=== PATIENT | female | born 1945 | race Caucasian/White ===

== ENCOUNTER 2019-05-22 12:55 | Inpatient (IN) | payer MEDICARE, MEDICAID, SELFPAY ==
[2019-05-22] VITALS (9 sets, daily range): BP systolic 125–156; BP diastolic 50–66; PULSE 96–111; RESP 18–24; TEMP 36.9–37.3; O2SAT 93–96; BMI 28.0
--- NOTE | ~2019-05-22 | XR_ITS ---
EXAMINATION: XR chest 2V DATE: 05/24/2019 09:00 INDICATION: Cough. TECHNIQUE: Frontal and lateral views of the chest were obtained. COMPARISON: Chest 2 views 05/22/2019, chest CT 09/20/2015 FINDINGS: There is mild scarring at the lung apices. The lungs are hyperexpanded with chronic interst itial opacities, consistent with emphysema. Again seen is mild atelectasis in right upper lobe. No pl eural effusion or pneumothorax. The heart size is normal. IMPRESSION: 1. Emphysema. Reviewed, dictated and finalized at location A. YTICAL STRATEGIST IMPRESSION: 1. Emphysema.
--- NOTE | ~2019-05-22 | XR_ITS ---
EXAMINATION: XR chest 2V EXAM DATE: 05/22/2019 13:27 INDICATION: Cough, wheezing, shortness of breath. TECHNIQUE: Frontal and lateral projections of the chest obtained and reviewed. Comparison is made to prior examination from 02/01/2019. FINDINGS: Moderate hyperinflation. There is aortic arterial sclerosis. No confluent consolidation, p neumothorax or pleural effusion suspected. Cardiomediastinal silhouette is normal. There are mild bon y degenerative changes. IMPRESSION: 1. Hyperinflation. Reviewed, dictated and finalized at location A. ERNMAKER HAND IMPRESSION: 1. Hyperinflation.
[2019-05-22 13:27] LABS: Basophils Percent Auto 0.3 % (0.2-1.2); Eosinophils Absolute Auto 0.1 K/mm3 (0-0.3); Eosinophils Percent Auto 0.9 % (0-4.4); Hematocrit 41.8 % (37.0-47.0); Hemoglobin 13.2 g/dL (12.0-15.0); Immature Granulocyte Absolute 0.03 K/mm3 (0.00-0.031); Immature Granulocyte Percent A 0.3 % (0-0.5); Lymphocytes Absolute Auto 3.09 K/mm3 (0.9-3.2); Mean Corpuscular HGB Conc 31.6 g/dl (32-36); Mean Corpuscular Hemoglobin 30.2 pg (26-34); Mean Corpuscular Volume 95.7 fl (80-100); Mean Platelet Volume 9.8 fl (7.4-10.4); Monocytes Absolute Auto 0.9 K/mm3 (0.1-0.6); Monocytes Percent Auto 9.7 % (2.6-8.5); Neutrophils Absolute Auto 4.8 K/mm3 (1.3-6.7); Neutrophils Percent Auto 53.8 % (45.5-73.1); Platelet Count Result 260 k/mm3 (150-375); Red Blood Count 4.37 M/mm3 (4.2-5.4); Red Cell Distribution Width 13.7 % (11.5-14.5); White Blood Count 8.8 K/mm3 (4.5-10.0)
[2019-05-22 13:38] LABS: Blood Urea Nitrogen 21 mg/dL (7-17); Calcium 9.2 mg/dL (8.4-10.2); Carbon Dioxide 27 mmol/L (22-30); Chloride 96 mmol/L (98-107); Estimated CRCL calculation 33 ml/min; Estimated Glomerular Filt Rate 40; Glucose 96 mg/dL (65-105); Potassium 4.1 mmol/L (3.4-5.0); Sodium 133 mmol/L (137-145)
--- NOTE | 2019-05-22 15:02 | ED.SOB ---
HPI - SOB/Dyspnea General Chief Complaint: Shortness of Breath/Dyspnea Stated Complaint: productive cough, possible pneumonia Time Seen by Provider: 05/22/19 14:56 Source: patient Mode of arrival: ambulatory Limitations: no limitations History of Present Illness HPI Narrative: Pt is a 73 y/o female, with a H/o COPD, who presents to the ED with c/o worsening SOB with exertion that started Wednesday (3 days ago). Pt reports associated productive cough with yellow phlegm, nausea, and a fever of 100F. She is normally on 2L home O2. Pt states that she quit smoking 20 years ago. She denies vomiting. MD elicited complaint: shortness of breath Pertinent past history: COPD Onset (ago): day(s) (3) Timing: progressively worsening Known history of: COPD Associated symptoms: fever, cough and other (nausea) Related Data Home oxygen amount: 2 liters Home Medications Medication Instructions Recorded Confirmed aspirin 81 mg tablet,delayed 81 mg PO DAILY 02/10/19 release cholecalciferol (vitamin D3) 10 400 unit PO DAILY 02/10/19 mcg (400 unit) capsule fluticasone propionate 50 2 spray NASAL DAILY 02/10/19 mcg/actuation nasal spray,suspension omega 1-dlx-wif-fish oil 1,000 mg 1 cap PO DAILY 02/10/19 (120 mg-180 mg) capsule tiotropium bromide 18 mcg capsule 1 cap INHALATION DAILY 02/10/19 with inhalation device albuterol sulfate 90 mcg/actuation 1 puff INHALATION Q4H PRN 05/04/19 aerosol inhaler Allergies Allergy/AdvReac Type Severity Reaction Status Date / Time TULIO Inhibitors Allergy Unknown Rash Verified 05/04/19 10:18 azithromycin Allergy Unknown Rash Verified 05/04/19 10:18 budesonide Allergy Unknown Rash Verified 05/04/19 10:18 ceftriaxone Allergy Unknown Rash Verified 05/04/19 10:18 codeine Allergy Unknown Rash Verified 05/04/19 10:18 formoterol Allergy Unknown Rash Verified 05/04/19 10:18 levofloxacin Allergy Unknown Rash Verified 05/04/19 10:18 lisinopril Allergy Unknown Rash Verified 05/04/19 10:18 Review of Systems Review of Systems: All systems reviewed & are unremarkable except as noted in HPI and below Constitutional: Constitutional: Reports fever(s) (100F) Respiratory: Respiratory: Reports cough and Reports dyspnea Gastrointestinal: Gastrointestinal: Reports nausea and Denies vomiting [facility] Past Medical History Medical History (Updated 05/22/19 @ 16:00 by Pablo Webster DO) ARF (acute renal failure) Emphysema of lung HTN (hypertension) Myocardial infarction Pneumonia Seasonal allergies Surgical History Surgical History (Updated 05/22/19 @ 15:24 by Sandhya Moeller) H/O heart artery stent H/O: hysterectomy Hx of appendectomy Family History Family History (Updated 09/29/17 @ 09:34 by DOCTOR UNKNOWN) Grandparent Family history of tuberculosis Mother Cerebrovascular accident, Onset Age: 73 Father Family history of chronic obstructive pulmonary disease Family history of heart disease in male family member before age 55 Acute myocardial infarction Sibling Family history of chronic obstructive pulmonary disease Family history of lung cancer Family history of malignant neoplasm Family history of lung disease Social History Social History Smoking status: Former smoker Second hand tobacco smoke exposure: No Smoking end date: 04/19/97 Alcohol intake: never Gender identity (if verbalized by the patient): Female Exam Narrative: Exam Narrative: APPEARANCE: No acute distress, nontoxic, resting in bed EYES: EOMI HEENT: Normocephalic, atraumatic, OMM RESPIRATORY: Mild respiratory distress, wheezing throughout the bilateral lung [place]una with decreased breath sounds in the bases, no rhonchi ABDOMINAL: Soft, nontender, nondistended, no rebound or guarding MUSCULOSKELETAl: Moves all extremities. No clubbing, cyanosis or edema. NEURO: Awake and alert. Following commands, speech normal, no focal deficits
[2019-05-22] MEDS: ALBUTEROL SULFATE NEB 2.5 MG/0.5 ML INH 5 MG INHALATION ×3 (15:24→21:48)
[2019-05-22] MEDS: IPRATROPIUM BR 0.02% INH SOLN 0.5 MG/2.5 ML VIAL INHALATION ×3 (15:24→21:48)
[2019-05-22] MEDS: methylPREDNISolone SOD SUCC 125 MG VIAL IV PUSH (16:13)
--- NOTE | 2019-05-22 17:40 | ADMGEN ---
This patient, Irma Rocha, was admitted to [facility] Surg Room 326-01. Patient/family oriented to hospital policies and general routines including ID bracelet, bed and alarms, visiting hours, pain management, procedures, bathroom and other care routines, personal items, smoking policy, room service/diet, and visiting hours. Valuables list has been completed. Information on how to activate the Rapid Response Team has been discussed. Patient/Family are encouraged to report perceived risks to care and to ask questions if they do not understand what they are told or what they should do.
[2019-05-22 18:56] LABS: Glucose Point of Care 165 (65-105)
[2019-05-22] MEDS: ACETAMINOPHEN 325 MG TABLET 650 MG PO (23:51)
[2019-05-22] MEDS: methylPREDNISolone SOD SUCC 125 MG VIAL 60 MG IV PUSH (23:52)
[2019-05-23] VITALS (11 sets, daily range): BP systolic 121–132; BP diastolic 50–62; PULSE 92–113; RESP 18–20; TEMP 36.4–37.1; O2SAT 94–97
[2019-05-23] MEDS: IPRATROPIUM BR 0.02% INH SOLN 0.5 MG/2.5 ML VIAL INHALATION ×4 (02:55→21:06)
[2019-05-23] MEDS: ALBUTEROL SULFATE NEB 2.5 MG/0.5 ML INH 5 MG INHALATION ×2 (02:55→09:04)
[2019-05-23] MEDS: methylPREDNISolone SOD SUCC 125 MG VIAL 60 MG IV PUSH ×2 (05:21→20:13)
[2019-05-23 06:22] LABS: Basophils Percent Auto 0.1 % (0.2-1.2); Hematocrit 39.8 % (37.0-47.0); Hemoglobin 12.4 g/dL (12.0-15.0); Immature Granulocyte Absolute 0.04 K/mm3 (0.00-0.031); Immature Granulocyte Percent A 0.5 % (0-0.5); Lymphocytes Absolute Auto 0.97 K/mm3 (0.9-3.2); Lymphocytes Percent Auto 13.3 % (18.3-44.2); Mean Corpuscular HGB Conc 31.2 g/dl (32-36); Mean Corpuscular Hemoglobin 30.3 pg (26-34); Mean Corpuscular Volume 97.3 fl (80-100); Mean Platelet Volume 10.3 fl (7.4-10.4); Monocytes Absolute Auto 0.1 K/mm3 (0.1-0.6); Neutrophils Absolute Auto 6.2 K/mm3 (1.3-6.7); Neutrophils Percent Auto 85.1 % (45.5-73.1); Platelet Count Result 208 k/mm3 (150-375); Red Blood Count 4.09 M/mm3 (4.2-5.4); Red Cell Distribution Width 13.5 % (11.5-14.5); White Blood Count 7.3 K/mm3 (4.5-10.0)
[2019-05-23 06:40] LABS: Blood Urea Nitrogen 27 mg/dL (7-17); Calcium 8.8 mg/dL (8.4-10.2); Carbon Dioxide 18 mmol/L (22-30); Chloride 98 mmol/L (98-107); Estimated CRCL calculation 39 ml/min; Estimated Glomerular Filt Rate 48; Glucose 192 mg/dL (65-105); Potassium 3.6 mmol/L (3.4-5.0); Sodium 132 mmol/L (137-145)
[2019-05-23 07:38] LABS: Glucose Point of Care 184 (65-105)
[2019-05-23] MEDS: ACETAMINOPHEN 325 MG TABLET 650 MG PO (10:09)
[2019-05-23] MEDS: ASPIRIN 81 MG ENTERIC TABLET PO (11:26)
[2019-05-23] MEDS: OLMESARTAN MEDOXOMIL 20 MG TABLET 40 MG PO (11:26)
[2019-05-23] MEDS: hydroCHLOROthiazide 12.5 MG CAPSULE PO (11:26)
[2019-05-23] MEDS: AMLODIPINE BESYLATE 5 MG TABLET PO (11:27)
[2019-05-23] MEDS: ATORVASTATIN 40 MG TABLET PO (11:27)
--- NOTE | 2019-05-23 11:43 | PM.IMHP ---
H&P: HPI History of Present Illness Chief complaint: Influenza B/AE COPD Narrative: Irma Rocha is a 73 year old female who presented emergency room due to shortness of breath, cough, and generalized malaise. Patient stated that this all started Wednesday afternoon. She said she started feeling chills, achy all over, and coughing more than normal. She started coughing up yellow phlegm and felt short of breath. She usually has dyspnea on exertion that is typical for her and she takes 2 L of oxygen at home for but she said it was much worse. Usually she does not require oxygen when she is just sitting there. She said she started having fevers over 100? F and just felt off so she came into the emergency room. She feels like she has dry mucous membranes and she currently has a headache. 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 She has known COPD. She says the breathing treatments have been helping here at the hospital and she feels a little better. She denies diarrhea, constipation, chest pain, dizziness, lightheadedness, nausea, vomiting, leg swelling, or any rashes. She states that she has been told she is prediabetic but does not check her blood glucose and does not know her A1c. She says she has had a low appetite lately but is starting to get it back. She got the flu shot this year and does not go out very much to avoid sickness. Review of Systems Review of Systems: All systems reviewed & are unremarkable except as noted in HPI and below PMFSH Past Medical History Medical History (Updated 05/23/19 @ 11:54 by Chelsey Kendall PA-C) ARF (acute renal failure) Carotid occlusion, bilateral She sees her vascular surgeon every 6 months for this COPD with acute exacerbation Emphysema of lung HTN (hypertension) Myocardial infarction Pneumonia Seasonal allergies Surgical History Surgical History H/O heart artery stent H/O: hysterectomy Hx of appendectomy Family History Family History Grandparent Family history of tuberculosis Mother Cerebrovascular accident, Onset Age: 73 Father Family history of chronic obstructive pulmonary disease Family history of heart disease in male family member before age 55 Acute myocardial infarction Sibling Family history of chronic obstructive pulmonary disease Family history of lung cancer Family history of malignant neoplasm Family history of lung disease Social History Social History (Updated 05/23/19 @ 11:52 by Chelsey Kendall PA-C) Social History: Lives with her daughter. Would like to be full code Smoking packs per day: 1.5 Smoking cigarettes per day: 30.0 Years smoked: 20 Smoking pack-years: 30.00 Smoking status: Former smoker Second hand tobacco smoke exposure: No Smoking end date: 04/19/97 Alcohol intake: former Drinks per week: 1 Substance use: never Substance use type: does not use Gender identity (if verbalized by the patient): Female Spiritual care concerns: No Agree to blood products: Yes Meds Home Medications and Allergies Home Medications Medication Instructions Recorded Confirmed Type aspirin 81 mg tablet,delayed 81 mg PO DAILY 02/10/19 05/22/19 History release cholecalciferol (vitamin D3) 10 400 unit PO DAILY 02/10/19 05/22/19 History mcg (400 unit) capsule fluticasone propionate 50 2 spray NASAL DAILY PRN 02/10/19 05/22/19 History mcg/actuation nasal spray,suspension omega 9-hbh-bms-fish oil 1,000 mg 1 cap PO DAILY 02/10/19 05/22/19 History (120 mg-180 mg) capsule tiotropium bromide 18 mcg capsule 1 cap INHALATION DAILY 02/10/19 05/22/19 History with inhalation device albuterol sulfate 2.5 mg INHALATION Q6H #180 ml 02/27/19 05/22/19 Rx atorvastatin 40 mg tablet 40 mg PO DAILY #90 tablet 02/27/19 05/22/19 Rx fluticasone 500
[2019-05-23] MEDS: INSULIN ASPART (*BKC) 100 UNITS/ML SUB-Q (12:00)
[2019-05-23 12:05] LABS: Glucose Point of Care 207 (65-105)
[2019-05-23] MEDS: LEVALBUTEROL NEB 1.25 MG/3 ML 0.63 MG INHALATION ×2 (14:54→21:06)
[2019-05-23 17:23] LABS: Glucose Point of Care 165 (65-105)
[2019-05-23 23:09] LABS: Glucose Point of Care 181 (65-105)
[2019-05-24] VITALS (11 sets, daily range): BP systolic 121–142; BP diastolic 57–69; PULSE 85–108; RESP 16–20; TEMP 36.2–37.1; O2SAT 89–98
[2019-05-24] MEDS: LEVALBUTEROL NEB 1.25 MG/3 ML 0.63 MG INHALATION ×4 (01:27→20:06)
[2019-05-24] MEDS: IPRATROPIUM BR 0.02% INH SOLN 0.5 MG/2.5 ML VIAL INHALATION ×4 (01:27→20:06)
[2019-05-24 06:13] LABS: Hematocrit 40.9 % (37.0-47.0); Hemoglobin 13.3 g/dL (12.0-15.0); Mean Corpuscular HGB Conc 32.5 g/dl (32-36); Mean Corpuscular Hemoglobin 30.3 pg (26-34); Mean Corpuscular Volume 93.2 fl (80-100); Platelet Count Result 263 k/mm3 (150-375); Red Blood Count 4.39 M/mm3 (4.2-5.4); Red Cell Distribution Width 13.7 % (11.5-14.5); White Blood Count 32.4 K/mm3 (4.5-10.0)
[2019-05-24 06:41] LABS: Blood Urea Nitrogen 33 mg/dL (7-17); Calcium 9.2 mg/dL (8.4-10.2); Carbon Dioxide 25 mmol/L (22-30); Chloride 97 mmol/L (98-107); Estimated CRCL calculation 39 ml/min; Estimated Glomerular Filt Rate 48; Glucose 165 mg/dL (65-105); Potassium 3.7 mmol/L (3.4-5.0); Sodium 134 mmol/L (137-145)
[2019-05-24 06:59] LABS: Glucose Point of Care 156 (65-105)
[2019-05-24 07:21] LABS: Thyroid Stimulating Hormone Reflex 0.202 uIU/mL (0.465-4.68)
[2019-05-24] MEDS: predniSONE 20 MG TABLET 40 MG PO (09:40)
[2019-05-24] MEDS: AMLODIPINE BESYLATE 5 MG TABLET PO (10:10)
[2019-05-24] MEDS: ATORVASTATIN 40 MG TABLET PO (10:11)
[2019-05-24] MEDS: ASPIRIN 81 MG ENTERIC TABLET PO (10:11)
[2019-05-24] MEDS: OLMESARTAN MEDOXOMIL 20 MG TABLET 40 MG PO (10:12)
[2019-05-24] MEDS: hydroCHLOROthiazide 12.5 MG CAPSULE PO (10:12)
--- NOTE | 2019-05-24 10:41 | PM.IMPN ---
Progress Note: A&P Assessment and Plan (1) Influenza B: Code(s): J10.1 - Influenza due to other identified influenza virus with other respiratory manifestations Status: Acute Assessment and Plan: -----patient stated that the symptoms started on Wednesday and she is outside the window for Tamiflu. Will continue with supportive treatment as well as isolation. (2) COPD with acute exacerbation: Code(s): J44.1 - Chronic obstructive pulmonary disease with (acute) exacerbation Status: Acute Assessment and Plan: -----the patient was given high-dose IV steroids which were tapered yesterday and the patient seems to have worsened overnight. At this time I will restart IV steroids 60 mg Q 12. Repeat chest x-ray does not show any pneumonia despite worsening lung sounds. Will keep her hospitalized another night to monitor her symptoms. (3) Essential (primary) hypertension: Code(s): I10 - Essential (primary) hypertension Status: Acute Assessment and Plan: -----last blood pressure 142/69. Continue home medications (4) Sinus tachycardia: Code(s): R00.0 - Tachycardia, unspecified Status: Acute Assessment and Plan: -----likely due to the flu. Patient has no feelings of chest pain or heart palpitations. It appears regular on exam. She does have a past history of tachycardia as well. Continue to monitor (5) Leukocytosis: Code(s): D72.829 - Elevated white blood cell count, unspecified Status: Acute Assessment and Plan: -----likely due to steroids since the patient was within normal limits yesterday. Repeat chest x-ray does not show any developing pneumonia. Will redraw tomorrow and likely redraw again outpatient after she is finished with the steroids. Time Spent With Patient Time with patient: 25 - 35 minutes Subjective Date/time seen: 05/24/19 10:41 Interval history: Pt is a 73-year-old here for influenza and COPD exacerbation. Patient states that she felt better yesterday and feels worse today. She says she is having worsening dyspnea on exertion and cough. She still has aches and pains. Pt denies nausea, vomiting, constipation, diarrhea, chest pain,or abdominal pain. Review of Systems Review of Systems: All systems reviewed & are unremarkable except as noted in HPI and below Exam Narrative: Exam Narrative: General:Well developed well nourished patient resting comfortably in bed in no acute distress with O2 applied HEENT: Normocephalic, atraumatic, PERRL, Sclerae anicteric, oral mucosa moist. Neck: Supple Resp: Significant cough and rhonchi bilaterally Heart: Sinus tachycardia Abd: Soft, nontender. No pain to palpation. Positive bowel sounds Skin: Warm and dry Extremities: No swelling, erythema or pain to palpation Neuro: Alert and Oriented x4 . CN 2-12 intact. No focal neurological deficits. Objective Data Vital Signs Vital Signs: Vital Signs - 24 hr 05/23/19 14:00 05/23/19 14:54 05/23/19 15:06 Temperature 97.5 F L Pulse Rate 105 H 105 H 112 H Respiratory Rate 18 20 20 Blood Pressure 123/50 L Pulse Oximetry 95 05/23/19 21:06 05/23/19 21:13 05/23/19 22:00 Temperature 98.2 F Pulse Rate 102 H 107 H 102 H Respiratory Rate 20 20 20 Blood Pressure 121/52 L Pulse Oximetry 94 94 05/24/19 01:27 05/24/19 01:36 05/24/19 06:00 Temperature 97.8 F Pulse Rate 101 H 104 H 105 H Respiratory Rate 18 18 20 Blood Pressure 142/69 H Pulse Oximetry 93 89 L Intake/Output Intake/Output: Intake & Output 05/21/19 05/22/19 05/23/19 05/24/19 23:59 23:59 23:59 23:59 Intake Total 2020 670 Output Total 1825 2200 Balance 195 -1530 Meds/Results Medications: Active Medications Generic Name Dose Route Start Last Admin Trade Name Freq PRN Reason Stop Dose Admin Acetaminophen 650 mg 05/22/19 23:04 05/23/19 10:09 Tylenol Tablet PO 650 mg Q4H PRN Administration
[2019-05-24 12:06] LABS: Glucose Point of Care 108 (65-105)
[2019-05-24] MEDS: methylPREDNISolone SOD SUCC 125 MG VIAL 60 MG IV PUSH ×2 (12:18→20:25)
[2019-05-24 16:58] LABS: Glucose Point of Care 157 (65-105)
[2019-05-24 21:33] LABS: Glucose Point of Care 224 (65-105)
[2019-05-25] VITALS (10 sets, daily range): BP systolic 132–145; BP diastolic 64–79; PULSE 65–97; RESP 16–20; TEMP 36.7–36.9; O2SAT 95–97
[2019-05-25] MEDS: LEVALBUTEROL NEB 1.25 MG/3 ML 0.63 MG INHALATION ×3 (01:57→14:04)
[2019-05-25] MEDS: IPRATROPIUM BR 0.02% INH SOLN 0.5 MG/2.5 ML VIAL INHALATION ×3 (01:57→14:04)
[2019-05-25 06:48] LABS: Basophils Percent Auto 0.1 % (0.2-1.2); Hematocrit 38.8 % (37.0-47.0); Hemoglobin 12.6 g/dL (12.0-15.0); Immature Granulocyte Absolute 0.18 K/mm3 (0.00-0.031); Immature Granulocyte Percent A 0.8 % (0-0.5); Lymphocytes Absolute Auto 1.51 K/mm3 (0.9-3.2); Lymphocytes Percent Auto 6.6 % (18.3-44.2); Mean Corpuscular HGB Conc 32.5 g/dl (32-36); Mean Corpuscular Hemoglobin 30.2 pg (26-34); Mean Platelet Volume 9.8 fl (7.4-10.4); Monocytes Absolute Auto 0.5 K/mm3 (0.1-0.6); Monocytes Percent Auto 2.2 % (2.6-8.5); Neutrophils Absolute Auto 20.6 K/mm3 (1.3-6.7); Neutrophils Percent Auto 90.3 % (45.5-73.1); Platelet Count Result 245 k/mm3 (150-375); Red Blood Count 4.17 M/mm3 (4.2-5.4); Red Cell Distribution Width 13.6 % (11.5-14.5); White Blood Count 22.8 K/mm3 (4.5-10.0)
[2019-05-25 06:58] LABS: Blood Urea Nitrogen 32 mg/dL (7-17); Carbon Dioxide 26 mmol/L (22-30); Chloride 96 mmol/L (98-107); Estimated CRCL calculation 47 ml/min; Estimated Glomerular Filt Rate > 60; Glucose 199 mg/dL (65-105); Potassium 3.5 mmol/L (3.4-5.0); Sodium 134 mmol/L (137-145)
[2019-05-25 07:01] LABS: Hemoglobin A1C 6.3 % (<5.7)
[2019-05-25 07:42] LABS: Glucose Point of Care 131 (65-105)
[2019-05-25] MEDS: AMLODIPINE BESYLATE 5 MG TABLET PO (08:38)
[2019-05-25] MEDS: ASPIRIN 81 MG ENTERIC TABLET PO (08:38)
[2019-05-25] MEDS: OLMESARTAN MEDOXOMIL 20 MG TABLET 40 MG PO (08:39)
[2019-05-25] MEDS: methylPREDNISolone SOD SUCC 125 MG VIAL 60 MG IV PUSH ×3 (08:39→21:23)
[2019-05-25] MEDS: hydroCHLOROthiazide 12.5 MG CAPSULE PO (08:39)
[2019-05-25] MEDS: ATORVASTATIN 40 MG TABLET PO (08:39)
[2019-05-25 12:56] LABS: Glucose Point of Care 132 (65-105)
--- NOTE | 2019-05-25 13:55 | PM.IMPN ---
Progress Note: A&P Assessment and Plan (1) Influenza B: Code(s): J10.1 - Influenza due to other identified influenza virus with other respiratory manifestations Status: Acute Assessment and Plan: -----patient stated that the symptoms started on Wednesday and she is outside the window for Tamiflu. Will continue with supportive treatment as well as isolation. (2) COPD with acute exacerbation: Code(s): J44.1 - Chronic obstructive pulmonary disease with (acute) exacerbation Status: Acute Assessment and Plan: -----the patient continues to have significant wheezing and rhonchi with normal chest x-ray. COPD exacerbation secondary to pneumonia. Will increase her IV steroids today since she seems to be having significant bronchospasms. She is on her home setting of oxygen at this time. Chest x-ray x2 negative for pneumonia but will monitor for changes. I spoke to her about COPD and the length of exacerbation as she seems a little discouraged by how long it is taking her to heal. (3) Essential (primary) hypertension: Code(s): I10 - Essential (primary) hypertension Status: Acute Assessment and Plan: -----last blood pressure 134/78. Continue home medications (4) Sinus tachycardia: Code(s): R00.0 - Tachycardia, unspecified Status: Acute Assessment and Plan: -----resolved. Likely due to the flu. Patient has no feelings of chest pain or heart palpitations. It appears regular on exam. She does have a past history of tachycardia as well. Continue to monitor (5) Leukocytosis: Code(s): D72.829 - Elevated white blood cell count, unspecified Status: Acute Assessment and Plan: -----likely due to steroids since the patient was within normal limits yesterday. Repeat chest x-ray does not show any developing pneumonia. Will redraw again outpatient after she is finished with the steroids. Additional Plan . Subjective Date/time seen: 05/25/19 13:55 Interval history: Pt is a 73-year-old here for influenza and COPD exacerbation. Patient was seen today and states she is still coughing and feeling slightly short of breath. She has not been active and does not know if she has significant shortness of breath on exertion. She plans to get a baths and change her clothes later today so she will evaluate then. She is very concerned about her lung status and was told in the past that every time she gets sick her lungs will get a little worse. She is very upset that she caught the flu. Pt denies nausea, vomiting, diarrhea, chest pain,or abdominal pain. She has not had a bowel movement since being here. Exam Narrative: Exam Narrative: General:Well developed well nourished patient resting comfortably in bed in no acute distress with O2 applied HEENT: Normocephalic, atraumatic, PERRL, Sclerae anicteric, oral mucosa moist. Neck: Supple Resp: Significant cough and rhonchi bilaterally Heart: Regular rate and rhythm Abd: Soft, nontender. No pain to palpation. Positive bowel sounds Skin: Warm and dry Extremities: No swelling, erythema or pain to palpation Neuro: Alert and Oriented x4 . CN 2-12 intact. No focal neurological deficits. Objective Data Vital Signs Vital Signs: Vital Signs - 24 hr 05/24/19 14:00 05/24/19 20:07 05/24/19 20:18 Temperature 97.1 F L Pulse Rate 107 H 85 89 Respiratory Rate 16 20 20 Blood Pressure 121/57 L Pulse Oximetry 98 05/24/19 21:49 05/25/19 01:58 05/25/19 02:07 Temperature 98.7 F Pulse Rate 108 H 78 76 Respiratory Rate 20 20 Blood Pressure 135/66 Pulse Oximetry 95 05/25/19 06:00 05/25/19 08:38 Temperature 98.5 F Pulse Rate 97 71 Respiratory Rate 18 18 Blood Pressure 134/78 Pulse Oximetry 95 97 Intake/Output Intake/Output: Intake & Output 05/22/19 05/23/19 05/24/19 05/25/19 23:59 23:59 23:59 23:59 Intake Total 20190 1440 Output Total 1824 4600 2400 [place]
[2019-05-25] MEDS: INSULIN ASPART (*BKC) 100 UNITS/ML SUB-Q (17:43)
[2019-05-25 18:07] LABS: Glucose Point of Care 229 (65-105)
[2019-05-25 21:36] LABS: Glucose Point of Care 146 (65-105)
--- NOTE | 2019-05-26 02:14 | PCRCNOTE ---
Window of time for administration has passed. See next scheduled administration.
[2019-05-26 02:50] VITALS: PULSE 75; RESP 20
[2019-05-26] MEDS: IPRATROPIUM BR 0.02% INH SOLN 0.5 MG/2.5 ML VIAL INHALATION ×2 (02:50→09:34)
[2019-05-26] MEDS: LEVALBUTEROL NEB 1.25 MG/3 ML 0.63 MG INHALATION ×2 (02:50→09:35)
[2019-05-26 03:00] VITALS: PULSE 75; RESP 20
[2019-05-26] MEDS: methylPREDNISolone SOD SUCC 125 MG VIAL 60 MG IV PUSH (05:24)
[2019-05-26 05:55] VITALS: BP 140/63; PULSE 99; RESP 20; TEMP 36.3; O2SAT 94
[2019-05-26 06:30] LABS: Basophils Percent Auto 0.1 % (0.2-1.2); Eosinophils Percent Auto 0.1 % (0-4.4); Hematocrit 39.1 % (37.0-47.0); Hemoglobin 12.7 g/dL (12.0-15.0); Immature Granulocyte Absolute 0.17 K/mm3 (0.00-0.031); Immature Granulocyte Percent A 0.9 % (0-0.5); Lymphocytes Absolute Auto 1.23 K/mm3 (0.9-3.2); Lymphocytes Percent Auto 6.4 % (18.3-44.2); Mean Corpuscular HGB Conc 32.5 g/dl (32-36); Mean Corpuscular Volume 92.4 fl (80-100); Mean Platelet Volume 10.2 fl (7.4-10.4); Monocytes Absolute Auto 0.5 K/mm3 (0.1-0.6); Monocytes Percent Auto 2.5 % (2.6-8.5); Neutrophils Absolute Auto 17.4 K/mm3 (1.3-6.7); Platelet Count Result 224 k/mm3 (150-375); Red Blood Count 4.23 M/mm3 (4.2-5.4); Red Cell Distribution Width 13.6 % (11.5-14.5); White Blood Count 19.3 K/mm3 (4.5-10.0)
[2019-05-26 06:44] LABS: Blood Urea Nitrogen 32 mg/dL (7-17); Calcium 9.1 mg/dL (8.4-10.2); Carbon Dioxide 29 mmol/L (22-30); Chloride 98 mmol/L (98-107); Estimated CRCL calculation 42 ml/min; Estimated Glomerular Filt Rate 54; Glucose 193 mg/dL (65-105); Potassium 3.4 mmol/L (3.4-5.0); Sodium 136 mmol/L (137-145)
[2019-05-26 07:25] LABS: Glucose Point of Care 184 (65-105)
[2019-05-26] MEDS: ATORVASTATIN 40 MG TABLET PO (08:43)
[2019-05-26] MEDS: hydroCHLOROthiazide 12.5 MG CAPSULE PO (08:43)
[2019-05-26] MEDS: AMLODIPINE BESYLATE 5 MG TABLET PO (08:43)
[2019-05-26] MEDS: OLMESARTAN MEDOXOMIL 20 MG TABLET 40 MG PO (08:44)
[2019-05-26] MEDS: ASPIRIN 81 MG ENTERIC TABLET PO (08:44)
[2019-05-26 09:35] VITALS: PULSE 103; RESP 20
[2019-05-26 09:46] VITALS: PULSE 99; RESP 20
--- NOTE | 2019-05-26 10:22 | PM.DS ---
DS: Diagnosis Admitting Diagnosis Admitting Diagnosis: Chronic obstructive pulmonary disease with (acute) exacerbation Discharge Diagnosis (1) Influenza B: Code(s): J10.1 - Influenza due to other identified influenza virus with other respiratory manifestations Status: Acute Assessment and Plan: -----patient stated that the symptoms started on Wednesday and she is outside the window for Tamiflu. Supportive tx (2) COPD with acute exacerbation: Code(s): J44.1 - Chronic obstructive pulmonary disease with (acute) exacerbation Status: Acute Assessment and Plan: -----improved with steroids. Discharged on steroid taper (3) Essential (primary) hypertension: Code(s): I10 - Essential (primary) hypertension Status: Acute Assessment and Plan: -----last blood pressure 140/63. Continue home medications (4) Sinus tachycardia: Code(s): R00.0 - Tachycardia, unspecified Status: Acute Assessment and Plan: -----resolved. Likely due to the flu. Patient had no feelings of chest pain or heart palpitations. It appeared regular on exam. (5) Leukocytosis: Code(s): D72.829 - Elevated white blood cell count, unspecified Status: Acute Assessment and Plan: -----likely due to steroids since the patient was within normal limits yesterday. Repeat chest x-ray does not show any developing pneumonia. Will redraw again outpatient after she is finished with the steroids. DS: Summary Hospital Course Reason for hospitalization: Influenza positive COPD exacerbation Hospital Course: Patient is a 73-year-old female who presented emergency room for worsening shortness of breath and fevers found to be positive for influenza B. White blood cell count 8.8, hemoglobin 13.2, hematocrit 41.8, platelets 260. Original sodium 133, potassium 4.1, chloride 96, carbon dioxide 27, BUN 21, creatinine 1.3, glucose 96. Chest x-ray showed hyperinflation. Patient was given IV steroids and admitted to the hospitalist service. The patient took a few days to improve with IV steroids as she has significant COPD and is on oxygen at home. Her influenza was treated symptomatically since she was outside the window for Tamiflu. Her white blood cell count shot up to a max of 32.4 which seemed a little higher than expected for steroids so another chest x-ray was done and did not show any pneumonia. Her white blood cell count trended down with the tapering of the steroids. Overall, the patient felt better at the day of discharge. She was educated about the worrisome signs and symptoms come back to emergency room for was discharged stable condition. Patient is to have a repeat CBC outpatient and follow-up with her primary care in 1-2 weeks. Status at Discharge Functional status at discharge: independent ambulation Overall status at discharge: patient is progressing back to baseline Time Spent with Patient Time attestation: Total time spent providing and/or coordinating discharge services:34 min Time spent: Greater than 30 minutes Exam Narrative: Exam Narrative: General:Well developed well nourished patient resting comfortably in bed in no acute distress with O2 applied HEENT: Normocephalic, atraumatic, PERRL, Sclerae anicteric, oral mucosa moist. Neck: Supple Resp: ough and rhonchi bilaterally---improved. Heart: Regular rate and rhythm Abd: Soft, nontender. No pain to palpation. Positive bowel sounds Skin: Warm and dry Extremities: No swelling, erythema or pain to palpation Neuro: Alert and Oriented x4 . CN 2-12 intact. No focal neurological deficits. DS: Data Data Completed and Pending Labs on day of discharge: Labs from last 24 hours 05/26/19 05/26/19 05/26/19 07:21 06:15 06:15 WBC 19.3 H RBC 4.23 Hgb 12.7 Hct 39.1 MCV 92.4 MCH 30.0 MCHC 32.5 RDW 13.6 Plt Count 224 MPV 10.2 Immature Gran % (Auto) 0.9 H Neut % (Auto) 9
--- NOTE | 2019-05-29 11:41 | PCRCNOTE ---
COPD Post Discharge Phone Call Questions: Week 1 1. How are you feeling today? Kind of rough in the morning. 2. Have you had any follow-up appointments since your discharge? No a. Were you able to attend all appointments? Yes/No b. Do you have any upcoming appointments? Yes - Wednesday c. If referred to pulmonary rehab, is it going well? Yes/No 3. Have you had success with smoking cessation? Yes/No a. If you signed a smoking cessation contract, have you been contacted by anyone to assist you? Yes/No 4. Did you go home with any new respiratory medications? No a. What medications were they? b. Were the possible side effects explained? Yes/No 5. Did you go home with new respiratory equipment (oxygen, CPAP, NIV, Bipap, vent, nebs? No a. Were you shown how to use them? Yes/No b. Are you comfortable using them? Yes/No c. If not, what issues are you having with the equipment? 6. Have you experienced an increase in any of the following since your discharge... a. Cough? No b. Mucus Production? Yes c. Shortness of Breath? same d. Tiredness and/or Lethargy? No 7. Have you had to go to an Urgent Care Center/Emergency Room since discharge? No 8. Did you discuss with patient how to handle medical emergencies? Yes Additional Comments:
--- NOTE | 2019-06-13 12:38 | PCRCNOTE ---
COPD Post Discharge Phone Call Questions: Week 2 1. How are you feeling today? About the same, but better 2. Have you had any follow-up appointments since your discharge? Yes a. Were you able to attend all appointments? Yes b. Do you have any upcoming appointments? No c. If referred to pulmonary rehab, is it going well? Yes/No 3. Have you had success with smoking cessation? Yes/No a. If you signed a smoking cessation contract, have you been contacted by anyone to assist you? Yes/No 4. Did you go home with any new respiratory medications? No a. What medications were they? b. Were the possible side effects explained? Yes/No 5. Did you go home with new respiratory equipment (oxygen, CPAP, NIV, Bipap, vent, nebs? No a. Were you shown how to use them? Yes/No b. Are you comfortable using them? Yes/No c. If not, what issues are you having with the equipment? 6. Have you experienced an increase in any of the following since your discharge... a. Cough? No b. Mucus Production? No c. Shortness of Breath? No d. Tiredness and/or Lethargy? No 7. Have you had to go to an Urgent Care Center/Emergency Room since discharge? No 8. Did you discuss with patient how to handle medical emergencies? Yes Additional Comments:
--- NOTE | 2019-06-23 11:32 | PCRCNOTE ---
COPD Post Discharge Phone Call Questions: Week 3 Left Message 1. How are you feeling today? 2. Have you had any follow-up appointments since your discharge? Yes/No a. Were you able to attend all appointments? Yes/No b. Do you have any upcoming appointments? Yes/No c. If referred to pulmonary rehab, is it going well? Yes/No 3. Have you had success with smoking cessation? Yes/No a. If you signed a smoking cessation contract, have you been contacted by anyone to assist you? Yes/No 4. Did you go home with any new respiratory medications? Yes/No a. What medications were they? b. Were the possible side effects explained? Yes/No 5. Did you go home with new respiratory equipment (oxygen, CPAP, NIV, Bipap, vent, nebs? Yes/No a. Were you shown how to use them? Yes/No b. Are you comfortable using them? Yes/No c. If not, what issues are you having with the equipment? 6. Have you experienced an increase in any of the following since your discharge... a. Cough? Yes/No b. Mucus Production? Yes/No c. Shortness of Breath? Yes/No d. Tiredness and/or Lethargy? Yes/No 7. Have you had to go to an Urgent Care Center/Emergency Room since discharge? Yes/No 8. Did you discuss with patient how to handle medical emergencies? Yes/No Additional Comments:
== END 2019-05-26 11:10 | disposition home or self-care (01) | DRG 192 ==
LOC: ANHED 17:21 → ANH3MEDSUR 17:27
PROVIDERS: Physician Assistant; Admitting Provider Internal Medicine; Emergency Provider Emergency Medicine; PCP Internal Medicine; Visit Provider Family Medicine
DX: J43.9 Emphysema, unspecified (principal); J10.1 Influenza due to other identified influenza virus with other respiratory manifestations; R09.02 Hypoxemia; I10 Essential (primary) hypertension; R00.0 Tachycardia, unspecified; D72.829 Elevated white blood cell count, unspecified; T38.0X5A Adverse effect of glucocorticoids and synthetic analogues, initial encounter; J30.1 Allergic rhinitis due to pollen; I25.2 Old myocardial infarction; Z95.5 Presence of coronary angioplasty implant and graft; Z90.710 Acquired absence of both cervix and uterus; Z87.891 Personal history of nicotine dependence; Z79.82 Long term (current) use of aspirin; Z99.81 Dependence on supplemental oxygen
CPT/HCPCS: 36415; 71046; 80048; 83036; 84439; 84443; 84480; 85025; 85027; 87804; 94640; 96374; 96376; 99285; A9270; G0378; J1815; J2930; J7512

== ENCOUNTER 2019-06-09 08:52 | Outpatient (CLI) | payer MEDICARE, MEDICAID, SELFPAY ==
[2019-06-09 13:08] LABS: Basophils Percent Auto 0.3 % (0.2-1.2); Eosinophils Absolute Auto 0.3 K/mm3 (0-0.3); Hematocrit 43.9 % (37.0-47.0); Immature Granulocyte Absolute 0.06 K/mm3 (0.00-0.031); Immature Granulocyte Percent A 0.5 % (0-0.5); Lymphocytes Absolute Auto 3.01 K/mm3 (0.9-3.2); Lymphocytes Percent Auto 22.9 % (18.3-44.2); Mean Corpuscular HGB Conc 31.9 g/dl (32-36); Mean Corpuscular Hemoglobin 30.4 pg (26-34); Mean Corpuscular Volume 95.4 fl (80-100); Mean Platelet Volume 9.9 fl (7.4-10.4); Monocytes Absolute Auto 0.8 K/mm3 (0.1-0.6); Monocytes Percent Auto 6.2 % (2.6-8.5); Neutrophils Percent Auto 68.1 % (45.5-73.1); Platelet Count Result 276 k/mm3 (150-375); White Blood Count 13.2 K/mm3 (4.5-10.0)
== END 2019-06-09 08:53 | disposition home or self-care (01) ==
PROVIDERS: PCP Internal Medicine; Visit Provider Physician Assistant
DX: D72.829 Elevated white blood cell count, unspecified (principal)
CPT/HCPCS: 36415; 85025

== ENCOUNTER 2019-09-06 09:33 | Outpatient (CLI) | payer MEDICARE, MEDICAID, SELFPAY ==
[2019-09-06 10:00] LABS: Basophils Absolute Auto 0.1 K/mm3 (0.0-0.1); Basophils Percent Auto 0.5 % (0.2-1.2); Eosinophils Absolute Auto 0.4 K/mm3 (0-0.3); Eosinophils Percent Auto 3.4 % (0-4.4); Hematocrit 40.1 % (37.0-47.0); Hemoglobin 13.1 g/dL (12.0-15.0); Immature Granulocyte Absolute 0.03 K/mm3 (0.00-0.031); Immature Granulocyte Percent A 0.2 % (0-0.5); Lymphocytes Absolute Auto 4.32 K/mm3 (0.9-3.2); Lymphocytes Percent Auto 35.9 % (18.3-44.2); Mean Corpuscular HGB Conc 32.7 g/dl (32-36); Mean Corpuscular Hemoglobin 30.9 pg (26-34); Mean Corpuscular Volume 94.6 fl (80-100); Mean Platelet Volume 9.4 fl (7.4-10.4); Monocytes Absolute Auto 0.8 K/mm3 (0.1-0.6); Monocytes Percent Auto 6.4 % (2.6-8.5); Neutrophils Absolute Auto 6.5 K/mm3 (1.3-6.7); Neutrophils Percent Auto 53.6 % (45.5-73.1); Platelet Count Result 347 k/mm3 (150-375); Red Blood Count 4.24 M/mm3 (4.2-5.4)
[2019-09-06 10:08] LABS: Alanine Aminotransferase 22 U/L (4-35); Albumin Level 4.5 g/dL (3.5-5.1); Alkaline Phosphatase 77 U/L (38-126); Aspartate Amino Transferase 27 U/L (14-36); Bilirubin,Total 0.7 mg/dL (0.2-1.3); Blood Urea Nitrogen 29 mg/dL (7-17); Calcium 10.2 mg/dL (8.4-10.2); Carbon Dioxide 25 mmol/L (22-30); Chloride 102 mmol/L (98-107); Estimated Glomerular Filt Rate 24; Glucose 112 mg/dL (65-105); Potassium 4.8 mmol/L (3.4-5.0); Sodium 134 mmol/L (137-145)
[2019-09-06 10:17] LABS: Add Urine Microscopic? YES; Appearance Urine Clear (Clear); Bacteria Urine Trace /hpf; Bilirubin Urine Negative (Negative); Blood Urine Negative (Negative); Color Urine Straw (Yellow); Glucose Urine UA Negative (Negative); Ketones Urine Negative (Negative); Leukocyte Esterase Ur Trace LEU/UL (Negative); Mucus Urine Rare /lpf; Nitrate Urine Negative (Negative); Protein Urine Negative (Negative); RBC Urine 0-2 /hpf (0-2); Squamous Epithelial Cell Urine Many /hpf (Few); Urobilinogen Urine Negative mg/dL (<2.0); WBC Urine 0-3 /hpf
[2019-09-06 10:45] LABS: Creatinine Urine 52.7 mg/dL
[2019-09-06 10:50] LABS: MALB Creatinine Ratio < 11.4 mg/g (0-30); Microalbumin Urine Random < 6.0 mg/L (0-16.7)
== END 2019-09-06 09:34 | disposition home or self-care (01) ==
PROVIDERS: PCP Internal Medicine; Visit Provider Internal Medicine
DX: R73.01 Impaired fasting glucose (principal); N39.0 Urinary tract infection, site not specified
CPT/HCPCS: 36415; 80053; 81001; 82043; 83036; 85025

== ENCOUNTER 2019-09-08 09:06 | Outpatient (CLI) | payer MEDICARE, MEDICAID, SELFPAY ==
[2019-09-08 09:47] LABS: Blood Urea Nitrogen 25 mg/dL (7-17); Carbon Dioxide 24 mmol/L (22-30); Chloride 103 mmol/L (98-107); Estimated Glomerular Filt Rate 37; Glucose 108 mg/dL (65-105); Potassium 4.6 mmol/L (3.4-5.0); Sodium 134 mmol/L (137-145)
== END 2019-09-08 09:07 | disposition home or self-care (01) ==
LOC: ANHLAB 09:09
PROVIDERS: PCP Internal Medicine; Visit Provider Internal Medicine
DX: N17.9 Acute kidney failure, unspecified (principal)
CPT/HCPCS: 36415; 80048

== ENCOUNTER 2020-02-23 08:38 | Outpatient (CLI) | payer MEDICARE, MEDICAID, SELFPAY ==
[2020-02-23 09:32] LABS: Basophils Absolute Auto 0.1 K/mm3 (0.0-0.1); Basophils Percent Auto 0.6 % (0.2-1.2); Eosinophils Absolute Auto 0.4 K/mm3 (0-0.3); Eosinophils Percent Auto 4.1 % (0-4.4); Hematocrit 39.6 % (37.0-47.0); Immature Granulocyte Absolute 0.03 K/mm3 (0.00-0.031); Immature Granulocyte Percent A 0.3 % (0-0.5); Lymphocytes Absolute Auto 2.96 K/mm3 (0.9-3.2); Lymphocytes Percent Auto 29.7 % (18.3-44.2); Mean Corpuscular HGB Conc 32.8 g/dl (32-36); Mean Corpuscular Hemoglobin 31.5 pg (26-34); Mean Corpuscular Volume 95.9 fl (80-100); Mean Platelet Volume 9.8 fl (7.4-10.4); Monocytes Absolute Auto 0.6 K/mm3 (0.1-0.6); Monocytes Percent Auto 5.6 % (2.6-8.5); Neutrophils Absolute Auto 5.9 K/mm3 (1.3-6.7); Neutrophils Percent Auto 59.7 % (45.5-73.1); Platelet Count Result 286 k/mm3 (150-375); Red Blood Count 4.13 M/mm3 (4.2-5.4); Red Cell Distribution Width 13.4 % (11.5-14.5)
[2020-02-23 09:45] LABS: Alanine Aminotransferase 18 U/L (4-35); Albumin Level 4.2 g/dL (3.5-5.1); Alkaline Phosphatase 79 U/L (38-126); Anion Gap 9 mmol/L (8-16); Aspartate Amino Transferase 25 U/L (14-36); Bilirubin,Total 0.7 mg/dL (0.2-1.3); Blood Urea Nitrogen 26 mg/dL (7-17); Calcium 10.3 mg/dL (8.4-10.2); Carbon Dioxide 28 mmol/L (22-30); Chloride 105 mmol/L (98-107); Cholesterol 177 mg/dL (0-200); Estimated Glomerular Filt Rate 44; Glucose 94 mg/dL (65-105); HDL Direct 46 mg/dL; Sodium 142 mmol/L (137-145); Triglycerides 74 mg/dL (<150)
[2020-02-23 09:48] LABS: Hemoglobin A1C 5.8 % (<5.7)
[2020-02-23 09:56] LABS: LDL Cholesterol Direct 90 mg/dL
[2020-02-23 09:57] LABS: Creatinine Urine 83.7 mg/dL
[2020-02-23 10:01] LABS: MALB Creatinine Ratio 8.6 mg/g (0-30); Microalbumin Urine Random 7.2 mg/L (0-16.7)
== END 2020-02-23 08:39 | disposition home or self-care (01) ==
LOC: ANHLAB 08:42
PROVIDERS: PCP Internal Medicine; Visit Provider Internal Medicine
DX: E78.2 Mixed hyperlipidemia (principal); R73.01 Impaired fasting glucose; I10 Essential (primary) hypertension; J44.9 Chronic obstructive pulmonary disease, unspecified
CPT/HCPCS: 36415; 80053; 80061; 82043; 83036; 84443; 85025

== ENCOUNTER 2020-03-06 12:43 | Outpatient (CLI) | payer MEDICARE, MEDICAID, SELFPAY ==
--- NOTE | ~2020-03-06 | XR_ITS ---
EXAMINATION: HAND-MARIANO ARTHRITIS 3+VIEWS DATE: 03/06/2020 13:00 INDICATION: Osteoarthritis TECHNIQUE: Posteroanterior, lateral, and oblique views of the left and of the right hands as well as a ballcatchers view of both hands were obtained. COMPARISON: None. FINDINGS: Old healed fracture deformity of the distal right radius. There appears to be mild ulnar positive thuan iance which may be secondary to the radial fracture. Cystic change at the ulnar side proximal articul ar surface of the right lunate consistent with ulnocarpal impaction syndrome. Alignment is otherwise normal. No acute fractures. Polyarticular osteoarthritis, severe at the left first carpometacarpal yvrose int, moderate severity at the right third distal interphalangeal joint and mild at the right wrist, b ilateral triscaphe and multiple metacarpophalangeal and interphalangeal joints. IMPRESSION: 1. Cystic change at the right lunate likely related to ulnocarpal impaction syndrome with mild ulnar positive variance which appears to result from a chronic fracture deformity of the distal right radiu s. 2. Polyarticular osteoarthritis, generally mild at both hands the exception of severe osteoarthritis at the left first carpal metacarpal joint and moderate osteoarthritis at the right third distal inter phalangeal joint. Reviewed, dictated and finalized at location H. ITY HEAD IMPRESSION: 1. Cystic change at the right lunate likely related to ulnocarpal impaction syn drome with mild ulnar positive variance which appears to result from a chronic fracture deformity of the distal right radius. 2. Polyarticular osteoarthritis, generally mild at both hands the exception of severe osteoarthritis at the left first carpal metacarpal joint and moderate os teoarthritis at the right third distal interphalangeal joint.
== END 2020-03-06 12:44 | disposition home or self-care (01) ==
PROVIDERS: PCP Internal Medicine; Visit Provider Internal Medicine
DX: M89.9 Disorder of bone, unspecified (principal); M19.042 Primary osteoarthritis, left hand; M19.041 Primary osteoarthritis, right hand
CPT/HCPCS: 73130

== ENCOUNTER 2020-08-27 08:51 | Outpatient (CLI) | payer MEDICARE, MEDICAID, SELFPAY ==
[2020-08-27 09:40] LABS: Potassium 4.1 mmol/L (3.4-5.0)
[2020-08-27 09:45] LABS: Alanine Aminotransferase 19 U/L (4-35); Albumin Level 4.4 g/dL (3.5-5.1); Alkaline Phosphatase 81 U/L (38-126); Anion Gap 6 mmol/L (8-16); Aspartate Amino Transferase 29 U/L (14-36); Bilirubin,Total 0.7 mg/dL (0.2-1.3); Blood Urea Nitrogen 25 mg/dL (7-17); Calcium 10.1 mg/dL (8.4-10.2); Carbon Dioxide 29 mmol/L (22-30); Chloride 106 mmol/L (98-107); Estimated Glomerular Filt Rate 40; Glucose 100 mg/dL (65-105); Sodium 141 mmol/L (137-145)
[2020-08-27 10:04] LABS: Creatinine Urine 55.4 mg/dL
[2020-08-27 10:09] LABS: MALB Creatinine Ratio 13.2 mg/g (0-30); Microalbumin Urine Random 7.3 mg/L (0-16.7)
[2020-08-27 10:20] LABS: Vitamin D 25 Hydroxy 62.3 ng/mL
== END 2020-08-27 08:52 | disposition home or self-care (01) ==
PROVIDERS: PCP Internal Medicine; Visit Provider Internal Medicine
DX: N18.32 Chronic kidney disease, stage 3b (principal); R73.01 Impaired fasting glucose; E55.9 Vitamin D deficiency, unspecified
CPT/HCPCS: 36415; 80053; 82043; 82306; 83036

== ENCOUNTER 2020-09-18 08:46 | Outpatient (CLI) | payer MEDICARE, MEDICAID, SELFPAY ==
--- NOTE | ~2020-09-18 | XR_ITS ---
EXAMINATION: XR chest 2V DATE: 09/18/2020 09:05 INDICATION: Shortness of breath. Chest pain. TECHNIQUE: Frontal and lateral views of the chest were obtained. COMPARISON: Chest 2 views 05/24/2019, chest CT 09/20/2015 FINDINGS: The lungs are hyperexpanded with lucencies and chronic linear opacities, consistent with em physema. There is mild atelectasis and right upper lobe and right middle lobe. No pleural effusion or pneumothorax. The heart size is normal. IMPRESSION: 1. Emphysema and mild atelectasis. Reviewed, dictated and finalized at location A.
== END 2020-09-18 08:47 | disposition home or self-care (01) ==
PROVIDERS: PCP Internal Medicine; Visit Provider Nurse Practitioner Family
DX: R06.02 Shortness of breath (principal); R05 Cough; J43.9 Emphysema, unspecified; J98.11 Atelectasis
CPT/HCPCS: 71046

== ENCOUNTER 2020-11-01 12:18 | Outpatient (CLI) | payer MEDICARE, MEDICAID, SELFPAY ==
[2020-11-01 12:41] LABS: Basophils Absolute Auto 0.1 K/mm3 (0.0-0.1); Basophils Percent Auto 0.5 % (0.2-1.2); Eosinophils Absolute Auto 0.4 K/mm3 (0-0.3); Hematocrit 40.2 % (37.0-47.0); Hemoglobin 12.5 g/dL (12.0-15.0); Immature Granulocyte Absolute 0.05 K/mm3 (0.00-0.031); Immature Granulocyte Percent A 0.4 % (0-0.5); Lymphocytes Absolute Auto 3.08 K/mm3 (0.9-3.2); Lymphocytes Percent Auto 24.4 % (18.3-44.2); Mean Corpuscular HGB Conc 31.1 g/dl (32-36); Mean Corpuscular Hemoglobin 30.3 pg (26-34); Mean Corpuscular Volume 97.3 fl (80-100); Mean Platelet Volume 9.6 fl (7.4-10.4); Monocytes Percent Auto 7.8 % (2.6-8.5); Neutrophils Absolute Auto 8.1 K/mm3 (1.3-6.7); Neutrophils Percent Auto 63.9 % (45.5-73.1); Platelet Count Result 309 k/mm3 (150-375); Red Blood Count 4.13 M/mm3 (4.2-5.4); Red Cell Distribution Width 13.7 % (11.5-14.5); White Blood Count 12.6 K/mm3 (4.5-10.0)
--- NOTE | 2020-11-01 12:49 | ECG_ITS ---
Measurements Intervals [place] Rate: 96 P: 78 [place]: 166 QRS: 61 QRSD: 81 T: 61 QT: 302 QTc: 383 Interpretive Statements SINUS RHYTHM FREQUENT ATRIAL PREMATURE COMPLEXES POSSIBLE LEFT ATRIAL ENLARGEMENT MINIMAL Q WAVES- ANTEROLAT/INF LEADS NONSPECIFIC T-WAVE ABNORMALITY- INFERIOR LEADS BASELINE ARTIFACT- I, II, III ABNORMAL ECG Electronically Signed On 11-01-2020 13:01:31 CDT by Joon Boyce D.O.
[2020-11-01 12:56] LABS: Alanine Aminotransferase 13 U/L (4-35); Albumin Level 4.3 g/dL (3.5-5.1); Alkaline Phosphatase 81 U/L (38-126); Anion Gap 10 mmol/L (8-16); Aspartate Amino Transferase 22 U/L (14-36); Bilirubin,Total 0.7 mg/dL (0.2-1.3); Blood Urea Nitrogen 26 mg/dL (7-17); Calcium 10.5 mg/dL (8.4-10.2); Carbon Dioxide 23 mmol/L (22-30); Chloride 101 mmol/L (98-107); Estimated Glomerular Filt Rate 44; Glucose 121 mg/dL (65-105); Potassium 4.4 mmol/L (3.4-5.0); Sodium 134 mmol/L (137-145)
== END 2020-11-01 12:19 | disposition home or self-care (01) ==
LOC: ANHLAB 12:23
PROVIDERS: PCP Internal Medicine; Visit Provider Internal Medicine
DX: R00.0 Tachycardia, unspecified (principal); I10 Essential (primary) hypertension; R94.31 Abnormal electrocardiogram [ECG] [EKG]
CPT/HCPCS: 36415; 80053; 85025; 93005

== ENCOUNTER 2020-11-14 07:23 | Outpatient (CLI) | payer MEDICARE, MEDICAID, SELFPAY ==
--- NOTE | 2020-11-14 07:43 | ECHO_ITS ---
Patient Info Name: Irma Rocha Age: 74 years : 1945 Gender: Female Ht: 63 in Wt: 160 lbs BSA: 1.82 m2 HR: 69 bpm Heart Rhythm: Sinus Rhythm Exam Date: 11/14/2020 8:03 AM Exam Location: [facility] Patient Status: Outpatient Admit Date: 11/14/2020 Staff Ordering Physician: Homar Soriano MD Auto Dismantler: [email or web address] Attending Provider: Homar Soriano MD Exam Type: CA echo doppler color flow Study Info Indications R00.0 - Tachycardia, unspecified Complete two-dimensional, color flow and Doppler transthoracic echocardiogram is performed. Summary 1. Complete two-dimensional, color flow and Doppler transthoracic echocardiogram is performed. 2. Left ventricular chamber dimension is normal. 3. Left ventricular systolic function is normal, estimated at 55-60%. 4. The left ventricular diastolic function is grade I diastolic dysfunction. 5. E/e' 9 is minimally elevated. 6. Left atrial chamber dimension is mildly enlarged. 7. There is mild aortic valve sclerosis. 8. There is mild to moderate mitral valve regurgitation. 9. There is trace tricuspid valve regurgitation. 10. Mild pulmonary hypertension, estimated pulmonary arterial systolic pressure is 40 mmHg. Left Ventricle E/e' 9 is minimally elevated. Left ventricular chamber dimension is normal. Left ventricular systolic function is normal, estimated at 55-60%. The left ventricular diastolic function is grade I diastolic dysfunction. Right Ventricle Right ventricular chamber dimension is normal. Right ventricular systolic function is normal. Left Atria Left atrial chamber dimension is mildly enlarged. Right Atria Right atrial chamber dimension is normal. Aortic Valve The aortic valve is not well visualized. Cannot determine number of aortic valve leaflets. There is mild aortic valve sclerosis. There is no aortic valve stenosis. There is no aortic valve regurgitation. Pulmonic Valve There is no pulmonic regurgitation. Mitral Valve There is no mitral valve stenosis. There is mild to moderate mitral valve regurgitation. Tricuspid Valve There is trace tricuspid valve regurgitation. Mild pulmonary hypertension, estimated pulmonary arterial systolic pressure is 40 mmHg. Pericardium/Pleural There is no pericardial effusion. Inferior Vena Cava Normal inferior vena cava with >50% collapse upon inspiration consistent with normal right atrial pressure, 5 mmHg. Aorta The aortic root size at the sinus of Valsalva is normal. Left Ventricular Outflow Tract Name Value Normal LVOT 2D LVOT Diameter 2.0 cm LVOT Doppler LVOT Peak Gradient 3 mmHg LVOT Mean Gradient 2 mmHg LVOT VTI 27 cm LVOT VTI/AV VTI Ratio 0.6 LVOT Stroke Volume 82 ml LVOT CO 11.2 l/min LVOT CI 6.1 l/min/m2 Pulmonic Valve Name Value Normal
[2020-11-14 08:00] VITALS: PULSE 74; O2SAT 92
[2020-11-14 08:05] VITALS: PULSE 80; O2SAT 85
[2020-11-14 08:10] VITALS: PULSE 82; O2SAT 86
[2020-11-14 08:15] VITALS: PULSE 85; O2SAT 88
[2020-11-14 08:20] VITALS: PULSE 91; O2SAT 90
[2020-11-14 08:36] VITALS: PULSE 76; O2SAT 91
--- NOTE | 2020-11-14 08:38 | HOMEO2EVAL ---
Evaluation was performed at [facility] Home Oxygen Evaluation RC: Home Oxygen (O2) Evaluation Start: 11/14/20 08:33 Freq: Status: Active Protocol: RPE Activity Type Activity Date Activity User E-Sign Co-Sign Detail Recorded Client Recorded Date Recorded By Document 11/14/20 08:00 [email or web address] [email or web address] 11/14/20 08:38 DJO Document 11/14/20 08:05 [email or web address] [email or web address] 11/14/20 08:38 DJO Document 11/14/20 08:10 [email or web address] [email or web address] 11/14/20 08:38 DJO Document 11/14/20 08:15 [email or web address] [email or web address] 11/14/20 08:38 DJO Document 11/14/20 08:20 [email or web address] [email or web address] 11/14/20 08:38 DJO Document 11/14/20 08:36 [email or web address] [email or web address] 11/14/20 08:38 DJO 11/14/20 11/14/20 11/14/20 08:00 08:05 08:10 Home O2 Evaluation Test Phase Resting Exercise Exercise Oxygen Delivery Room Air Room Air Nasal Cannula Oxygen Flow Rate (L/min) 1 Pulse Oximetry (90-100 %) 92 85 L 86 L Pulse Rate (60-100 beats/min) 74 80 82 Activity Tolerance Ambulation Distance (feet) Treatment Charges O2 Evaluation - Outpatient 11/14/20 11/14/20 11/14/20 08:15 08:20 08:36 Home O2 Evaluation Test Phase Exercise Exercise Resting Oxygen Delivery Nasal Cannula Nasal Cannula Room Air Oxygen Flow Rate (L/min) 2 3 Pulse Oximetry (90-100 %) 88 L 90 91 Pulse Rate (60-100 beats/min) 85 91 76 Activity Tolerance Good Ambulation Distance (feet) 500 Treatment Charges
== END 2020-11-14 07:24 | disposition home or self-care (01) ==
PROVIDERS: PCP Internal Medicine; Visit Provider Internal Medicine
DX: R00.0 Tachycardia, unspecified (principal); R06.02 Shortness of breath; I25.10 Atherosclerotic heart disease of native coronary artery without angina pectoris; R09.02 Hypoxemia; I08.1 Rheumatic disorders of both mitral and tricuspid valves; I27.20 Pulmonary hypertension, unspecified
CPT/HCPCS: 93306; 94618

== ENCOUNTER 2020-12-28 10:53 | Outpatient (CLI) | payer MEDICARE, MEDICAID, SELFPAY ==
[2020-12-28 11:47] LABS: Alanine Aminotransferase 21 U/L (4-35); Albumin Level 4.3 g/dL (3.5-5.1); Alkaline Phosphatase 71 U/L (38-126); Anion Gap 8 mmol/L (8-16); Aspartate Amino Transferase 27 U/L (14-36); Blood Urea Nitrogen 23 mg/dL (7-17); Calcium 10.1 mg/dL (8.4-10.2); Carbon Dioxide 30 mmol/L (22-30); Chloride 103 mmol/L (98-107); Estimated Glomerular Filt Rate 44; Glucose 89 mg/dL (65-110); Sodium 141 mmol/L (137-145)
[2020-12-28 11:50] LABS: Hemoglobin A1C 5.7 % (<5.7)
[2020-12-28 12:51] LABS: MALB Creatinine Ratio 14.9 mg/g (0-30); Microalbumin Urine Random 21.6 mg/L (0-16.7)
== END 2020-12-28 10:54 | disposition home or self-care (01) ==
PROVIDERS: PCP Internal Medicine; Visit Provider Internal Medicine
DX: R73.01 Impaired fasting glucose (principal); I10 Essential (primary) hypertension; N18.32 Chronic kidney disease, stage 3b
CPT/HCPCS: 36415; 80053; 82043; 83036

== ENCOUNTER 2021-03-17 12:31 | Inpatient (IN) | payer MEDICARE, MEDICAID, SELFPAY ==
[2021-03-17] VITALS (9 sets, daily range): BP systolic 161–183; BP diastolic 65–87; PULSE 74–109; RESP 12–18; TEMP 36.1–36.4; O2SAT 95–100; BMI 28.3
--- NOTE | ~2021-03-17 | XR_ITS ---
EXAMINATION: XR chest 2V EXAM DATE: 03/17/2021 13:17 INDICATION: Shortness of breath, cough. TECHNIQUE: Frontal and lateral projections of the chest obtained and reviewed. Comparison is made to prior examination from 09/18/2020. FINDINGS: The lungs are hyperinflated which can be seen with chronic obstructive pulmonary disease (a clinical diagnosis of functional impairment), but is not diagnostic of it. No confluent consolidatio n, pneumothorax or pleural effusion suspected. There is aortic arteriosclerosis. There are mild bony degenerative changes. IMPRESSION: Hyperinflation. Reviewed, dictated and finalized at location A. HATCHERY MANAGER IMPRESSION: Hyperinflation.
--- NOTE | ~2021-03-17 | CT_ITS ---
EXAMINATION: CTA chest PE protocol DATE: 03/17/2021 18:08 INDICATION: Dyspnea. TECHNIQUE: Computed tomography angiography (CTA) of the chest was performed with 100 mL Omnipaque-350 intravenous contrast timed to evaluate the pulmonary arteries. Coronal maximum intensity projection 3D-reconstructions were created by the technologist. Automated exposure control and iterative reconst ruction technique were employed. The dose-length product was 359.08 mGy-cm. COMPARISON: Chest CT 09/20/2015 FINDINGS: There is mild scarring at the lung apices. There is severe emphysema. There are scattered n odules and tree-in-bud opacities in all lobes. There is mild atelectasis in the lungs bilaterally. No pleural effusion. The heart size is normal. There are coronary artery calcifications. No pericardial effusion. There is no pulmonary embolus. There is kyphosis and severe spondylosis of thoracic spine. IMPRESSION: 1. No pulmonary embolus. 2. Severe emphysema. 3. Diffuse lung disease, consistent with pneumonia. Reviewed, dictated and finalized at location A. CTOR OF ACADEMIC SUPPORT
--- NOTE | 2021-03-17 12:38 | ECG_ITS ---
Measurements Intervals [place] Rate: 84 P: 74 HI: 177 QRS: 66 QRSD: 85 T: 76 QT: 342 QTc: 406 Interpretive Statements SINUS RHYTHM MINIMAL Q WAVES- ANTEROLAT/INF LEADS NONSPECIFIC ST & T-WAVE ABNORMALITY- DIFFUSE LEADS BASELINE ARTIFACT- I, II, AVR, AVL, AVF, V3 BORDERLINE ECG Electronically Signed On 03-17-2021 13:28:29 ICE HANDLER by Joon Boyce D.O.
[2021-03-17 13:22] LABS: Basophils Absolute Auto 0.1 K/mm3 (0.0-0.1); Basophils Percent Auto 0.4 % (0.2-1.2); Eosinophils Absolute Auto 0.4 K/mm3 (0-0.3); Eosinophils Percent Auto 3.1 % (0-4.4); Hematocrit 41.8 % (37.0-47.0); Hemoglobin 13.9 g/dL (12.0-15.0); Immature Granulocyte Absolute 0.04 K/mm3 (0.00-0.031); Immature Granulocyte Percent A 0.3 % (0-0.5); Lymphocytes Absolute Auto 2.37 K/mm3 (0.9-3.2); Lymphocytes Percent Auto 18.9 % (18.3-44.2); Mean Corpuscular HGB Conc 33.3 g/dl (32-36); Mean Corpuscular Hemoglobin 31.2 pg (26-34); Mean Corpuscular Volume 93.7 fl (80-100); Mean Platelet Volume 9.6 fl (7.4-10.4); Monocytes Absolute Auto 0.7 K/mm3 (0.1-0.6); Monocytes Percent Auto 5.8 % (2.6-8.5); Neutrophils Percent Auto 71.5 % (45.5-73.1); Platelet Count Result 275 k/mm3 (150-375); Red Blood Count 4.46 M/mm3 (4.2-5.4); Red Cell Distribution Width 13.8 % (11.5-14.5); White Blood Count 12.6 K/mm3 (4.5-10.0)
[2021-03-17 13:35] LABS: Alanine Aminotransferase 17 U/L (4-35); Albumin Level 4.4 g/dL (3.5-5.1); Alkaline Phosphatase 85 U/L (38-126); Anion Gap 8 mmol/L (8-16); Aspartate Amino Transferase 23 U/L (14-36); Bilirubin,Total 0.7 mg/dL (0.2-1.3); Blood Urea Nitrogen 20 mg/dL (7-17); Calcium 10.1 mg/dL (8.4-10.2); Carbon Dioxide 29 mmol/L (22-30); Chloride 98 mmol/L (98-107); Estimated CRCL calculation 36 ml/min; Estimated Glomerular Filt Rate 48; Glucose 156 mg/dL (65-110); Potassium 3.5 mmol/L (3.4-5.0); Sodium 135 mmol/L (137-145)
--- NOTE | 2021-03-17 16:37 | ED.GENADULT ---
HPI - General Adult General Chief complaint: Shortness of Breath/Dyspnea Stated complaint: Shortness of breath. Time Seen by Provider: 03/17/21 16:06 Source: patient Mode of arrival: ambulatory Limitations: no limitations History of Present Illness HPI narrative: Patient presents for evaluation of difficulty breathing . She states symptoms been present for one week. She has chronic shortness of breath but states that there was something different about her breathing pattern since the time of symptom onset. She states two days ago she developed a productive cough of yellow sputum. She denies any significant wheezing but states that she can hear (her)self breathing . She denies any fever or chills. She has experienced pleuritic chest pain but denies chest pain otherwise. She has some chronic swelling in her bilateral feet and ankles. No recent sick contacts to her knowledge. She lives with her daughter who has not been ill as of late. No personal hx of COVID. States she has received both doses of her Pfizer COVID vaccine, as well as her booster. She has underlying COPD and wears 3 L of oxygen per nasal cannula at home. She recently attempted to wean to 2 L unsuccessfully. She has been doing neb treatments twice daily and has been using her inhalers as directed. She is a former smoker, quitting in 1998. She also has had a AR in the past and has two stents. She states she was evaluated by cardiology in the past for suspected atrial fibrillation but was told that she does not have that. Related Data Home Medications Medication Instructions Recorded Confirmed aspirin 81 mg tablet,delayed 81 mg PO DAILY 02/10/19 02/07/21 release cholecalciferol (vitamin D3) 10 400 unit PO DAILY 02/10/19 02/07/21 mcg (400 unit) capsule omega 5-moo-ydd-fish oil 1,000 mg 1 cap PO DAILY 02/10/19 02/07/21 (120 mg-180 mg) capsule Allergies Allergy/AdvReac Type Severity Reaction Status Date / Time TULIO Inhibitors Allergy Unknown Rash Verified 01/06/21 08:27 azithromycin Allergy Unknown Rash Verified 01/06/21 08:27 budesonide Allergy Unknown Rash Verified 01/06/21 08:27 ceftriaxone Allergy Unknown Rash Verified 01/06/21 08:27 codeine Allergy Unknown Rash Verified 01/06/21 08:27 formoterol Allergy Unknown Rash Verified 01/06/21 08:27 levofloxacin Allergy Unknown Rash Verified 01/06/21 08:27 lisinopril Allergy Unknown Rash Verified 01/06/21 08:27 Review of Systems Review of Systems: CONSTITUTIONAL: Denies fever, chills, or sweats. EYES: Denies visual changes, redness, or discharge. ENT: Denies rhinorrhea, congestion, sore throat, or otalgia. CARDIOVASCULAR: Reports pleuritic chest pain. Denies chest pain otherwise. Reports bilateral lower extremity swelling. Denies palpitations. RESPIRATORY: Reports shortness of breath and productive cough of yellow sputum. GASTROINTESTINAL: Reports nausea without vomiting. Denies abdominal pain or diarrhea. GENITOURINARY: Denies dysuria or hematuria. SKIN: Denies rash or itching. MUSCULOSKELETAL: Denies back pain, joint pain, or myalgia. NEUROLOGIC: Denies headache, numbness, dizziness, or weakness. PSYCHIATRIC: Denies anxiety or depression. [facility] Past Medical History Medical History ARF (acute renal failure) Carotid occlusion, bilateral She sees her vascular surgeon every 6 months for this COPD with acute exacerbation Emphysema of lung History of tobacco abuse HTN (hypertension) Hyperlipidemia Myocardial infarction Pneumonia Seasonal allergies Surgical History Surgical History H/O heart artery stent H/O: hysterectomy Hx of appendectomy Family History Family History Grandparent Family history of tuberculosis Mother Cerebrovascular accident, Onset Age: 73 Father Family history of chronic obstructive pulmonary d
[2021-03-17] MEDS: methylPREDNISolone SOD SUCC 125 MG VIAL IV PUSH (16:42)
[2021-03-17] MEDS: IPRATROPIUM BR 0.02% INH SOLN 0.5 MG/2.5 ML VIAL INHALATION ×2 (16:43→19:33)
[2021-03-17] MEDS: ALBUTEROL SULFATE NEB 2.5 MG/3 ML INH INHALATION ×2 (16:43→19:33)
[2021-03-17 17:11] LABS: Lactic Acid Reflex 1.1 mmol/L (0.7-2.1)
[2021-03-17 17:13] LABS: NT Pro B Type Natriuretic Pept 693 pg/mL (5-100); Troponin I < 0.012 ng/mL (0.000-0.034)
[2021-03-17 17:14] LABS: Prothrombin Time 13.4 Seconds (11.1-14.7)
[2021-03-17 17:15] LABS: Partial Thromboplastin Time 26.6 SECONDS (22.3-36.8)
[2021-03-17 17:18] LABS: D Dimer 0.84 ug/mL (<0.48)
[2021-03-17 19:33] LABS: Add Urine Microscopic? YES; Appearance Urine Clear (Clear); Bilirubin Urine Negative (Negative); Blood Urine Negative (Negative); Color Urine Straw (Yellow); Glucose Urine UA Negative (Negative); Ketones Urine Negative (Negative); Leukocyte Esterase Ur Trace LEU/UL (Negative); Nitrate Urine Negative (Negative); Protein Urine Negative (Negative); RBC Urine 0-2 /hpf (0-2); Squamous Epithelial Cell Urine Rare /hpf (Few); Urobilinogen Urine Negative mg/dL (<2.0); WBC Urine 0-3 /hpf
--- NOTE | 2021-03-17 19:36 | PM.IMHP ---
H&P: HPI History of Present Illness Date/Time: 03/17/21 19:36 Chief Complaint: Shortness of breath. Narrative: This is a 75-year-old female with past medical history significant for COPD/emphysema she is on 3 L by nasal cannula supplemental oxygen at home, dyslipidemia, hypertension, former tobacco user, peripheral vascular disease, myocardial infarction. Patient presented to the emergency room after she began having worsening shortness of breath with cough productive of scanty sputum that is yellowish to greenish having body aches and pains feeling lousy , poor appetite, patient try to get a hold of her transaction manager but was not successful and decided to come to the emergency room. Patient denies any nausea, vomiting, abdominal pain, diarrhea, she has some leg swelling but states that is not new, no rigors, no chills, no fever. In emergency room patient initial workup was significant for CT of the chest PE protocol for no pulmonary embolus,severe emphysema,diffuse lung disease, consistent with pneumonia. WBC was 12,000 BNP was in the 693. Decision has been made to admit the patient for further management evaluation and treatment. Review of Systems Review of Systems: Worsening shortness of breath for 1 week duration ,cough productive of greenish to yellow sputum scanty amount, body aches and pains, poor appetite. Constitutional: Constitutional: Denies chills, Reports fatigue, Denies fever(s), Reports malaise and Reports poor appetite Eyes: Eyes: Denies change in vision ENT: Denies dysphagia, Denies nasal congestion, Denies nasal discharge, Denies nasal obstruction and Denies odynophagia Cardiovascular: Cardiovascular: Denies chest pain, Reports pedal edema, Denies irregular heart rhythm, Denies lightheadedness, Denies radiating jaw, neck or arm pain and Denies palpitations Respiratory: Respiratory: Reports change in phlegm color, Reports cough, Reports excessive phlegm production, Reports dyspnea and Reports wheezing Gastrointestinal: Gastrointestinal: Denies abdominal pain, Denies dyspepsia, Denies heartburn, Denies nausea and Denies vomiting Genitourinary: Genitourinary: Denies dysuria Comments: Uterine prolapse, nocturia. Musculoskeletal: Musculoskeletal: Denies back pain, Reports myalgias, Denies arthralgias and Denies joint swelling Integumentary/Breasts: Skin/Breast: Denies rash Neurologic: Denies focal weakness and Denies Sensory deficit (Neuro) Psychiatric: Psychiatric: Reports no additional psychiatric complaints and Reports as per HPI Endocrine: Endocrine: Reports no additional endocrine complaints and Reports as per HPI Hematologic/Lymphatic: Hematologic/Lymphatic: Reports no additional hematologic/lymphatic complaints and Reports as per HPI [facility] Past Medical History Medical History (Updated 03/17/21 @ 23:44 by Cornelia Cordova MD) ARF (acute renal failure) Carotid occlusion, bilateral She sees her vascular surgeon every 6 months for this COPD with acute exacerbation Emphysema of lung History of tobacco abuse HTN (hypertension) Hyperlipidemia Myocardial infarction Pneumonia Seasonal allergies Surgical History Surgical History H/O heart artery stent H/O: hysterectomy Hx of appendectomy Family History Family History Grandparent Family history of tuberculosis Mother Cerebrovascular accident, Onset Age: 73 Father Family history of chronic obstructive pulmonary disease Family history of heart disease in male family member before age 55 Acute myocardial infarction Sibling Family history of chronic obstructive pulmonary disease Family history of lung cancer Family history of malignant neoplasm Family history of lung disease Social History Social History Social History: Lives with her daughter. Would lik
[2021-03-17 19:41] LABS: Specific Grav Ur 1.036 (1.001-1.035)
[2021-03-17 20:17] LABS: Troponin I < 0.012 ng/mL (0.000-0.034)
--- NOTE | 2021-03-17 23:31 | ADMGEN ---
This patient, Irma Rocha, was admitted to [facility] Surg Room 319-01. Patient/family oriented to hospital policies and general routines including ID bracelet, bed and alarms, visiting hours, pain management, procedures, bathroom and other care routines, personal items, smoking policy, room service/diet, and visiting hours. Information on how to activate the Rapid Response Team has been discussed. Patient/Family are encouraged to report perceived risks to care and to ask questions if they do not understand what they are told or what they should do.
[2021-03-18] VITALS (15 sets, daily range): BP systolic 119–151; BP diastolic 49–87; PULSE 89–114; RESP 18–20; TEMP 35.9–36.8; O2SAT 95–100
[2021-03-18] MEDS: SODIUM CHLORIDE 0.9% IV 1,000 ML 75 ML IV CONT ×2 (00:24→13:45)
[2021-03-18] MEDS: ACETAMINOPHEN 325 MG TABLET 650 MG PO (00:24)
[2021-03-18] MEDS: AZTREONAM 2 GM in DEXTROSE 5% 100 ML IVPB ×4 (00:24→22:43)
[2021-03-18] MEDS: methylPREDNISolone SOD SUCC 125 MG VIAL 60 MG IV PUSH ×5 (00:25→22:45)
[2021-03-18] MEDS: ALBUTEROL SULFATE NEB 2.5 MG/0.5 ML INH 5 MG INHALATION ×3 (02:07→20:13)
[2021-03-18] MEDS: IPRATROPIUM BR 0.02% INH SOLN 0.5 MG/2.5 ML VIAL INHALATION ×3 (02:07→20:13)
[2021-03-18 06:46] LABS: Basophils Percent Auto 0.1 % (0.2-1.2); Hematocrit 36.6 % (37.0-47.0); Immature Granulocyte Absolute 0.06 K/mm3 (0.00-0.031); Immature Granulocyte Percent A 0.6 % (0-0.5); Lymphocytes Absolute Auto 1.24 K/mm3 (0.9-3.2); Lymphocytes Percent Auto 13.4 % (18.3-44.2); Mean Corpuscular HGB Conc 32.8 g/dl (32-36); Mean Corpuscular Hemoglobin 30.5 pg (26-34); Mean Corpuscular Volume 93.1 fl (80-100); Mean Platelet Volume 9.9 fl (7.4-10.4); Monocytes Percent Auto 0.2 % (2.6-8.5); Neutrophils Absolute Auto 7.9 K/mm3 (1.3-6.7); Neutrophils Percent Auto 85.7 % (45.5-73.1); Platelet Count Result 247 k/mm3 (150-375); Red Blood Count 3.93 M/mm3 (4.2-5.4); Red Cell Distribution Width 13.5 % (11.5-14.5); White Blood Count 9.3 K/mm3 (4.5-10.0)
[2021-03-18 07:07] LABS: Anion Gap 10 mmol/L (8-16); Blood Urea Nitrogen 21 mg/dL (7-17); Calcium 9.4 mg/dL (8.4-10.2); Carbon Dioxide 25 mmol/L (22-30); Chloride 98 mmol/L (98-107); Estimated CRCL calculation 49 ml/min; Estimated Glomerular Filt Rate > 60; Glucose 216 mg/dL (65-110); Potassium 3.9 mmol/L (3.4-5.0); Sodium 133 mmol/L (137-145)
[2021-03-18] MEDS: ENOXAPARIN 40 MG/0.4 ML SYRINGE SUB-Q (08:22)
[2021-03-18] MEDS: ASPIRIN 81 MG ENTERIC TABLET PO (08:22)
[2021-03-18] MEDS: OLMESARTAN MEDOXOMIL 20 MG TABLET 40 MG PO (08:22)
[2021-03-18] MEDS: hydroCHLOROthiazide 12.5 MG CAPSULE PO (08:23)
[2021-03-18] MEDS: ATORVASTATIN 40 MG TABLET PO (08:23)
[2021-03-18] MEDS: METOPROLOL TARTRATE 25 MG TABLET PO ×2 (08:23→22:45)
[2021-03-18] MEDS: CHOLECALCIFEROL 400 UNITS TABLET (VIT D) PO (08:23)
[2021-03-18] MEDS: amLODIPine BESYLATE 5 MG TABLET BY MOUTH (08:23)
--- NOTE | 2021-03-18 10:39 | PCRCNOTE ---
Window of time for administration has passed. See next scheduled administration.
--- NOTE | 2021-03-18 14:50 | PM.IMPN ---
Progress Note: A&P Assessment and Plan (1) Community acquired pneumonia: Qualifiers: Laterality: unspecified laterality Qualified Code(s): J18.9 - Pneumonia, unspecified organism Code(s): J18.9 - Pneumonia, unspecified organism Status: Acute Assessment and Plan: Patient was found to have infiltrate on CT of the chest Patient has been started on aztreonam as she has history of multiple antibiotic allergy Await cultures CTA with no acute PE (2) Chronic respiratory failure with hypoxia: Code(s): J96.11 - Chronic respiratory failure with hypoxia Status: Acute Assessment and Plan: Patient is on 3 L of supplemental oxygen (3) COPD with acute exacerbation: Code(s): J44.1 - Chronic obstructive pulmonary disease with (acute) exacerbation Status: Acute Assessment and Plan: Breathing treatment IV steroids (4) CKD (chronic kidney disease) stage 3, GFR 30-59 ml/min: Qualifiers: Chronic kidney disease stage 3 subtype: stage 3b (GFR 30-44) Qualified Code(s): N18.32 - Chronic kidney disease, stage 3b Code(s): N18.3 - Chronic kidney disease, stage 3 (moderate) Status: Acute Assessment and Plan: BUN and creatinine at patient's baseline Continue to monitor (5) Essential (primary) hypertension: Code(s): I10 - Essential (primary) hypertension Status: Acute Assessment and Plan: Resume home meds Continue to monitor (6) Carotid occlusion, bilateral: Code(s): I65.23 - Occlusion and stenosis of bilateral carotid arteries Status: Acute Assessment and Plan: Stable (7) History of tobacco abuse: Code(s): Z87.891 - Personal history of nicotine dependence Status: Acute Assessment and Plan: Unchanged (8) Myocardial infarction: Code(s): I21.9 - Acute myocardial infarction, unspecified Status: Acute Assessment and Plan: Unchanged Follows up in outpatient setting (9) Person under investigation for COVID-19: Code(s): Z20.822 - Contact with and (suspected) exposure to COVID-19 Status: Acute Assessment and Plan: Awaiting covid result Subjective Date/time seen: 03/18/21 14:50 Interval history: 75-year-old female with past medical history significant for COPD/emphysema she is on 3 L by nasal cannula supplemental oxygen at home, dyslipidemia, hypertension, former tobacco user, peripheral vascular disease, myocardial infarction. Patient presented to the emergency room after she began having worsening shortness of breath with cough productive of scanty sputum that is yellowish to greenish having body aches and pains feeling lousy , poor appetite, patient try to get a hold of her regulatory intern but was not successful and decided to come to the emergency room. CXR shows pneumonia, pt having a bad cough in the room, awaiting covid result. Review of Systems Review of Systems: All systems reviewed & are unremarkable except as noted in HPI and below Exam Const: General: other (friendly lady coughing mildly sob in room ) Orientation/consciousness: oriented to person HENMT: Head: normal to inspection Resp: Effort & Inspection: no respiratory distress Auscultation: wheezes Cardio: Rate: regular rate Rhythm: regular rhythm GI: Inspection: normal to inspection GI Palp: No abdominal tenderness, No Guarding due to palpation present (GI) and No Hepatomegaly present Auscultation: normal bowel sounds Neuro: General: oriented to person Objective Data Vital Signs Vital Signs: Vital Signs - 24 hr 03/17/21 16:12 03/17/21 16:15 03/17/21 16:43 Temperature Pulse Rate 104 H 74 Respiratory Rate 12 18 Blood Pressure 169/72 H Pulse Oximetry 99 100 03/17/21 16:52 03/17/21 19:34 03/17/21 19:37 Temperature Pulse Rate 77 109 H Respiratory Rate 18 18 Blood Pressure Pulse Oximetry 98 03/17/21 19:47 03/17/21 20:00 03/18/21 00:
[2021-03-19] VITALS (16 sets, daily range): BP systolic 120–159; BP diastolic 57–80; PULSE 90–112; RESP 16–18; TEMP 36.2–37.1; O2SAT 94–100
[2021-03-19] MEDS: IPRATROPIUM BR 0.02% INH SOLN 0.5 MG/2.5 ML VIAL INHALATION ×3 (02:12→22:37)
[2021-03-19] MEDS: ALBUTEROL SULFATE NEB 2.5 MG/0.5 ML INH 5 MG INHALATION ×3 (02:12→22:37)
[2021-03-19 02:32] LABS: SARS-CoV-2 RNA PCR Negative
[2021-03-19] MEDS: AZTREONAM 2 GM in DEXTROSE 5% 100 ML IVPB (05:57)
[2021-03-19] MEDS: methylPREDNISolone SOD SUCC 125 MG VIAL 60 MG IV PUSH ×2 (05:58→12:28)
[2021-03-19] MEDS: amLODIPine BESYLATE 5 MG TABLET BY MOUTH (09:03)
[2021-03-19] MEDS: ATORVASTATIN 40 MG TABLET PO (09:04)
[2021-03-19] MEDS: ASPIRIN 81 MG ENTERIC TABLET PO (09:04)
[2021-03-19] MEDS: ENOXAPARIN 40 MG/0.4 ML SYRINGE SUB-Q (09:05)
[2021-03-19] MEDS: CHOLECALCIFEROL 400 UNITS TABLET (VIT D) PO (09:05)
[2021-03-19] MEDS: hydroCHLOROthiazide 12.5 MG CAPSULE PO (09:05)
[2021-03-19] MEDS: OLMESARTAN MEDOXOMIL 20 MG TABLET 40 MG PO (09:06)
[2021-03-19] MEDS: METOPROLOL TARTRATE 25 MG TABLET PO ×2 (10:26→23:04)
--- NOTE | 2021-03-19 11:21 | PC.NURSE ---
On 03/19/21, the student, Codi Davis, provided care and [facility] on [facility] patient. I have reviewed the student's documentation and agree with the findings.
--- NOTE | 2021-03-19 12:36 | PM.IMPN ---
Progress Note: A&P Assessment and Plan (1) Community acquired pneumonia: Qualifiers: Laterality: unspecified laterality Qualified Code(s): J18.9 - Pneumonia, unspecified organism Code(s): J18.9 - Pneumonia, unspecified organism Status: Acute Assessment and Plan: Patient was found to have infiltrate on CT of the chest Patient has been started on aztreonam as she has history of multiple antibiotic allergy. Blood culture pulmonary preliminary results are negative. CTA with no acute PE (2) Chronic respiratory failure with hypoxia: Code(s): J96.11 - Chronic respiratory failure with hypoxia Status: Acute Assessment and Plan: Patient is on 3 L of supplemental oxygen (3) COPD with acute exacerbation: Code(s): J44.1 - Chronic obstructive pulmonary disease with (acute) exacerbation Status: Acute Assessment and Plan: Breathing treatment Patient was appropriately started on IV steroids. Will taper to prednisone 40 mg p.o. daily. (4) CKD (chronic kidney disease) stage 3, GFR 30-59 ml/min: Qualifiers: Chronic kidney disease stage 3 subtype: stage 3b (GFR 30-44) Qualified Code(s): N18.32 - Chronic kidney disease, stage 3b Code(s): N18.3 - Chronic kidney disease, stage 3 (moderate) Status: Acute Assessment and Plan: Unknown baseline kidney function. Creatinine 0.8 on admission. Monitor daily creatinine, intake output. Avoid nephrotoxic medications. (5) Essential (primary) hypertension: Code(s): I10 - Essential (primary) hypertension Status: Acute Assessment and Plan: Blood pressure is well controlled in the 120/57-142/62 range. Continue home meds Continue to monitor (6) Carotid occlusion, bilateral: Code(s): I65.23 - Occlusion and stenosis of bilateral carotid arteries Status: Acute Assessment and Plan: Stable and asymptomatic. Continue anti-platelet (7) History of tobacco abuse: Code(s): Z87.891 - Personal history of nicotine dependence Status: Acute Assessment and Plan: Counseled. (8) Myocardial infarction: Code(s): I21.9 - Acute myocardial infarction, unspecified Status: Acute Assessment and Plan: Currently asymptomatic. Continue cardioprotective medications (9) Person under investigation for COVID-19: Code(s): Z20.822 - Contact with and (suspected) exposure to COVID-19 Status: Acute Assessment and Plan: Awaiting covid result (10) Insomnia: Code(s): G47.00 - Insomnia, unspecified Status: Acute Assessment and Plan: Give made laterally in PI and at nighttime. Subjective Date/time seen: 03/19/21 12:36 75-year-old female with past medical history significant for COPD/emphysema she is on 3 L by nasal cannula supplemental oxygen at home, dyslipidemia, hypertension, former tobacco user, peripheral vascular disease, myocardial infarction. 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 CXR shows pneumonia, pt having a bad cough in the room, awaiting covid result. S: Patient is examined at the bedside. She is feeling lousy today. She did not sleep last night. Interval history: 75-year-old female with past medical history significant for COPD/emphysema she is on 3 L by nasal cannula supplemental oxygen at home, dyslipidemia, hypertension, former tobacco user, peripheral vascular disease, myocardial infarction. Patient presented to the emergency room after she began having worsening shortness of breath with cough productive of scanty sputum that is yellowish to greenish having body aches and pains feeling lousy , poor appetite, patient tr
[2021-03-19] MEDS: AZTREONAM 2 GM in SODIUM CHLORIDE 0.9% IV 100 ML IVPB ×2 (14:19→23:00)
--- NOTE | 2021-03-19 15:02 | PCRCNOTE ---
Window of time for administration has passed. See next scheduled administration.
[2021-03-19] MEDS: MELATONIN 3 MG TABLET PO (23:01)
[2021-03-20 03:56] VITALS: BP 134/63; PULSE 91; RESP 18; TEMP 36.9; O2SAT 99
--- NOTE | 2021-03-20 04:45 | PCRCNOTE ---
Window of time for administration has passed. See next scheduled administration.
[2021-03-20] MEDS: AZTREONAM 2 GM in SODIUM CHLORIDE 0.9% IV 100 ML IVPB (05:02)
[2021-03-20 07:47] LABS: Hematocrit 37.6 % (37.0-47.0); Hemoglobin 12.1 g/dL (12.0-15.0); Mean Corpuscular HGB Conc 32.2 g/dl (32-36); Mean Corpuscular Hemoglobin 30.8 pg (26-34); Mean Corpuscular Volume 95.7 fl (80-100); Mean Platelet Volume 10.2 fl (7.4-10.4); Platelet Count Result 260 k/mm3 (150-375); Red Blood Count 3.93 M/mm3 (4.2-5.4); Red Cell Distribution Width 13.9 % (11.5-14.5); White Blood Count 21.1 K/mm3 (4.5-10.0)
[2021-03-20 08:21] LABS: Anion Gap 6 mmol/L (8-16); Blood Urea Nitrogen 32 mg/dL (7-17); Calcium 9.5 mg/dL (8.4-10.2); Carbon Dioxide 29 mmol/L (22-30); Chloride 100 mmol/L (98-107); Estimated CRCL calculation 40 ml/min; Estimated Glomerular Filt Rate 54; Glucose 130 mg/dL (65-110); Potassium 3.7 mmol/L (3.4-5.0); Sodium 135 mmol/L (137-145)
[2021-03-20 09:15] VITALS: BP 150/69; PULSE 94; RESP 18; TEMP 36.7; O2SAT 96
[2021-03-20] MEDS: predniSONE 20 MG TABLET 40 MG PO (09:23)
[2021-03-20] MEDS: OLMESARTAN MEDOXOMIL 20 MG TABLET 40 MG PO (09:23)
[2021-03-20] MEDS: amLODIPine BESYLATE 5 MG TABLET BY MOUTH (09:23)
[2021-03-20] MEDS: hydroCHLOROthiazide 12.5 MG CAPSULE PO (09:23)
[2021-03-20 09:24] VITALS: PULSE 94
[2021-03-20] MEDS: ENOXAPARIN 40 MG/0.4 ML SYRINGE SUB-Q (09:24)
[2021-03-20] MEDS: METOPROLOL TARTRATE 25 MG TABLET PO (09:24)
[2021-03-20] MEDS: ATORVASTATIN 40 MG TABLET PO (09:24)
[2021-03-20] MEDS: ASPIRIN 81 MG ENTERIC TABLET PO (09:24)
[2021-03-20] MEDS: CHOLECALCIFEROL 400 UNITS TABLET (VIT D) PO (09:24)
--- NOTE | 2021-03-20 09:30 | PM.IMPN ---
Progress Note: A&P Assessment and Plan (1) Community acquired pneumonia: Qualifiers: Laterality: unspecified laterality Qualified Code(s): J18.9 - Pneumonia, unspecified organism Code(s): J18.9 - Pneumonia, unspecified organism Status: Acute Assessment and Plan: Patient was found to have infiltrate on CT of the chest Patient has been started on aztreonam as she has history of multiple antibiotic allergy. Blood culture pulmonary preliminary results are negative. CTA with no acute PE (2) Chronic respiratory failure with hypoxia: Code(s): J96.11 - Chronic respiratory failure with hypoxia Status: Acute Assessment and Plan: Patient is on 3 L of supplemental oxygen (3) COPD with acute exacerbation: Code(s): J44.1 - Chronic obstructive pulmonary disease with (acute) exacerbation Status: Acute Assessment and Plan: Breathing treatment Patient was appropriately started on IV steroids. Will taper to prednisone 40 mg p.o. daily. (4) CKD (chronic kidney disease) stage 3, GFR 30-59 ml/min: Qualifiers: Chronic kidney disease stage 3 subtype: stage 3b (GFR 30-44) Qualified Code(s): N18.32 - Chronic kidney disease, stage 3b Code(s): N18.3 - Chronic kidney disease, stage 3 (moderate) Status: Acute Assessment and Plan: Unknown baseline kidney function. Creatinine 0.8 on admission. Monitor daily creatinine, intake output. Avoid nephrotoxic medications. (5) Essential (primary) hypertension: Code(s): I10 - Essential (primary) hypertension Status: Acute Assessment and Plan: Blood pressure is well controlled in the 120/57-142/62 range. Continue home meds Continue to monitor (6) Carotid occlusion, bilateral: Code(s): I65.23 - Occlusion and stenosis of bilateral carotid arteries Status: Acute Assessment and Plan: Stable and asymptomatic. Continue anti-platelet (7) History of tobacco abuse: Code(s): Z87.891 - Personal history of nicotine dependence Status: Acute Assessment and Plan: Counseled. (8) Myocardial infarction: Code(s): I21.9 - Acute myocardial infarction, unspecified Status: Acute Assessment and Plan: Currently asymptomatic. Continue cardioprotective medications (9) Person under investigation for COVID-19: Code(s): Z20.822 - Contact with and (suspected) exposure to COVID-19 Status: Acute Assessment and Plan: Awaiting covid result (10) Insomnia: Code(s): G47.00 - Insomnia, unspecified Status: Acute Assessment and Plan: Give made laterally in PI and at nighttime. Subjective Date/time seen: 03/20/21 09:30 s: Patient was examined at the bedside. Her sleep was adequate last night. At the time of examination she has a mild nonproductive cough cough which is improved from before. Appetite has improved. She is feeling a lot better. Energy levels adequate. Patient has been ambulating in the room without any issues. Interval history: 75-year-old female with past medical history significant for COPD/emphysema she is on 3 L by nasal cannula supplemental oxygen at home, dyslipidemia, hypertension, former tobacco user, peripheral vascular disease, myocardial infarction. Patient presented to the emergency room after she began having worsening shortness of breath with cough productive of scanty sputum that is yellowish to greenish having body aches and pains feeling lousy , poor appetite, patient try to get a hold of her director cardiac but was not successful and decided to come to the emergency room. CXR shows hyper inflation. COVID test was negative. CT arm grew g of the chest reveals pulmonary emphysema and diffuse pneumonia. She was treated with IV aztreonam with improvement of her symptoms. Review of Systems Review of Systems: All systems reviewed & are unremarkable except as noted in HPI and below [place]
[2021-03-20 09:32] VITALS: O2SAT 97
--- NOTE | 2021-03-20 09:35 | PM.DS ---
DS: Admitting Diagnosis Discharge Date 03/20/2021 Admitting Diagnosis (1) Community acquired pneumonia: (2) Chronic respiratory failure with hypoxia: (3) COPD with acute exacerbation: (4) CKD (chronic kidney disease) stage 3, GFR 30-59 ml/min: (5) Essential (primary) hypertension: (6) Carotid occlusion, bilateral: (7) History of tobacco abuse: (8) Myocardial infarction: DS: Discharge Diagnosis Discharge Diagnosis (1) Community acquired pneumonia: Qualifiers: Laterality: unspecified laterality Qualified Code(s): J18.9 - Pneumonia, unspecified organism Code(s): J18.9 - Pneumonia, unspecified organism Status: Acute Assessment and Plan: Patient was found to have infiltrate on CT of the chest Patient has been started on aztreonam as she has history of multiple antibiotic allergy. Blood culture pulmonary preliminary results are negative. CTA with no acute PE (2) Chronic respiratory failure with hypoxia: Code(s): J96.11 - Chronic respiratory failure with hypoxia Status: Acute Assessment and Plan: Patient is on 3 L of supplemental oxygen (3) COPD with acute exacerbation: Code(s): J44.1 - Chronic obstructive pulmonary disease with (acute) exacerbation Status: Acute Assessment and Plan: Breathing treatment Patient was appropriately started on IV steroids. Will taper to prednisone 40 mg p.o. daily. (4) CKD (chronic kidney disease) stage 3, GFR 30-59 ml/min: Qualifiers: Chronic kidney disease stage 3 subtype: stage 3b (GFR 30-44) Qualified Code(s): N18.32 - Chronic kidney disease, stage 3b Code(s): N18.3 - Chronic kidney disease, stage 3 (moderate) Status: Acute Assessment and Plan: Unknown baseline kidney function. Creatinine 0.8 on admission. Monitor daily creatinine, intake output. Avoid nephrotoxic medications. (5) Essential (primary) hypertension: Code(s): I10 - Essential (primary) hypertension Status: Acute Assessment and Plan: Blood pressure is well controlled in the 120/57-142/62 range. Continue home meds Continue to monitor (6) Carotid occlusion, bilateral: Code(s): I65.23 - Occlusion and stenosis of bilateral carotid arteries Status: Acute Assessment and Plan: Stable and asymptomatic. Continue anti-platelet (7) History of tobacco abuse: Code(s): Z87.891 - Personal history of nicotine dependence Status: Acute Assessment and Plan: Counseled. (8) Myocardial infarction: Code(s): I21.9 - Acute myocardial infarction, unspecified Status: Acute Assessment and Plan: Currently asymptomatic. Continue cardioprotective medications (9) Person under investigation for COVID-19: Code(s): Z20.822 - Contact with and (suspected) exposure to COVID-19 Status: Acute Assessment and Plan: Awaiting covid result (10) Insomnia: Code(s): G47.00 - Insomnia, unspecified Status: Acute Assessment and Plan: Give made laterally in PI and at nighttime. DS: Summary Hospital Course Reason for hospitalization: Shortness of breaths. Hospital Course: Please refer to admission H& P. Briefly, this is a 75-year-old female with past medical history significant for COPD/emphysema she is on 3 L by nasal cannula supplemental oxygen at baseline at home, dyslipidemia, hypertension, former tobacco user, peripheral vascular disease, myocardial infarction. Patient presented to the emergency room after she began having worsening shortness of breath with cough productive of scanty sputum that is yellowish to greenish having body aches and pains feeling lousy , poor appetite, patient try to get a hold of her clinical aide but was not successful and decided to come to the emergency room. Most recently, she was evaluated by her pulmonary MARÍA Addison Haas. At the time she was stable with improvement of cough, sputum. On a rest home O2 evaluatio
== END 2021-03-20 10:56 | disposition home or self-care (01) | DRG 195 ==
LOC: ANHED 19:28 → ANH3MEDSUR 19:50
PROVIDERS: Emergency Medicine; Admitting Provider Internal Medicine; Emergency Provider Nurse Practitioner; PCP Internal Medicine; Visit Provider Internal Medicine
DX: J18.9 Pneumonia, unspecified organism (principal); Z20.822 Contact with and (suspected) exposure to COVID-19; I12.9 Hypertensive chronic kidney disease with stage 1 through stage 4 chronic kidney disease, or unspecified chronic kidney disease; N18.32 Chronic kidney disease, stage 3b; I65.23 Occlusion and stenosis of bilateral carotid arteries; J43.9 Emphysema, unspecified; E78.5 Hyperlipidemia, unspecified; Z87.891 Personal history of nicotine dependence; I25.2 Old myocardial infarction; Z99.81 Dependence on supplemental oxygen; Z79.82 Long term (current) use of aspirin; Z95.5 Presence of coronary angioplasty implant and graft; Z90.710 Acquired absence of both cervix and uterus; Z90.49 Acquired absence of other specified parts of digestive tract; G47.00 Insomnia, unspecified; T38.0X5A Adverse effect of glucocorticoids and synthetic analogues, initial encounter
CPT/HCPCS: 36415; 71046; 71275; 80048; 80053; 81001; 83605; 83880; 84484; 85025; 85027; 85380; 85610; 85730; 87040; 87804; 93005; 94640; 96361; 96365; 96366; 96372; 96374; 96376; 99285; A9270; C9803; G0378; J1650; J2930; J7030; J7512; Q9967; U0003; U0005

== ENCOUNTER 2021-05-12 08:12 | Outpatient (CLI) | payer MEDICARE, MEDICAID, SELFPAY ==
--- NOTE | 2021-05-15 22:38 | WPDHOMESLEEP ---
Sleep Study - Home Unattended Date of Study: 05/12/21 <Angi Dwyer DO - Last Filed: 05/16/21 11:32> Ordering Provider: Addison Haas APRN <Angi Dwyer DO - Last Filed: 05/16/21 11:32> Interpreting Provider: Angi Dwyer DO <Angi Dwyer DO - Last Filed: 05/16/21 11:32> Home Sleep Study Type: Apnea Link Air <Angi Dwyer DO - Last Filed: 05/16/21 11:32> Height: 1.6 m <Angi Dwyer DO - Last Filed: 05/16/21 11:32> Weight: 74.843 kg <Angi Dwyer DO - Last Filed: 05/16/21 11:32> Body Mass Index: 29.2 <Angi Dwyer DO - Last Filed: 05/16/21 11:32> Neck Circumference (inches): 15.5 <Angi Dwyer DO - Last Filed: 05/16/21 11:32> [place]: 11 <Angi Dwyer DO - Last Filed: 05/16/21 11:32> Reason for Sleep Study Nocturnal oximetry showed 480 minutes with an oxygen saturation below 88%. She had an ENMA of 31/hr. <Angi Dwyer DO - Last Filed: 05/16/21 11:32> Sleep History The patient is a 75-year-old female with COPD, hypertension, hyperlipidemia, carotid occlusion, sleep mild pulmonary hypertension and history of myocardial infarction that had a home sleep test ordered by her railroad brakeman for evaluation of JAMAL. the patient denies awakening from sleep short of breath. She denies awakening at night with heartburn, belching or cough. She rarely snores but it is occasionally loud enough that others complain. She frequently has trouble sleeping when she has a cold. She denies waking up gasping for air throughout the night. She frequently has breathing problems at night observed by others. She occasionally sweats excessively at night. She rarely notices heart palpitations or irregular heartbeat during the night. She frequently falls asleep during the day but never while driving. She denies sleep paralysis, cataplexy and hypnagogic / hypnopompic hallucinations. She denies having nightmares. She rarely has thoughts racing through her mind. She occasionally feels sad, depressed and anxious. She occasionally notices parts of her body jerks. She occasionally kicks during the night. She occasionally has crawling aching feelings in her legs as well as leg pain during the night. She denies grinding her teeth during sleep and awakening with morning doffing. She is occasionally bothered by pain during the day and occasionally awakened by pain during the night. She usually wakes up feeling stiff in the morning with sore or achy muscles. She denies waking up with pain in the neck, spine or other joints. She goes to bed at 10:00 p.m. on both weekdays and weekends. It takes her 30 minutes to fall asleep. She wakes up twice throughout the night to use the restroom. She can fall back asleep within 5 minutes. She wakes up at 7:30 a.m. on the weekdays and 8:00 a.m. on the weekends. She typically gets 5 hours of sleep per night. She does not spend any time in bed after waking up in the morning. She currently lives with her daughter. She denies consuming any caffeinated beverages within 2 hours of bedtime. She does not engage in physical exercise before bedtime. She will read and watch television before falling asleep. She will take naps in the afternoon or the evening and they are refreshing. She drinks 1 cup of caffeinated beverage per day. She quit smoking cigarettes 24 years ago. She denies alcohol and recreational drug use. <Angi Dwyer DO - Last Filed: 05/16/21 11:32> [facility] Past Medical History Medical History: Medical History ARF (acute renal failure) Carotid occlusion, bilateral She sees her vascular surgeon every 6 months for this COPD with acute exacerbation Emphysema of lung History of tobacco abuse HTN (hypertension) Hyperlipidemia Myocardial infarction Pneumonia Seasonal allergies <Angi Dwyer DO
[2021-05-16 11:32] VITALS: BMI 29.2
== END 2021-05-13 10:53 | disposition home or self-care (01) ==
LOC: ANHCSM 08:13
PROVIDERS: PCP Internal Medicine; Visit Provider Nurse Practitioner Family
DX: R09.02 Hypoxemia (principal); G47.10 Hypersomnia, unspecified; G47.33 Obstructive sleep apnea (adult) (pediatric); G47.34 Idiopathic sleep related nonobstructive alveolar hypoventilation
CPT/HCPCS: 95806

== ENCOUNTER 2021-07-14 10:07 | Outpatient (CLI) | payer MEDICARE, MEDICAID, SELFPAY ==
[2021-07-14 10:33] LABS: Basophils Absolute Auto 0.1 K/mm3 (0.0-0.1); Basophils Percent Auto 0.7 % (0.2-1.2); Eosinophils Absolute Auto 0.5 K/mm3 (0-0.3); Eosinophils Percent Auto 5.1 % (0-4.4); Hematocrit 38.8 % (37.0-47.0); Hemoglobin 12.2 g/dL (12.0-15.0); Immature Granulocyte Absolute 0.04 K/mm3 (0.00-0.031); Immature Granulocyte Percent A 0.4 % (0-0.5); Lymphocytes Absolute Auto 3.13 K/mm3 (0.9-3.2); Lymphocytes Percent Auto 29.8 % (18.3-44.2); Mean Corpuscular HGB Conc 31.4 g/dl (32-36); Mean Corpuscular Hemoglobin 32.2 pg (26-34); Mean Corpuscular Volume 102.4 fl (80-100); Mean Platelet Volume 10.2 fl (7.4-10.4); Monocytes Absolute Auto 0.6 K/mm3 (0.1-0.6); Monocytes Percent Auto 5.7 % (2.6-8.5); Neutrophils Absolute Auto 6.1 K/mm3 (1.3-6.7); Neutrophils Percent Auto 58.3 % (45.5-73.1); Platelet Count Result 211 k/mm3 (150-375); Red Blood Count 3.79 M/mm3 (4.2-5.4); Red Cell Distribution Width 12.3 % (11.5-14.5); White Blood Count 10.5 K/mm3 (4.5-10.0)
[2021-07-14 10:44] LABS: Alanine Aminotransferase 19 U/L (4-35); Albumin Level 4.3 g/dL (3.5-5.1); Alkaline Phosphatase 62 U/L (38-126); Anion Gap 5 mmol/L (8-16); Aspartate Amino Transferase 26 U/L (14-36); Blood Urea Nitrogen 20 mg/dL (7-17); Calcium 9.5 mg/dL (8.4-10.2); Carbon Dioxide 33 mmol/L (22-30); Chloride 99 mmol/L (98-107); Cholesterol 189 mg/dL (0-200); Estimated Glomerular Filt Rate 48; Glucose 133 mg/dL (65-110); HDL Direct 56 mg/dL; Potassium 4.3 mmol/L (3.4-5.0); Sodium 137 mmol/L (137-145); Triglycerides 82 mg/dL (<150)
[2021-07-14 10:55] LABS: LDL Cholesterol Direct 80 mg/dL
[2021-07-14 10:56] LABS: Microalbumin Urine Random 16.9 mg/L (0-16.7)
[2021-07-14 11:00] LABS: Creatinine Urine 75.7 mg/dL; MALB Creatinine Ratio 22.3 mg/g (0-30)
[2021-07-14 11:01] LABS: Vitamin D 25 Hydroxy 63.4 ng/mL
[2021-07-14 11:47] LABS: Hemoglobin A1C 5.4 % (<5.7)
== END 2021-07-14 10:08 | disposition home or self-care (01) ==
LOC: ANHLAB 10:12
PROVIDERS: PCP Internal Medicine; Visit Provider Internal Medicine
DX: F32.1 Major depressive disorder, single episode, moderate (principal); I12.9 Hypertensive chronic kidney disease with stage 1 through stage 4 chronic kidney disease, or unspecified chronic kidney disease; E78.5 Hyperlipidemia, unspecified; E55.9 Vitamin D deficiency, unspecified; D72.829 Elevated white blood cell count, unspecified; I25.10 Atherosclerotic heart disease of native coronary artery without angina pectoris; N18.32 Chronic kidney disease, stage 3b; R73.01 Impaired fasting glucose
CPT/HCPCS: 36415; 80053; 80061; 82043; 82306; 83036; 84443; 85025

== ENCOUNTER 2021-09-10 08:49 | Outpatient (CLI) | payer MEDICARE, MEDICAID, SELFPAY ==
--- NOTE | ~2021-09-10 | MM_ITS ---
EXAMINATION: MM screening vinh BI w brittany HISTORY: Screening mammogram TECHNIQUE: Craniocaudal and mediolateral oblique 3-D tomosynthesis images were obtained and synthetic 2-D images were generated. CAD analysis was submitted and interpreted. COMPARISON: 09/2017, 09/05/2016, 12/22/2012 bilateral screening mammogram examinations BREAST PARENCHYMAL COMPOSITION: There are scattered areas of fibroglandular density. FINDINGS: Stable or smaller approximately 2 mm circumscribed opacity is again noted in the lower inne r left breast. There is no evidence of suspicious mass, calcification, or architectural distortion to suggest malignancy in either breast. There has been no suspicious interval change. IMPRESSION: 1. No mammographic evidence of malignancy. 2. Recommend routine screening mammography in one year. BI-RADS Category 2: Benign finding(s). Reviewed, dictated and finalized at location A.
== END 2021-09-10 08:50 | disposition home or self-care (01) ==
LOC: ANHIMG 08:51
PROVIDERS: PCP Internal Medicine; Visit Provider Internal Medicine
DX: Z12.31 Encounter for screening mammogram for malignant neoplasm of breast (principal)
CPT/HCPCS: 77063; 77067

== ENCOUNTER 2022-02-06 10:06 | Outpatient (CLI) | payer MEDICARE, MEDICAID, SELFPAY ==
[2022-02-06 10:46] LABS: Alanine Aminotransferase 24 U/L (6-35); Albumin Level 4.3 g/dL (3.5-5.1); Alkaline Phosphatase 58 U/L (38-126); Anion Gap 7 mmol/L (8-16); Aspartate Amino Transferase 28 U/L (14-36); Blood Urea Nitrogen 23 mg/dL (7-17); Calcium 10.3 mg/dL (8.4-10.2); Carbon Dioxide 33 mmol/L (22-30); Chloride 99 mmol/L (98-107); Cholesterol 175 mg/dL (0-200); Estimated Glomerular Filt Rate 40; Glucose 105 mg/dL (65-110); HDL Direct 66 mg/dL; Potassium 4.1 mmol/L (3.4-5.0); Sodium 139 mmol/L (137-145); Triglycerides 77 mg/dL (<150)
[2022-02-06 10:51] LABS: Hemoglobin A1C 5.8 % (<5.7)
[2022-02-06 10:57] LABS: LDL Cholesterol Direct 72 mg/dL
[2022-02-06 11:27] LABS: Vitamin D 25 Hydroxy 52.1 ng/mL
== END 2022-02-06 10:07 | disposition home or self-care (01) ==
PROVIDERS: PCP Internal Medicine; Visit Provider Internal Medicine
DX: R73.01 Impaired fasting glucose (principal); I12.9 Hypertensive chronic kidney disease with stage 1 through stage 4 chronic kidney disease, or unspecified chronic kidney disease; N18.32 Chronic kidney disease, stage 3b; E78.5 Hyperlipidemia, unspecified; E55.9 Vitamin D deficiency, unspecified
CPT/HCPCS: 36415; 80053; 80061; 82306; 83036

== ENCOUNTER 2022-04-02 10:47 | Emergency (ER) | payer MEDICARE, MEDICAID, SELFPAY ==
[2022-04-02] VITALS (16 sets, daily range): BP systolic 150–168; BP diastolic 55–67; PULSE 76–100; RESP 14–22; TEMP 36.2; O2SAT 97–100
--- NOTE | ~2022-04-02 | XR_ITS ---
Portable chest x-ray Comparison: 03/17/2021 Clinical History: Shortness of breath Findings: Mild diffuse interstitial prominence noted. No consolidation, pleural effusion, or pneumot horax. Cardiomediastinal silhouette is stable. Bones and soft tissues are unremarkable. Impression: Mild diffuse interstitial prominence. Correlate for underlying chronic interstitial disease. Reviewed, dictated and finalized at location [] MBLER PING PONG TABLE Impression: Mild diffuse interstitial prominence. Correlate for underlying chronic intersti tial disease.
--- NOTE | 2022-04-02 10:54 | ECG_ITS ---
Measurements Intervals [place] Rate: 80 P: 79 MS: 178 QRS: 52 QRSD: 91 T: 31 QT: 367 QTc: 425 Interpretive Statements SINUS RHYTHM BASELINE ARTIFACT PRESENT NONSPECIFIC ST AND T WAVE ABNORMALITY COMPARED TO ECG 03/17/2021 13:00:31 NO SIGNIFICANT CHANGES Electronically Signed On 04-02-2022 16:05:55 [employer] AGENT by Theresa Hopkins M.D.
--- NOTE | 2022-04-02 11:09 | PC.NURSE ---
Visitor stated Pt. is covid positive. Visitor refusing to leave patient after being explained hospital policy. Security notified. Visitor escorted out by security.
[2022-04-02 11:27] LABS: Basophils Percent Auto 0.2 % (0.2-1.2); Eosinophils Percent Auto 0.3 % (0-4.4); Hematocrit 36.4 % (37.0-47.0); Hemoglobin 12.1 g/dL (12.0-15.0); Immature Granulocyte Absolute 0.04 K/mm3 (0.00-0.031); Immature Granulocyte Percent A 0.3 % (0-0.5); Lymphocytes Absolute Auto 1.46 K/mm3 (0.9-3.2); Lymphocytes Percent Auto 12.7 % (18.3-44.2); Mean Corpuscular HGB Conc 33.2 g/dl (32-36); Mean Corpuscular Hemoglobin 30.9 pg (26-34); Mean Corpuscular Volume 93.1 fl (80-100); Mean Platelet Volume 9.6 fl (7.4-10.4); Monocytes Absolute Auto 0.7 K/mm3 (0.1-0.6); Monocytes Percent Auto 5.7 % (2.6-8.5); Neutrophils Absolute Auto 9.3 K/mm3 (1.3-6.7); Neutrophils Percent Auto 80.8 % (45.5-73.1); Platelet Count Result 239 k/mm3 (150-375); Red Blood Count 3.91 M/mm3 (4.2-5.4); Red Cell Distribution Width 12.1 % (11.5-14.5); White Blood Count 11.5 K/mm3 (4.5-10.0)
[2022-04-02] MEDS: SODIUM CHLORIDE 0.9% IV 1,000 ML 999 ML IV CONT (11:37)
[2022-04-02] MEDS: methylPREDNISolone SOD SUCC 125 MG VIAL IV PUSH (11:38)
[2022-04-02] MEDS: ONDANSETRON INJ 4 MG/2 ML VIAL IV PUSH (11:38)
[2022-04-02 11:55] LABS: Lactic Acid Reflex 1.1 mmol/L (0.7-2.0)
[2022-04-02 12:02] LABS: Influenza A QL RT-PCR Negative (Negative); Influenza B QL RT-PCR Negative (Negative); SARS-CoV-2 RNA PCR Positive
[2022-04-02 12:37] LABS: Alanine Aminotransferase 23 U/L (6-35); Albumin Level 4.2 g/dL (3.5-5.1); Alkaline Phosphatase 64 U/L (38-126); Anion Gap 7 mmol/L (8-16); Aspartate Amino Transferase 39 U/L (14-36); Bilirubin,Total 0.6 mg/dL (0.2-1.3); Blood Urea Nitrogen 22 mg/dL (7-17); Calcium 8.7 mg/dL (8.4-10.2); Carbon Dioxide 31 mmol/L (22-30); Chloride 88 mmol/L (98-107); Estimated CRCL calculation 39 ml/min; Estimated Glomerular Filt Rate 54; Glucose 132 mg/dL (65-110); Potassium 4.6 mmol/L (3.4-5.0); Sodium 126 mmol/L (137-145)
--- NOTE | 2022-04-02 12:45 | ED.SOB ---
HPI - SOB/Dyspnea General Chief Complaint: Shortness of Breath/Dyspnea Stated Complaint: sent by doctor for low O2 sat-covid+ on Wednesday Time Seen by Provider: 04/02/22 11:18 History of Present Illness HPI Narrative: 76-year-old female history of COPD with oxygen dependency, hyperlipidemia, chronic kidney disease, hypertension presents to the emergency room for evaluation of increased shortness of breath and nausea. Patient states that she was diagnosed with COVID 3 days ago and has since been experiencing lower O2 sats. Has increased her oxygen requirements from 3 L nasal cannula to 4 L. Patient is also complaining of sinus congestion and postnasal drip, admitting to swallowing her mucus. Related Data Home Medications Medication Instructions Recorded Confirmed aspirin 81 mg tablet,delayed 81 mg PO DAILY 02/10/19 02/13/22 release (Adult Low Dose Aspirin) cholecalciferol (vitamin D3) 10 400 unit PO DAILY 02/10/19 02/13/22 mcg (400 unit) capsule omega 8-bcy-squ-fish oil 1,000 mg 1 cap PO DAILY 02/10/19 02/13/22 (120 mg-180 mg) capsule (Fish Oil) Saccharomyces boulardii 50 mg mg PO BID 03/28/21 02/13/22 capsule Allergies Allergy/AdvReac Type Severity Reaction Status Date / Time TULIO Inhibitors Allergy Unknown Rash Verified 04/02/22 10:49 budesonide Allergy Unknown Rash Verified 04/02/22 10:49 ceftriaxone Allergy Unknown Rash Verified 04/02/22 10:49 codeine Allergy Unknown Rash Verified 04/02/22 10:49 formoterol Allergy Unknown Rash Verified 04/02/22 10:49 levofloxacin Allergy Unknown Rash Verified 04/02/22 10:49 lisinopril Allergy Unknown Rash Verified 04/02/22 10:49 Review of Systems Review of Systems: CONSTITUTIONAL: Denies fever, chills, or sweats. EYES: Denies visual changes, redness, or discharge. ENT: Denies rhinorrhea, congestion, sore throat, or otalgia. CARDIOVASCULAR: Denies chest pain, palpitations, or edema. RESPIRATORY: Reports dyspnea. GASTROINTESTINAL: Denies abdominal pain, nausea, vomiting, or diarrhea. GENITOURINARY: Denies dysuria or hematuria. SKIN: Denies rash or itching. MUSCULOSKELETAL: Denies back pain, joint pain, or myalgia. NEUROLOGIC: Denies headache, numbness, dizziness, or weakness. PSYCHIATRIC: Denies anxiety or depression. [facility] Past Medical History Medical History ARF (acute renal failure) Carotid occlusion, bilateral She sees her vascular surgeon every 6 months for this COPD with acute exacerbation Emphysema of lung History of tobacco abuse HTN (hypertension) Hyperlipidemia Myocardial infarction Pneumonia Seasonal allergies Surgical History Surgical History H/O heart artery stent H/O: hysterectomy Hx of appendectomy Family History Family History Grandparent Family history of tuberculosis Mother Cerebrovascular accident, Onset Age: 73 Father Family history of chronic obstructive pulmonary disease Family history of heart disease in male family member before age 55 Acute myocardial infarction Sibling Family history of chronic obstructive pulmonary disease Family history of lung cancer Family history of malignant neoplasm Family history of lung disease Social History Social History Social History: Lives with her daughter. Would like to be full code Smoking packs per day: 1.5 Smoking cigarettes per day: 30.0 Years smoked: 35 Smoking pack-years: 52.50 Smoking status: Former smoker Second hand tobacco smoke exposure: No Smoking end date: 09/17/98 Alcohol intake: never Substance use: never Substance use type: does not use Lack of Transportation: No Lack of Food: Never True Current Housing: I Have Housing Concerned About Future Housing: No Difficulty Paying Gas/Electric Bills: No Difficulty Paying f
[2022-04-02] MEDS: IPRATROPIUM BR 0.02% INH SOLN 0.5 MG/2.5 ML VIAL INHALATION (14:05)
[2022-04-02] MEDS: ALBUTEROL SULFATE NEB 2.5 MG/3 ML INH INHALATION (14:06)
== END 2022-04-02 15:01 | disposition home or self-care (01) ==
PROVIDERS: Emergency Medicine; Emergency Provider Nurse Practitioner Family; PCP Internal Medicine
DX: U07.1 COVID-19 (principal); J96.11 Chronic respiratory failure with hypoxia; J43.9 Emphysema, unspecified; I12.9 Hypertensive chronic kidney disease with stage 1 through stage 4 chronic kidney disease, or unspecified chronic kidney disease; N18.9 Chronic kidney disease, unspecified; I25.2 Old myocardial infarction; E78.5 Hyperlipidemia, unspecified; Z95.5 Presence of coronary angioplasty implant and graft; Z99.81 Dependence on supplemental oxygen; Z90.710 Acquired absence of both cervix and uterus; Z87.01 Personal history of pneumonia (recurrent); Z87.891 Personal history of nicotine dependence; R94.31 Abnormal electrocardiogram [ECG] [EKG]
CPT/HCPCS: 36415; 71045; 80053; 83605; 85025; 87636; 93005; 94640; 96361; 96374; 96375; 99284; J2405; J2930; J7030

== ENCOUNTER 2022-08-07 10:22 | Outpatient (CLI) | payer MEDICARE, MEDICAID, SELFPAY ==
[2022-08-07 11:28] LABS: Alanine Aminotransferase 17 U/L (6-35); Albumin Level 4.3 g/dL (3.5-5.1); Alkaline Phosphatase 55 U/L (38-126); Anion Gap 4 mmol/L (8-16); Aspartate Amino Transferase 24 U/L (14-36); Bilirubin,Total 0.7 mg/dL (0.2-1.3); Blood Urea Nitrogen 28 mg/dL (7-17); Calcium 9.8 mg/dL (8.4-10.2); Carbon Dioxide 38 mmol/L (22-30); Chloride 98 mmol/L (98-107); Cholesterol 149 mg/dL (0-200); Estimated Glomerular Filt Rate 48; Glucose 98 mg/dL (65-110); HDL Direct 50 mg/dL; Potassium 4.2 mmol/L (3.4-5.0); Sodium 140 mmol/L (137-145); Triglycerides 84 mg/dL (<150)
[2022-08-07 11:33] LABS: Hemoglobin A1C 5.4 % (<5.7)
[2022-08-07 11:38] LABS: LDL Cholesterol Direct 63 mg/dL
== END 2022-08-07 10:23 | disposition home or self-care (01) ==
LOC: ANHLAB 10:24
PROVIDERS: PCP Internal Medicine; Visit Provider Internal Medicine
DX: I25.10 Atherosclerotic heart disease of native coronary artery without angina pectoris (principal); I12.9 Hypertensive chronic kidney disease with stage 1 through stage 4 chronic kidney disease, or unspecified chronic kidney disease; N18.30 Chronic kidney disease, stage 3 unspecified; E78.5 Hyperlipidemia, unspecified; R73.01 Impaired fasting glucose
CPT/HCPCS: 36415; 80053; 80061; 83036

== ENCOUNTER 2022-12-31 12:21 | Outpatient (CLI) | payer MEDICARE, MEDICAID, SELFPAY ==
[2022-12-31 13:25] VITALS: PULSE 75; O2SAT 85
[2022-12-31 13:30] VITALS: PULSE 74; O2SAT 94
[2022-12-31 13:33] VITALS: PULSE 94; O2SAT 89
[2022-12-31 13:45] VITALS: PULSE 79; O2SAT 95
--- NOTE | 2022-12-31 14:04 | PCRCNOTE ---
POST SPIROMETRY NOT DONE TO PT BEING TOO SHORT OF BREATH
--- NOTE | 2022-12-31 14:17 | HOMEO2EVAL ---
Evaluation was performed at [facility] Home Oxygen Evaluation RC: Home Oxygen (O2) Evaluation Start: 12/31/22 14:14 Freq: Status: Active Protocol: RPE Activity Type Activity Date Activity User E-sign Co-sign Detail Recorded Client Recorded Date Recorded By Document 12/31/22 13:25 [facility] [id number] 12/31/22 14:17 [facility] Document 12/31/22 13:30 [facility] [email or web address] 12/31/22 14:17 [facility] Document 12/31/22 13:33 [facility] [email or web address] 12/31/22 14:17 [facility] Document 12/31/22 13:45 [facility] [id number] 12/31/22 14:17 [facility] 12/31/22 12/31/22 12/31/22 13:25 13:30 13:33 Home O2 Evaluation [Oxygen] -Test Phase Resting Resting Exercise -Oxygen Delivery Room Air Nasal Cannula Nasal Cannula -Oxygen Flow Rate (L/min) 3 3 [Pulse Oximetry] -Pulse Oximetry (90-100 %) 85 L 94 89 L [Pulse Rate] -Pulse Rate (60-100 beats/min) 75 74 94 [Comments] -Home Oxygen Evaluation Comments PT REQUIRES 3 L REST AND ACTIVITY [Charges] -Treatment Charges O2 Evaluation - Outpatient 12/31/22 13:45 Home O2 Evaluation [Oxygen] -Test Phase Resting -Oxygen Delivery Nasal Cannula -Oxygen Flow Rate (L/min) 3 [Pulse Oximetry] -Pulse Oximetry (90-100 %) 95 [Pulse Rate] -Pulse Rate (60-100 beats/min) 79 [Comments] -Home Oxygen Evaluation Comments [Charges] -Treatment Charges
--- NOTE | 2023-01-01 10:03 | WPDPFTINT ---
PFT Procedure Performed PFT Procedure Performed Plethysmography (Lung Vol) Diffusing Cap (DLCO) Flow Vol Loop Spirometry w/o Bronchodil PFT Interpretation Lung volumes were measured with the body plethysmography method. The elevated RV could be due to air trapping and the elevated total lung capacity to lung hyperinflation. Spirometry showed diminished expiratory flow rates and a diminished FEV1 to FVC ratio of 37% consistent with obstructive airway disease. No post bronchodilator study carried out. Lung diffusion capacity is severely reduced at 26% predicted. The flow-volume loop is consistent with severe emphysema. In comparison to previous study in 2019, the FEV1 is now lower by approximately 0.2 L as is the FVC by approximately 0.4 L. Impression: Severe obstructive airway disease with evidence of lung hyperinflation and air trapping. Severely reduced lung diffusion capacity.
== END 2022-12-31 12:22 | disposition home or self-care (01) ==
LOC: ANHPFT 12:24
PROVIDERS: PCP Family Medicine; Visit Provider Physician Assistant
DX: J44.9 Chronic obstructive pulmonary disease, unspecified (principal); R94.2 Abnormal results of pulmonary function studies
CPT/HCPCS: 94375; 94618; 94726; 94729

== ENCOUNTER 2023-01-26 09:24 | Outpatient (CLI) | payer MEDICARE, MEDICAID, SELFPAY ==
[2023-01-26 09:51] LABS: Basophils Absolute Auto 0.1 K/mm3 (0.0-0.1); Basophils Percent Auto 0.6 % (0.2-1.2); Eosinophils Absolute Auto 0.4 K/mm3 (0-0.3); Eosinophils Percent Auto 3.9 % (0-4.4); Hematocrit 36.2 % (37.0-47.0); Hemoglobin 11.1 g/dL (12.0-15.0); Immature Granulocyte Absolute 0.04 K/mm3 (0.00-0.031); Immature Granulocyte Percent A 0.4 % (0-0.5); Lymphocytes Absolute Auto 3.17 K/mm3 (0.9-3.2); Lymphocytes Percent Auto 29.8 % (18.3-44.2); Mean Corpuscular HGB Conc 30.7 g/dl (32-36); Mean Corpuscular Hemoglobin 31.4 pg (26-34); Mean Corpuscular Volume 102.3 fl (80-100); Mean Platelet Volume 10.4 fl (7.4-10.4); Monocytes Absolute Auto 0.6 K/mm3 (0.1-0.6); Monocytes Percent Auto 5.6 % (2.6-8.5); Neutrophils Absolute Auto 6.4 K/mm3 (1.3-6.7); Neutrophils Percent Auto 59.7 % (45.5-73.1); Platelet Count Result 261 k/mm3 (150-375); Red Blood Count 3.54 M/mm3 (4.2-5.4); Red Cell Distribution Width 12.3 % (11.5-14.5); White Blood Count 10.6 K/mm3 (4.5-10.0)
[2023-01-26 10:02] LABS: Alanine Aminotransferase 17 U/L (6-35); Albumin Level 4.1 g/dL (3.5-5.1); Alkaline Phosphatase 59 U/L (38-126); Anion Gap 4 mmol/L (8-16); Aspartate Amino Transferase 27 U/L (14-36); Blood Urea Nitrogen 23 mg/dL (7-17); Calcium 9.9 mg/dL (8.4-10.2); Carbon Dioxide 35 mmol/L (22-30); Chloride 100 mmol/L (98-107); Cholesterol 159 mg/dL (0-200); Estimated Glomerular Filt Rate 48; Glucose 100 mg/dL (65-110); HDL Direct 57 mg/dL; Magnesium 1.7 mg/dL (1.6-2.3); Sodium 139 mmol/L (137-145); Triglycerides 81 mg/dL (<150)
[2023-01-26 10:14] LABS: LDL Cholesterol Direct 69 mg/dL
[2023-01-26 10:19] LABS: Creatinine Urine 119.4 mg/dL
[2023-01-26 10:24] LABS: MALB Creatinine Ratio 20.5 mg/g (0-30); Microalbumin Urine Random 24.5 mg/L (0-16.7)
== END 2023-01-26 09:25 | disposition home or self-care (01) ==
LOC: ANHLAB 09:26
PROVIDERS: PCP Family Medicine; Visit Provider Nurse Practitioner Family
DX: E78.5 Hyperlipidemia, unspecified (principal); I12.9 Hypertensive chronic kidney disease with stage 1 through stage 4 chronic kidney disease, or unspecified chronic kidney disease; N18.30 Chronic kidney disease, stage 3 unspecified; D72.829 Elevated white blood cell count, unspecified; J44.9 Chronic obstructive pulmonary disease, unspecified
CPT/HCPCS: 36415; 80053; 80061; 82043; 83735; 85025; 85055

== ENCOUNTER 2023-05-16 09:32 | Inpatient (IN) | payer MEDICARE, MEDICAID, SELFPAY ==
[2023-05-16] VITALS (46 sets, daily range): BP systolic 98–166; BP diastolic 33–79; PULSE 87–152; RESP 12–25; TEMP 36.6; O2SAT 92–100; BMI 28.8
--- NOTE | ~2023-05-16 | CT_ITS ---
EXAMINATION: CTA chest PE abdomen pel DATE: 05/16/2023 13:17 MOBILE APPLICATION ARCHITECT INDICATION: Dyspnea. Abdomen pain. TECHNIQUE: Computed tomographic angiography (CTA) of the chest, abdomen, and pelvis was performed wit hout and with 100 mL Omnipaque-350 intravenous contrast. The dose-length product was 969.95 mGy-cm. M aximum intensity projection 3D-reconstructions of the aorta and other arteries were constructed by chuy woodruff technologist on a separate workstation. COMPARISON: CT dated 03/17/2021. FINDINGS: CHEST CTA: Bilateral hilar lymphadenopathy. Study is technically adequate without evidence for pulmonary embolis m. No significant pleural or pericardial effusion. Emphysema. There are bilateral reticulonodular den sities in both lungs with upper lobe predominance, suspicious for pneumonia. No endobronchial lesions . No pneumothorax. Accentuated thoracic kyphosis with moderate thoracic spondylosis. Port ABDOMEN AND PELVIS CTA: Heart size normal. No significant pleural or pericardial effusion. Fatty infiltration of the liver. G allbladder is present. The spleen, pancreas, adrenal glands and left kidney are unremarkable. There a re small subcentimeter hypodensities of the right kidney, too small to characterize, although statist ically likely benign. Bowel pattern is nonobstructive. Colonic diverticulosis without evidence for di verticulitis. There is atherosclerosis of the aorta without aneurysm. No lymphadenopathy. There is st enosis at the origin of the celiac axis, SMA and right renal artery. The MALVIN is not well visualized. Colonic diverticulosis without evidence for diverticulitis. Mild lumbar spondylosis. IMPRESSION: 1. Extensive reticulonodular densities of both lungs, compatible with pneumonia. 2: Emphysema. 3: Atherosclerosis with stenosis at the origin of the celiac axis, SMA and right renal artery. Reviewed, dictated and finalized at location A. LE APPLICATION ARCHITECT IMPRESSION: 1. Extensive reticulonodular densities of both lungs, compatible with pneumonia . 2: Emphysema. 3: Atherosclerosis with stenosis at the origin of the celiac axis, SMA and righ t renal artery.
--- NOTE | ~2023-05-16 | US_ITS ---
EXAMINATION: US right upper quadrant DATE: 05/17/2023 15:51 INDICATION: Abdominal pain. TECHNIQUE: Multiple grayscale and Doppler ultrasound images of the abdomen were obtained. COMPARISON: Head CT 05/16/2023 FINDINGS: The visualized portions of the head and body of the pancreas are normal. The liver is chase l without focal lesion. No liver surface nodularity. There is antegrade flow in main portal vein. The gallbladder is normal in size. No gallstones or gallbladder wall thickening. There is a positive son ographic Ramos sign. The common duct is normal and measures 4 mm. IMPRESSION: 1. Normal abdomen. No etiology for the positive sonographic Ramos sign. Reviewed, dictated and finalized at location A. DRY TECHNICIAN
--- NOTE | 2023-05-16 09:38 | ECG_ITS ---
Measurements Intervals [place] Rate: 117 P: 81 [place]: 166 QRS: 58 QRSD: 86 T: 67 QT: 295 QTc: 413 Interpretive Statements SINUS TACHYCARDIA MINIMAL Q WAVES- ANTEROLAT/INF LEADS NONSPECIFIC ST & T-WAVE ABNORMALITY- ANTEROLAT/INF LEADS BASELINE ARTIFACT- I, III, AVR, AVL, AVF, V4 ABNORMAL ECG COMPARED TO ECG 04/02/2022 11:21:07 SINUS TACHYCARDIA NOW PRESENT Electronically Signed On 05-16-2023 11:31:12 SURGICAL GARMENT ASSEMBLY SUPERVISOR by Joon Boyce D.O.
--- NOTE | 2023-05-16 10:30 | ED.ABDPAIN ---
HPI - Abdominal Pain General Chief Complaint: Abdominal Pain <Haleigh Calderon PA-C - Last Filed: 05/16/23 14:45> Stated Complaint: nausea, abd pain <Haleigh Calderon PA-C - Last Filed: 05/16/23 14:45> Time Seen by Provider: 05/16/23 09:43 <Haleigh Calderon PA-C - Last Filed: 05/16/23 14:45> History of Present Illness HPI narrative: 77-year-old female with a history of CAD, s/p stent placement, hyperlipidemia, COPD on 3 L nasal cannula baseline, hypertension, CKD stage 3 reports for evaluation for abdominal pain, nausea, shortness of breath , urinary frequency and increased oxygen demand x1 day. Patient states in the past 24 hours she has developed right upper and lower quadrant abdominal pain with associated nausea. She reports shortness of breath and states this morning while she was walking around her house on her baseline 3 L nasal cannula, her oxygen dropped to the low 80s and 70s. She increased her oxygen to 4 L prior to arrival and came to the ER. She is reporting mild cough. Denies chest pain, fever, vomiting, dysuria, hematuria, BLE. She also reports a history of prior hemorrhagic ulcers that required ICU admission, However she denies melena or hematochezia at this time. She is not on a PPI. prior abdominal surgeries include appendectomy and hysterectomy. Patient does report that she is taking erythromycin 3 times daily prescribed by her social service director for recurrent lung infections. <Haleigh Calderon PA-C - Last Filed: 05/16/23 14:45> Related Data Home Medications: Home Medications Medication Instructions Recorded Confirmed aspirin 81 mg tablet,delayed 81 mg PO DAILY 02/10/19 05/16/23 release (Adult Low Dose Aspirin) cholecalciferol (vitamin D3) 10 400 unit PO DAILY 02/10/19 05/16/23 mcg (400 unit) capsule omega 0-ubq-rty-fish oil 1,000 mg 1 cap PO DAILY 02/10/19 05/16/23 (120 mg-180 mg) capsule (Fish Oil) amlodipine 5 mg tablet 5 mg PO DAILY 05/16/23 05/16/23 budesonide 160 mcg-glycopyr 9 2 inh inhalation Q12H 05/16/23 05/16/23 mcg-formot 4.8 mcg/actuation HFA inhaler (Breztri Aerosphere) fluticasone propionate 50 1 spray intranasal BID 05/16/23 05/16/23 mcg/actuation nasal spray,suspension olmesartan 40 1 tablet PO DAILY 05/16/23 05/16/23 mg-hydrochlorothiazide 12.5 mg tablet <ISAMAR Rios Last Filed: 05/16/23 14:45> Allergies/Adverse Reactions: Allergies Allergy/AdvReac Type Severity Reaction Status Date / Time TULIO Inhibitors Allergy Unknown Rash Verified 05/16/23 09:58 budesonide Allergy Unknown Rash Verified 05/16/23 09:58 ceftriaxone Allergy Unknown Rash Verified 05/19/23 08:53 codeine Allergy Unknown Rash Verified 05/16/23 09:58 formoterol Allergy Unknown Rash Verified 05/16/23 09:58 levofloxacin Allergy Unknown Rash Verified 05/16/23 09:58 lisinopril Allergy Unknown Rash Verified 05/16/23 09:58 <Haleigh Calderon PA-C - Last Filed: 05/16/23 14:45> Review of Systems Review of Systems: CONSTITUTIONAL: Denies fever, chills, or sweats. EYES: Denies visual changes, redness, or discharge. ENT: Denies rhinorrhea, congestion, sore throat, or otalgia. CARDIOVASCULAR: See HPI RESPIRATORY: see HPI GASTROINTESTINAL: see HPI GENITOURINARY: see HPI SKIN: Denies rash or itching. MUSCULOSKELETAL: Denies back pain, joint pain, or myalgia. NEUROLOGIC: Denies headache, numbness, or weakness. PSYCHIATRIC: Denies anxiety or depression. <Haleigh Calderon PA-C - Last Filed: 05/16/23 14:45> [facility] Past Medical History Medical History: Medical History ARF (acute renal failure) Carotid occlusion, bilateral She sees her vascular surgeon every 6 months for this COPD with acute exacerbation Emphysema of lung History of tobacco abuse HTN (hypertension) Hyperlipidemia Myocardial infarction Pneumonia Seasonal allergies <ISAMAR Rios Last Filed:
[2023-05-16 10:45] LABS: Basophils Absolute Auto 0.1 K/mm3 (0.0-0.1); Basophils Percent Auto 0.6 % (0.2-1.2); Eosinophils Absolute Auto 0.5 K/mm3 (0-0.3); Eosinophils Percent Auto 5.1 % (0-4.4); Hemoglobin 12.3 g/dL (12.0-15.0); Immature Granulocyte Absolute 0.03 K/mm3 (0.00-0.031); Immature Granulocyte Percent A 0.3 % (0-0.5); Lymphocytes Absolute Auto 1.63 K/mm3 (0.9-3.2); Lymphocytes Percent Auto 16.2 % (18.3-44.2); Mean Corpuscular HGB Conc 30.8 g/dl (32-36); Mean Corpuscular Hemoglobin 30.9 pg (26-34); Mean Corpuscular Volume 100.5 fl (80-100); Mean Platelet Volume 10.5 fl (7.4-10.4); Monocytes Absolute Auto 0.7 K/mm3 (0.1-0.6); Monocytes Percent Auto 6.6 % (2.6-8.5); Neutrophils Absolute Auto 7.2 K/mm3 (1.3-6.7); Neutrophils Percent Auto 71.2 % (45.5-73.1); Platelet Count Result 269 k/mm3 (150-375); Red Blood Count 3.98 M/mm3 (4.2-5.4); Red Cell Distribution Width 12.9 % (11.5-14.5)
[2023-05-16] MEDS: ONDANSETRON INJ 4 MG/2 ML VIAL IV PUSH ×2 (10:54→23:28)
[2023-05-16] MEDS: SODIUM CHLORIDE 0.9% IV 1,000 ML 999 ML IV CONT ×2 (10:54→14:14)
[2023-05-16] MEDS: PANTOPRAZOLE SODIUM IV 40 MG VIAL IV PUSH ×2 (10:54→23:28)
[2023-05-16] MEDS: IPRATROPIUM 0.5 MG/ALBUTEROL SULFATE 2.5 MG AMPUL.NEB 3 ML INHALATION ×3 (10:56)
[2023-05-16 11:17] LABS: Appearance Urine Clear (Clear); Bacteria Urine None Seen /hpf; Bilirubin Urine Negative (Negative); Blood Urine Negative (Negative); Color Urine Yellow (Yellow); Glucose Urine UA Negative (Negative); Ketones Urine Negative (Negative); Leukocyte Esterase Ur 2+ LEU/UL (Negative); Need Manual Microscopic Reviewed; Nitrate Urine Negative (Negative); Non Pathogenic Casts 0-2; Protein Urine 1+ mg/dL (Negative); RBC Urine 0-2 /hpf (0-2); Specific Grav Ur 1.012 (1.001-1.035); Squamous Epithelial Cell Urine Few /hpf (Few); Urobilinogen Urine 0.2 mg/dL (<2.0); WBC Urine 0-5 /hpf; pH Urine 6.5 (5.0-9.0)
[2023-05-16 11:18] LABS: Add Urine Microscopic? YES
[2023-05-16 11:37] LABS: NT Pro B Type Natriuretic Pept 1230 pg/mL (19.9-100); Troponin I 0.015 ng/mL (0.000-0.034)
[2023-05-16 12:02] LABS: Alanine Aminotransferase 19 U/L (6-35); Albumin Level 4.7 g/dL (3.5-5.1); Alkaline Phosphatase 72 U/L (38-126); Anion Gap 6 mmol/L (8-16); Aspartate Amino Transferase 31 U/L (14-36); Blood Urea Nitrogen 23 mg/dL (7-17); Calcium 10.6 mg/dL (8.4-10.2); Carbon Dioxide 35 mmol/L (22-30); Chloride 99 mmol/L (98-107); Estimated CRCL calculation 42 ml/min; Estimated Glomerular Filt Rate 60; Glucose 117 mg/dL (65-110); Lipase 79 U/L (23-300); Potassium 4.8 mmol/L (3.4-5.0); Sodium 140 mmol/L (137-145)
[2023-05-16 13:51] LABS: Alveolar/Arterial O2 Gradient 109.7 mmHg; Base Excess ABG 2.5 mEq/l (+/-2.0); Fractional Inspired Oxygen 32 %; HCO3 ABG 28.7 mEq/l (22.0-26.0); Oxygen Content ABG 14.6 %vol (16.0-22.0); Oxygen Saturation ABG 89.2 % (95.0-100.0); Oxyhemoglobin 89.7 % THb (90.0-100.0); PCO2 ABG 51.2 mmHg (35.0-45.0); PO2 ABG 58.6 mmHg (80.0-100.0); PO2 FiO2 Ratio Arterial Blood 1.83 %; Total Hemoglobin 11.6 g/dL (12.0-18.0); pH ABG 7.366 (7.350-7.450)
[2023-05-16 13:52] LABS: Device NASAL CANNULA; Modified Allen's Test Pass; Site Drawn RIGHT RADIAL
[2023-05-16] MEDS: ACETAMINOPHEN 325 MG TABLET 650 MG PO (14:13)
[2023-05-16] MEDS: PIPERACILLN/TAZ 3.375GM/NS50ML 3.375 GM/50 ML BAG IVPB ×2 (14:15→23:28)
--- NOTE | 2023-05-16 14:18 | PM.IMHP ---
H&P: HPI History of Present Illness Date/Time: 05/16/23 14:18 Chief Complaint: RUQ abdominal pain, dyspnea Narrative: This is a 77-year-old female patient presented to the emergency department with complaints of abdominal pain nausea dyspnea and increased oxygen demand. She reports that she had to turn up her oxygen from 3 L to 4 L today because she would be saturating in the low 80s and got as low as 76% with ambulation today. She was complaining of dyspnea consistent with her COPD. She also has a history of CAD status post stent placement, hypertension stage III CKD hyperlipidemia. Patient denies chest pain vomiting constipation or diarrhea. She reports that her right upper quadrant abdomen and epigastrium have been hurting her for a couple of months or at least have been uncomfortable for a couple of months in started having pain over the last 1 week. She has a history of bleeding ulcers but not currently taking a PPI. She is on a set through my sent 3 times a week. This has been prescribed by her public relations studies director for recurrent lung infections. Her laboratory assessment is relatively unremarkable. Her chest CTA shows extensive reticular nodular densities of both lungs compatible with pneumonia as well as emphysema. Incidentally CTA also shows atherosclerosis sclerosis with stenosis at the origin of the celiac axis SMA and right renal artery. The emergency department started her on Zosyn for her pneumonia. She has multiple allergies. We will consult pulmonology to see her tomorrow. Review of Systems Review of Systems: All systems reviewed & are unremarkable except as noted in HPI and below PMFSH Past Medical History Medical History ARF (acute renal failure) Carotid occlusion, bilateral She sees her vascular surgeon every 6 months for this COPD with acute exacerbation Emphysema of lung History of tobacco abuse HTN (hypertension) Hyperlipidemia Myocardial infarction Pneumonia Seasonal allergies Surgical History Surgical History H/O heart artery stent H/O: hysterectomy Hx of appendectomy Family History Family History Grandparent Family history of tuberculosis Mother Cerebrovascular accident, Onset Age: 73 Father Family history of chronic obstructive pulmonary disease Family history of heart disease in male family member before age 55 Acute myocardial infarction Sibling Family history of chronic obstructive pulmonary disease Family history of lung cancer Family history of malignant neoplasm Family history of lung disease Social History Social History Social History: Lives with her daughter. Would like to be full code Smoking packs per day: 2 Smoking cigarettes per day: 40.0 Years smoked: 40 Smoking pack-years: 80.00 Smoking status: Former smoker Second hand tobacco smoke exposure: No Smoking end date: 09/17/98 Alcohol intake: never Substance use: never Substance use type: does not use Do You Feel Safe in your Home?: Yes Lack of Transportation: No Lack of Food: Never True Current Housing: I Have Housing Concerned About Future Housing: No Difficulty Paying Gas/Electric Bills: No Difficulty Paying for Meds: No Currently Unemployed: No Education: Bachelor's Degree Difficulty w/ Childcare or Family Care: No Gender identity (if verbalized by the patient): Female Spiritual care concerns: No Agree to blood products: Yes Meds Home Medications and Allergies Home Medications Medication Instructions Recorded Confirmed Type aspirin 81 mg tablet,delayed 81 mg PO DAILY 02/10/19 05/16/23 History release (Adult Low Dose Aspirin) cholecalciferol (vitamin D3) 10 400 unit PO DAILY 02/10/19 05/16/23 History mcg (400 unit)
[2023-05-16 14:42] LABS: Influenza A QL RT-PCR Negative (Negative); Influenza B QL RT-PCR Negative (Negative); RSV RNA, RT-PCR Negative (Negative); SARS-CoV-2 RNA PCR Negative (Negative)
[2023-05-16] MEDS: methylPREDNISolone SOD SUCC 125 MG VIAL IV PUSH (15:07)
[2023-05-16] MEDS: VANCOMYCIN 1,750 MG/NS 500 ML 1,750 MG/500 ML BAG 250 MG IVPB (15:07)
[2023-05-16 15:15] LABS: Lactic Acid Reflex 2.2 mmol/L (0.7-2.0)
[2023-05-16 15:32] LABS: Procalcitonin 0.1 ng/mL
[2023-05-16 15:35] LABS: MRSA (PCR) NOT DETECTED (NOT DETECTE)
[2023-05-16] MEDS: SODIUM CHLORIDE 0.9% IV 1,000 ML 75 ML IV CONT (17:21)
[2023-05-16 17:58] LABS: Reflex Lactic Acid Yes or No Add Lactic
--- NOTE | 2023-05-16 19:25 | ADMGEN ---
This patient, Irma Rocha, was admitted to IMU Room 212-01. Patient/family oriented to hospital policies and general routines including ID bracelet, bed and alarms, visiting hours, pain management, procedures, bathroom and other care routines, personal items, smoking policy, room service/diet, and visiting hours. Information on how to activate the Rapid Response Team has been discussed. Patient/Family are encouraged to report perceived risks to care and to ask questions if they do not understand what they are told or what they should do.
[2023-05-16 20:15] LABS: Lactic Acid 2.1 mmol/L (0.7-2.0)
[2023-05-16 21:32] LABS: Lipase 44 U/L (23-300)
[2023-05-16] MEDS: METOPROLOL TARTRATE 25 MG TABLET PO (23:27)
[2023-05-17] VITALS (25 sets, daily range): BP systolic 127–142; BP diastolic 43–59; PULSE 64–103; RESP 18–22; TEMP 36.2–36.8; O2SAT 93–100
[2023-05-17] MEDS: IPRATROPIUM 0.5 MG/ALBUTEROL SULFATE 2.5 MG AMPUL.NEB 3 ML INHALATION ×4 (02:34→21:54)
[2023-05-17 05:15] LABS: Hematocrit 30.9 % (37.0-47.0); Hemoglobin 9.6 g/dL (12.0-15.0); Immature Granulocyte Absolute 0.04 K/mm3 (0.00-0.031); Immature Granulocyte Percent A 0.6 % (0-0.5); Lymphocytes Absolute Auto 0.93 K/mm3 (0.9-3.2); Mean Corpuscular HGB Conc 31.1 g/dl (32-36); Mean Corpuscular Hemoglobin 30.9 pg (26-34); Mean Corpuscular Volume 99.4 fl (80-100); Mean Platelet Volume 9.9 fl (7.4-10.4); Monocytes Absolute Auto 0.1 K/mm3 (0.1-0.6); Monocytes Percent Auto 1.5 % (2.6-8.5); Neutrophils Absolute Auto 5.1 K/mm3 (1.3-6.7); Neutrophils Percent Auto 82.9 % (45.5-73.1); Platelet Count Result 203 k/mm3 (150-375); Red Blood Count 3.11 M/mm3 (4.2-5.4); Red Cell Distribution Width 13.1 % (11.5-14.5); White Blood Count 6.2 K/mm3 (4.5-10.0)
[2023-05-17 05:21] LABS: Alanine Aminotransferase 14 U/L (6-35); Albumin Level 3.2 g/dL (3.5-5.1); Alkaline Phosphatase 53 U/L (38-126); Anion Gap 5 mmol/L (8-16); Aspartate Amino Transferase 25 U/L (14-36); Bilirubin,Total 0.5 mg/dL (0.2-1.3); Blood Urea Nitrogen 17 mg/dL (7-17); Calcium 9.1 mg/dL (8.4-10.2); Carbon Dioxide 31 mmol/L (22-30); Chloride 104 mmol/L (98-107); Estimated CRCL calculation 37 ml/min; Estimated Glomerular Filt Rate 53; Glucose 133 mg/dL (65-110); Lipase 29 U/L (23-300); Magnesium 1.6 mg/dL (1.6-2.3); Potassium 4.3 mmol/L (3.4-5.0); Sodium 140 mmol/L (137-145)
[2023-05-17] MEDS: PIPERACILLN/TAZ 3.375GM/NS50ML 3.375 GM/50 ML BAG IVPB ×4 (06:25→23:51)
[2023-05-17] MEDS: ASPIRIN 81 MG ENTERIC TABLET PO (09:10)
[2023-05-17] MEDS: amLODIPine BESYLATE 5 MG TABLET PO (09:10)
[2023-05-17] MEDS: PANTOPRAZOLE SODIUM IV 40 MG VIAL IV PUSH ×2 (09:10→20:21)
[2023-05-17] MEDS: FLUTICASONE PROPIONATE 0.05% NA SPR 16 GM BTL (*BKC) 1 SPRAY NASAL ×2 (09:10→18:35)
[2023-05-17] MEDS: ATORVASTATIN 40 MG TABLET PO (09:10)
[2023-05-17] MEDS: METOPROLOL TARTRATE 25 MG TABLET PO ×2 (09:10→20:21)
[2023-05-17] MEDS: OLMESARTAN MEDOXOMIL 20 MG TABLET 40 MG PO (09:11)
[2023-05-17] MEDS: OMEGA 3 POLYUNSAT FATTY ACIDS 1 GM CAP PO (09:11)
[2023-05-17] MEDS: hydroCHLOROthiazide 12.5 MG CAPSULE PO (09:11)
[2023-05-17] MEDS: predniSONE 20 MG TABLET 40 MG PO (09:11)
[2023-05-17] MEDS: SODIUM CHLORIDE 0.9% IV 1,000 ML 75 ML IV CONT (09:16)
[2023-05-17] MEDS: CHOLECALCIFEROL 400 UNITS TABLET (VIT D) PO (09:22)
--- NOTE | 2023-05-17 18:21 | PM.IMPN ---
Progress Note: A&P Assessment and Plan (1) Mixed hyperlipidemia: Code(s): E78.2 - Mixed hyperlipidemia Status: Acute (2) Essential (primary) hypertension: Code(s): I10 - Essential (primary) hypertension Status: Acute (3) Chronic obstructive pulmonary disease: Qualifiers: COPD type: unspecified COPD Qualified Code(s): J44.9 - Chronic obstructive pulmonary disease, unspecified Code(s): J44.9 - Chronic obstructive pulmonary disease, unspecified Status: Acute (4) ASHD (arteriosclerotic heart disease): Code(s): I25.10 - Atherosclerotic heart disease of [place] coronary artery without angina pectoris Status: Acute (5) Overweight (BMI 25.0-29.9): Code(s): E66.3 - Overweight Status: Acute (6) Arthritis: Code(s): M19.90 - Unspecified osteoarthritis, unspecified site Status: Acute (7) Neuropathy: Code(s): G62.9 - Polyneuropathy, unspecified Status: Acute (8) Hyperlipidemia: Code(s): E78.5 - Hyperlipidemia, unspecified Status: Acute (9) Community acquired pneumonia: Qualifiers: Laterality: unspecified laterality Qualified Code(s): J18.9 - Pneumonia, unspecified organism Code(s): J18.9 - Pneumonia, unspecified organism Status: Acute (10) JAMAL (obstructive sleep apnea): Code(s): G47.33 - Obstructive sleep apnea (adult) (pediatric) Status: Acute Plan Admit patient to a medical unit under full inpatient status Oxygen via nasal cannula ordered to keep O2 sats more than 92% Patient is now back to her baseline oxygen requirement of 3 L oxygen via nasal cannula Continue with oral prednisone started in the ER Patient started on IV azithromycin and Zosyn which will continue on the floor Follow-up on blood and sputum cultures DuoNeb breathing treatments ordered as needed Ambulate on the floor with assistance Spoke with Pulmonary in detail Right upper quadrant sonogram ordered for abdominal pain which ruled out cholelithiasis and cholecystitis DC planning likely in am once patient is medically stable and breathing is back to baseline ? Patient seen and examined at bedside during my morning rounds ? Collaborated with patient's nurse at the bedside in detail and addressed all concerns ? Labs, electrolytes, radiology, investigations and test results reviewed ? Consult/Nursing/Ancilliary notes on the chart reviewed and appreciated ? Spoke with patient/family at the bedside and answered all the questions that they had Repeat labs in a.m. Electrolyte replacement as per protocol. Patient will be monitored very closely on the floor. Further recommendations as per the hospital course. Time Spent With Patient Time with patient: 25 - 35 minutes Subjective Date/time seen: 05/17/23 18:21 Interval history: Patient seen bedside. Shortness of breath slowly abdominal pain is improving as well. She is down to her baseline of 3 L oxygen per via nasal cannula. Spoke with Pulmonary about her as well. Review of Systems Review of Systems: 14 systems were reviewed with pertinent positives and negatives per HPI. Except as documented in the HPI/progress notes, all other systems were reviewed and are negative. All systems reviewed & are unremarkable except as noted in HPI and below Exam Narrative: PHYSICAL EXAMINATION: Vital signs: Please see the chart General physical exam: Head/eyes: Atraumatic, EOMI, PERRLA ENT: Moist mucous membranes, nasal passages clear Neck: Supple, full range of motion, trachea midline CVS: S1 + S2, regular rate and rhythm, no murmurs Respiratory: Bilaterally decreased air entry in both lung del[place], mild B/L crackles, symmetric chest expansion, mild to moderate scattered bilateral rhonchi Abdomen: Soft, non-tender, bowel sounds +ve, no organomegaly Extremities: No clubbing, no cyanosis, no edema, no calf tenderness Musculoskeletal: Moves all, adequate range of motion, no musc
[2023-05-17] MEDS: AZITHROMYCIN 250 MG TABLET PO (20:21)
--- NOTE | 2023-05-17 21:19 | PC.NURSE ---
Patient received from [facility] into [facility].
[2023-05-18] VITALS (15 sets, daily range): BP systolic 147–159; BP diastolic 50–76; PULSE 86–120; RESP 20; TEMP 36.3–36.6; O2SAT 92–98
[2023-05-18] MEDS: IPRATROPIUM 0.5 MG/ALBUTEROL SULFATE 2.5 MG AMPUL.NEB 3 ML INHALATION ×4 (02:15→21:38)
[2023-05-18] MEDS: PIPERACILLN/TAZ 3.375GM/NS50ML 3.375 GM/50 ML BAG IVPB ×3 (05:59→17:03)
[2023-05-18 06:43] LABS: Basophils Percent Auto 0.1 % (0.2-1.2); Hemoglobin 10.2 g/dL (12.0-15.0); Immature Granulocyte Absolute 0.08 K/mm3 (0.00-0.031); Immature Granulocyte Percent A 0.5 % (0-0.5); Lymphocytes Absolute Auto 2.07 K/mm3 (0.9-3.2); Lymphocytes Percent Auto 13.2 % (18.3-44.2); Mean Corpuscular Hemoglobin 30.8 pg (26-34); Mean Corpuscular Volume 102.7 fl (80-100); Mean Platelet Volume 10.2 fl (7.4-10.4); Monocytes Absolute Auto 0.9 K/mm3 (0.1-0.6); Monocytes Percent Auto 5.9 % (2.6-8.5); Neutrophils Absolute Auto 12.6 K/mm3 (1.3-6.7); Neutrophils Percent Auto 80.3 % (45.5-73.1); Platelet Count Result 201 k/mm3 (150-375); Red Blood Count 3.31 M/mm3 (4.2-5.4); Red Cell Distribution Width 13.3 % (11.5-14.5); White Blood Count 15.7 K/mm3 (4.5-10.0)
[2023-05-18 06:54] LABS: Alanine Aminotransferase 21 U/L (6-35); Albumin Level 3.7 g/dL (3.5-5.1); Alkaline Phosphatase 54 U/L (38-126); Anion Gap 5 mmol/L (8-16); Aspartate Amino Transferase 37 U/L (14-36); Bilirubin,Total 0.5 mg/dL (0.2-1.3); Blood Urea Nitrogen 20 mg/dL (7-17); Calcium 9.7 mg/dL (8.4-10.2); Carbon Dioxide 30 mmol/L (22-30); Chloride 102 mmol/L (98-107); Estimated CRCL calculation 31 ml/min; Estimated Glomerular Filt Rate 43; Glucose 98 mg/dL (65-110); Lipase 41 U/L (23-300); Magnesium 1.8 mg/dL (1.6-2.3); Phosphorus 3.2 mg/dL (2.5-4.5); Potassium 3.6 mmol/L (3.4-5.0); Sodium 137 mmol/L (137-145)
[2023-05-18] MEDS: amLODIPine BESYLATE 5 MG TABLET PO (09:14)
[2023-05-18] MEDS: predniSONE 20 MG TABLET 40 MG PO (09:14)
[2023-05-18] MEDS: CHOLECALCIFEROL 400 UNITS TABLET (VIT D) PO (09:14)
[2023-05-18] MEDS: METOPROLOL TARTRATE 25 MG TABLET PO ×2 (09:15→22:01)
[2023-05-18] MEDS: OMEGA 3 POLYUNSAT FATTY ACIDS 1 GM CAP PO (09:15)
[2023-05-18] MEDS: ATORVASTATIN 40 MG TABLET PO (09:15)
[2023-05-18] MEDS: hydroCHLOROthiazide 12.5 MG CAPSULE PO (09:15)
[2023-05-18] MEDS: OLMESARTAN MEDOXOMIL 20 MG TABLET 40 MG PO (09:16)
[2023-05-18] MEDS: ASPIRIN 81 MG ENTERIC TABLET PO (09:17)
[2023-05-18] MEDS: PANTOPRAZOLE SODIUM IV 40 MG VIAL IV PUSH ×2 (09:22→22:01)
[2023-05-18] MEDS: ACETAMINOPHEN 325 MG TABLET 650 MG PO (12:36)
--- NOTE | 2023-05-18 18:09 | PM.IMPN ---
Progress Note: A&P Assessment and Plan (1) Mixed hyperlipidemia: Code(s): E78.2 - Mixed hyperlipidemia Status: Acute (2) Essential (primary) hypertension: Code(s): I10 - Essential (primary) hypertension Status: Acute (3) Chronic obstructive pulmonary disease: Qualifiers: COPD type: unspecified COPD Qualified Code(s): J44.9 - Chronic obstructive pulmonary disease, unspecified Code(s): J44.9 - Chronic obstructive pulmonary disease, unspecified Status: Acute (4) ASHD (arteriosclerotic heart disease): Code(s): I25.10 - Atherosclerotic heart disease of [place] coronary artery without angina pectoris Status: Acute (5) Overweight (BMI 25.0-29.9): Code(s): E66.3 - Overweight Status: Acute (6) Arthritis: Code(s): M19.90 - Unspecified osteoarthritis, unspecified site Status: Acute (7) Neuropathy: Code(s): G62.9 - Polyneuropathy, unspecified Status: Acute (8) Hyperlipidemia: Code(s): E78.5 - Hyperlipidemia, unspecified Status: Acute (9) Community acquired pneumonia: Qualifiers: Laterality: unspecified laterality Qualified Code(s): J18.9 - Pneumonia, unspecified organism Code(s): J18.9 - Pneumonia, unspecified organism Status: Acute (10) JAMAL (obstructive sleep apnea): Code(s): G47.33 - Obstructive sleep apnea (adult) (pediatric) Status: Acute Plan Admit patient to a medical unit under full inpatient status Oxygen via nasal cannula ordered to keep O2 sats more than 92% Patient is now back to her baseline oxygen requirement of 3 L oxygen via nasal cannula Continue with oral prednisone started in the ER Her leukocytosis jumped to 15.7 today which could be due to prednisone versus worsening pneumonia Patient started on IV azithromycin and Zosyn which will continue on the floor ... She will need at least 1 more days of IV antibiotics Follow-up on blood and sputum cultures Continue with duoNeb breathing treatments Ambulate on the floor with assistance Right upper quadrant sonogram ordered for abdominal pain which ruled out cholelithiasis and cholecystitis Would considered PT/OT evaluation in a.m. if she has difficulty ambulating DC planning likely in am once patient is medically stable and breathing is back to baseline ? Patient seen and examined at bedside during my morning rounds ? Collaborated with patient's nurse at the bedside in detail and addressed all concerns ? Labs, electrolytes, radiology, investigations and test results reviewed ? Consult/Nursing/Ancilliary notes on the chart reviewed and appreciated ? Spoke with patient/family at the bedside and answered all the questions that they had Repeat labs in a.m. Electrolyte replacement as per protocol. Patient will be monitored very closely on the floor. Further recommendations as per the hospital course. Time Spent With Patient Time with patient: 15 - 25 minutes Subjective Date/time seen: 05/18/23 18:09 Interval history: Patient lying in bed during my morning rounds. Complains of some wheezing and chest congestion. She is still her baseline of 3 L oxygen per via nasal cannula. Review of Systems Review of Systems: 14 systems were reviewed with pertinent positives and negatives per HPI. Except as documented in the HPI/progress notes, all other systems were reviewed and are negative. All systems reviewed & are unremarkable except as noted in HPI and below Exam Narrative: PHYSICAL EXAMINATION: Vital signs: Please see the chart General physical exam: Head/eyes: Atraumatic, EOMI, PERRLA ENT: Moist mucous membranes, nasal passages clear Neck: Supple, full range of motion, trachea midline CVS: S1 + S2, regular rate and rhythm, no murmurs Respiratory: Bilaterally decreased air entry in both lung deluna, mild B/L crackles, symmetric chest expansion, mild to moderate scattered bilateral rhonchi Abdomen: Soft, non-tender
[2023-05-19] VITALS (11 sets, daily range): BP systolic 148–153; BP diastolic 67–71; PULSE 80–98; RESP 18–20; TEMP 36.6–36.8; O2SAT 92–99
[2023-05-19] MEDS: PIPERACILLN/TAZ 3.375GM/NS50ML 3.375 GM/50 ML BAG IVPB ×3 (00:36→12:39)
[2023-05-19] MEDS: IPRATROPIUM 0.5 MG/ALBUTEROL SULFATE 2.5 MG AMPUL.NEB 3 ML INHALATION ×3 (03:12→13:58)
[2023-05-19 07:16] LABS: Basophils Percent Auto 0.2 % (0.2-1.2); Hematocrit 34.1 % (37.0-47.0); Immature Granulocyte Absolute 0.04 K/mm3 (0.00-0.031); Immature Granulocyte Percent A 0.4 % (0-0.5); Lymphocytes Absolute Auto 2.52 K/mm3 (0.9-3.2); Lymphocytes Percent Auto 24.5 % (18.3-44.2); Mean Corpuscular HGB Conc 29.3 g/dl (32-36); Mean Corpuscular Hemoglobin 30.7 pg (26-34); Mean Corpuscular Volume 104.6 fl (80-100); Mean Platelet Volume 10.4 fl (7.4-10.4); Monocytes Absolute Auto 0.8 K/mm3 (0.1-0.6); Monocytes Percent Auto 8.2 % (2.6-8.5); Neutrophils Absolute Auto 6.9 K/mm3 (1.3-6.7); Neutrophils Percent Auto 66.7 % (45.5-73.1); Platelet Count Result 193 k/mm3 (150-375); Red Blood Count 3.26 M/mm3 (4.2-5.4); Red Cell Distribution Width 13.2 % (11.5-14.5); White Blood Count 10.3 K/mm3 (4.5-10.0)
[2023-05-19 07:27] LABS: Alanine Aminotransferase 22 U/L (6-35); Albumin Level 3.5 g/dL (3.5-5.1); Alkaline Phosphatase 51 U/L (38-126); Anion Gap 7 mmol/L (8-16); Aspartate Amino Transferase 35 U/L (14-36); Bilirubin,Total 0.6 mg/dL (0.2-1.3); Blood Urea Nitrogen 19 mg/dL (7-17); Calcium 9.8 mg/dL (8.4-10.2); Carbon Dioxide 33 mmol/L (22-30); Chloride 99 mmol/L (98-107); Estimated CRCL calculation 31 ml/min; Estimated Glomerular Filt Rate 43; Glucose 93 mg/dL (65-110); Lipase 43 U/L (23-300); Magnesium 1.9 mg/dL (1.6-2.3); Potassium 3.4 mmol/L (3.4-5.0); Sodium 139 mmol/L (137-145)
[2023-05-19] MEDS: OMEGA 3 POLYUNSAT FATTY ACIDS 1 GM CAP PO (09:10)
[2023-05-19] MEDS: ASPIRIN 81 MG ENTERIC TABLET PO (09:10)
[2023-05-19] MEDS: predniSONE 20 MG TABLET 40 MG PO (09:10)
[2023-05-19] MEDS: OLMESARTAN MEDOXOMIL 20 MG TABLET 40 MG PO (09:11)
[2023-05-19] MEDS: METOPROLOL TARTRATE 25 MG TABLET PO (09:11)
[2023-05-19] MEDS: hydroCHLOROthiazide 12.5 MG CAPSULE PO (09:11)
[2023-05-19] MEDS: amLODIPine BESYLATE 5 MG TABLET PO (09:11)
[2023-05-19] MEDS: CHOLECALCIFEROL 400 UNITS TABLET (VIT D) PO (09:11)
[2023-05-19] MEDS: ATORVASTATIN 40 MG TABLET PO (09:11)
[2023-05-19] MEDS: PANTOPRAZOLE SODIUM IV 40 MG VIAL IV PUSH (09:15)
[2023-05-19 09:21] LABS: Hypochromasia 1+ (NORMAL); Platelet Estimate Adequate (Adequate); Schistocytes None Seen (NORMAL)
[2023-05-19] MEDS: DIPHENOXYLATE/ATROPINE (*CRX) 2.5 MG TABLET 2 TABLET PO (15:48)
--- NOTE | 2023-05-19 17:18 | PM.DS ---
DS: Admitting Diagnosis Discharge Date 05/19/2023: Admitting Diagnosis Community-acquired pneumonia Acute exacerbation of chronic COPD DS: Discharge Diagnosis Discharge Diagnosis (1) On half-way drug therapy: Code(s): Z79.899 - Other half-way (current) drug therapy Status: Acute (2) Mixed hyperlipidemia: Code(s): E78.2 - Mixed hyperlipidemia Status: Acute (3) Essential (primary) hypertension: Code(s): I10 - Essential (primary) hypertension Status: Acute (4) Chronic obstructive pulmonary disease: Qualifiers: COPD type: unspecified COPD Qualified Code(s): J44.9 - Chronic obstructive pulmonary disease, unspecified Code(s): J44.9 - Chronic obstructive pulmonary disease, unspecified Status: Acute (5) CKD (chronic kidney disease) stage 3, GFR 30-59 ml/min: Qualifiers: Chronic kidney disease stage 3 subtype: stage 3b (GFR 30-44) Qualified Code(s): N18.32 - Chronic kidney disease, stage 3b Code(s): N18.3 - Chronic kidney disease, stage 3 (moderate) Status: Acute (6) ASHD (arteriosclerotic heart disease): Code(s): I25.10 - Atherosclerotic heart disease of [place] coronary artery without angina pectoris Status: Acute (7) Hypoxia: Code(s): R09.02 - Hypoxemia Status: Acute (8) COPD with acute exacerbation: Code(s): J44.1 - Chronic obstructive pulmonary disease with (acute) exacerbation Status: Acute (9) Arthritis: Code(s): M19.90 - Unspecified osteoarthritis, unspecified site Status: Acute (10) Hypersomnia: Code(s): G47.10 - Hypersomnia, unspecified Status: Acute (11) Hypovitaminosis D: Code(s): E55.9 - Vitamin D deficiency, unspecified Status: Acute (12) Neuropathy: Code(s): G62.9 - Polyneuropathy, unspecified Status: Acute (13) Hyperlipidemia: Code(s): E78.5 - Hyperlipidemia, unspecified Status: Acute (14) Community acquired pneumonia: Qualifiers: Laterality: unspecified laterality Qualified Code(s): J18.9 - Pneumonia, unspecified organism Code(s): J18.9 - Pneumonia, unspecified organism Status: Acute (15) Chronic respiratory failure with hypoxia: Code(s): J96.11 - Chronic respiratory failure with hypoxia Status: Acute (16) Depression: Qualifiers: Depression Type: major depressive disorder Major depression recurrence: unspecified whether recurrent Active/Remission status: currently active Major depression episode severity: moderate Qualified Code(s): F32.1 - Major depressive disorder, single episode, moderate Code(s): F32.A - Depression, unspecified Status: Acute (17) Nocturnal hypoxemia: Code(s): G47.34 - Idiopathic sleep related nonobstructive alveolar hypoventilation Status: Acute DS: Summary Hospital Course Reason for hospitalization: Patient admitted with right upper quadrant abdominal pain and worsening shortness of breath Hospital Course: H&P: HPI History of Present Illness Date/Time: 05/16/23? 14:18 Chief Complaint: RUQ abdominal pain, dyspnea Narrative: This is a 77-year-old female patient presented to the emergency department with complaints of abdominal pain nausea dyspnea and increased oxygen demand.? She reports that she had to turn up her oxygen from 3 L to 4 L today because she would be saturating in the low 80s and got as low as 76% with ambulation today.? She was complaining of dyspnea consistent with her COPD.? She also has a history of CAD status post stent placement, hypertension stage III CKD hyperlipidemia.? Patient denies chest pain vomiting constipation or diarrhea.? She reports that her right upper quadrant abdomen and epigastrium have been hurting her for a couple of months or at least have been uncomfortable for a couple of months in started having pain over the last 1 week.? She has a history of bleeding ulcers but n
== END 2023-05-19 18:10 | disposition home or self-care (01) | DRG 194 ==
LOC: ANHED 14:21 → ANHIMU 15:19 → ANH3MEDSUR 05-17 21:18
PROVIDERS: Nurse Practitioner; Admitting Provider General Practice; Emergency Provider Physician Assistant; PCP Family Medicine; Visit Provider Family Medicine
DX: J18.9 Pneumonia, unspecified organism (principal); J44.0 Chronic obstructive pulmonary disease with (acute) lower respiratory infection; J44.1 Chronic obstructive pulmonary disease with (acute) exacerbation; J96.11 Chronic respiratory failure with hypoxia; E78.2 Mixed hyperlipidemia; I12.9 Hypertensive chronic kidney disease with stage 1 through stage 4 chronic kidney disease, or unspecified chronic kidney disease; N18.32 Chronic kidney disease, stage 3b; J44.9 Chronic obstructive pulmonary disease, unspecified; I25.10 Atherosclerotic heart disease of native coronary artery without angina pectoris; G47.33 Obstructive sleep apnea (adult) (pediatric); M19.90 Unspecified osteoarthritis, unspecified site; G47.10 Hypersomnia, unspecified; R00.0 Tachycardia, unspecified; E55.9 Vitamin D deficiency, unspecified; G62.9 Polyneuropathy, unspecified; I65.23 Occlusion and stenosis of bilateral carotid arteries; E78.5 Hyperlipidemia, unspecified; R10.11 Right upper quadrant pain; F32.A Depression, unspecified; Z20.822 Contact with and (suspected) exposure to COVID-19; Z95.5 Presence of coronary angioplasty implant and graft; Z79.82 Long term (current) use of aspirin; I25.2 Old myocardial infarction; Z90.49 Acquired absence of other specified parts of digestive tract; Z90.710 Acquired absence of both cervix and uterus; Z87.891 Personal history of nicotine dependence
CPT/HCPCS: 36415; 36600; 71275; 74177; 76705; 80053; 81001; 82805; 83605; 83690; 83735; 83880; 84100; 84145; 84484; 85025; 87040; 87637; 87641; 93005; 94640; 96361; 96365; 96366; 96367; 96375; 96376; 99285; A9270; C9113; G0378; J2405; J2543; J2930; J3370; J7030; J7512; Q9967

== ENCOUNTER 2023-06-04 12:26 | Outpatient (CLI) | payer MEDICARE, MEDICAID, SELFPAY ==
[2023-06-04 14:56] LABS: Appearance Urine Clear (Clear); Bacteria Urine None Seen /hpf; Bilirubin Urine Negative (Negative); Blood Urine Negative (Negative); Color Urine Yellow (Yellow); Glucose Urine UA Negative (Negative); Ketones Urine Negative (Negative); Leukocyte Esterase Ur 1+ LEU/UL (NEGATIVE); Need Manual Microscopic Reviewed; Nitrate Urine Negative (Negative); Non Pathogenic Casts 0-2; Protein Urine Negative (Negative); RBC Urine 0-2 /hpf (0-2); Specific Grav Ur 1.009 (1.001-1.035); Squamous Epithelial Cell Urine Few /hpf (Few); Urobilinogen Urine 0.2 mg/dL (<2.0); WBC Urine 0-5 /hpf (0-3); pH Urine 6.5 (5.0-9.0)
[2023-06-04 14:59] LABS: Add Urine Microscopic? YES
== END 2023-06-04 12:27 | disposition home or self-care (01) ==
LOC: ANHLAB 12:29
PROVIDERS: PCP Family Medicine; Visit Provider Nurse Practitioner Family
DX: R39.9 Unspecified symptoms and signs involving the genitourinary system (principal)
CPT/HCPCS: 81001; 87086

== ENCOUNTER 2023-06-11 09:31 | Outpatient (CLI) | payer MEDICARE, MEDICAID, SELFPAY ==
--- NOTE | ~2023-06-11 | XR_ITS ---
Clinical Indication: Pneumonia PA and lateral views of the chest: Comparison: 04/02/2022 Findings: The lungs are clear, without evidence of focal consolidation or pleural effusion. Probable COPD. Cardiomediastinal silhouette is within normal limits. Bones and soft tissues are unremarkable. Impression: COPD. No acute pulmonary abnormality evident. Reviewed, dictated and finalized at location . ACCOUNTANT Impression: COPD. No acute pulmonary abnormality evident.
== END 2023-06-11 09:32 | disposition home or self-care (01) ==
PROVIDERS: PCP Family Medicine; Visit Provider Nurse Practitioner Family
DX: J44.9 Chronic obstructive pulmonary disease, unspecified (principal); J18.9 Pneumonia, unspecified organism
CPT/HCPCS: 71046

== ENCOUNTER 2023-10-24 21:25 | Inpatient (IN) | payer MEDICARE, MEDICAID, SELFPAY ==
--- NOTE | ~2023-10-24 | XR_ITS ---
Clinical Indication: Shortness of breath PA and lateral views of the chest: Comparison: 06/11/2023 Findings: Probable advanced COPD pattern, unchanged. No acute pulmonary pathology clearly identified. Cardiomediastinal silhouette is within normal limits. Bones and soft tissues are unremarkable. Impression: No definite acute abnormality. Advanced COPD. Reviewed, dictated and finalized at location . Impression: No definite acute abnormality. Advanced COPD.
--- NOTE | ~2023-10-24 | XR_ITS ---
EXAMINATION: XR thoracolumbar DATE: 10/29/2023 16:42 INDICATION: Back pain TECHNIQUE: AP and lateral views of the thoracolumbar spine were obtained. COMPARISON: CT dated 05/16/2023 and chest radiograph dated 10/24/2023. FINDINGS: 2 mm anterolisthesis L4 on L5. Alignment of the more cephalad lumbar and visualized lower thoracic sp ine is normal. Vertebral body heights are normal. Mild disc height loss at L3-L4 and mild to moderate disc height loss at L4-L5. Moderate disc height loss at L5-S1 but appreciated on the prior CT. The m ore cephalad visualized disc heights are normal. There appears be focal airspace opacity at the poste rior lung base on the lateral projection, unclear whether left or right-sided is without correlate on the recent chest radiographs which suggests atelectasis or pneumonia. Additional unchanged linear di scoid atelectasis/scarring at the left lower lung zone. Heart size is normal. Atherosclerotic aorta. IMPRESSION: 1. Mild to moderate lower lumbar predominant spondylosis. 2. New consolidation at the posterior lung are indeterminate side which could represent atelectasis o r pneumonia. Reviewed, dictated and finalized at location A. IMPRESSION: 1. Mild to moderate lower lumbar predominant spondylosis. 2. New consolidation at the posterior lung are indeterminate side which could r epresent atelectasis or pneumonia.
[2023-10-24 21:30] VITALS: BP 158/69; PULSE 113; RESP 22; TEMP 36.6; O2SAT 90
--- NOTE | 2023-10-24 21:41 | ECG_ITS ---
Test Date: 2023-10-24 21:46:33 Measurements Intervals [place] Rate: 109 P: 79 DE: 165 QRS: 59 QRSD: 84 T: 72 QT: 297 QTc: 401 Interpretive Statements SINUS TACHYCARDIA MINIMAL Q WAVES- ANTEROLAT/INF LEADS NONSPECIFIC ST & T-WAVE ABNORMALITY- HIGH LATERAL LEADS BASELINE ARTIFACT- I, II, III, AVR, AVL, AVF, V1-V2 ABNORMAL ECG No previous ECG available for comparison Electronically Signed On 10-25-2023 06:10:00 CDT by Joon Boyce D.O.
--- NOTE | 2023-10-24 21:46 | ED.SOB ---
HPI - SOB/Dyspnea General Chief Complaint: Shortness of Breath/Dyspnea Stated Complaint: low o2 sats on exertion, nausea, chills, sob Time Seen by Provider: 10/24/23 21:43 History of Present Illness HPI Narrative: Patient is a 77 year old female with history of CAD s/p 2 vessel PCI in the , COPD on 3-4L NC at baseline here with shortness of breath and flu like symptoms. Patient notes her symptoms began a Couple of days ago including diarrhea, nausea, increased cough and nasal congestion. She states that over the last 2 days her symptoms seem to be progressively worsening. She has significant shortness of breath with exertion. She notes that she checked her oxygen saturations at home in the decreased into the 70s on ambulation and improved while she was at rest. She does note she has had multiple kids staying around her over the last 2 weeks, does not believe any of them have been sick however her daughter was sick recently with the asthma exacerbation and sinus infection. She denies any fever but has had some subjective chills and rigors at home. She has been using her inhalers at home without improvement of her shortness of breath. Throughout the day today she began having worsening diffuse chest pain which is nonexertional and not worsening with coughing. She describes it as a tightness and soreness. She follows with Dr. Lee from Cardiology. She denies leg swelling, no known history of CHF, only diuretic she is on is in her blood pressure medications. Related Data Home Medications Medication Instructions Recorded Confirmed aspirin 81 mg tablet,delayed 81 mg PO DAILY 02/10/19 10/25/23 release (Adult Low Dose Aspirin) cholecalciferol (vitamin D3) 10 400 unit PO DAILY 02/10/19 10/25/23 mcg (400 unit) capsule omega 2-obd-kqf-fish oil 1,000 mg 1 cap PO DAILY 02/10/19 10/25/23 (120 mg-180 mg) capsule (Fish Oil) amlodipine 5 mg tablet 5 mg PO DAILY 10/25/23 10/25/23 budesonide 160 mcg-glycopyr 9 2 inh inhalation BID 10/25/23 10/25/23 mcg-formot 4.8 mcg/actuation HFA inhaler ([facility]) fluticasone propionate 50 1 spray intranasal BID 10/25/23 10/25/23 mcg/actuation nasal spray,suspension olmesartan 40 1 tablet PO DAILY 10/25/23 10/25/23 mg-hydrochlorothiazide 12.5 mg tablet Allergies Allergy/AdvReac Type Severity Reaction Status Date / Time TULIO Inhibitors Allergy Unknown Rash Verified 08/13/23 09:58 budesonide Allergy Unknown Rash Verified 08/13/23 09:58 ceftriaxone Allergy Unknown Rash Verified 08/13/23 09:58 codeine Allergy Unknown Rash Verified 08/13/23 09:58 formoterol Allergy Unknown Rash Verified 08/13/23 09:58 levofloxacin Allergy Unknown Rash Verified 08/13/23 09:58 lisinopril Allergy Unknown Rash Verified 08/13/23 09:58 Review of Systems Review of Systems: All systems reviewed & are unremarkable except as noted in HPI and below PMFSH Past Medical History Medical History ARF (acute renal failure) Carotid occlusion, bilateral She sees her vascular surgeon every 6 months for this COPD with acute exacerbation Emphysema of lung History of tobacco abuse HTN (hypertension) Hyperlipidemia Myocardial infarction Pneumonia Seasonal allergies Surgical History Surgical History H/O heart artery stent H/O: hysterectomy Hx of appendectomy Family History Family History Grandparent Family history of tuberculosis Mother Cerebrovascular accident, Onset Age: 73 Father Family history of chronic obstructive pulmonary disease Family history of heart disease in male family member before age 55 Acute myocardial infarction Sibling Family history of chronic obstructive pulmonary disease Family history of lung cancer Family history of malignant neoplasm Family history of lung disease Social History Social History Social History: Lives with her daughter. Would like to be full code Smoking packs per day: 2 Smoking cigarettes per day: 40.0 Years smoked: 40 Smoking pack-years: 80.00 Smoking status: Former smoker Second hand tobacco smoke exposure: No Alcohol intake: never Substance use: never Substance use type: does not use Do You Feel Safe in your Home?: Yes Lack of Transportation: No Lack of Food: Never True Current Housing: I Have Housing Concerned About Future Housing: No Difficulty Paying Gas/Electric Bills: No Difficulty Paying for Meds: No Currently Unemployed: No Education: High School Diploma/GED Difficulty w/ Childcare or Family Care: No Gender identity (if verbalized by the patient): Female Spiritual care concerns: No Agree to blood products: Yes Exam Narrative: GENERAL: Well-appearing, well-nourished, and in no acute distress. HEAD: Normocephalic, atraumatic. EYES: PERRLA and EOMI. ENT: Nares clear. Mucous membranes moist. NECK: Supple. CHEST: Bilateral wheeze present. No respiratory distress. HEART: Regular rate and rhythm. Normal peripheral pulses. ABDOMEN: Soft, nontender, nondistended. EXTREMITIES: Normal range of motion. No edema. No calf tenderness SKIN: Warm, dry, no rash. NEURO: No focal deficits. Alert and oriented x3. PSYCH: Normal mood and affect. Course Course Emergency Course: Chart review performed. Patient here with shortness of breath. She reportedly usually wears 3-4 L NC due to COPD, oxygen saturations were 60s at home. Was placed on her home O2 here up to 90%. Triage vitals show tachycardia. Patient seen evaluated, nontoxic appearing, she does have some bilateral wheeze, suspect she has a COPD exacerbation, this could be due to an infectious process. Chest x-ray and COVID swabs pending. Cardiac workup initiated as well given age and risk factors. Will do continuous nebulizer and steroids. Anticipate patient will require hospitalization. Patient agreeable to initial workup and plan. Lab work and imaging reviewed, CBC shows a white blood cell count of 13.3, electrolytes grossly normal, she has a SHAD on CKD. Troponin negative x2. Lactic acid normal. She does have a mild elevation in her BNP. COVID, influenza, RSV negative. Chest x-ray reviewed by myself, no obvious infiltrate appreciated. Patient did ambulate with a pulse ox after 1 hour breathing treatment and desaturated briefly to 88%. Will start patient on doxycycline for bacterial COPD exacerbation, she has multiple antibiotic allergies including to the Levaquin and Rocephin which limits our antibiotic coverage. Spoke with hospitalist, Will, accepts patient for admission. Vital Signs Vital signs: Vital Signs Temperature 97.8 F 10/24/23 21:30 Pulse Rate 113 H 10/24/23 21:30 Respiratory Rate 22 H 10/24/23 21:30 Blood Pressure 158/69 H 10/24/23 21:30 Pulse Oximetry 90 10/24/23 21:30 Oxygen Delivery Nasal Cannula 10/24/23 21:30 Oxygen Flow Rate 3 10/24/23 21:30 Temperature 97.6 F 10/25/23 05:15 Pulse Rate 94 10/25/23 07:35 Respiratory Rate 20 10/25/23 07:35 Blood Pressure 122/62 10/25/23 05:15 Pulse Oximetry 94 10/25/23 07:27 Oxygen Delivery Nasal Cannula 10/25/23 07:27 Oxygen Flow Rate 4 10/25/23 07:27 MDM - SOB/Dyspnea Lab Data 10/24/23 22:07 10/24/23 22:06 Labs: Lab Results 10/24/23 10/24/23 10/25/23 Range/Units 22:06 22:07 00:27 WBC 13.3 H (4.5-10.0) K/mm3 RBC 3.66 L (4.2-5.4) M/mm3 Hgb 11.3 L (12.0-15.0) g/dL Hct 35.5 L (37.0-47.0) % MCV 97.0 (80-100) fl MCH 30.9 (26-34) pg MCHC 31.8 L (32-36) g/dl RDW 13.1 (11.5-14.5) % Plt Count 238 (150-375) k/mm3 MPV 10.1 (7.4-10.4) fl Immature Gran % (Auto) 0.5 (0-0.5) % Neut % (Auto) 71.6 (45.5-73.1) % Lymph % (Auto) 17.5 L (18.3-44.2) % [place] % (Auto) 7.8 (2.6-8.5) % Eos % (Auto) 2.2 (0-4.4) % Baso % (Auto) 0.4 (0.2-1.2) % Lymph # (Auto) 2.33 (0.9-3.2) K/mm3 [place] # (Auto) 1.0 H (0.1-0.6) K/mm3 Eos # (Auto) 0.3 (0-0.3) K/mm3 Baso # (Auto) 0.1 (0.0-0.1) K/mm3 Abs Immat Gran (auto) 0.06 H (0.00-0.031) K/mm3 Absolute Neuts (auto) 9.5 H (1.3-6.7) K/mm3 Absolute Nucleated RBC 0.000 (0.0-0.012) K/mm3 Nucleated RBC % 0.0 (0.0-0.2) % Sodium 136 L (137-145) mmol/L Potassium 4.2 (3.4-5.0) mmol/L Chloride 97 L (98-107) mmol/L Carbon Dioxide 31 H (22-30) mmol/L Anion Gap 8 (4-12) mmol/L BUN 29 H D (7-17) mg/dL Creatinine 1.40 H (0.7-1.0) mg/dL Estim Creat Clear Calc 24 ml/min Estimated GFR 36 L (59 - ) Glucose 105 (65-110) mg/dL Lactic Acid 0.9 (0.7-2.0) mmol/L Calcium 9.9 (8.4-10.2) mg/dL Total Bilirubin 0.5 (0.2-1.3) mg/dL AST 30 (14-36) U/L ALT 21 (6-35) U/L Alkaline Phosphatase 86 (38-126) U/L Troponin I < 0.012 0.017 D (0.000-0.034) ng/mL NT-Pro-B Natriuret Pep 1140 H (19.9-100) pg/mL Total Protein 7.0 (6.3-8.2) g/dL Albumin 4.3 (3.5-5.1) g/dL Influenza A (RT-PCR) Negative (Negative) Influenza B (RT-PCR) Negative (Negative) RSV (RT-PCR) Negative (Negative) SARS-CoV-2 RNA (RT-PCR) Negative (Negative) ECG Data EKG #1: Attestation: I personally reviewed and interpreted this ECG as follows: ECG completion date: 10/25/23 ECG completion time: 21:46 Interpretation: Rate is 109 Rhythm is sinus tachycardia QRS is 84 QTc is 401 Final Interpretation: sinus tachycardia with no ST elevations or depressions suggestive of acute ischemia. Discharge Plan Discharge Clinical Impression: Acute exacerbation of chronic obstructive pulmonary disease Patient Disposition: Still a Patient Condition: Stable
[2023-10-24 21:53] VITALS: BP 167/54; PULSE 110; RESP 21; TEMP 37.3; O2SAT 98
[2023-10-24 22:18] LABS: Basophils Absolute Auto 0.1 K/mm3 (0.0-0.1); Basophils Percent Auto 0.4 % (0.2-1.2); Eosinophils Absolute Auto 0.3 K/mm3 (0-0.3); Eosinophils Percent Auto 2.2 % (0-4.4); Hematocrit 35.5 % (37.0-47.0); Hemoglobin 11.3 g/dL (12.0-15.0); Immature Granulocyte Absolute 0.06 K/mm3 (0.00-0.031); Immature Granulocyte Percent A 0.5 % (0-0.5); Lymphocytes Absolute Auto 2.33 K/mm3 (0.9-3.2); Lymphocytes Percent Auto 17.5 % (18.3-44.2); Mean Corpuscular HGB Conc 31.8 g/dl (32-36); Mean Corpuscular Hemoglobin 30.9 pg (26-34); Mean Platelet Volume 10.1 fl (7.4-10.4); Monocytes Percent Auto 7.8 % (2.6-8.5); Neutrophils Absolute Auto 9.5 K/mm3 (1.3-6.7); Neutrophils Percent Auto 71.6 % (45.5-73.1); Platelet Count Result 238 k/mm3 (150-375); Red Blood Count 3.66 M/mm3 (4.2-5.4); Red Cell Distribution Width 13.1 % (11.5-14.5); White Blood Count 13.3 K/mm3 (4.5-10.0)
[2023-10-24 22:21] VITALS: O2SAT 98
[2023-10-24 22:23] LABS: Lactic Acid Reflex 0.9 mmol/L (0.7-2.0)
[2023-10-24 22:35] LABS: NT Pro B Type Natriuretic Pept 1140 pg/mL (19.9-100); Troponin I < 0.012 ng/mL (0.000-0.034)
[2023-10-24 22:45] LABS: Alanine Aminotransferase 21 U/L (6-35); Albumin Level 4.3 g/dL (3.5-5.1); Alkaline Phosphatase 86 U/L (38-126); Anion Gap 8 mmol/L (4-12); Aspartate Amino Transferase 30 U/L (14-36); Bilirubin,Total 0.5 mg/dL (0.2-1.3); Blood Urea Nitrogen 29 mg/dL (7-17); Calcium 9.9 mg/dL (8.4-10.2); Carbon Dioxide 31 mmol/L (22-30); Chloride 97 mmol/L (98-107); Estimated CRCL calculation 24 ml/min; Estimated Glomerular Filt Rate 36; Glucose 105 mg/dL (65-110); Potassium 4.2 mmol/L (3.4-5.0); Sodium 136 mmol/L (137-145)
[2023-10-24] MEDS: methylPREDNISolone SOD SUCC 125 MG VIAL IV PUSH (22:48)
[2023-10-24 22:50] LABS: Influenza A QL RT-PCR Negative (Negative); Influenza B QL RT-PCR Negative (Negative); RSV RNA, RT-PCR Negative (Negative); SARS-CoV-2 RNA PCR Negative (Negative)
[2023-10-24] MEDS: LEVALBUTEROL NEB 1.25 MG/3 ML 2.5 MG INHALATION (23:00)
[2023-10-24] MEDS: IPRATROPIUM BR 0.02% INH SOLN 0.5 MG/2.5 ML VIAL 1.5 MG INHALATION (23:00)
[2023-10-25] VITALS (21 sets, daily range): BP systolic 118–130; BP diastolic 45–75; PULSE 80–125; RESP 14–20; TEMP 36.4–37.5; O2SAT 94–96; BMI 24.1
--- NOTE | 2023-10-25 00:37 | ECG_ITS ---
Test Date: 2023-10-25 00:37:27 Measurements Intervals [place] Rate: 128 P: 79 MI: 159 QRS: 47 QRSD: 84 T: 77 QT: 303 QTc: 442 Interpretive Statements SINUS TACHYCARDIA WITH FREQUENT SUPRAVENTRICULAR PREMATURE COMPLEXES MINIMAL Q WAVES- ANTEROLATERAL LEADS INFERIOR INFARCT, AGE INDETERMINATE NONSPECIFIC ST & T-WAVE ABNORMALITY- ANTEROLATERAL LEADS ABNORMAL ECG Compared to ECG 10/24/2023 21:46:33 T-wave abnormality now present Electronically Signed On 10-25-2023 15:10:02 CDT by Joon Boyce D.O.
[2023-10-25 00:56] LABS: Troponin I 0.017 ng/mL (0.000-0.034)
[2023-10-25] MEDS: DOXYCYCLINE 100 MG/NS 100 ML 100 MG/100 ML BAG IVPB (02:00)
--- NOTE | 2023-10-25 03:14 | ADMGEN ---
This patient, Irma Rocha, was admitted to Medical Room 261-01. Patient/family oriented to hospital policies and general routines including ID bracelet, bed and alarms, visiting hours, pain management, procedures, bathroom and other care routines, personal items, smoking policy, room service/diet, and visiting hours. Information on how to activate the Rapid Response Team has been discussed. Patient/Family are encouraged to report perceived risks to care and to ask questions if they do not understand what they are told or what they should do.
[2023-10-25] MEDS: IPRATROPIUM 0.5 MG/ALBUTEROL SULFATE 2.5 MG AMPUL.NEB 3 ML INHALATION (07:27)
--- NOTE | 2023-10-25 11:37 | PM.IMHP ---
H&P: HPI History of Present Illness Date/Time: 10/25/23 11:37 Chief Complaint: Shortness of breath Narrative: 77yo female with COPD, chronic respiratory failure (3L at rest and 4L with activity), CAD and HTN here for shortness of breath. Symptoms began about 2 days prior to admission that progressively worsened. She was having rhinorrhea, shortness of breath and dyspnea on exertion exertion. She was have wheezing. She developed chills but no fevers. He has been having a dry cough for the past 3-4 days. She has developed nausea but no vomiting. She had loose stools 2 days before admission but stopped after 1 dose of Imodium. She has been having chest and upper back discomfort over the past week that has been intermittent and seems to worsen with exertion. No radiation of the pain, nausea, diaphoresis or worsening shortness of breath. Seems to be better when she sits and when she use a heating pad. This pain was not like the chest pain she had when she had her myocardial infarction. She follows with Dr. Lee. Her last chemical stress test was about 4-5 years ago. She normally uses albuterol nebulizer treatments twice a day and albuterol MDI rescue inhaler as needed. She has not increased her use of albuterol over the past few days despite the wheezing. She has also noted weight loss. She has poor appetite. She was hypoxic with a SpO2 in the 70s with exertion. Because of worsening shortness of breath, she present to the emergency room for evaluation. In the ED, patient was tachycardic with HR 113, RR 22. She was 90% on 3L. EKG showing sinue tachycardia, minimal Q waves in anteriolateral leads, nonspecific ST-T wave changes in the high lateral leads. CXR showing advanced COPD but no definite acute process. WBC 13K, Hgb 11, Sodium 136, bicarb 31, BUN 29 and CR 1.4. BNP 1140. Troponin negative x2. Influenza, COVID and RSV PCR negative. She was treated with bronchodilators, Solu-Medrol and Doxycycline. She was admitted for further care. Review of Systems Review of Systems: All systems reviewed & are unremarkable except as noted in HPI and below [facility] Past Medical History Medical History (Updated 10/25/23 @ 13:29 by Hawk Mcconnell MD) ARF (acute renal failure) Carotid occlusion, bilateral She sees her vascular surgeon every 6 months for this Chronic respiratory failure COPD with acute exacerbation Emphysema of lung History of tobacco abuse HTN (hypertension) Hyperlipidemia Myocardial infarction PAD (peripheral artery disease) Pneumonia Seasonal allergies Surgical History Surgical History H/O heart artery stent H/O: hysterectomy Hx of appendectomy Family History Family History Grandparent Family history of tuberculosis Mother Cerebrovascular accident, Onset Age: 73 Father Family history of chronic obstructive pulmonary disease Family history of heart disease in male family member before age 55 Acute myocardial infarction Sibling Family history of chronic obstructive pulmonary disease Family history of lung cancer Family history of malignant neoplasm Family history of lung disease Social History Social History (Updated 10/25/23 @ 13:25 by Hawk Mcconnell MD) Social History: Lives with her daughter. Code status - DNR She nominates her daughter to be the individual would make medical decisions for her if she is unable. Smoking packs per day: 2 Smoking cigarettes per day: 40.0 Years smoked: 40 Smoking pack-years: 80.00 Smoking status: Former smoker Second hand tobacco smoke exposure: No Alcohol intake: never Substance use: never Substance use type: does not use Do You Feel Safe in your Home?: Yes Lack of Transportation: No Lack of Food: Never True Current Housing: I Have Housing Concerned About Future Housing: No Difficulty Paying Gas/Electric Bills: No Difficulty Paying for Meds: No Currently Unemployed: No Education: High School Diploma/GED Difficulty w/ Childcare or Family Care: No Gender identity (if verbalized by the patient): Female Spiritual care concerns: No Agree to blood products: Yes Meds Home Medications and Allergies Home Medications Medication Instructions Recorded Confirmed Type aspirin 81 mg tablet,delayed 81 mg PO DAILY 02/10/19 10/25/23 History release (Adult Low Dose Aspirin) cholecalciferol (vitamin D3) 10 400 unit PO DAILY 02/10/19 10/25/23 History mcg (400 unit) capsule omega 4-hru-hnt-fish oil 1,000 mg 1 cap PO DAILY 02/10/19 10/25/23 History (120 mg-180 mg) capsule (Fish Oil) inhalational spacing device #1 ea 12/02/21 10/25/23 Rx albuterol sulfate 90 mcg/actuation 1 - 2 puff inhalation Q4-6H PRN 06/02/22 10/25/23 Rx aerosol inhaler (ProAir HFA) shortness of breath or wheezing #25.5 grams azithromycin 250 mg tablet 250 mg PO QMWF 30 days #13 tabs 05/26/23 10/25/23 Rx metoprolol tartrate 25 mg tablet 25 mg PO BID 90 days #180 tabs 08/10/23 10/25/23 Rx atorvastatin 40 mg tablet 40 mg PO DAILY #90 tabs 08/11/23 10/25/23 Rx albuterol sulfate 2.5 mg/3 mL See Rx Instructions .Route 09/10/23 10/25/23 Rx (0.083 %) solution for nebulization .COMPLEX #300 mL amlodipine 5 mg tablet 5 mg PO DAILY 10/25/23 10/25/23 History budesonide 160 mcg-glycopyr 9 2 inh inhalation BID 10/25/23 10/25/23 History mcg-formot 4.8 mcg/actuation HFA inhaler ([employer]) fluticasone propionate 50 1 spray intranasal BID 10/25/23 10/25/23 History mcg/actuation nasal spray,suspension olmesartan 40 1 tablet PO DAILY 10/25/23 10/25/23 History mg-hydrochlorothiazide 12.5 mg tablet Allergies Allergy/AdvReac Type Severity Reaction Status Date / Time TULIO Inhibitors Allergy Unknown Rash Verified 08/13/23 09:58 budesonide Allergy Unknown Rash Verified 08/13/23 09:58 ceftriaxone Allergy Unknown Rash Verified 08/13/23 09:58 codeine Allergy Unknown Rash Verified 08/13/23 09:58 formoterol Allergy Unknown Rash Verified 08/13/23 09:58 levofloxacin Allergy Unknown Rash Verified 08/13/23 09:58 lisinopril Allergy Unknown Rash Verified 08/13/23 09:58 Vital Signs Vital Signs - 24 hr 10/24/23 21:30 10/24/23 21:53 10/24/23 22:21 Temperature 97.8 F 99.2 F Pulse Rate 113 H 110 H Respiratory Rate 22 H 21 H Blood Pressure 158/69 H 167/54 H Pulse Oximetry 90 98 98 Oxygen Delivery Nasal Cannula Nasal Cannula Oxygen Flow Rate 3 4 10/25/23 00:58 10/25/23 02:04 10/25/23 03:33 Temperature 99.5 F 97.5 F L Pulse Rate 125 H 112 H 115 H Respiratory Rate 14 14 18 Blood Pressure 125/60 118/75 130/65 Pulse Oximetry 95 95 95 Oxygen Delivery Oxygen Flow Rate 10/25/23 03:42 10/25/23 04:00 10/25/23 05:15 Temperature 97.6 F Pulse Rate 107 H 92 Respiratory Rate 18 Blood Pressure 122/62 Pulse Oximetry 95 96 Oxygen Delivery Nasal Cannula Oxygen Flow Rate 4 10/25/23 07:27 10/25/23 07:27 10/25/23 07:35 Temperature Pulse Rate 96 94 Respiratory Rate 20 20 Blood Pressure Pulse Oximetry 94 Oxygen Delivery Nasal Cannula Oxygen Flow Rate 4 10/25/23 08:00 Temperature Pulse Rate 102 H Respiratory Rate Blood Pressure Pulse Oximetry Oxygen Delivery Oxygen Flow Rate Exam Narrative: AF 97.6 122/62 102 20 94% 4L Gen - well appearing female in no acute respiratory distress who is nontoxic-appearing lying semi recumbent in bed HEENT - normocephalic. Atraumatic. Pupils equal round and reactive. Extraocular motions intact. Sclera clear and anicteric. Nares patent. Oropharynx was clear. No oral lesions. Moist mucous membranes. Tongue was midline. Palate alfred symmetrically. No facial asymmetry. Neck - neck was supple. No dominant adenopathy, thyromegaly or masses. 2+ right/1+ left carotid upstrokes with faint bruits. Chest - mildly coarse breath sounds with expiratory rhonchi and end-expiratory wheezes. nml RR. Breast exam was deferred. CV - heart was regular rate and rhythm. S1-S2. No murmurs gallops or rubs. Tele showing occasional sinus tach Abd - abdomen was soft. Nontender. Nondistended. Positive bowel sounds. No organomegaly or masses. Ext - no clubbing, cyanosis or edema. 2+ DP pulses bilaterally. Neuro - patient is alert and oriented x4. Strength is 5/5 in both upper and lower extremities. Cranial nerves 2-12 are intact. Speech is clear. Psych - normal mood and affect. Patient is pleasant and cooperative. Skin - warm and dry. No rashes noted. H&P: Results Labs Labs: Short CBC 10/24/23 Range/Units 22:07 WBC 13.3 H (4.5-10.0) K/mm3 Hgb 11.3 L (12.0-15.0) g/dL Hct 35.5 L (37.0-47.0) % Plt Count 238 (150-375) k/mm3 BMP 10/24/23 22:06 Sodium 136 L Potassium 4.2 Chloride 97 L Carbon Dioxide 31 H BUN 29 H D Creatinine 1.40 H Glucose 105 Calcium 9.9 Cardiac Enzymes 10/24/23 10/25/23 Range/Units 22:07 00:27 Troponin I < 0.012 0.017 D (0.000-0.034) ng/mL Liver Function 10/24/23 Range/Units 22:06 Total Bilirubin 0.5 (0.2-1.3) mg/dL AST 30 (14-36) U/L ALT 21 (6-35) U/L Alkaline Phosphatase 86 (38-126) U/L Albumin 4.3 (3.5-5.1) g/dL Assessment and Plan Assessment and plan (1) COPD with acute exacerbation: Code(s): J44.1 - Chronic obstructive pulmonary disease with (acute) exacerbation Status: Acute (2) Chest pain: Code(s): R07.9 - Chest pain, unspecified Status: Acute (3) Chronic respiratory failure with hypoxia: Code(s): J96.11 - Chronic respiratory failure with hypoxia Status: Acute (4) CKD (chronic kidney disease) stage 3, GFR 30-59 ml/min: Qualifiers: Chronic kidney disease stage 3 subtype: stage 3b (GFR 30-44) Qualified Code(s): N18.32 - Chronic kidney disease, stage 3b Code(s): N18.3 - Chronic kidney disease, stage 3 (moderate) Status: Acute (5) ASHD (arteriosclerotic heart disease): Code(s): I25.10 - Atherosclerotic heart disease of circle coronary artery without angina pectoris Status: Acute (6) Essential (primary) hypertension: Code(s): I10 - Essential (primary) hypertension Status: Acute (7) PAD (peripheral artery disease): Code(s): I73.9 - Peripheral vascular disease, unspecified Status: Acute Plan Patient with chronic respiratory failure on home oxygen. She presents with wheezing, increasing shortness of breath and hypoxia with exertion. Most likely this is a COPD exacerbation. Triggers unclear but she has been exposed to her daughter who has been sick recently. WBC elevated but Chest x-ray does not reveal pneumonia and she is not having a productive cough making acute bronchitis less likely. Will resume her home azithromycin prophylaxis but not continue scheduled antibiotics. Will continue the Solu-Medrol. Will repeat WBC but suspect it will be higher due to steroids. Continue bronchodilators. She is having new onset chest pain for the past few weeks. Troponin negative x 2. Will repeat. EKG showing no significant changes from the reading in April (no image available). Will repeat Troponin. Check Echo. Consider stress test before discharge but more likely will have her followup with cardiology for outpatient stress test. Continue ASA, Lipitor, Metoprolol. She is having weight loss due to poor appetite. 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 MALVIN was not well visualized. Add supplements. Add lovenox for DVT prophylaxis. Code status DNR. Hospital[place] [facility] [place] Plan I have confirmed that the patient's Advanced Care Plan is present, code status is documented, or surrogate decision maker is listed in patient medical record.: Yes Medication Reconciliation I have utilized all available resources to obtain, update and review the patients current medications (includes all prescriptions, OTC, herbals, cannabis, and nutritional supplements).: Yes
[2023-10-25] MEDS: ASPIRIN 81 MG ENTERIC TABLET PO (12:25)
[2023-10-25] MEDS: methylPREDNISolone SOD SUCC 125 MG VIAL 60 MG IV PUSH ×2 (12:25→21:08)
[2023-10-25] MEDS: AZITHROMYCIN 250 MG TABLET PO (12:25)
[2023-10-25] MEDS: ATORVASTATIN 40 MG TABLET PO (12:25)
[2023-10-25] MEDS: METOPROLOL TARTRATE 25 MG TABLET PO ×2 (12:25→17:30)
[2023-10-25] MEDS: IPRATROPIUM 0.5 MG/ALBUTEROL SULFATE 2.5 MG AMPUL.NEB 3 ML NEBULIZE ×2 (13:41→21:02)
[2023-10-25] MEDS: FLUTICASONE/UMECLIDIN/VILANTER 100-62.5-25 MCG ELLIPTA 1 PUFF INHALATION (13:45)
[2023-10-25 15:22] LABS: Troponin I 0.031 ng/mL (0.000-0.034)
[2023-10-25] MEDS: ENOXAPARIN 40 MG/0.4 ML SYRINGE SUB-Q (15:47)
[2023-10-25] MEDS: FLUTICASONE PROPIONATE 0.05% NA SPR 16 GM BTL (*BKC) 1 SPRAY NASAL (17:30)
[2023-10-26] VITALS (21 sets, daily range): BP systolic 126–134; BP diastolic 42–59; PULSE 78–114; RESP 16–20; TEMP 36.4–37.1; O2SAT 92–98
--- NOTE | 2023-10-26 | ECHO_ITS ---
Patient Info Name: Irma Rocha Age: 77 years : 1945 Gender: Female Ht: 63 in Wt: 134 lbs BSA: 1.65 m2 HR: 101 bpm BP: 131 / 59 mmHg Heart Rhythm: Sinus Rhythm Technical Quality: Fair Exam Date: 10/26/2023 8:00 AM Exam Location: Echo Lab Patient Status: Inpatient Admit Date: 10/25/2023 Staff Ordering Physician: Hawk Mcconnell MD Manager Lpn: Augusta Seay RDCS Attending Provider: Hawk Mcconnell MD Exam Type: CA echo doppler color flow Study Info Indications R07.9 - Chest pain, unspecified Complete two-dimensional, color flow and Doppler transthoracic echocardiogram is performed. Summary 1. Complete two-dimensional, color flow and Doppler transthoracic echocardiogram is performed. 2. Left ventricular chamber dimension is normal. 3. Left ventricular systolic function is normal, estimated at 60-65%. 4. The left ventricular diastolic function is grade I diastolic dysfunction. 5. E/e' 13 is mildly elevated. 6. There is mild aortic valve sclerosis. 7. There is trace aortic valve regurgitation. 8. The mitral valve has mildly calcified annulus. 9. There is trace mitral valve regurgitation. 10. No pulmonary hypertension, estimated pulmonary arterial systolic pressure is 39 mmHg. Left Ventricle E/e' 13 is mildly elevated. Left ventricular chamber dimension is normal. Left ventricular systolic function is normal, estimated at 60-65%. The left ventricular diastolic function is grade I diastolic dysfunction. Right Ventricle Right ventricular systolic function is normal and with normal TAPSE 2.0 cm. Right ventricular chamber dimension is normal. Left Atria Left atrial chamber dimension is normal. Right Atria Right atrial chamber dimension is normal. Aortic Valve The aortic valve is trileaflet. There is mild aortic valve sclerosis. There is no aortic valve stenosis. There is trace aortic valve regurgitation. Pulmonic Valve There is no pulmonic regurgitation. Mitral Valve The mitral valve has mildly calcified annulus. There is no mitral valve stenosis. There is trace mitral valve regurgitation. Tricuspid Valve There is no tricuspid valve regurgitation. No pulmonary hypertension, estimated pulmonary arterial systolic pressure is 39 mmHg. Pericardium/Pleural There is no pericardial effusion. Inferior Vena Cava Normal inferior vena cava with >50% collapse upon inspiration consistent with normal right atrial pressure, 5 mmHg. Aorta The aortic root size at the sinus of Valsalva is normal. Left Ventricular Outflow Tract Name Value Normal LVOT 2D LVOT Diameter 1.9 cm LVOT Doppler LVOT Peak Gradient 4 mmHg LVOT Mean Gradient 2 mmHg LVOT VTI 19 cm LVOT VTI/AV VTI Ratio 0.6 LVOT Stroke Volume 54 ml LVOT CO 5.3 l/min LVOT CI 3.2 l/min/m2 Pulmonic Valve Name Value Normal RVOT Doppler RVOT Peak Gradient 5 mmHg PV Doppler PV Peak Gradient 7 mmHg Mitral Valve Name Value Normal MV Doppler MV Decel [place] 513 cm/s2 MV PHT 43 ms MV Area (PHT) 5.1 cm2 4.0-5.0 MV Diastolic Function MV E Peak Velocity 77 cm/s MV A Peak Velocity 123 cm/s MV E/A 0.6 MV Decel Time 150 ms MV Annular TDI MV E/e' (Septal) 18.9 <=8.0 MV E/e' (Lateral) 10.3 <=8.0 MV E/e' (Average) 14.6 Tricuspid Valve Name Value Normal TV Regurgitation Doppler TR Peak Velocity 291 cm/s TR Peak Gradient 34 mmHg Estimated PAP/RSVP RA Pressure 5 mmHg <=5 PA Systolic Pressure 39 mmHg <36 RV Systolic Pressure 39 mmHg <36 Aorta Name Value Normal Ascending Aorta Ao Root Diameter (MM) 3.2 cm Ao Root Diam Index (MM) 1.9 cm/m2 Aortic Valve Name Value Normal AV Doppler AV Peak Velocity 176 cm/s AV Peak Gradient 12 mmHg AV Mean Gradient 6 mmHg AV VTI 32 cm AV Area (Cont Eq VTI) 1.7 cm2 >=3.0 AV Area (Cont Eq [place]) 1.6 cm2 AV Regurgitation 2D LVOT Area 2.8 cm2 Ventricles Name Value Normal LV Dimensions 2D/MM IVS Diastolic Thickness (2D) 0.7 cm 0.6-1.0 LVID Diastole (2D) 4.3 cm 3.8-5.2 LVIW Diastolic Thickness (2D) 0.7 cm 0.6-0.9 LVID Systole (2D) 2.7 cm 2.2-3.5 LVOT Diameter 1.9 cm LV Mass (2D Cubed) 91.27 g 67.00-162.00 LV Mass Index (2D Cubed) 55 g/m2 43-95 Relative Wall Thickness (2D) 0.33 LV Fractional Shortening/Ejection Fraction 2D/MM LV Fractional Shortening (2D) 36 % 27-45 LV EF (2D Teicholz) 65 % 54-74 LV Diastolic Volume (4C MOD) 39 ml LV EF (4C MOD) 64 % LV Diastolic Volume (2C MOD) 66 ml LV EF (2C MOD) 68 % LV Diastolic Volume (BP MOD) 54 ml 46-106 LV Diastolic Volume Index (BP MOD) 33 ml/m2 29-61 LV Systolic Volume (BP MOD) 17 ml 14-42 LV Systolic Volume Index (BP MOD) 11 ml/m2 8-24 LV EF (BP MOD) 68 % 54-74 LV Diastolic Length (4C) 7.2 cm LV Systolic Length (4C) 5.6 cm LV Stroke Volume (4C MOD) 25 ml Atria Name Value Normal LA Dimensions LA Dimension (MM) 4.4 cm 2.7-3.8 LA Volume (4C A-L) 33 ml LA Volume (BP A-L) 38 ml RA Dimensions RA Area (4C) 14.0 cm2 <=18.0 Report Signatures
[2023-10-26] MEDS: IPRATROPIUM 0.5 MG/ALBUTEROL SULFATE 2.5 MG AMPUL.NEB 3 ML NEBULIZE ×4 (01:29→21:00)
[2023-10-26 04:46] LABS: Basophils Percent Auto 0.2 % (0.2-1.2); Hematocrit 31.1 % (37.0-47.0); Hemoglobin 9.9 g/dL (12.0-15.0); Immature Granulocyte Absolute 0.06 K/mm3 (0.00-0.031); Immature Granulocyte Percent A 0.5 % (0-0.5); Lymphocytes Absolute Auto 1.08 K/mm3 (0.9-3.2); Lymphocytes Percent Auto 8.2 % (18.3-44.2); Mean Corpuscular HGB Conc 31.8 g/dl (32-36); Mean Corpuscular Hemoglobin 30.5 pg (26-34); Mean Corpuscular Volume 95.7 fl (80-100); Mean Platelet Volume 10.3 fl (7.4-10.4); Monocytes Absolute Auto 0.3 K/mm3 (0.1-0.6); Monocytes Percent Auto 2.5 % (2.6-8.5); Neutrophils Absolute Auto 11.7 K/mm3 (1.3-6.7); Neutrophils Percent Auto 88.6 % (45.5-73.1); Platelet Count Result 219 k/mm3 (150-375); Red Blood Count 3.25 M/mm3 (4.2-5.4); Red Cell Distribution Width 12.9 % (11.5-14.5); White Blood Count 13.2 K/mm3 (4.5-10.0)
[2023-10-26 05:06] LABS: Anion Gap 8 mmol/L (4-12); Blood Urea Nitrogen 41 mg/dL (7-17); Calcium 9.5 mg/dL (8.4-10.2); Carbon Dioxide 30 mmol/L (22-30); Chloride 95 mmol/L (98-107); Estimated CRCL calculation 28 ml/min; Estimated Glomerular Filt Rate 43; Glucose 154 mg/dL (65-110); Magnesium 1.7 mg/dL (1.6-2.3); Potassium 4.5 mmol/L (3.4-5.0); Sodium 133 mmol/L (137-145)
[2023-10-26] MEDS: methylPREDNISolone SOD SUCC 125 MG VIAL 60 MG IV PUSH ×3 (05:35→21:01)
--- NOTE | 2023-10-26 08:00 | ECG_ITS ---
Test Date: 2023-10-26 11:00:05 Measurements Intervals [place] Rate: 90 P: 79 [place]: 164 QRS: 56 QRSD: 90 T: 52 QT: 311 QTc: 381 Interpretive Statements SINUS RHYTHM MINIMAL Q WAVES- ANTEROLAT/INF LEADS NONSPECIFIC T-WAVE ABNORMALITY- INFERIOR LEADS BASELINE ARTIFACT- I, II, III, AVR, AVL, AVF BORDERLINE ECG Compared to ECG 10/25/2023 00:37:27 HEART RATE HAS DECREASED Electronically Signed On 10-26-2023 11:03:00 CDT by Joon Boyce D.O.
[2023-10-26] MEDS: FLUTICASONE/UMECLIDIN/VILANTER 100-62.5-25 MCG ELLIPTA 1 PUFF INHALATION (08:24)
[2023-10-26] MEDS: ASPIRIN 81 MG ENTERIC TABLET PO (08:43)
[2023-10-26] MEDS: CHOLECALCIFEROL 400 UNITS TABLET (VIT D) PO (08:43)
[2023-10-26] MEDS: ATORVASTATIN 40 MG TABLET PO (08:43)
[2023-10-26] MEDS: ENOXAPARIN 40 MG/0.4 ML SYRINGE SUB-Q (08:43)
[2023-10-26] MEDS: amLODIPine BESYLATE 5 MG TABLET PO (08:43)
[2023-10-26] MEDS: METOPROLOL TARTRATE 25 MG TABLET PO ×2 (08:44→17:25)
[2023-10-26] MEDS: OMEGA 3 POLYUNSAT FATTY ACIDS 1 GM CAP PO (08:44)
--- NOTE | 2023-10-26 12:52 | PM.IMPN ---
Progress Note: A&P Assessment and Plan (1) COPD with acute exacerbation: Code(s): J44.1 - Chronic obstructive pulmonary disease with (acute) exacerbation Status: Acute (2) Chest pain: Code(s): R07.9 - Chest pain, unspecified Status: Acute (3) Chronic respiratory failure with hypoxia: Code(s): J96.11 - Chronic respiratory failure with hypoxia Status: Acute (4) CKD (chronic kidney disease) stage 3, GFR 30-59 ml/min: Qualifiers: Chronic kidney disease stage 3 subtype: stage 3b (GFR 30-44) Qualified Code(s): N18.32 - Chronic kidney disease, stage 3b Code(s): N18.3 - Chronic kidney disease, stage 3 (moderate) Status: Acute (5) ASHD (arteriosclerotic heart disease): Code(s): I25.10 - Atherosclerotic heart disease of [place] coronary artery without angina pectoris Status: Acute (6) Essential (primary) hypertension: Code(s): I10 - Essential (primary) hypertension Status: Acute (7) PAD (peripheral artery disease): Code(s): I73.9 - Peripheral vascular disease, unspecified Status: Acute (8) Anemia: Code(s): D64.9 - Anemia, unspecified Status: Acute Plan Patient with chronic respiratory failure on home oxygen. She presents with wheezing, increasing shortness of breath and hypoxia with exertion. Most likely this is a COPD exacerbation. Triggers unclear but she has been exposed to her daughter who has been sick recently. WBC elevated but Chest x-ray does not reveal pneumonia and she is not having a productive cough making acute bronchitis less likely. Will resume her home azithromycin prophylaxis but not continue scheduled antibiotics. Will continue the Solu-Medrol. Will repeat WBC but suspect it will be higher due to steroids. Continue bronchodilators. She is having new onset chest pain for the past few weeks. Troponin negative x 2. Will repeat. EKG showing no significant changes from the reading in April (no image available). Will repeat Troponin. Check Echo. Consider stress test before discharge but more likely will have her followup with cardiology for outpatient stress test. Continue ASA, Lipitor, Metoprolol. She is having weight loss due to poor appetite. 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 MALVIN was not well visualized. Add supplements. 10/26/23: Some improvement today. Echo showing normal EF with Grade I diastolic dysfunction. Lung exam probably atelectasis. Creatinine better. WBC mildly elevated but stable. Add IS and PT/OT to have her out of bed. Heating pad for back pain. Continue Solu-Medrol today but changed to Prednisone tomorrow. Hgb noted. Proceed with anemia workup. Add PPI DVT prophylaxis - lovenox Code status DNR. Subjective Date/time seen: 10/26/23 12:52 Interval history: 77yo female with COPD, chronic respiratory failure (3L at rest and 4L with activity), CAD and HTN here for shortness of breath. Symptoms began about 2 days prior to admission that progressively worsened. Feeling better. No SOB or CP but with TAVERAS when walking to the BR. No cough. She is having palpable and positional mid-back pain. Exam Narrative: AF 98.0 131/59 99 20 92% 3L Gen - NARD sitting up in bed Chest - bibasilar inspiratory crackles o/w distant. no wheezing CV - RRR S1/S2. Tele showing occasional sinus tach Abd - Soft. Nontender. Nondistended. Positive bowel sounds. Ext - no pedal edema Psych - normal mood and affect Skin - warm and dry. Objective Data Vital Signs Vital Signs: Vital Signs - 24 hr 10/25/23 13:41 10/25/23 13:48 10/25/23 15:29 Temperature 97.8 F Pulse Rate 80 82 86 Respiratory Rate 20 20 16 Blood Pressure 120/49 L Pulse Oximetry 96 Oxygen Delivery Oxygen Flow Rate 10/25/23 17:30 10/25/23 16:00 10/25/23 19:57 Temperature Pulse Rate 100 90 100 Respiratory Rate 16 Blood Pressure Pulse Oximetry 96 Oxygen Delivery Nasal Cannula Oxygen Flow Rate 4 10/25/23 20:12 10/25/23 21:03 10/25/23 21:03 Temperature 97.8 F Pulse Rate 89 92 Respiratory Rate 18 18 Blood Pressure 124/45 L Pulse Oximetry 95 95 Oxygen Delivery Nasal Cannula Oxygen Flow Rate 3 10/25/23 21:11 10/25/23 20:00 10/26/23 01:29 Temperature Pulse Rate 93 98 92 Respiratory Rate 18 18 Blood Pressure Pulse Oximetry Oxygen Delivery Oxygen Flow Rate 10/26/23 01:37 10/26/23 00:00 10/26/23 04:00 Temperature Pulse Rate 103 H 90 94 Respiratory Rate 18 Blood Pressure Pulse Oximetry Oxygen Delivery Oxygen Flow Rate 10/26/23 05:30 10/26/23 08:24 10/26/23 08:24 Temperature 98.0 F Pulse Rate 101 H 104 H Respiratory Rate 17 20 Blood Pressure 131/59 L Pulse Oximetry 93 92 Oxygen Delivery Nasal Cannula Oxygen Flow Rate 3 10/26/23 08:35 10/26/23 08:44 Temperature Pulse Rate 106 H 99 Respiratory Rate 20 Blood Pressure Pulse Oximetry Oxygen Delivery Oxygen Flow Rate Intake/Output Intake/Output: Intake & Output 10/23/23 10/24/23 10/25/23 10/26/23 23:59 23:59 23:59 23:59 Intake Total 1840 670 Balance 1840 670 Meds/Results Medications: Active Medications Generic Name Dose Route Start Last Admin Trade Name Freq PRN Reason Stop Dose Admin Albuterol 2.5 mg 10/25/23 11:35 Albuterol Sulfate Neb 2.5 Mg/3 Ml Inh NEBULIZE Q6H PRN SOB OR WHEEZING Albuterol/Ipratropium 3 ml 10/25/23 14:00 10/26/23 08:24 Ipratropium 0.5 Mg/Albuterol Sulfate 2.5 Mg Ampul.Neb 3 Ml NEBULIZE 3 ml Q6HRT SHERRY Administration Amlodipine Besylate 5 mg 10/26/23 09:00 10/26/23 08:43 Amlodipine Besylate 5 Mg Tablet PO 5 mg DAILY SHERRY Administration Aspirin 81 mg 10/25/23 11:35 10/26/23 08:43 Aspirin 81 Mg Enteric Tablet PO 81 mg DAILY SHERRY Administration Atorvastatin Calcium 40 mg 10/25/23 11:35 10/26/23 08:43 Atorvastatin 40 Mg Tablet PO 40 mg DAILY SHERRY Administration Azithromycin 250 mg 10/25/23 11:35 10/25/23 12:25 Azithromycin 250 Mg Tablet PO 250 mg [id number] SHERRY Administration Enoxaparin Sodium 40 mg 10/26/23 09:00 10/26/23 08:43 Enoxaparin 40 Mg/0.4 Ml Syringe SUB-Q 40 mg DAILY SHERRY Administration Fish Oil 1 gm 10/26/23 09:00 10/26/23 08:44 [place] 3 Polyunsat Fatty Acids 1 Gm Cap PO 1 gm DAILY SHERRY Administration Fluticasone Propionate 1 spray 10/25/23 17:00 10/26/23 08:44 Fluticasone Propionate 0.05% Na Spr 16 Gm Btl (*Bkc) NASAL Not Given BID SHERRY Fluticasone/Umeclidinium/Vilanterol 1 puff 10/25/23 09:00 10/26/23 08:24 Fluticasone/Umeclidin/Vilanter 100-62.5-25 Mcg Ellipta INHALATION 1 puff DAILY SHERRY Administration Methylprednisolone Sodium Succinate 60 mg 10/25/23 12:15 10/26/23 05:35 Methylprednisolone Sod Succ 125 Mg Vial IV PUSH 60 mg Q8HR SHERRY Administration Metoprolol Tartrate 25 mg 10/25/23 11:35 10/26/23 08:44 Metoprolol Tartrate 25 Mg Tablet PO 25 mg BID SHERRY Administration Ondansetron HCl 4 mg 10/25/23 02:09 Ondansetron Inj 4 Mg/2 Ml Vial IV PUSH Q4H PRN Nausea Perflutren Lipid Microsphere 0 ml 10/25/23 14:32 Perflutren Lipid Microspheres 1.5 Ml Vial Diluted To 10 Ml Total Volume IV PUSH 10/28/23 14:33 ONCE PRN adequate visualization Protocol Vitamin D 400 units 10/26/23 09:00 10/26/23 08:43 Cholecalciferol 400 Units Tablet (Vit D) PO 400 units DAILY SHERRY Administration Radiology Results: ITS Impressions Chest X-Ray 10/25/23 05:41 Impression: No definite acute abnormality. Advanced COPD. Labs Labs: Laboratory Results - last 24 hr 10/25/23 10/26/23 14:49 04:24 WBC 13.2 H RBC 3.25 L Hgb 9.9 L Hct 31.1 L MCV 95.7 MCH 30.5 MCHC 31.8 L RDW 12.9 Plt Count 219 MPV 10.3 Immature Gran % (Auto) 0.5 Neut % (Auto) 88.6 H Lymph % (Auto) 8.2 L [place] % (Auto) 2.5 L Eos % (Auto) 0.0 Baso % (Auto) 0.2 Lymph # (Auto) 1.08 [place] # (Auto) 0.3 Eos # (Auto) 0.0 Baso # (Auto) 0.0 Abs Immat Gran (auto) 0.06 H Absolute Neuts (auto) 11.7 H Absolute Nucleated RBC 0.000 Nucleated RBC % 0.0 Sodium 133 L Potassium 4.5 Chloride 95 L Carbon Dioxide 30 Anion Gap 8 BUN 41 H D Creatinine 1.20 H Estim Creat Clear Calc 28 Estimated GFR 43 L Glucose 154 H Calcium 9.5 Magnesium 1.7 Troponin I 0.031
[2023-10-26] MEDS: ACETAMINOPHEN 325 MG TABLET 650 MG PO (13:22)
[2023-10-26] MEDS: PANTOPRAZOLE 40 MG TABLET PO (13:22)
[2023-10-27] VITALS (20 sets, daily range): BP systolic 134–141; BP diastolic 50–53; PULSE 86–115; RESP 16–20; TEMP 36.2–36.7; O2SAT 94–97
[2023-10-27] MEDS: IPRATROPIUM 0.5 MG/ALBUTEROL SULFATE 2.5 MG AMPUL.NEB 3 ML NEBULIZE ×4 (02:16→20:35)
[2023-10-27 05:58] LABS: Hematocrit 34.7 % (37.0-47.0); Hemoglobin 10.9 g/dL (12.0-15.0); Mean Corpuscular HGB Conc 31.4 g/dl (32-36); Mean Corpuscular Hemoglobin 30.4 pg (26-34); Mean Corpuscular Volume 96.7 fl (80-100); Mean Platelet Volume 10.4 fl (7.4-10.4); Platelet Count Result 255 k/mm3 (150-375); Red Blood Count 3.59 M/mm3 (4.2-5.4); Red Cell Distribution Width 13.1 % (11.5-14.5); White Blood Count 19.3 K/mm3 (4.5-10.0)
[2023-10-27 06:11] LABS: Anion Gap 9 mmol/L (4-12); Blood Urea Nitrogen 50 mg/dL (7-17); Carbon Dioxide 32 mmol/L (22-30); Chloride 96 mmol/L (98-107); Estimated CRCL calculation 26 ml/min; Estimated Glomerular Filt Rate 40; Glucose 151 mg/dL (65-110); Potassium 4.5 mmol/L (3.4-5.0); Sodium 137 mmol/L (137-145)
[2023-10-27 06:28] LABS: Iron 51 ug/dL (37-170)
[2023-10-27 06:38] LABS: Percent Iron Saturation 16 % (20-50); TOTAL IRON BINDING CAPACITY 312 ug/dL (261-462)
[2023-10-27 07:00] LABS: Thyroid Stimulating Hormone Reflex 0.171 uIU/mL (0.465-4.68)
[2023-10-27 07:15] LABS: Folic Acid 9.1 ng/mL (2.76->20)
[2023-10-27 07:37] LABS: Free T4 Free Thyroxine Reflex 1.02 ng/dL (0.78-2.19)
[2023-10-27] MEDS: predniSONE 20 MG TABLET 40 MG PO (08:12)
[2023-10-27] MEDS: PANTOPRAZOLE 40 MG TABLET PO (08:13)
[2023-10-27] MEDS: OMEGA 3 POLYUNSAT FATTY ACIDS 1 GM CAP PO (08:13)
[2023-10-27] MEDS: ATORVASTATIN 40 MG TABLET PO (08:13)
[2023-10-27] MEDS: amLODIPine BESYLATE 5 MG TABLET PO (08:13)
[2023-10-27] MEDS: ASPIRIN 81 MG ENTERIC TABLET PO (08:13)
[2023-10-27] MEDS: CHOLECALCIFEROL 400 UNITS TABLET (VIT D) PO (08:13)
[2023-10-27] MEDS: METOPROLOL TARTRATE 25 MG TABLET PO ×2 (08:13→16:46)
[2023-10-27] MEDS: ENOXAPARIN 40 MG/0.4 ML SYRINGE SUB-Q (08:14)
[2023-10-27] MEDS: AZITHROMYCIN 250 MG TABLET PO (08:16)
--- NOTE | 2023-10-27 09:04 | P.PNIM_ITS ---
Progress Note: A&P Assessment and Plan (1) COPD with acute exacerbation: Code(s): J44.1 - Chronic obstructive pulmonary disease with (acute) exacerbation Status: Acute (2) Chest pain: Code(s): R07.9 - Chest pain, unspecified Status: Acute (3) Chronic respiratory failure with hypoxia: Code(s): J96.11 - Chronic respiratory failure with hypoxia Status: Acute (4) CKD (chronic kidney disease) stage 3, GFR 30-59 ml/min: Qualifiers: Chronic kidney disease stage 3 subtype: stage 3b (GFR 30-44) Qualified Code(s): N18.32 - Chronic kidney disease, stage 3b Code(s): N18.3 - Chronic kidney disease, stage 3 (moderate) Status: Acute (5) ASHD (arteriosclerotic heart disease): Code(s): I25.10 - Atherosclerotic heart disease of [place] coronary artery without angina pectoris Status: Acute (6) Essential (primary) hypertension: Code(s): I10 - Essential (primary) hypertension Status: Acute (7) PAD (peripheral artery disease): Code(s): I73.9 - Peripheral vascular disease, unspecified Status: Acute (8) Anemia: Code(s): D64.9 - Anemia, unspecified Status: Acute Plan Patient with chronic respiratory failure on home oxygen. She presents with wheezing, increasing shortness of breath and hypoxia with exertion. Most likely this is a COPD exacerbation. Triggers unclear but she has been exposed to her daughter who has been sick recently. WBC elevated but Chest x-ray does not reveal pneumonia and she is not having a productive cough making acute bronchitis less likely. Will resume her home azithromycin prophylaxis but not continue scheduled antibiotics. Will continue the Solu-Medrol. Will repeat WBC but suspect it will be higher due to steroids. Continue bronchodilators. She is having new onset chest pain for the past few weeks. Troponin negative x 2. Will repeat. EKG showing no significant changes from the reading in April (no image available). Will repeat Troponin. Check Echo. Consider stress test before dis charge but more likely will have her followup with cardiology for outpatient stress test. Continue ASA, Lipitor, Metoprolol. She is having weight loss due to poor appetite. 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 MALVIN was not well visualized. Add supplements. 10/26/23: Some improvement today. Echo showing normal EF with Grade I diastolic dysfunction. Lung exam probably atelectasis. Creatinine better. WBC mildly elevated but stable. Add IS and PT/OT to have her out of bed. Heating pad for back pain. Continue Solu-Medrol today but changed to Prednisone tomorrow. Hgb noted. Proceed with anemia workup. Add PPI 10/26 patient is on 3 L oxygen via nasal cannula, pulse ox 94, elevated white blood cell, due to steroid, hemoglobin stable, 10.9, no significant iron deficiency. Patient still has shortness breath, cough with yellow coloration sputum, patient feels better. 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 Subjective Date/time seen: 10/27/23 09:04 Interval history: I saw examined patient today, patient feels better, but still has cough and shortness breath with mild exertion. Patient has yellow sputum. Exam Narrative: GENERAL: Pleasant, in no acute distress. Well-nourished. - EYES: EOMI. Anicteric. - HENT: Moist mucous membranes. - LUNGS: Decreased air entry bilateral, coarse breath sound bilaterally, crackles bilateral base - CARDIOVASCULAR: Regular rate and rhyth m. No murmur. No JVD. - ABDOMEN: Soft, non-tender and non-dist ended. No palpable masses. - EXTREMITIES: No edema. Peripheral puls es 2+. Non-tender. - NEUROLOGIC: No focal neurological defi cits. CN II-XII grossly intact. - PSYCHIATRIC: Awake, Alert and oriented x 3. Appropriate mood and affect. - SKIN: No rashes or lesions. Warm. - LYMPH: No cervical lymphadenopathy. Objective Data Vital Signs Vital Signs: Vital Signs - 24 hr 10/26/23 14:14 10/26/23 15:02 10/26/23 15:16 Temperature Pulse Rate 92 114 H Respiratory Rate 20 20 Blood Pressure Pulse Oximetry Oxygen Delivery Nasal Cannula Oxygen Flow Rate 3 10/26/23 15:58 10/26/23 12:00 10/26/23 16:00 Temperature 98.8 F Pulse Rate 92 102 H 96 Respiratory Rate 16 Blood Pressure 134/42 L Pulse Oximetry 98 Oxygen Delivery Oxygen Flow Rate 10/26/23 17:25 10/26/23 20:18 10/26/23 21:00 Temperature 97.6 F Pulse Rate 96 78 79 Respiratory Rate 17 20 Blood Pressure 126/44 L Pulse Oximetry 95 Oxygen Delivery Oxygen Flow Rate 10/26/23 21:11 10/26/23 21:14 10/26/23 20:00 Temperature Pulse Rate 98 89 Respiratory Rate 20 Blood Pressure Pulse Oximetry 94 Oxygen Delivery Nasal Cannula Oxygen Flow Rate 3 10/26/23 20:54 10/27/23 02:18 10/27/23 02:26 Temperature Pulse Rate 104 H 115 H Respiratory Rate 20 20 Blood Pressure Pulse Oximetry 95 Oxygen Delivery Nasal Cannula Oxygen Flow Rate 3 10/27/23 00:00 10/27/23 04:00 10/27/23 05:26 Temperature 97.6 F Pulse Rate 91 113 H 110 H Respiratory Rate 17 Blood Pressure 141/52 H Pulse Oximetry 94 Oxygen Delivery Oxygen Flow Rate 10/27/23 08:13 Temperature Pulse Rate 99 Respiratory Rate Blood Pressure Pulse Oximetry Oxygen Delivery Oxygen Flow Rate Intake/Output Intake/Output: Intake & Output 10/24/23 10/25/23 10/26/23 10/27/23 23:59 23:59 23:59 23:59 Intake Total 1840 1460 200 Balance 1840 1460 200 Meds/Results Medications: Active Medications Generic Name Dose Route Start Last Admin Trade Name Freq PRN Reason Stop Dose Admin Acetaminophen 650 mg 10/26/23 13:06 10/26/23 13:22 Acetaminophen 325 Mg Tablet PO 650 mg Q6H PRN Administration Mild Pain (1-3) or Fever Albuterol 2.5 mg 10/25/23 11:35 Albuterol Sulfate Neb 2.5 Mg/3 Ml Inh NEBULIZE Q6H PRN SOB OR WHEEZING Albuterol/Ipratropium 3 ml 10/25/23 14:00 10/27/23 02:16 Ipratropium 0.5 Mg/Albuterol Sulfate 2.5 Mg Ampul.Neb 3 Ml NEBULIZE 3 ml Q6HRT SHERRY Administration Amlodipine Besylate 5 mg 10/26/23 09:00 10/27/23 08:13 Amlodipine Besylate 5 Mg Tablet PO 5 mg DAILY SHERRY Administration Aspirin 81 mg 10/25/23 11:35 10/27/23 08:13 Aspirin 81 Mg Enteric Tablet PO 81 mg DAILY SHERRY Administration Atorvastatin Calcium 40 mg 10/25/23 11:35 10/27/23 08:13 Atorvastatin 40 Mg Tablet PO 40 mg DAILY SHERRY Administration Azithromycin 250 mg 10/25/23 11:35 10/27/23 08:16 Azithromycin 250 Mg Tablet PO 250 mg [email or web address] SHERRY Administration Enoxaparin Sodium 40 mg 10/26/23 09:00 10/27/23 08:14 Enoxaparin 40 Mg/0.4 Ml Syringe SUB-Q 40 mg DAILY SHERRY Administration Fish Oil 1 gm 10/26/23 09:00 10/27/23 08:13 [place] 3 Polyunsat Fatty Acids 1 Gm Cap PO 1 gm DAILY SHERRY Administration Fluticasone Propionate 1 spray 10/25/23 17:00 10/27/23 08:14 Fluticasone Propionate 0.05% Na Spr 16 Gm Btl (*Bkc) NASAL Not Given BID [facility] Fluticasone/Umeclidinium/Vilanterol 1 puff 10/25/23 09:00 10/26/23 08:24 Fluticasone/Umeclidin/Vilanter 100-62.5-25 Mcg Ellipta INHALATION 1 puff DAILY [facility] Administration Metoprolol Tartrate 25 mg 10/25/23 11:35 10/27/23 08:13 Metoprolol Tartrate 25 Mg Tablet PO 25 mg BID SHERRY Administration Ondansetron HCl 4 mg 10/25/23 02:09 Ondansetron Inj 4 Mg/2 Ml Vial IV PUSH Q4H PRN Nausea Pantoprazole Sodium 40 mg 10/27/23 09:00 10/27/23 08:13 Pantoprazole 40 Mg Tablet PO 40 mg QAM SHERRY Administration Perflutren Lipid Microsphere 0 ml 10/25/23 14:32 Perflutren Lipid Microspheres 1.5 Ml Vial Diluted To 10 Ml Total Volume IV PUSH 10/28/23 14:33 ONCE PRN adequate visualization Protocol Prednisone 40 mg 10/27/23 08:00 10/27/23 08:12 Prednisone 20 Mg Tablet PO 40 mg DAILY@0800 [facility] Administration Vitamin D 400 units 10/26/23 09:00 10/27/23 08:13 Cholecalciferol 400 Units Tablet (Vit D) PO 400 units DAILY SHERRY Administration Radiology Results: ITS Impressions Chest X-Ray 10/25/23 05:41 Impression: No definite acute abnormality. Advanced COPD. Labs Labs: Laboratory Results - last 24 hr 10/27/23 05:51 WBC 19.3 H RBC 3.59 L Hgb 10.9 L Hct 34.7 L MCV 96.7 MCH 30.4 MCHC 31.4 L RDW 13.1 Plt Count 255 MPV 10.4 Sodium 137 Potassium 4.5 Chloride 96 L Carbon Dioxide 32 H Anion Gap 9 BUN 50 H Creatinine 1.30 H Estim Creat Clear Calc 26 Estimated GFR 40 L Glucose 151 H Calcium 10.0 Iron 51 TIBC 312 % Saturation 16 L Ferritin 28.10 Vitamin B12 364.0 Folate 9.1 TSH (Reflex) 0.171 L Free T4 1.02
[2023-10-27] MEDS: FLUTICASONE/UMECLIDIN/VILANTER 100-62.5-25 MCG ELLIPTA 1 PUFF INHALATION (09:09)
[2023-10-27 09:21] LABS: Total Triiodothyronine (T3) 0.87 NG/ML (0.97-1.69)
--- NOTE | 2023-10-27 17:11 | PM.CNPUL ---
Assessment and Plan Assessment and plan (1) Acute exacerbation of chronic obstructive pulmonary disease: Code(s): J44.1 - Chronic obstructive pulmonary disease with (acute) exacerbation Status: Acute Assessment and Plan: Developed symptoms about October 21 after family celebration October 20, October 23 chills, increased shortness of breath and drop in saturation high 70s low 80% range while on her usual O2. Today October 26 started having increased ability to expectorate yellow sputum which is making her feel better. She uses azithromycin MWF at home, Breztri which she doubts if giving her any benefit, and nebulized albuterol bid. Trialed roflumilast for 8 days in the past, had loose stools, quit taking. She has extremely low FEV1, too low to have inspiratory capacity to benefit from using an inhaler. Probably cannot inhale effectively to distribute medication. I planned to change her to nebulized budesonide, arformoterol, however budesonide is on her allergy list. (2) History of tobacco abuse: Code(s): Z87.891 - Personal history of nicotine dependence Status: Acute Assessment and Plan: Plan plan: 1. Cornet valve; loosen and expectorate sputum; can take this home, use for pulmonary hygiene. Has IS at bedside. 2. Start Daliresp 250 mcg po and plan to go home on this. If she gets loose stools, decreased to 250 mcg every other day. Goal is 28 days of 250 mcg, then increase to 500 mcg a day. She is a good candidate as she has been in the hospital in Apr 2023, Mar 2023, and now October 2023. Daliresp can decreased hospital re-admissions. 3. She is now on oral prednisone, off solumedrol. 4. Breztri may not be helping her. She says that she is not sure that it helps. IT is expensive. Switching to all nebulized meds is not an easy swap as she is allergic to budesonide, causes a rash. Will see if there is any alternative for inhaled steroid. 5. Bowels: last BM was on admission, had 3 stools that day. She often has 3 days without movng bowels. Will add Miralax to use p.r.n. as she uses this at home on occasion. 6. Urine antigens for Legionella and Strep pneumoniae. 7. Sputum Gram stain C&S; although she has been on antibiotics, she may grow an unexpected pathogen. Will request mycobacterial and fungal specimens, as well. Colonization with fungal, mycobacterial or Gram negative such as Pseudomonas may explain exacerbations. History of Present Illness History of Present Illness Consult date: 10/27/23 Requesting physician: Stephen Galarza MD Chief complaint: COPD exacerbation, Acute on chronic hypoxia Narrative: Anne was seen October 26 at 11 am, and later 20:00 in more detail. NEW: Irma Rocha is a 77 yo female seen in our clinic; severe COPD, on O2 3.5 L at rest and sleep, 4 L with exertion, She was admitted 3 days ago October 23 with increased shortness of breath, coughing, without sputum, rhinorrhea, wheezing, and one episode of chill;s; saturation dropped while using her usual 3 L/min, normally > 90%, dropped to low 80s and high 70s with exertion. She came to ER, CXR had no infiltrate, WBC 13 K, elevated, mild elevation BUN and creatinine. Serology for COVID, influenza A&B, RSV all negative. She had no sputum to test initially. Was started on empiric therapy for COPD exacerbation. October 26 today developed thick yellow sputum which is difficult to expectorate. WBC is higher 19 k. No fever. CXR October 22 showed increased pulmonary vascular redistribution, no infiltrate. She is not feeling better, does not feel ready to go home. Dr Galarza requested pulmonary consultation for more evaluation. She was last seen in the office 08/13/2023, takes azithromycin MWF at baseline. She uses Breztri, however she is not sure that it helps. She uses nebulized albuterol twice a day. She has O2 at home Lives at home with her daughter. 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 HISTORY = = = = = = = = = = = 08/13/2023; ov COPD; PMH Dr. Lee, stress testing negative. Sees a vascular surgeon regarding carotid stenosis, 70% blocked bilaterally. Gets carotid US [id number]. Hx of stent placement x2. She had ER visit 04/02/22 COVID + with lower O2 saturations - patient was walked and dropped to 84% on 4L/min. Note states she was offered hospital admission but she opted to d/c home with oral steroids. States she was given Paxlovid by PCP which gave her nausea and vomiting. Hospitalized with COPD exacerbation and pneumonia Mar 2021 and again May 16 through 2023 for abdominal pain and SOB and found to have pneumonia and also treated for COPD exacerbation. Breathing feels stable since discharge. Hit or miss - some days are better than others depending on the weather/humidity and her activity for the day. [place] and they're also doing some construction down the street, lots of dust. Denies coughing. Occasional wheezing with some exertion. Today she tells me she has had increased sinus congestion with facial pain, R ear fullness and pain x 3 weeks. She is compliant using Breztri 2 puffs BID. She is using her nebulizer twice daily, and rescue albuterol occasionally before walking her dog. Uses Flonase as needed for sinus congestion, once or twice daily. We did a trial of Daliresp since her last visit, given her pattern of exacerbations, and she tried for 8 days and had to discontinue due to GI side effects/diarrhea. Since last visit she has been on azithromycin 250mg q MWF. O2: She uses 3L/min O2 at all times - rest/ambulation/sleep aside from using 4L/min when walking the dog. She has a pulse oximeter to monitor her oxygen saturations which usually run in the 90s%. She states occasionally sees saturations in the 80s wearing 3L with ambulation, stops to take breaks and catch her breath and recovers to above 90% quickly DATA * 12/31/22 - PFT - Severe obstructive airway disease with? evidence of lung hyperinflation and air trapping.? Severely reduced lung diffusion capacity. 12/31/22 FVC 1.75L, 71% FEV1 0.64L, 34% FEV1/FVC 37% SIM93-66% TLC 6.06 L, 124% RV 3.17 L, 137% ERV RV/TLC DLCO 4.9, 27% DLCO/VA 1.91, 46% * 01/01/23 - Home O2 evaluation - She required 3L/min O2 at rest and with ambulation. * 04/02/22 - CXR - mild diffuse interstitial prominence. No consolidation, pleural effusion, or pneumothorax. * 08/04/21 - Overnight oximetry on 3L/min supplemental O2 - Spent zero minutes below 88%. Lowest saturation 92%, maximum 99%, basal saturation 96.5%. Recommended to continue wearing 3L/min O2 with sleep. * 05/12/21 - Home sleep test (on room air) - Mild sleep apnea with AHI 9.1. She has been 99% of the study with oxygen saturation less than 88%. Desaturated down to 66%. In-lab PAP titration was recommended, she declines. * PFT 02/16/19 Severe obstructive ventilatory impairment, mild air trapping, moderate increase in airway resistance. No change with bronchodilator. Compared to prior study 06/11/2015 values are very similar. ABG (RA) 7.43/39/pO258.7/25.9/91% Mild hypoxemia on room air. * Home O2 Eval 11/14/20 need for 3L O2 with activity. Overnight oximetry 05/08/20 480 minutes spent below 88%, ENMA 31/hr, suspicious for sleep apnea. * 11/14/20Echo EF 55-60%, mild-mod MVR, mild pulm HTN. * 03/17/21 chest CTA: There is mild scarring at the lung apices. There is severe emphysema. There are scattered nodules and tree-in-bud opacities in all lobes. There is mild atelectasis in the lungs bilaterally. No pleural effusion. The heart size is normal. There is no pulmonary embolus. Review of Systems Review of Systems: Unintentional weight loss 158 in Apr to 136 lb now, 18 lb in 6 months, no change in appetite. [facility], [facility] Past Medical History Medical History (Updated 10/26/23 @ 12:59 by Hawk Mcconnell MD) ARF (acute renal failure) Carotid occlusion, bilateral She sees her vascular surgeon every 6 months for this Chronic respiratory failure COPD with acute exacerbation Emphysema of lung History of tobacco abuse HTN (hypertension) Hyperlipidemia Myocardial infarction PAD (peripheral artery disease) Pneumonia Seasonal allergies Surgical History Surgical History H/O heart artery stent H/O: hysterectomy Hx of appendectomy Family History Family History Grandparent Family history of tuberculosis Mother Cerebrovascular accident, Onset Age: 73 Father Family history of chronic obstructive pulmonary disease Family history of heart disease in male family member before age 55 Acute myocardial infarction Sibling Family history of chronic obstructive pulmonary disease Family history of lung cancer Family history of malignant neoplasm Family history of lung disease Social History Social History (Updated 10/25/23 @ 13:25 by Hawk Mcconnell MD) Social History: Lives with her daughter. Code status - DNR She nominates her daughter to be the individual would make medical decisions for her if she is unable. Smoking packs per day: 2 Smoking cigarettes per day: 40.0 Years smoked: 40 Smoking pack-years: 80.00 Smoking status: Former smoker Second hand tobacco smoke exposure: No Alcohol intake: never Substance use: never Substance use type: does not use Do You Feel Safe in your Home?: Yes Lack of Transportation: No Lack of Food: Never True Current Housing: I Have Housing Concerned About Future Housing: No Difficulty Paying Gas/Electric Bills: No Difficulty Paying for Meds: No Currently Unemployed: No Education: High School Diploma/GED Difficulty w/ Childcare or Family Care: No Gender identity (if verbalized by the patient): Female Spiritual care concerns: No Agree to blood products: Yes Meds Home Medications and Allergies Home Medications Medication Instructions Recorded Confirmed Type aspirin 81 mg tablet,delayed 81 mg PO DAILY 02/10/19 10/25/23 History release (Adult Low Dose Aspirin) cholecalciferol (vitamin D3) 10 400 unit PO DAILY 02/10/19 10/25/23 History mcg (400 unit) capsule omega 4-rev-uqq-fish oil 1,000 mg 1 cap PO DAILY 02/10/19 10/25/23 History (120 mg-180 mg) capsule (Fish Oil) inhalational spacing device #1 ea 12/02/21 10/25/23 Rx albuterol sulfate 90 mcg/actuation 1 - 2 puff inhalation Q4-6H PRN 06/02/22 10/25/23 Rx aerosol inhaler (ProAir HFA) shortness of breath or wheezing #25.5 grams azithromycin 250 mg tablet 250 mg PO QMWF 30 days #13 tabs 05/26/23 10/25/23 Rx metoprolol tartrate 25 mg tablet 25 mg PO BID 90 days #180 tabs 08/10/23 10/25/23 Rx atorvastatin 40 mg tablet 40 mg PO DAILY #90 tabs 08/11/23 10/25/23 Rx albuterol sulfate 2.5 mg/3 mL See Rx Instructions .Route 09/10/23 10/25/23 Rx (0.083 %) solution for nebulization .COMPLEX #300 mL amlodipine 5 mg tablet 5 mg PO DAILY 10/25/23 10/25/23 History budesonide 160 mcg-glycopyr 9 2 inh inhalation BID 10/25/23 10/25/23 History mcg-formot 4.8 mcg/actuation HFA inhaler (Breztri Aerosphere) fluticasone propionate 50 1 spray intranasal BID 10/25/23 10/25/23 History mcg/actuation nasal spray,suspension olmesartan 40 1 tablet PO DAILY 10/25/23 10/25/23 History mg-hydrochlorothiazide 12.5 mg tablet Allergies Allergy/AdvReac Type Severity Reaction Status Date / Time TULIO Inhibitors Allergy Unknown Rash Verified 08/13/23 09:58 budesonide Allergy Unknown Rash Verified 08/13/23 09:58 ceftriaxone Allergy Unknown Rash Verified 08/13/23 09:58 codeine Allergy Unknown Rash Verified 08/13/23 09:58 formoterol Allergy Unknown Rash Verified 08/13/23 09:58 levofloxacin Allergy Unknown Rash Verified 08/13/23 09:58 lisinopril Allergy Unknown Rash Verified 08/13/23 09:58 Vital Signs Vital Signs - 24 hr 10/26/23 17:25 10/26/23 20:18 10/26/23 21:00 Temperature 36.4 C Pulse Rate 96 78 79 Respiratory Rate 17 20 Blood Pressure 126/44 L Pulse Oximetry 95 Oxygen Delivery Oxygen Flow Rate Fraction of Inspired Oxygen 10/26/23 21:11 10/26/23 21:14 10/26/23 20:00 Temperature Pulse Rate 98 89 Respiratory Rate 20 Blood Pressure Pulse Oximetry 94 Oxygen Delivery Nasal Cannula Oxygen Flow Rate 3 Fraction of Inspired Oxygen 10/26/23 20:54 10/27/23 02:18 10/27/23 02:26 Temperature Pulse Rate 104 H 115 H Respiratory Rate 20 20 Blood Pressure Pulse Oximetry 95 Oxygen Delivery Nasal Cannula Oxygen Flow Rate 3 Fraction of Inspired Oxygen 10/27/23 00:00 10/27/23 04:00 10/27/23 05:26 Temperature 36.4 C Pulse Rate 91 113 H 110 H Respiratory Rate 17 Blood Pressure 141/52 H Pulse Oximetry 94 Oxygen Delivery Oxygen Flow Rate Fraction of Inspired Oxygen 10/27/23 08:13 10/27/23 09:09 10/27/23 09:09 Temperature Pulse Rate 99 95 Respiratory Rate 20 Blood Pressure Pulse Oximetry 94 Oxygen Delivery Nasal Cannula Oxygen Flow Rate 3 Fraction of Inspired Oxygen 32 10/27/23 09:19 10/27/23 08:00 10/27/23 08:00 Temperature Pulse Rate 96 92 Respiratory Rate 20 Blood Pressure Pulse Oximetry 94 Oxygen Delivery Nasal Cannula Oxygen Flow Rate 3 Fraction of Inspired Oxygen 10/27/23 12:00 10/27/23 13:37 10/27/23 13:44 Temperature Pulse Rate 97 102 H 104 H Respiratory Rate 20 20 Blood Pressure Pulse Oximetry Oxygen Delivery Oxygen Flow Rate Fraction of Inspired Oxygen 10/27/23 14:00 10/27/23 16:46 Temperature 36.7 C Pulse Rate 91 93 Respiratory Rate 20 Blood Pressure 140/50 L Pulse Oximetry 97 Oxygen Delivery Oxygen Flow Rate Fraction of Inspired Oxygen Exam Narrative: GEN: Alert, oriented, not in distress. Wearing O2 nasal cannula 3 L = 94%. HEENT: pupils are equal, EOMI, symmetrical face; oral membranes moist, upper and lower dentures, Mallampati II airway, no erythema, no exudate NECK: Trachea is midline CHEST: Equal air entry, symmetric excursion, decreased breath sounds with wheezes throughout, scattered crackles. She has episodes of moist coughing. CV: Regular S1S2 no m/g/r ABD : (+) bowel sounds Extremities : no clubbing, cyanosis, or edema PSYCH: normal thought; speech is mildly hoarse. She says that her voice is returning to normal after several days of hoarseness. Results Laboratory Findings 10/27/23 05:51 10/27/23 05:51 Abnormal lab findings: Abnormal Labs 10/24/23 10/24/23 10/26/23 22:06 22:07 04:24 WBC 13.3 H 13.2 H RBC 3.66 L 3.25 L Hgb 11.3 L 9.9 L Hct 35.5 L 31.1 L MCHC 31.8 L 31.8 L Neut % (Auto) 88.6 H Lymph % (Auto) 17.5 L 8.2 L [place] % (Auto) 2.5 L [place] # (Auto) 1.0 H Abs Immat Gran (auto) 0.06 H 0.06 H Absolute Neuts (auto) 9.5 H 11.7 H Sodium 136 L 133 L Chloride 97 L 95 L Carbon Dioxide 31 H BUN 29 H D 41 H D Creatinine 1.40 H 1.20 H Estimated GFR 36 L 43 L Glucose 154 H % Saturation NT-Pro-B Natriuret Pep 1140 H TSH (Reflex) Total T3 10/27/23 05:51 WBC 19.3 H RBC 3.59 L Hgb 10.9 L Hct 34.7 L MCHC 31.4 L Neut % (Auto) Lymph % (Auto) [place] % (Auto) [place] # (Auto) Abs Immat Gran (auto) Absolute Neuts (auto) Sodium Chloride 96 L Carbon Dioxide 32 H BUN 50 H Creatinine 1.30 H Estimated GFR 40 L Glucose 151 H % Saturation 16 L NT-Pro-B Natriuret Pep TSH (Reflex) 0.171 L Total T3 0.87 L
[2023-10-27] MEDS: ACETAMINOPHEN 325 MG TABLET 650 MG PO (22:08)
[2023-10-28] VITALS (20 sets, daily range): BP systolic 139–142; BP diastolic 52–59; PULSE 71–130; RESP 16–20; TEMP 36–36.5; O2SAT 93–96
[2023-10-28] MEDS: IPRATROPIUM 0.5 MG/ALBUTEROL SULFATE 2.5 MG AMPUL.NEB 3 ML NEBULIZE ×4 (03:51→21:01)
--- NOTE | 2023-10-28 04:11 | PCRCNOTE ---
Patient was able to use cornet and cough up a sputum sample. Did not give sodium chloride [place] @0500.
[2023-10-28] MEDS: FLUTICASONE/UMECLIDIN/VILANTER 100-62.5-25 MCG ELLIPTA 1 PUFF INHALATION (07:29)
--- NOTE | 2023-10-28 07:59 | P.PNIM_ITS ---
Progress Note: A&P Assessment and Plan (1) COPD with acute exacerbation: Code(s): J44.1 - Chronic obstructive pulmonary disease with (acute) exacerbation Status: Acute (2) Chest pain: Code(s): R07.9 - Chest pain, unspecified Status: Acute (3) Chronic respiratory failure with hypoxia: Code(s): J96.11 - Chronic respiratory failure with hypoxia Status: Acute (4) CKD (chronic kidney disease) stage 3, GFR 30-59 ml/min: Qualifiers: Chronic kidney disease stage 3 subtype: stage 3b (GFR 30-44) Qualified Code(s): N18.32 - Chronic kidney disease, stage 3b Code(s): N18.3 - Chronic kidney disease, stage 3 (moderate) Status: Acute (5) ASHD (arteriosclerotic heart disease): Code(s): I25.10 - Atherosclerotic heart disease of [place] coronary artery without angina pectoris Status: Acute (6) Essential (primary) hypertension: Code(s): I10 - Essential (primary) hypertension Status: Acute (7) PAD (peripheral artery disease): Code(s): I73.9 - Peripheral vascular disease, unspecified Status: Acute (8) Anemia: Code(s): D64.9 - Anemia, unspecified Status: Acute Plan Patient with chronic respiratory failure on home oxygen. She presents with wheezing, increasing shortness of breath and hypoxia with exertion. Most likely this is a COPD exacerbation. Triggers unclear but she has been exposed to her daughter who has been sick recently. WBC elevated but Chest x-ray does not reveal pneumonia and she is not having a productive cough making acute bronchitis less likely. Will resume her home azithromycin prophylaxis but not continue scheduled antibiotics. Will continue the Solu-Medrol. Will repeat WBC but suspect it will be higher due to steroids. Continue bronchodilators. She is having new onset chest pain for the past few weeks. Troponin negative x 2. Will repeat. EKG showing no significant changes from the reading in April (no image available). Will repeat Troponin. Check Echo. Consider stress test before dis charge but more likely will have her followup with cardiology for outpatient stress test. Continue ASA, Lipitor, Metoprolol. She is having weight loss due to poor appetite. 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 MALVIN was not well visualized. Add supplements. 10/26/23: Some improvement today. Echo showing normal EF with Grade I diastolic dysfunction. Lung exam probably atelectasis. Creatinine better. WBC mildly elevated but stable. Add IS and PT/OT to have her out of bed. Heating pad for back pain. Continue Solu-Medrol today but changed to Prednisone tomorrow. Hgb noted. Proceed with anemia workup. Add PPI 10/26 patient is on 3 L oxygen via nasal cannula, pulse ox 94, elevated white blood cell, due to steroid, hemoglobin stable, 10.9, no significant iron deficiency. Patient still has shortness breath, cough with yellow coloration sputum, patient feels better. Consult delivery man for evaluation 10/27: Patient need for L oxygen via nasal cannular, patient does not feel improvement today, still has productive cough with thick phlegm. Patient desaturated when patient was walking on 3 L oxygen. Appreciate pulmonology consultation, Pulmonary plans tp planned to change her to nebulized budesonide, arformoterol. DVT prophylaxis - lovenox Code status DNR. Subjective Date/time seen: 10/28/23 07:59 Interval history: I saw and examined patient today, patient still has severe cough and phlegm, marry griffin does not few improvement today patient still has shortness breath worse with exertion, blood pressure stable, still has tachypnea, Exam Narrative: GENERAL: Pleasant, in no acute distress. Well-nourished. - EYES: EOMI. Anicteric. - HENT: Moist mucous membranes. - LUNGS: Decreased air entry bilateral, coarse breath sound bilaterally, crackles bilateral base - CARDIOVASCULAR: Regular rate and rhyth m. No murmur. No JVD. - ABDOMEN: Soft, non-tender and non-dist ended. No palpable masses. - EXTREMITIES: No edema. Peripheral puls es 2+. Non-tender. - NEUROLOGIC: No focal neurological defi cits. CN II-XII grossly intact. - PSYCHIATRIC: Awake, Alert and oriented x 3. Appropriate mood and affect. - SKIN: No rashes or lesions. Warm. - LYMPH: No cervical lymphadenopathy. Objective Data Vital Signs Vital Signs: Vital Signs - 24 hr 10/27/23 08:13 10/27/23 09:09 10/27/23 09:09 Temperature Pulse Rate 99 95 Respiratory Rate 20 Blood Pressure Pulse Oximetry 94 Oxygen Delivery Nasal Cannula Oxygen Flow Rate 3 Fraction of Inspired Oxygen 32 10/27/23 09:19 10/27/23 08:00 10/27/23 08:00 Temperature Pulse Rate 96 92 Respiratory Rate 20 Blood Pressure Pulse Oximetry 94 Oxygen Delivery Nasal Cannula Oxygen Flow Rate 3 Fraction of Inspired Oxygen 10/27/23 12:00 10/27/23 13:37 10/27/23 13:44 Temperature Pulse Rate 97 102 H 104 H Respiratory Rate 20 20 Blood Pressure Pulse Oximetry Oxygen Delivery Oxygen Flow Rate Fraction of Inspired Oxygen 10/27/23 14:00 10/27/23 16:46 10/27/23 16:00 Temperature 98.0 F Pulse Rate 91 93 109 H Respiratory Rate 20 Blood Pressure 140/50 L Pulse Oximetry 97 Oxygen Delivery Oxygen Flow Rate Fraction of Inspired Oxygen 10/27/23 20:36 10/27/23 20:36 10/27/23 20:43 Temperature Pulse Rate 94 97 Respiratory Rate 20 20 Blood Pressure Pulse Oximetry 94 Oxygen Delivery Nasal Cannula Oxygen Flow Rate 3 Fraction of Inspired Oxygen 10/27/23 21:20 10/27/23 20:00 10/28/23 00:00 Temperature 97.2 F L Pulse Rate 87 86 91 Respiratory Rate 16 Blood Pressure 134/53 L Pulse Oximetry 95 Oxygen Delivery Oxygen Flow Rate Fraction of Inspired Oxygen 10/27/23 21:50 10/28/23 03:51 10/28/23 04:01 Temperature Pulse Rate 88 104 H Respiratory Rate 20 20 Blood Pressure Pulse Oximetry 95 Oxygen Delivery Nasal Cannula Oxygen Flow Rate 3 Fraction of Inspired Oxygen 10/28/23 04:00 10/28/23 06:00 10/28/23 07:29 Temperature 97.7 F Pulse Rate 109 H 110 H Respiratory Rate 16 Blood Pressure 140/52 L Pulse Oximetry 95 93 Oxygen Delivery Nasal Cannula Oxygen Flow Rate 3 Fraction of Inspired Oxygen 10/28/23 07:29 10/28/23 07:44 Temperature Pulse Rate 99 130 H Respiratory Rate 20 20 Blood Pressure Pulse Oximetry Oxygen Delivery Oxygen Flow Rate Fraction of Inspired Oxygen Intake/Output Intake/Output: Intake & Output 10/25/23 10/26/23 10/27/23 10/28/23 23:59 23:59 23:59 23:59 Intake Total 1840 1460 876 800 Output Total 1300 Balance 1840 1460 876 -500 Meds/Results Medications: Active Medications Generic Name Dose Route Start Last Admin Trade Name Freq PRN Reason Stop Dose Admin Acetaminophen 650 mg 10/26/23 13:06 10/27/23 22:08 Acetaminophen 325 Mg Tablet PO 650 mg Q6H PRN Administration Mild Pain (1-3) or Fever Albuterol 2.5 mg 10/25/23 11:35 Albuterol Sulfate Neb 2.5 Mg/3 Ml Inh NEBULIZE Q6H PRN SOB OR WHEEZING Albuterol/Ipratropium 3 ml 10/25/23 14:00 10/28/23 07:29 Ipratropium 0.5 Mg/Albuterol Sulfate 2.5 Mg Ampul.Neb 3 Ml NEBULIZE 3 ml Q6HRT SHERRY Administration Amlodipine Besylate 5 mg 10/26/23 09:00 10/27/23 08:13 Amlodipine Besylate 5 Mg Tablet PO 5 mg DAILY SHERRY Administration Aspirin 81 mg 10/25/23 11:35 10/27/23 08:13 Aspirin 81 Mg Enteric Tablet PO 81 mg DAILY SHERRY Administration Atorvastatin Calcium 40 mg 10/25/23 11:35 10/27/23 08:13 Atorvastatin 40 Mg Tablet PO 40 mg DAILY SHERRY Administration Azithromycin 250 mg 10/25/23 11:35 10/27/23 08:16 Azithromycin 250 Mg Tablet PO 250 mg [id number] SHERRY Administration Enoxaparin Sodium 40 mg 10/26/23 09:00 10/27/23 08:14 Enoxaparin 40 Mg/0.4 Ml Syringe SUB-Q 40 mg DAILY SHERRY Administration Fish Oil 1 gm 10/26/23 09:00 10/27/23 08:13 [place] 3 Polyunsat Fatty Acids 1 Gm Cap PO 1 gm DAILY SHERRY Administration Fluticasone Propionate 1 spray 10/25/23 17:00 10/27/23 16:47 Fluticasone Propionate 0.05% Na Spr 16 Gm Btl (*Bkc) NASAL Not Given BID [facility] Fluticasone/Umeclidinium/Vilanterol 1 puff 10/25/23 09:00 10/28/23 07:29 Fluticasone/Umeclidin/Vilanter 100-62.5-25 Mcg Ellipta INHALATION 1 puff DAILY SHERRY Administration Metoprolol Tartrate 25 mg 10/25/23 11:35 10/27/23 16:46 Metoprolol Tartrate 25 Mg Tablet PO 25 mg BID SHERRY Administration Ondansetron HCl 4 mg 10/25/23 02:09 Ondansetron Inj 4 Mg/2 Ml Vial IV PUSH Q4H PRN Nausea Pantoprazole Sodium 40 mg 10/27/23 09:00 10/27/23 08:13 Pantoprazole 40 Mg Tablet PO 40 mg QAM SHERRY Administration Perflutren Lipid Microsphere 0 ml 10/25/23 14:32 Perflutren Lipid Microspheres 1.5 Ml Vial Diluted To 10 Ml Total Volume IV PUSH 10/28/23 14:33 ONCE PRN adequate visualization Protocol Polyethylene Glycol 17 gm 10/27/23 21:03 Polyethylene Glycol 3350 17 Gm Powd.Pack PO QAM PRN Constipation Prednisone 40 mg 10/27/23 08:00 10/27/23 08:12 Prednisone 20 Mg Tablet PO 40 mg DAILY@0800 SHERRY Administration Roflumilast 250 mcg 10/28/23 09:00 Roflumilast 250 Mcg Tablet PO DAILY [facility] Sodium Chloride 6 ml 10/28/23 05:00 10/28/23 04:10 Sodium Chlor 3% 15 Ml Neb (Respiratory Therapy) INHALATION 10/30/23 05:01 Not Given DAILY@0500 [facility] Vitamin D 400 units 10/26/23 09:00 10/27/23 08:13 Cholecalciferol 400 Units Tablet (Vit D) PO 400 units DAILY SHERRY Administration Radiology Results: ITS Impressions Chest X-Ray 10/25/23 05:41 Impression: No definite acute abnormality. Advanced COPD. Labs Labs: Laboratory Results - last 24 hr 10/27/23 05:51 Total T3 0.87 L
[2023-10-28] MEDS: ENOXAPARIN 40 MG/0.4 ML SYRINGE SUB-Q (08:12)
[2023-10-28] MEDS: CHOLECALCIFEROL 400 UNITS TABLET (VIT D) PO (08:12)
[2023-10-28] MEDS: predniSONE 20 MG TABLET 40 MG PO (08:12)
[2023-10-28] MEDS: amLODIPine BESYLATE 5 MG TABLET PO (08:12)
[2023-10-28] MEDS: ATORVASTATIN 40 MG TABLET PO (08:12)
[2023-10-28] MEDS: ASPIRIN 81 MG ENTERIC TABLET PO (08:12)
[2023-10-28] MEDS: ROFLUMILAST 250 MCG TABLET PO (08:13)
[2023-10-28] MEDS: OMEGA 3 POLYUNSAT FATTY ACIDS 1 GM CAP PO (08:13)
[2023-10-28] MEDS: METOPROLOL TARTRATE 25 MG TABLET PO ×2 (08:13→17:49)
[2023-10-28] MEDS: PANTOPRAZOLE 40 MG TABLET PO (08:13)
--- NOTE | 2023-10-28 10:17 | PM.PNPUL ---
Progress Note: A&P Assessment and Plan (1) Acute exacerbation of chronic obstructive pulmonary disease: Code(s): J44.1 - Chronic obstructive pulmonary disease with (acute) exacerbation Status: Acute Assessment and Plan: Admitted 10/24/23 with chills, increased shortness of breath and drop in saturation high 70s low 80% range while on her usual O2 3.5 L/min. NO infiltrate on CXR. 10/27/23: increased yellow sputum, still short of breath, still feeling sick, increased WBC 19K. 10/28/23: Not having a good day, very short of breath and tachycardic this am. She dropped her saturation walking to bathroom on 3 L. I planned to change her to nebulized budesonide, arformoterol, however budesonide is on her allergy list. She said that she had a non-specific rash, and is willing to try it again. (2) Acute and chronic respiratory failure ([id number]): Code(s): J96.20 - Acute and chronic respiratory failure, unspecified whether with hypoxia or hypercapnia Status: Acute Assessment and Plan: At home, desaturated on her usual 3.5 L/min, was down to 79%. Dropped saturation today walking to the bathroom on 3 L; will increased O2 while she is walking and re-test before she goes home. Plan 1. Continue Cornet; it is helping clear secretions; I changed to lowest setting on Cornet; she is trying to blow out, seems to be struggling on higher setting. 2. Budesonide 0.5 mg/2 ml nebulized Q 12 hours. See if arformoterol is an option. THis is a LABA> If not, continue nebulized albuterol and ipratropium Q 6 Hours. 3. Await sputum results. 4. Continue po prednisone. Not ready to be discharged yet. Subjective Date/time seen: 10/28/23 10:17 Interval history: 10/28/23: She is feeling about the same, still short of breath, reina with any exertion. She walked to the bathroom in the morning on 3 L/m, dropped saturation low, heart rate up into the 130s. Exhausted after short walk. Sputum remains yellow. She submitted sputum. WIth a history of allergy to several medications including budesonide, she did not have the nebilized budesonide. We talked about it, and she is willing to try. She cannot recall exactly what the reaction was, however it was not an intense rash. Her primary care, Dr Soriano a few years ago, thought that maybe her history of rashes with several medicatons was not really evidence of allergic reactions. 10/27/23: New Consult Irma Rocha is a 77 yo female seen in our clinic; severe COPD, on O2 3.5 L at rest and sleep, 4 L with exertion, She was admitted 3 days ago October 23 with increased shortness of breath, coughing, without sputum, rhinorrhea, wheezing, and one episode of chill;s; saturation dropped while using her usual 3 L/min, normally > 90%, dropped to low 80s and high 70s with exertion. She came to ER, CXR had no infiltrate, WBC 13 K, elevated, mild elevation BUN and creatinine. Serology for COVID, influenza A&B, RSV all negative. She had no sputum to test initially. Was started on empiric therapy for COPD exacerbation. October 26 today developed thick yellow sputum which is difficult to expectorate. WBC is higher 19 k. No fever. CXR October 22 showed increased pulmonary vascular redistribution, no infiltrate. She is not feeling better, does not feel ready to go home. Dr Galarza requested pulmonary consultation for more evaluation. She was last seen in the office 08/13/2023, takes azithromycin MWF at baseline. She uses Breztri, however she is not sure that it helps. She uses nebulized albuterol twice a day. She has O2 at home, uses 3.5 around the clock. Lives at home with her daughter. Worked in a [employer], no occupational exposure. DATA * 12/31/22 - PFT - Severe obstructive airway disease, lung hyperinflation and air trapping, severely reduced lung diffusion capacity. * 01/01/23 - Home O2 evaluation -required 3L/min O2 at rest and with ambulation. * 04/02/22 - CXR - mild diffuse interstitial prominence. No consolidation, pleural effusion, or pneumothorax. * 08/04/21 - Overnight oximetry on 3L/min supplemental O2 - Spent no time <= 88%. Lowest saturation 92%, maximum 99%, basal saturation 96.5%. Recommended to continue wearing 3L/min O2 with sleep. * 05/12/21 - Home sleep test, room air; mild sleep apnea, AHI 9.1; 99% of study w O2 saturation <=88%. Silas 66%. In-lab PAP titration was recommended, she declined. * PFT 02/16/19- Severe obstructive ventilatory impairment, mild air trapping, moderate increase in airway resistance. No change with bronchodilator. Compared to prior study 06/11/2015, values are very similar. ABG (RA) 7.43/39/pO258.7/25.9/91% Mild hypoxemia on room air. * Home O2 Eval 11/14/20 need for 3L O2 with activity. Overnight oximetry 05/08/20 480 minutes spent below 88%, ENMA 31/hr, suspicious for sleep apnea. * 11/14/20 Echo: EF 55-60%, mild-mod MVR, mild pulm HTN. * 03/17/21 chest CTA: There is mild scarring at the lung apices. There is severe emphysema. There are scattered nodules and tree-in-bud opacities in all lobes. There is mild atelectasis in the lungs bilaterally. No pleural effusion. The heart size is normal. There is no pulmonary embolus. Review of Systems Review of Systems: All systems reviewed & are unremarkable except as noted in HPI and below Exam Narrative: GEN: Alert, oriented, not in distress. Wearing O2 nasal cannula 4 L = 93%. This is a little more O2 today, was 3 L last evening. HEENT: pupils are equal, EOMI, symmetrical face; oral membranes moist, upper and lower dentures, Mallampati II airway, no erythema, no exudate NECK: Trachea is midline CHEST: Equal air entry, symmetric excursion, decreased breath sounds with wheezes throughout, scattered crackles. She has episodes of moist coughing. CV: Regular S1S2 no m/g/r ABD : (+) bowel sounds Extremities : no clubbing, cyanosis, or edema PSYCH: normal thought; speech is mildly hoarse. Objective Data Vital Signs Vital Signs: Vital Signs - 24 hr 10/27/23 12:00 10/27/23 13:37 10/27/23 13:44 Temperature Pulse Rate 97 102 H 104 H Respiratory Rate 20 20 Blood Pressure Pulse Oximetry Oxygen Delivery Oxygen Flow Rate 10/27/23 14:00 10/27/23 16:46 10/27/23 16:00 Temperature 36.7 C Pulse Rate 91 93 109 H Respiratory Rate 20 Blood Pressure 140/50 L Pulse Oximetry 97 Oxygen Delivery Oxygen Flow Rate 10/27/23 20:36 10/27/23 20:36 10/27/23 20:43 Temperature Pulse Rate 94 97 Respiratory Rate 20 20 Blood Pressure Pulse Oximetry 94 Oxygen Delivery Nasal Cannula Oxygen Flow Rate 3 10/27/23 21:20 10/27/23 20:00 10/28/23 00:00 Temperature 36.2 C L Pulse Rate 87 86 91 Respiratory Rate 16 Blood Pressure 134/53 L Pulse Oximetry 95 Oxygen Delivery Oxygen Flow Rate 10/27/23 21:50 10/28/23 03:51 10/28/23 04:01 Temperature Pulse Rate 88 104 H Respiratory Rate 20 20 Blood Pressure Pulse Oximetry 95 Oxygen Delivery Nasal Cannula Oxygen Flow Rate 3 10/28/23 04:00 10/28/23 06:00 10/28/23 07:29 Temperature 36.5 C Pulse Rate 109 H 110 H Respiratory Rate 16 Blood Pressure 140/52 L Pulse Oximetry 95 93 Oxygen Delivery Nasal Cannula Oxygen Flow Rate 3 10/28/23 07:29 10/28/23 07:44 10/28/23 08:13 Temperature Pulse Rate 99 130 H 125 H Respiratory Rate 20 20 Blood Pressure Pulse Oximetry Oxygen Delivery Oxygen Flow Rate 10/28/23 08:00 Temperature Pulse Rate 127 H Respiratory Rate Blood Pressure Pulse Oximetry Oxygen Delivery Oxygen Flow Rate Intake/Output Intake/Output: Intake & Output 10/25/23 10/26/23 10/27/23 10/28/23 23:59 23:59 23:59 23:59 Intake Total 1840 1194 903 3919 Output Total 1900 Balance 1840 1460 876 -860 Meds/Results Medications: Active Medications Generic Name Dose Route Start Last Admin Trade Name Freq PRN Reason Stop Dose Admin Acetaminophen 650 mg 10/26/23 13:06 10/27/23 22:08 Acetaminophen 325 Mg Tablet PO 650 mg Q6H PRN Administration Mild Pain (1-3) or Fever Albuterol 2.5 mg 10/25/23 11:35 Albuterol Sulfate Neb 2.5 Mg/3 Ml Inh NEBULIZE Q6H PRN SOB OR WHEEZING Albuterol/Ipratropium 3 ml 10/25/23 14:00 10/28/23 07:29 Ipratropium 0.5 Mg/Albuterol Sulfate 2.5 Mg Ampul.Neb 3 Ml NEBULIZE 3 ml Q6HRT SHERRY Administration Amlodipine Besylate 5 mg 10/26/23 09:00 10/28/23 08:12 Amlodipine Besylate 5 Mg Tablet PO 5 mg DAILY SHERRY Administration Aspirin 81 mg 10/25/23 11:35 10/28/23 08:12 Aspirin 81 Mg Enteric Tablet PO 81 mg DAILY SHERRY Administration Atorvastatin Calcium 40 mg 10/25/23 11:35 10/28/23 08:12 Atorvastatin 40 Mg Tablet PO 40 mg DAILY SHERRY Administration Azithromycin 250 mg 10/25/23 11:35 10/27/23 08:16 Azithromycin 250 Mg Tablet PO 250 mg [email or web address] SHERRY Administration Enoxaparin Sodium 40 mg 10/26/23 09:00 10/28/23 08:12 Enoxaparin 40 Mg/0.4 Ml Syringe SUB-Q 40 mg DAILY SHERRY Administration Fish Oil 1 gm 10/26/23 09:00 10/28/23 08:13 [place] 3 Polyunsat Fatty Acids 1 Gm Cap PO 1 gm DAILY SHERRY Administration Fluticasone Propionate 1 spray 10/25/23 17:00 10/28/23 08:13 Fluticasone Propionate 0.05% Na Spr 16 Gm Btl (*Bkc) NASAL Not Given BID SHERRY Fluticasone/Umeclidinium/Vilanterol 1 puff 10/25/23 09:00 10/28/23 07:29 Fluticasone/Umeclidin/Vilanter 100-62.5-25 Mcg Ellipta INHALATION 1 puff DAILY SHERRY Administration Metoprolol Tartrate 25 mg 10/25/23 11:35 10/28/23 08:13 Metoprolol Tartrate 25 Mg Tablet PO 25 mg BID SEHRRY Administration Ondansetron HCl 4 mg 10/25/23 02:09 Ondansetron Inj 4 Mg/2 Ml Vial IV PUSH Q4H PRN Nausea Pantoprazole Sodium 40 mg 10/27/23 09:00 10/28/23 08:13 Pantoprazole 40 Mg Tablet PO 40 mg QAM SHERRY Administration Perflutren Lipid Microsphere 0 ml 10/25/23 14:32 Perflutren Lipid Microspheres 1.5 Ml Vial Diluted To 10 Ml Total Volume IV PUSH 10/28/23 14:33 ONCE PRN adequate visualization Protocol Polyethylene Glycol 17 gm 10/27/23 21:03 Polyethylene Glycol 3350 17 Gm Powd.Pack PO QAM PRN Constipation Prednisone 40 mg 10/27/23 08:00 10/28/23 08:12 Prednisone 20 Mg Tablet PO 40 mg DAILY@0800 SHERRY Administration Roflumilast 250 mcg 10/28/23 09:00 10/28/23 08:13 Roflumilast 250 Mcg Tablet PO 250 mcg DAILY SHERRY Administration Sodium Chloride 6 ml 10/28/23 05:00 10/28/23 04:10 Sodium Chlor 3% 15 Ml Neb (Respiratory Therapy) INHALATION 10/30/23 05:01 Not Given DAILY@0500 [facility] Vitamin D 400 units 10/26/23 09:00 10/28/23 08:12 Cholecalciferol 400 Units Tablet (Vit D) PO 400 units DAILY SHERRY Administration Radiology Results: ITS Impressions Chest X-Ray 10/25/23 05:41 Impression: No definite acute abnormality. Advanced COPD.
[2023-10-28] MEDS: ACETAMINOPHEN 325 MG TABLET 650 MG PO (20:40)
[2023-10-28] MEDS: ALBUTEROL SULFATE NEB 2.5 MG/3 ML INH NEBULIZE (21:02)
[2023-10-29] VITALS (21 sets, daily range): BP systolic 139–150; BP diastolic 46–60; PULSE 80–130; RESP 16–21; TEMP 35.8–36.7; O2SAT 92–99
[2023-10-29] MEDS: BUDESONIDE RESPULE NEB 0.5 MG/2 ML AMP INHALATION ×2 (02:20→07:41)
[2023-10-29] MEDS: IPRATROPIUM 0.5 MG/ALBUTEROL SULFATE 2.5 MG AMPUL.NEB 3 ML NEBULIZE ×2 (03:06→07:41)
[2023-10-29] MEDS: SODIUM CHLOR 3% 15 ML NEB (RESPIRATORY THERAPY) 6 ML INHALATION (04:29)
[2023-10-29 04:34] LABS: IFOB Positive Control Positive; Immunochemical Fecal Occult Bl Positive (N)
[2023-10-29 04:53] LABS: Toxigenic C. Diff NEGATIVE (NEGATIVE)
[2023-10-29 08:34] LABS: Mean Platelet Volume 10.3 fl (7.4-10.4); Platelet Count Result 246 k/mm3 (150-375)
[2023-10-29] MEDS: predniSONE 20 MG TABLET 40 MG PO (09:16)
[2023-10-29] MEDS: OMEGA 3 POLYUNSAT FATTY ACIDS 1 GM CAP PO (09:17)
[2023-10-29] MEDS: amLODIPine BESYLATE 5 MG TABLET PO (09:17)
[2023-10-29] MEDS: ASPIRIN 81 MG ENTERIC TABLET PO (09:17)
[2023-10-29] MEDS: ATORVASTATIN 40 MG TABLET PO (09:17)
[2023-10-29] MEDS: METOPROLOL TARTRATE 25 MG TABLET PO ×2 (09:17→17:05)
[2023-10-29] MEDS: CHOLECALCIFEROL 400 UNITS TABLET (VIT D) PO (09:18)
[2023-10-29] MEDS: ROFLUMILAST 250 MCG TABLET PO (09:18)
[2023-10-29] MEDS: ENOXAPARIN 40 MG/0.4 ML SYRINGE SUB-Q (09:18)
[2023-10-29] MEDS: PANTOPRAZOLE 40 MG TABLET PO (09:18)
[2023-10-29] MEDS: AZITHROMYCIN 250 MG TABLET PO (09:21)
--- NOTE | 2023-10-29 11:01 | PCNFU ---
Nutrition Follow-Up Complete: Moderate protein calorie malnutrition related to chronic loss of appetite, early satiety, as evidenced by intakes <75% meals >1 month; weight loss -14%/6 months; moderate muscle wasting and fat loss Adequate PO intake at least 75% meals and supplement- Progressing with intakes 10-90% and supplements. Continue with same goal Goal: Pt current nutrition is Heart healthy diet with Ensure Compact BID for additional 220 kcal and 9 g protein each. Nutrition recommendation: No new nutrition recommendatinos. Continue with same nutrition care plan and orders.. Agree with orders Last recorded weight is 61.81 kg. Bowel Motility: No BMs are recorded Labs Reviewed: No new labs since 10/27/23 Meds Noted: Solumedrol, Zofran, Vit D Skin: No pressure injuries Additional Notes: Intake are varied, appetite mostly poor. Drinking supplements. Continue with current care plan Monitoring intakes, weights, labs, meds, supplement tolerance, plan of care Follow up in 5 days
[2023-10-29] MEDS: IPRATROPIUM BR 0.02% INH SOLN 0.5 MG/2.5 ML VIAL INHALATION ×2 (13:28→20:12)
[2023-10-29] MEDS: LEVALBUTEROL NEB 1.25 MG/3 ML INHALATION ×2 (13:28→20:12)
--- NOTE | 2023-10-29 13:44 | P.PNIM_ITS ---
Progress Note: A&P Assessment and Plan (1) COPD with acute exacerbation: Code(s): J44.1 - Chronic obstructive pulmonary disease with (acute) exacerbation Status: Acute (2) Chest pain: Code(s): R07.9 - Chest pain, unspecified Status: Acute (3) Chronic respiratory failure with hypoxia: Code(s): J96.11 - Chronic respiratory failure with hypoxia Status: Acute (4) CKD (chronic kidney disease) stage 3, GFR 30-59 ml/min: Qualifiers: Chronic kidney disease stage 3 subtype: stage 3b (GFR 30-44) Qualified Code(s): N18.32 - Chronic kidney disease, stage 3b Code(s): N18.3 - Chronic kidney disease, stage 3 (moderate) Status: Acute (5) ASHD (arteriosclerotic heart disease): Code(s): I25.10 - Atherosclerotic heart disease of [place] coronary artery without angina pectoris Status: Acute (6) Essential (primary) hypertension: Code(s): I10 - Essential (primary) hypertension Status: Acute (7) PAD (peripheral artery disease): Code(s): I73.9 - Peripheral vascular disease, unspecified Status: Acute (8) Anemia: Code(s): D64.9 - Anemia, unspecified Status: Acute Plan Patient with chronic respiratory failure on home oxygen. She presents with wheezing, increasing shortness of breath and hypoxia with exertion. Most likely this is a COPD exacerbation. Triggers unclear but she has been exposed to her daughter who has been sick recently. WBC elevated but Chest x-ray does not reveal pneumonia and she is not having a productive cough making acute bronchitis less likely. Will resume her home azithromycin prophylaxis but not continue scheduled antibiotics. Still having cough without much expectoration. Will add Augmentin. She is allergic to levofloxacin. Will continue the Solu- Medrol. Currently on prednisone. Pulmonary has been consulted. Continue bronchodilators. But with tachycardia on DuoNeb and budesonide will hold urine she is allergic as well as change to Xopenex and ipratropium. She is also on Daliresp at home. Troponin negative x 2. Will repeat. EKG showing no significant changes from the reading in April (no image available). Will repeat Troponin. Echo with normal EF with grade 1 diastolic dysfunction.. Consider stress test before discharge but more likely will have her followup with cardiology for outpatient stress test. Continue ASA, Lipitor, Metoprolol. She is having weight loss due to poor appetite. 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 MALIVN was not well visualized. Add supplements. Anemia mild. FOBT positive will continue to monitor the trend. no drop Tachycardia intermittent sinus. Could be related to underlying COPD exacerbation. Some anxiety add Ativan p.r.n. DVT prophylaxis - lovenox Code status DNR. Subjective Date/time seen: 10/29/23 13:44 Interval history: Patient reports increasing shortness of breath today with tachycardia. When she ambulated. She was recently started on budesonide she reports she is allergic to it. He has also been added on DuoNeb. Telemetry reviewed. Review of Systems Review of Systems: All systems reviewed & are unremarkable except as noted in HPI and below Exam Narrative: GENERAL: Pleasant, in no acute distress. Well-nourished. - EYES: EOMI. Anicteric. - HENT: Moist mucous membranes. - LUNGS: Decreased air entry bilateral, coarse breath sound bilaterally, end- expiratory wheezing noted - CARDIOVASCULAR: Tachycardic. Sinus o n tele No murmur. No JVD. - ABDOMEN: Soft, non-tender and non-dist ended. No palpable masses. - EXTREMITIES: No edema. Peripheral puls es 2+. Non-tender. - NEUROLOGIC: No focal neurological defi cits. CN II-XII grossly intact. - PSYCHIATRIC: Awake, Alert and oriented x 3. Appropriate mood and affect. - SKIN: No rashes or lesions. Warm. - LYMPH: No cervical lymphadenopathy. Objective Data Vital Signs Vital Signs: Vital Signs - 24 hr 10/28/23 14:00 10/28/23 17:49 10/28/23 16:00 Temperature 97.2 F L Pulse Rate 96 105 H 106 H Respiratory Rate 20 Blood Pressure 139/59 L Pulse Oximetry 95 Oxygen Delivery Oxygen Flow Rate Fraction of Inspired Oxygen 10/28/23 21:02 10/28/23 21:04 10/28/23 21:16 Temperature Pulse Rate 92 96 Respiratory Rate 18 20 Blood Pressure Pulse Oximetry 94 Oxygen Delivery Nasal Cannula Oxygen Flow Rate 3 Fraction of Inspired Oxygen 10/28/23 21:37 10/28/23 20:00 10/29/23 00:00 Temperature 96.8 F L Pulse Rate 74 71 80 Respiratory Rate 18 Blood Pressure 142/52 H Pulse Oximetry 96 Oxygen Delivery Oxygen Flow Rate Fraction of Inspired Oxygen 10/29/23 03:08 10/29/23 03:18 10/29/23 04:33 Temperature Pulse Rate 92 96 98 Respiratory Rate 20 20 20 Blood Pressure Pulse Oximetry Oxygen Delivery Oxygen Flow Rate Fraction of Inspired Oxygen 10/29/23 04:00 10/29/23 07:41 10/29/23 07:41 Temperature Pulse Rate 104 H 115 H Respiratory Rate 21 H Blood Pressure Pulse Oximetry 92 Oxygen Delivery Nasal Cannula Oxygen Flow Rate 4 Fraction of Inspired Oxygen 36 10/29/23 06:00 10/29/23 08:00 10/29/23 09:17 Temperature 96.5 F L Pulse Rate 96 118 H 130 H Respiratory Rate 16 20 Blood Pressure 139/50 L Pulse Oximetry 95 Oxygen Delivery Oxygen Flow Rate Fraction of Inspired Oxygen 10/29/23 08:00 10/29/23 09:14 10/29/23 13:28 Temperature Pulse Rate 124 H 93 Respiratory Rate 20 Blood Pressure Pulse Oximetry 92 Oxygen Delivery Nasal Cannula Oxygen Flow Rate 3 Fraction of Inspired Oxygen 10/29/23 13:42 10/29/23 12:06 Temperature Pulse Rate 96 94 Respiratory Rate 20 Blood Pressure Pulse Oximetry Oxygen Delivery Oxygen Flow Rate Fraction of Inspired Oxygen Intake/Output Intake/Output: Intake & Output 10/26/23 10/27/23 10/28/23 10/29/23 23:59 23:59 23:59 23:59 Intake Total 0683 310 7153 908 Output Total 2300 800 Balance 1460 876 -1020 108 Meds/Results Medications: Active Medications Generic Name Dose Route Start Last Admin Trade Name Freq PRN Reason Stop Dose Admin Acetaminophen 650 mg 10/26/23 13:06 10/28/23 20:40 Acetaminophen 325 Mg Tablet PO 650 mg Q6H PRN Administration Mild Pain (1-3) or Fever Amlodipine Besylate 5 mg 10/26/23 09:00 10/29/23 09:17 Amlodipine Besylate 5 Mg Tablet PO 5 mg DAILY SHERRY Administration Aspirin 81 mg 10/25/23 11:35 10/29/23 09:17 Aspirin 81 Mg Enteric Tablet PO 81 mg DAILY SHERRY Administration Atorvastatin Calcium 40 mg 10/25/23 11:35 10/29/23 09:17 Atorvastatin 40 Mg Tablet PO 40 mg DAILY SHERRY Administration Azithromycin 250 mg 10/25/23 11:35 10/29/23 09:21 Azithromycin 250 Mg Tablet PO 250 mg [id number] SHERRY Administration Budesonide 0.5 mg 10/28/23 20:00 10/29/23 07:41 Budesonide Respule Neb 0.5 Mg/2 Ml Amp INHALATION 0.5 mg Q12HRT SHERRY Administration Enoxaparin Sodium 40 mg 10/26/23 09:00 10/29/23 09:18 Enoxaparin 40 Mg/0.4 Ml Syringe SUB-Q 40 mg DAILY SHERRY Administration Fish Oil 1 gm 10/26/23 09:00 10/29/23 09:17 [place] 3 Polyunsat Fatty Acids 1 Gm Cap PO 1 gm DAILY SHERRY Administration Fluticasone Propionate 1 spray 10/25/23 17:00 10/29/23 09:18 Fluticasone Propionate 0.05% Na Spr 16 Gm Btl (*Bkc) NASAL Not Given BID [facility] Ipratropium [place] 0.5 mg 10/29/23 14:00 10/29/23 13:28 Ipratropium Br 0.02% Inh Soln 0.5 Mg/2.5 Ml Vial INHALATION 0.5 mg Q6HRT SHERRY Administration Levalbuterol HCl 1.25 mg 10/29/23 14:00 10/29/23 13:28 Levalbuterol Neb 1.25 Mg/3 Ml INHALATION 1.25 mg Q6HRT SHERRY Administration Lorazepam 0.5 mg 10/29/23 10:24 Lorazepam (*Crx) 0.5 Mg Tablet PO Q6H PRN Anxiety Metoprolol Tartrate 25 mg 10/25/23 11:35 10/29/23 09:17 Metoprolol Tartrate 25 Mg Tablet PO 25 mg BID [facility] Administration Ondansetron HCl 4 mg 10/25/23 02:09 Ondansetron Inj 4 Mg/2 Ml Vial IV PUSH Q4H PRN Nausea Pantoprazole Sodium 40 mg 10/27/23 09:00 10/29/23 09:18 Pantoprazole 40 Mg Tablet PO 40 mg QAM SHERRY Administration Polyethylene Glycol 17 gm 10/27/23 21:03 Polyethylene Glycol 3350 17 Gm Powd.Pack PO QAM PRN Constipation Prednisone 40 mg 10/27/23 08:00 10/29/23 09:16 Prednisone 20 Mg Tablet PO 40 mg DAILY@0800 SHERRY Administration Roflumilast 250 mcg 10/28/23 09:00 10/29/23 09:18 Roflumilast 250 Mcg Tablet PO 250 mcg DAILY SHERRY Administration Sodium Chloride 6 ml 10/28/23 05:00 10/29/23 04:29 Sodium Chlor 3% 15 Ml Neb (Respiratory Therapy) INHALATION 10/30/23 05:01 6 ml DAILY@0500 SHERRY Administration Vitamin D 400 units 10/26/23 09:00 10/29/23 09:18 Cholecalciferol 400 Units Tablet (Vit D) PO 400 units DAILY SHERRY Administration Radiology Results: ITS Impressions Chest X-Ray 10/25/23 05:41 Impression: No definite acute abnormality. Advanced COPD. Labs Labs: Laboratory Results - last 24 hr 10/29/23 10/29/23 03:35 08:25 Plt Count 246 MPV 10.3 Stl Occult Blood (IFOB) Positive H C. difficile (PCR) Negative
--- NOTE | 2023-10-29 16:02 | P.PNPL_ITS ---
Progress Note: A&P Assessment and Plan (1) Acute exacerbation of chronic obstructive pulmonary disease: Code(s): J44.1 - Chronic obstructive pulmonary disease with (acute) exacerbation Status: Acute Assessment and Plan: Admitted 10/24/23, chills, increased shortness of breath, low saturation high 70s- low 80% range on O2 3.5 L/min. No infiltrate on CXR. 10/27/23: increased yellow sputum, still short of breath, still feeling sick, increased WBC 19K. 10/28/23: Not having a good day, very short of breath and tachycardic this am. She dropped her saturation walking to BR 3 L/min. Increased to 4 L/min 10/29/23: Fewer secretions, down to 3 L/min, wheezes and crackles almost gone. Better exam. Pseudomonas in sputum; infected or colonized? Will try Pip-Tazo to cover this, wait for sensitivities. (2) Acute and chronic respiratory failure ([id number]): Code(s): J96.20 - Acute and chronic respiratory failure, unspecified whether with hypoxia or hypercapnia Status: Acute Assessment and Plan: At home, desaturated to 79% on her baseline 3.5 L/min. 10/27: Dropped saturation today walking to the bathroom on 3 L, increased to 4 L at rest 10/28: O2 at 3 L/min. Needs more when she is active. Gets short of breath, tachycardic with exertion. Plan 1. Continue Cornet; it is helping clear secretions. 2. Decrease dose of budesonide 0.25 mg/2 ml nebulized Q 12 hours. This is the pediatric dose. She had anxiety, increased heart rate today after the treatment. Will plan another trial of budesonide at half dose after she has metoprolol to avoid tachycardia. I do not think the tachycardia was from budesonide. 3. Increase O2 to 5 L/min with exertion. 4. Increase activity; she knows that she can ask a tech to walk her in the halls. She is not getting formal physical therapy. 5. Albuterol was changed to Lev-albuterol due to tachycardia. Good idea. Continue nebulized lev-albuterol and ipratropium Q 6 Hours. 6. Sputum is growing Pseudomonas; she needs coverage for this. Add IV Pip-tazo which she tolerated in April. Await sputum sensitivities. 7. Home O2 study prior to discharge. I will be available by phone over this weekend. Please call if needed. She is better compared to admission, may be pricila to go home over the weekend. Subjective Date/time seen: 10/29/23 16:02 Interval history: 10/29/23: She was moved to a room with a view, Room 258 because 261 had no window. Today after the nebulized budesonide, she had shortness of breath, increased heart rate and anxiety. At the same time, she was returning from the bathroom, so the symptoms may have been from exertion and desaturation. She had a similar incident yesterday without budesonide with high HR, dyspnea, anxiety. This is significant as she has a history of allergy to this med manifested with a rash. Today, she had no rash. She says that the Cornet valve has really helped her to clear thick secretions, improved. She has little appetite. Her bowels are moving better, went twice today. A stool specimen was sent to the lab. She wants to get up and walk more often. 10/28/23: She is feeling about the same, still short of breath, reina with any exertion. She walked to the bathroom in the morning on 3 L/m, dropped saturation low, heart rate up into the 130s. Exhausted after short walk. Sputum remains yellow. She submitted sputum. With a history of allergy to several medications including budesonide, she did not have the nebulized budesonide. We talked about it, and she is willing to try. She cannot recall exactly what the reaction was, however it was not an intense rash. Her primary care, Dr Soriano a few years ago, thought that maybe her history of rashes with several medications was not really evidence of allergic reactions. 10/27/23: New Consult Irma Rocha is a 77 yo female seen in our clinic; severe COPD, on O2 3.5 L at rest and sleep, 4 L with exertion, She was admitted 3 days ago October 23 with increased shortness of breath, coughing, without sputum, rhinorrhea, wheezing, and one episode of chill;s; saturation dropped while using her usual 3 L/min, normally > 90%, dropped to low 80s and high 70s with exertion. She came to ER, CXR had no infiltrate, WBC 13 K, elevated, mild elevation BUN and creatinine. Serology for COVID, influenza A&B, RSV all negative. She had no sputum to test initially. Was started on empiric therapy for COPD exacerbation. October 26 today developed thick yellow sputum which is difficult to expectorate. WBC is higher 19 k. No fever. CXR October 22 showed increased pulmonary vascular redistribution, no infiltrate. She is not feeling better, does not feel ready to go home. Dr Galarza requested pulmonary consultation for more evaluation. She was last seen in the office 08/13/2023, takes azithromycin MWF at baseline. She uses Breztri, however she is not sure that it helps. She uses nebulized albuterol twice a day. She has O2 at home, uses 3.5 around the clock. Lives at home with her daughter. 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 DATA * 12/31/22 - PFT - Severe obstructive airway disease, lung hyperinflation and air trapping, severely reduced lung diffusion capacity. * 01/01/23 - Home O2 evaluation -required 3L/min O2 at rest and with ambulation. * 04/02/22 - CXR - mild diffuse interstitial prominence. No consolidation, pleural effusion, or pneumothorax. * 08/04/21 - Overnight oximetry on 3L/min supplemental O2 - Spent no time <= 88%. Lowest saturation 92%, maximum 99%, basal saturation 96.5%. Recommended to continue wearing 3L/min O2 with sleep. * 05/12/21 - Home sleep test, room air; mild sleep apnea, AHI 9.1; 99% of study w O2 saturation <=88%. Silas 66%. In-lab PAP titration was recommended, she declined. * PFT 02/16/19- Severe obstructive ventilatory impairment, mild air trapping, moderate increase in airway resistance. No change with bronchodilator. Compared to prior study 06/11/2015, values are very similar. ABG (RA) 7.43/39/pO258.7/25.9/91% Mild hypoxemia on room air. * Home O2 Eval 11/14/20 need for 3L O2 with activity. Overnight oximetry 05/08/20 480 minutes spent below 88%, ENMA 31/hr, suspicious for sleep apnea. * 11/14/20 Echo: EF 55-60%, mild-mod MVR, mild pulm HTN. * 03/17/21 chest CTA: There is mild scarring at the lung apices. There is severe emphysema. There are scattered nodules and tree-in-bud opacities in all lobes. There is mild atelectasis in the lungs bilaterally. No pleural effusion. The heart size is normal. There is no pulmonary embolus. Review of Systems Review of Systems: All systems reviewed & are unremarkable except as noted in HPI and below Exam Narrative: GEN: Alert, oriented, not in distress. Wearing O2 nasal cannula 3 L, 92-99%. HEENT: pupils are equal, EOMI, symmetrical face; oral membranes moist, upper and lower dentures, Mallampati II airway, no erythema, no exudate NECK: Trachea is midline CHEST: Equal air entry, symmetric excursion, decreased breath sounds; less wheezing. No cattered crackles. CV: Regular S1S2 no m/g/r ABD : (+) bowel sounds Extremities : no clubbing, cyanosis, or edema PSYCH: normal though; Objective Data Vital Signs Vital Signs: Vital Signs - 24 hr 10/28/23 17:49 10/28/23 21:02 10/28/23 21:04 Temperature Pulse Rate 105 H 92 Respiratory Rate 18 Blood Pressure Pulse Oximetry 94 Oxygen Delivery Nasal Cannula Oxygen Flow Rate 3 Fraction of Inspired Oxygen 10/28/23 21:16 10/28/23 21:37 10/28/23 20:00 Temperature 36.0 C L Pulse Rate 96 74 71 Respiratory Rate 20 18 Blood Pressure 142/52 H Pulse Oximetry 96 Oxygen Delivery Oxygen Flow Rate Fraction of Inspired Oxygen 10/29/23 00:00 10/29/23 03:08 10/29/23 03:18 Temperature Pulse Rate 80 92 96 Respiratory Rate 20 20 Blood Pressure Pulse Oximetry Oxygen Delivery Oxygen Flow Rate Fraction of Inspired Oxygen 10/29/23 04:33 10/29/23 04:00 10/29/23 07:41 Temperature Pulse Rate 98 104 H Respiratory Rate 20 Blood Pressure Pulse Oximetry 92 Oxygen Delivery Nasal Cannula Oxygen Flow Rate 4 Fraction of Inspired Oxygen 36 10/29/23 07:41 10/29/23 06:00 10/29/23 08:00 Temperature 35.8 C L Pulse Rate 115 H 96 118 H Respiratory Rate 21 H 16 20 Blood Pressure 139/50 L Pulse Oximetry 95 Oxygen Delivery Oxygen Flow Rate Fraction of Inspired Oxygen 10/29/23 09:17 10/29/23 08:00 10/29/23 09:14 Temperature Pulse Rate 130 H 124 H Respiratory Rate Blood Pressure Pulse Oximetry 92 Oxygen Delivery Nasal Cannula Oxygen Flow Rate 3 Fraction of Inspired Oxygen 10/29/23 13:28 10/29/23 13:42 10/29/23 12:06 Temperature Pulse Rate 93 96 94 Respiratory Rate 20 20 Blood Pressure Pulse Oximetry Oxygen Delivery Oxygen Flow Rate Fraction of Inspired Oxygen 10/29/23 14:00 Temperature 36.7 C Pulse Rate 95 Respiratory Rate 16 Blood Pressure 144/60 H Pulse Oximetry 99 Oxygen Delivery Oxygen Flow Rate Fraction of Inspired Oxygen Intake/Output Intake/Output: Intake & Output 10/26/23 10/27/23 10/28/23 10/29/23 23:59 23:59 23:59 23:59 Intake Total 8637 099 8002 968 Output Total 2300 1250 Balance 1460 876 -1020 -282 Meds/Results Medications: Active Medications Generic Name Dose Route Start Last Admin Trade Name Luis Manuel PRN Reason Stop Dose Admin Acetaminophen 650 mg 10/26/23 13:06 10/28/23 20:40 Acetaminophen 325 Mg Tablet PO 650 mg Q6H PRN Administration Mild Pain (1-3) or Fever Amlodipine Besylate 5 mg 10/26/23 09:00 10/29/23 09:17 Amlodipine Besylate 5 Mg Tablet PO 5 mg DAILY SHERRY Administration Aspirin 81 mg 10/25/23 11:35 10/29/23 09:17 Aspirin 81 Mg Enteric Tablet PO 81 mg DAILY SHERRY Administration Atorvastatin Calcium 40 mg 10/25/23 11:35 10/29/23 09:17 Atorvastatin 40 Mg Tablet PO 40 mg DAILY SHERRY Administration Azithromycin 250 mg 10/25/23 11:35 10/29/23 09:21 Azithromycin 250 Mg Tablet PO 250 mg [id number] SHERRY Administration Budesonide 0.5 mg 10/28/23 20:00 10/29/23 07:41 Budesonide Respule Neb 0.5 Mg/2 Ml Amp INHALATION 0.5 mg Q12HRT SHERRY Administration Enoxaparin Sodium 40 mg 10/26/23 09:00 10/29/23 09:18 Enoxaparin 40 Mg/0.4 Ml Syringe SUB-Q 40 mg DAILY SHERRY Administration Fish Oil 1 gm 10/26/23 09:00 10/29/23 09:17 [place] 3 Polyunsat Fatty Acids 1 Gm Cap PO 1 gm DAILY SHERRY Administration Fluticasone Propionate 1 spray 10/25/23 17:00 10/29/23 09:18 Fluticasone Propionate 0.05% Na Spr 16 Gm Btl (*Bkc) NASAL Not Given BID [facility] Ipratropium [place] 0.5 mg 10/29/23 14:00 10/29/23 13:28 Ipratropium Br 0.02% Inh Soln 0.5 Mg/2.5 Ml Vial INHALATION 0.5 mg Q6HRT SHERRY Administration Levalbuterol HCl 1.25 mg 10/29/23 14:00 10/29/23 13:28 Levalbuterol Neb 1.25 Mg/3 Ml INHALATION 1.25 mg Q6HRT SHERRY Administration Lorazepam 0.5 mg 10/29/23 10:24 Lorazepam (*Crx) 0.5 Mg Tablet PO Q6H PRN Anxiety Methocarbamol 750 mg 10/29/23 15:46 Methocarbamol 750 Mg Tablet PO QID PRN Muscle spasm Metoprolol Tartrate 25 mg 10/25/23 11:35 10/29/23 09:17 Metoprolol Tartrate 25 Mg Tablet PO 25 mg BID SHERRY Administration Ondansetron HCl 4 mg 10/25/23 02:09 Ondansetron Inj 4 Mg/2 Ml Vial IV PUSH Q4H PRN Nausea Pantoprazole Sodium 40 mg 10/27/23 09:00 10/29/23 09:18 Pantoprazole 40 Mg Tablet PO 40 mg QAM SHERRY Administration Polyethylene Glycol 17 gm 10/27/23 21:03 Polyethylene Glycol 3350 17 Gm Powd.Pack PO QAM PRN Constipation Prednisone 40 mg 10/27/23 08:00 10/29/23 09:16 Prednisone 20 Mg Tablet PO 40 mg DAILY@0800 SHERRY Administration Roflumilast 250 mcg 10/28/23 09:00 10/29/23 09:18 Roflumilast 250 Mcg Tablet PO 250 mcg DAILY SHERRY Administration Sodium Chloride 6 ml 10/28/23 05:00 10/29/23 04:29 Sodium Chlor 3% 15 Ml Neb (Respiratory Therapy) INHALATION 10/30/23 05:01 6 ml DAILY@0500 SHERRY Administration Vitamin D 400 units 10/26/23 09:00 10/29/23 09:18 Cholecalciferol 400 Units Tablet (Vit D) PO 400 units DAILY SHERRY Administration Radiology Results: ITS Impressions Chest X-Ray 10/25/23 05:41 Impression: No definite acute abnormality. Advanced COPD. Labs Labs: Laboratory Results - last 24 hr 10/29/23 10/29/23 03:35 08:25 Plt Count 246 MPV 10.3 Stl Occult Blood (IFOB) Positive H C. difficile (PCR) Negative
[2023-10-29] MEDS: ACETAMINOPHEN 325 MG TABLET 650 MG PO (17:05)
[2023-10-29] MEDS: PIPERACILLIN/TAZ 2.25G/NS 50ML 2.25 GM/50 ML BAG IVPB (18:30)
[2023-10-30] VITALS (21 sets, daily range): BP systolic 128–143; BP diastolic 50–55; PULSE 77–124; RESP 10–20; TEMP 36–37.3; O2SAT 92–98
[2023-10-30] MEDS: LEVALBUTEROL NEB 1.25 MG/3 ML INHALATION ×4 (01:34→20:04)
[2023-10-30] MEDS: IPRATROPIUM BR 0.02% INH SOLN 0.5 MG/2.5 ML VIAL INHALATION ×4 (01:34→20:04)
[2023-10-30] MEDS: PIPERACILLIN/TAZ 2.25G/NS 50ML 2.25 GM/50 ML BAG IVPB ×3 (01:36→18:18)
[2023-10-30] MEDS: SODIUM CHLOR 3% 15 ML NEB (RESPIRATORY THERAPY) 6 ML INHALATION (04:59)
[2023-10-30 06:36] LABS: Basophils Percent Auto 0.1 % (0.2-1.2); Hematocrit 33.6 % (37.0-47.0); Hemoglobin 10.5 g/dL (12.0-15.0); Immature Granulocyte Absolute 0.07 K/mm3 (0.00-0.031); Immature Granulocyte Percent A 0.5 % (0-0.5); Lymphocytes Absolute Auto 3.18 K/mm3 (0.9-3.2); Lymphocytes Percent Auto 21.5 % (18.3-44.2); Mean Corpuscular HGB Conc 31.3 g/dl (32-36); Mean Corpuscular Hemoglobin 30.4 pg (26-34); Mean Corpuscular Volume 97.4 fl (80-100); Mean Platelet Volume 10.5 fl (7.4-10.4); Monocytes Absolute Auto 0.8 K/mm3 (0.1-0.6); Monocytes Percent Auto 5.5 % (2.6-8.5); Neutrophils Absolute Auto 10.7 K/mm3 (1.3-6.7); Neutrophils Percent Auto 72.4 % (45.5-73.1); Platelet Count Result 253 k/mm3 (150-375); Red Blood Count 3.45 M/mm3 (4.2-5.4); White Blood Count 14.8 K/mm3 (4.5-10.0)
[2023-10-30 06:51] LABS: Alanine Aminotransferase 21 U/L (6-35); Albumin Level 3.7 g/dL (3.5-5.1); Alkaline Phosphatase 56 U/L (38-126); Anion Gap 4 mmol/L (4-12); Aspartate Amino Transferase 27 U/L (14-36); Bilirubin,Total 0.7 mg/dL (0.2-1.3); Blood Urea Nitrogen 32 mg/dL (7-17); Calcium 10.1 mg/dL (8.4-10.2); Carbon Dioxide 38 mmol/L (22-30); Chloride 95 mmol/L (98-107); Estimated CRCL calculation 24 ml/min; Estimated Glomerular Filt Rate 36; Glucose 104 mg/dL (65-110); Potassium 4.1 mmol/L (3.4-5.0); Sodium 137 mmol/L (137-145)
[2023-10-30] MEDS: BUDESONIDE RESPULE NEB 0.5 MG/2 ML AMP INHALATION ×2 (07:54→20:04)
[2023-10-30] MEDS: amLODIPine BESYLATE 5 MG TABLET PO (08:37)
[2023-10-30] MEDS: predniSONE 20 MG TABLET 40 MG PO (08:37)
[2023-10-30] MEDS: OMEGA 3 POLYUNSAT FATTY ACIDS 1 GM CAP PO (08:37)
[2023-10-30] MEDS: ASPIRIN 81 MG ENTERIC TABLET PO (08:37)
[2023-10-30] MEDS: CHOLECALCIFEROL 400 UNITS TABLET (VIT D) PO (08:38)
[2023-10-30] MEDS: METOPROLOL TARTRATE 25 MG TABLET PO ×2 (08:38→17:23)
[2023-10-30] MEDS: ATORVASTATIN 40 MG TABLET PO (08:38)
[2023-10-30] MEDS: PANTOPRAZOLE 40 MG TABLET PO (08:39)
[2023-10-30] MEDS: ROFLUMILAST 250 MCG TABLET PO (08:39)
[2023-10-30] MEDS: ACETAMINOPHEN 325 MG TABLET 650 MG PO (08:43)
[2023-10-30] MEDS: ENOXAPARIN 30 MG/0.3 ML SYRINGE SUB-Q (08:43)
--- NOTE | 2023-10-30 12:35 | P.PNIM_ITS ---
Progress Note: A&P Assessment and Plan (1) COPD with acute exacerbation: Code(s): J44.1 - Chronic obstructive pulmonary disease with (acute) exacerbation Status: Acute (2) Chest pain: Code(s): R07.9 - Chest pain, unspecified Status: Acute (3) Chronic respiratory failure with hypoxia: Code(s): J96.11 - Chronic respiratory failure with hypoxia Status: Acute (4) CKD (chronic kidney disease) stage 3, GFR 30-59 ml/min: Qualifiers: Chronic kidney disease stage 3 subtype: stage 3b (GFR 30-44) Qualified Code(s): N18.32 - Chronic kidney disease, stage 3b Code(s): N18.3 - Chronic kidney disease, stage 3 (moderate) Status: Acute (5) ASHD (arteriosclerotic heart disease): Code(s): I25.10 - Atherosclerotic heart disease of [place] coronary artery without angina pectoris Status: Acute (6) Essential (primary) hypertension: Code(s): I10 - Essential (primary) hypertension Status: Acute (7) PAD (peripheral artery disease): Code(s): I73.9 - Peripheral vascular disease, unspecified Status: Acute (8) Anemia: Code(s): D64.9 - Anemia, unspecified Status: Acute Plan Patient with chronic respiratory failure on home oxygen. She presents with wheezing, increasing shortness of breath and hypoxia with exertion. Most likely this is a COPD exacerbation. Triggers unclear but she has been exposed to her daughter who has been sick recently. WBC elevated but Chest x-ray does not reveal pneumonia and she is not having a productive cough making acute bronchitis less likely. Will resume her home azithromycin prophylaxis but not continue scheduled antibiotics. Still having cough without much expectoration. Will add Augmentin. respiratory culture grew Pseudomonas. She is allergic to levofloxacin. Added on Zosyn. Was started on Solu-Medrol. Currently on prednisone. Pulmonary has been consulted. Continue bronchodilators. But with tachycardia on DuoNeb and budesonide will hold urine she is allergic as well as change to Xopenex and ipratropium. She is also on Daliresp at home. Troponin negative x 2. Will repeat. EKG showing no significant changes from the reading in April (no image available). Will repeat Troponin. Echo with normal EF with grade 1 diastolic dysfunction.. Consider stress test before discharge but more likely will have her followup with cardiology for outpatient stress test. Continue ASA, Lipitor, Metoprolol. She is having weight loss due to poor appetite. 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 MALVIN was not well visualized. Add supplements. Anemia mild. FOBT positive will continue to monitor the trend. no drop Tachycardia intermittent sinus. Could be related to underlying COPD exacerbation. Some anxiety add Ativan p.r.n. she has not received any DVT prophylaxis - lovenox Code status DNR. Subjective Date/time seen: 10/30/23 12:35 Interval history: patient feeling a little better today. Complains of dryness in the nose. Tachycardia has improved. Still persist when she exerts. Back pain persist Review of Systems Review of Systems: All systems reviewed & are unremarkable except as noted in HPI and below Exam Narrative: GENERAL: Pleasant, in no acute distress. Well-nourished. - EYES: EOMI. Anicteric. - HENT: Moist mucous membranes. - LUNGS: Decreased air entry bilateral, coarse breath sound bilaterally, end- expiratory wheezing noted - CARDIOVASCULAR: Tachycardic. Sinus o n tele No murmur. No JVD. - ABDOMEN: Soft, non-tender and non-dist ended. No palpable masses. - EXTREMITIES: No edema. Peripheral puls es 2+. Non-tender. - NEUROLOGIC: No focal neurological defi cits. CN II-XII grossly intact. - PSYCHIATRIC: Awake, Alert and oriented x 3. Appropriate mood and affect. - SKIN: No rashes or lesions. Warm. - LYMPH: No cervical lymphadenopathy. Objective Data Vital Signs Vital Signs: Vital Signs - 24 hr 10/29/23 13:28 10/29/23 13:42 10/29/23 14:00 Temperature 98.0 F Pulse Rate 93 96 95 Respiratory Rate 20 20 16 Blood Pressure 144/60 H Pulse Oximetry 99 Oxygen Delivery Oxygen Flow Rate 10/29/23 16:00 10/29/23 17:05 10/29/23 20:16 Temperature Pulse Rate 95 104 H Respiratory Rate Blood Pressure Pulse Oximetry 94 Oxygen Delivery Nasal Cannula Oxygen Flow Rate 3 10/29/23 20:17 10/29/23 21:32 10/29/23 20:00 Temperature 97.0 F L Pulse Rate 94 86 83 Respiratory Rate 20 16 Blood Pressure 150/46 H Pulse Oximetry 95 Oxygen Delivery Oxygen Flow Rate 10/30/23 00:00 10/30/23 01:36 10/29/23 20:30 Temperature Pulse Rate 77 90 91 Respiratory Rate 20 20 Blood Pressure Pulse Oximetry Oxygen Delivery Oxygen Flow Rate 10/30/23 01:51 10/30/23 04:00 10/30/23 06:00 Temperature 97.8 F Pulse Rate 88 85 98 Respiratory Rate 20 16 Blood Pressure 143/55 H Pulse Oximetry 95 Oxygen Delivery Oxygen Flow Rate 10/30/23 07:54 10/30/23 07:54 10/30/23 08:14 Temperature Pulse Rate 99 86 Respiratory Rate 20 20 Blood Pressure Pulse Oximetry 92 Oxygen Delivery Nasal Cannula Oxygen Flow Rate 3 10/30/23 08:38 10/30/23 08:00 10/30/23 08:35 Temperature Pulse Rate 124 H 103 H Respiratory Rate Blood Pressure Pulse Oximetry 92 Oxygen Delivery Nasal Cannula Oxygen Flow Rate 3 Intake/Output Intake/Output: Intake & Output 10/27/23 10/28/23 10/29/23 10/30/23 23:59 23:59 23:59 23:59 Intake Total 876 1280 2358 700 Output Total 2300 1500 800 Balance 876 -1020 858 -100 Meds/Results Medications: Active Medications Generic Name Dose Route Start Last Admin Trade Name Makq PRN Reason Stop Dose Admin Acetaminophen 650 mg 10/26/23 13:06 10/30/23 08:43 Acetaminophen 325 Mg Tablet PO 650 mg Q6H PRN Administration Mild Pain (1-3) or Fever Amlodipine Besylate 5 mg 10/26/23 09:00 10/30/23 08:37 Amlodipine Besylate 5 Mg Tablet PO 5 mg DAILY SHERRY Administration Aspirin 81 mg 10/25/23 11:35 10/30/23 08:37 Aspirin 81 Mg Enteric Tablet PO 81 mg DAILY SHERRY Administration Atorvastatin Calcium 40 mg 10/25/23 11:35 10/30/23 08:38 Atorvastatin 40 Mg Tablet PO 40 mg DAILY SHERRY Administration Azithromycin 250 mg 10/25/23 11:35 10/29/23 09:21 Azithromycin 250 Mg Tablet PO 250 mg [id number] SHERRY Administration Budesonide 0.5 mg 10/28/23 20:00 10/30/23 07:54 Budesonide Respule Neb 0.5 Mg/2 Ml Amp INHALATION 0.5 mg Q12HRT SHERRY Administration Enoxaparin Sodium 30 mg 10/30/23 09:00 10/30/23 08:43 Enoxaparin 30 Mg/0.3 Ml Syringe SUB-Q 30 mg DAILY SHERRY Administration Fish Oil 1 gm 10/26/23 09:00 10/30/23 08:37 [place] 3 Polyunsat Fatty Acids 1 Gm Cap PO 1 gm DAILY SHERRY Administration Fluticasone Propionate 1 spray 10/25/23 17:00 10/30/23 08:39 Fluticasone Propionate 0.05% Na Spr 16 Gm Btl (*Bkc) NASAL Not Given BID SHERRY Piperacillin Sod/Tazobactam Sod 2.25 gm in 50 mls @ 100 mls/hr 10/29/23 18:00 10/30/23 10:37 Zosyn 2.25 Gm/Ns 50 Ml IVPB Infused Q8H SHERRY Infusion Ipratropium [place] 0.5 mg 10/29/23 14:00 10/30/23 07:53 Ipratropium Br 0.02% Inh Soln 0.5 Mg/2.5 Ml Vial INHALATION 0.5 mg Q6HRT SHERRY Administration Levalbuterol HCl 1.25 mg 10/29/23 14:00 10/30/23 07:53 Levalbuterol Neb 1.25 Mg/3 Ml INHALATION 1.25 mg Q6HRT SHERRY Administration Lorazepam 0.5 mg 10/29/23 10:24 Lorazepam (*Crx) 0.5 Mg Tablet PO Q6H PRN Anxiety Methocarbamol 750 mg 10/29/23 15:46 Methocarbamol 750 Mg Tablet PO QID PRN Muscle spasm Metoprolol Tartrate 25 mg 10/25/23 11:35 10/30/23 08:38 Metoprolol Tartrate 25 Mg Tablet PO 25 mg BID SHERRY Administration Ondansetron HCl 4 mg 10/25/23 02:09 Ondansetron Inj 4 Mg/2 Ml Vial IV PUSH Q4H PRN Nausea Pantoprazole Sodium 40 mg 10/27/23 09:00 10/30/23 08:39 Pantoprazole 40 Mg Tablet PO 40 mg QAM SHERRY Administration Polyethylene Glycol 17 gm 10/27/23 21:03 Polyethylene Glycol 3350 17 Gm Powd.Pack PO QAM PRN Constipation Prednisone 40 mg 10/27/23 08:00 10/30/23 08:37 Prednisone 20 Mg Tablet PO 40 mg DAILY@0800 SHERRY Administration Roflumilast 250 mcg 10/28/23 09:00 10/30/23 08:39 Roflumilast 250 Mcg Tablet PO 250 mcg DAILY SHERRY Administration Vitamin D 400 units 10/26/23 09:00 10/30/23 08:38 Cholecalciferol 400 Units Tablet (Vit D) PO 400 units DAILY SHERRY Administration Radiology Results: ITS Impressions Chest X-Ray 10/25/23 05:41 Impression: No definite acute abnormality. Advanced COPD. Thoracolumbar Spine 10/29/23 17:00 IMPRESSION: 1. Mild to moderate lower lumbar predominant spondylosis. 2. New consolidation at the posterior lung are indeterminate side which could represent atelectasis or pneumonia. Labs Labs: Laboratory Results - last 24 hr 10/30/23 05:59 WBC 14.8 H RBC 3.45 L Hgb 10.5 L Hct 33.6 L MCV 97.4 MCH 30.4 MCHC 31.3 L RDW 13.0 Plt Count 253 MPV 10.5 H Immature Gran % (Auto) 0.5 Neut % (Auto) 72.4 Lymph % (Auto) 21.5 [place] % (Auto) 5.5 Eos % (Auto) 0.0 Baso % (Auto) 0.1 L Lymph # (Auto) 3.18 [place] # (Auto) 0.8 H Eos # (Auto) 0.0 Baso # (Auto) 0.0 Abs Immat Gran (auto) 0.07 H Absolute Neuts (auto) 10.7 H Absolute Nucleated RBC 0.000 Nucleated RBC % 0.0 Sodium 137 Potassium 4.1 Chloride 95 L Carbon Dioxide 38 H Anion Gap 4 BUN 32 H D Creatinine 1.40 H Estim Creat Clear Calc 24 Estimated GFR 36 L Glucose 104 Calcium 10.1 Magnesium 2.0 Total Bilirubin 0.7 AST 27 ALT 21 Alkaline Phosphatase 56 Total Protein 7.0 Albumin 3.7
[2023-10-30 16:14] LABS: Pneumococcal Antigen Urine NOT DETECTED
[2023-10-31] VITALS (21 sets, daily range): BP systolic 135–158; BP diastolic 47–70; PULSE 73–116; RESP 18–20; TEMP 36.6–37.3; O2SAT 94–99
[2023-10-31] MEDS: IPRATROPIUM BR 0.02% INH SOLN 0.5 MG/2.5 ML VIAL INHALATION ×4 (01:16→20:47)
[2023-10-31] MEDS: LEVALBUTEROL NEB 1.25 MG/3 ML INHALATION ×4 (01:16→20:46)
[2023-10-31] MEDS: PIPERACILLIN/TAZ 2.25G/NS 50ML 2.25 GM/50 ML BAG IVPB ×3 (01:27→17:33)
[2023-10-31 05:27] LABS: Hematocrit 32.2 % (37.0-47.0); Hemoglobin 10.1 g/dL (12.0-15.0); Immature Granulocyte Absolute 0.08 K/mm3 (0.00-0.031); Immature Granulocyte Percent A 0.7 % (0-0.5); Lymphocytes Absolute Auto 3.08 K/mm3 (0.9-3.2); Lymphocytes Percent Auto 25.7 % (18.3-44.2); Mean Corpuscular HGB Conc 31.4 g/dl (32-36); Mean Corpuscular Hemoglobin 30.3 pg (26-34); Mean Corpuscular Volume 96.7 fl (80-100); Mean Platelet Volume 9.9 fl (7.4-10.4); Monocytes Absolute Auto 0.7 K/mm3 (0.1-0.6); Monocytes Percent Auto 6.2 % (2.6-8.5); Neutrophils Absolute Auto 8.1 K/mm3 (1.3-6.7); Neutrophils Percent Auto 67.4 % (45.5-73.1); Platelet Count Result 269 k/mm3 (150-375); Red Blood Count 3.33 M/mm3 (4.2-5.4)
[2023-10-31 05:38] LABS: Alanine Aminotransferase 21 U/L (6-35); Albumin Level 3.4 g/dL (3.5-5.1); Alkaline Phosphatase 51 U/L (38-126); Anion Gap 4 mmol/L (4-12); Aspartate Amino Transferase 29 U/L (14-36); Bilirubin,Total 0.6 mg/dL (0.2-1.3); Blood Urea Nitrogen 26 mg/dL (7-17); Calcium 10.2 mg/dL (8.4-10.2); Carbon Dioxide 37 mmol/L (22-30); Chloride 96 mmol/L (98-107); Estimated CRCL calculation 24 ml/min; Estimated Glomerular Filt Rate 36; Glucose 94 mg/dL (65-110); Potassium 4.2 mmol/L (3.4-5.0); Sodium 137 mmol/L (137-145)
[2023-10-31] MEDS: amLODIPine BESYLATE 5 MG TABLET PO (08:20)
[2023-10-31] MEDS: ASPIRIN 81 MG ENTERIC TABLET PO (08:20)
[2023-10-31] MEDS: METOPROLOL TARTRATE 25 MG TABLET PO ×2 (08:20→17:33)
[2023-10-31] MEDS: ATORVASTATIN 40 MG TABLET PO (08:20)
[2023-10-31] MEDS: OMEGA 3 POLYUNSAT FATTY ACIDS 1 GM CAP PO (08:21)
[2023-10-31] MEDS: PANTOPRAZOLE 40 MG TABLET PO (08:21)
[2023-10-31] MEDS: CHOLECALCIFEROL 400 UNITS TABLET (VIT D) PO (08:21)
[2023-10-31] MEDS: predniSONE 20 MG TABLET 40 MG PO (08:21)
[2023-10-31] MEDS: ROFLUMILAST 250 MCG TABLET PO (08:22)
[2023-10-31] MEDS: ACETAMINOPHEN 325 MG TABLET 650 MG PO (08:22)
[2023-10-31] MEDS: ENOXAPARIN 30 MG/0.3 ML SYRINGE SUB-Q (08:25)
[2023-10-31] MEDS: BUDESONIDE RESPULE NEB 0.5 MG/2 ML AMP INHALATION ×2 (08:41→20:51)
--- NOTE | 2023-10-31 11:27 | P.PNIM_ITS ---
Progress Note: A&P Assessment and Plan (1) COPD with acute exacerbation: Code(s): J44.1 - Chronic obstructive pulmonary disease with (acute) exacerbation Status: Acute (2) Chest pain: Code(s): R07.9 - Chest pain, unspecified Status: Acute (3) Chronic respiratory failure with hypoxia: Code(s): J96.11 - Chronic respiratory failure with hypoxia Status: Acute (4) CKD (chronic kidney disease) stage 3, GFR 30-59 ml/min: Qualifiers: Chronic kidney disease stage 3 subtype: stage 3b (GFR 30-44) Qualified Code(s): N18.32 - Chronic kidney disease, stage 3b Code(s): N18.3 - Chronic kidney disease, stage 3 (moderate) Status: Acute (5) ASHD (arteriosclerotic heart disease): Code(s): I25.10 - Atherosclerotic heart disease of [place] coronary artery without angina pectoris Status: Acute (6) Essential (primary) hypertension: Code(s): I10 - Essential (primary) hypertension Status: Acute (7) PAD (peripheral artery disease): Code(s): I73.9 - Peripheral vascular disease, unspecified Status: Acute (8) Anemia: Code(s): D64.9 - Anemia, unspecified Status: Acute Plan Patient with chronic respiratory failure on home oxygen. She presents with wheezing, increasing shortness of breath and hypoxia with exertion. Most likely this is a COPD exacerbation. Triggers unclear but she has been exposed to her daughter who has been sick recently. WBC elevated but Chest x-ray does not reveal pneumonia and she is not having a productive cough making acute bronchitis less likely. Will resume her home azithromycin prophylaxis but not continue scheduled antibiotics. Still having cough without much expectoration. Will add Augmentin. respiratory culture grew Pseudomonas. She is allergic to levofloxacin. Added on Zosyn for Pseudomonas. This is day 3. Was started on Solu-Medrol. Currently on prednisone. Pulmonary has been consulted. Continue bronchodilators. But with tachycardia on DuoNeb and budesonide will hold urine she is allergic as well as change to Xopenex and ipratropium. She is also on Daliresp at home. Troponin negative x 2. EKG showing no significant changes from the reading in April (no image available). Echo with normal EF with grade 1 diastolic dysfunction.. Consider stress test before discharge but more likely will have her followup with cardiology for outpatient stress test. Continue ASA, Lipitor, Metoprolol. She is having weight loss due to poor appetite. 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 MALVIN was not well visualized. Add supplements. Anemia mild. FOBT positive will continue to monitor the trend. no drop H&H remains fairly stable. Tachycardia intermittent sinus. Could be related to underlying COPD exacerbation. Some anxiety add Ativan p.r.n. she has not received any. On metoprolol DVT prophylaxis - lovenox Code status DNR. Subjective Date/time seen: 10/31/23 11:27 Interval history: A bit short of breath with activity. Intermittent tachyCardia persist with exertion. Coughing but improving. Labs reviewed. No leg swelling. No chest pain Review of Systems Review of Systems: All systems reviewed & are unremarkable except as noted in HPI and below Exam Narrative: GENERAL: Pleasant, in no acute distress. Well-nourished. - EYES: EOMI. Anicteric. - HENT: Moist mucous membranes. - LUNGS: Decreased air entry bilateral, coarse breath sound bilaterally, no wheezes heard - CARDIOVASCULAR: Tachycardic. Sinus o n tele No murmur. No JVD. - ABDOMEN: Soft, non-tender and non-dist ended. No palpable masses. - EXTREMITIES: No edema. Peripheral puls es 2+. Non-tender. - NEUROLOGIC: No focal neurological defi cits. CN II-XII grossly intact. - PSYCHIATRIC: Awake, Alert and oriented x 3. Appropriate mood and affect. - SKIN: No rashes or lesions. Warm. - LYMPH: No cervical lymphadenopathy. Objective Data Vital Signs Vital Signs: Vital Signs - 24 hr 10/30/23 12:00 10/30/23 13:44 10/30/23 13:57 Temperature Pulse Rate 83 98 96 Respiratory Rate 20 20 Blood Pressure Pulse Oximetry Oxygen Delivery Oxygen Flow Rate Fraction of Inspired Oxygen 10/30/23 16:00 10/30/23 14:00 10/30/23 17:23 Temperature 96.8 F L Pulse Rate 109 H 98 107 H Respiratory Rate 10 L Blood Pressure 128/53 L Pulse Oximetry 95 Oxygen Delivery Oxygen Flow Rate Fraction of Inspired Oxygen 10/30/23 20:06 10/30/23 20:07 07/13/24 22:00 Temperature 99.1 F Pulse Rate 87 80 Respiratory Rate 20 18 Blood Pressure 143/50 H Pulse Oximetry 95 98 Oxygen Delivery Nasal Cannula Oxygen Flow Rate 3 Fraction of Inspired Oxygen 10/30/23 20:00 10/31/23 00:00 10/31/23 01:17 Temperature Pulse Rate 87 80 76 Respiratory Rate 20 Blood Pressure Pulse Oximetry Oxygen Delivery Oxygen Flow Rate Fraction of Inspired Oxygen 10/30/23 20:22 10/31/23 01:32 10/31/23 04:00 Temperature Pulse Rate 84 74 101 H Respiratory Rate 20 20 Blood Pressure Pulse Oximetry Oxygen Delivery Oxygen Flow Rate Fraction of Inspired Oxygen 10/31/23 06:00 10/31/23 08:00 10/31/23 08:20 Temperature 97.8 F Pulse Rate 87 115 H 116 H Respiratory Rate 18 Blood Pressure 135/47 L Pulse Oximetry 98 Oxygen Delivery Oxygen Flow Rate Fraction of Inspired Oxygen 10/31/23 08:44 10/31/23 08:44 10/31/23 09:05 Temperature Pulse Rate 105 H 105 H 108 H Respiratory Rate 20 20 20 Blood Pressure Pulse Oximetry 94 99 Oxygen Delivery Nasal Cannula Nasal Cannula Oxygen Flow Rate 3 3 Fraction of Inspired Oxygen 32 32 10/31/23 09:05 10/31/23 08:18 Temperature Pulse Rate 108 H Respiratory Rate 20 Blood Pressure Pulse Oximetry 99 Oxygen Delivery Nasal Cannula Oxygen Flow Rate 3 Fraction of Inspired Oxygen Intake/Output Intake/Output: Intake & Output 10/28/23 10/29/23 10/30/23 10/31/23 23:59 23:59 23:59 23:59 Intake Total 1280 2358 1080 340 Output Total 2300 1500 800 703 Balance -1020 858 280 -363 Meds/Results Medications: Active Medications Generic Name Dose Route Start Last Admin Trade Name Freq PRN Reason Stop Dose Admin Acetaminophen 650 mg 10/26/23 13:06 10/31/23 08:22 Acetaminophen 325 Mg Tablet PO 650 mg Q6H PRN Administration Mild Pain (1-3) or Fever Amlodipine Besylate 5 mg 10/26/23 09:00 10/31/23 08:20 Amlodipine Besylate 5 Mg Tablet PO 5 mg DAILY SHERRY Administration Aspirin 81 mg 10/25/23 11:35 10/31/23 08:20 Aspirin 81 Mg Enteric Tablet PO 81 mg DAILY SHERRY Administration Atorvastatin Calcium 40 mg 10/25/23 11:35 10/31/23 08:20 Atorvastatin 40 Mg Tablet PO 40 mg DAILY SHERRY Administration Azithromycin 250 mg 10/25/23 11:35 10/29/23 09:21 Azithromycin 250 Mg Tablet PO 250 mg [id number] SHERRY Administration Budesonide 0.5 mg 10/28/23 20:00 10/31/23 08:41 Budesonide Respule Neb 0.5 Mg/2 Ml Amp INHALATION 0.5 mg Q12HRT SHERRY Administration Enoxaparin Sodium 30 mg 10/30/23 09:00 10/31/23 08:25 Enoxaparin 30 Mg/0.3 Ml Syringe SUB-Q 30 mg DAILY SHERRY Administration Fish Oil 1 gm 10/26/23 09:00 10/31/23 08:21 [place] 3 Polyunsat Fatty Acids 1 Gm Cap PO 1 gm DAILY SHERRY Administration Fluticasone Propionate 1 spray 10/25/23 17:00 10/31/23 08:23 Fluticasone Propionate 0.05% Na Spr 16 Gm Btl (*Bkc) NASAL Not Given BID [facility] Piperacillin Sod/Tazobactam Sod 2.25 gm in 50 mls @ 100 mls/hr 10/29/23 18:00 10/31/23 10:36 Zosyn 2.25 Gm/Ns 50 Ml IVPB Infused Q8H [facility] Infusion Ipratropium [place] 0.5 mg 10/29/23 14:00 10/31/23 08:41 Ipratropium Br 0.02% Inh Soln 0.5 Mg/2.5 Ml Vial INHALATION 0.5 mg Q6HRT SHERRY Administration Levalbuterol HCl 1.25 mg 10/29/23 14:00 10/31/23 08:41 Levalbuterol Neb 1.25 Mg/3 Ml INHALATION 1.25 mg Q6HRT SHERRY Administration Lorazepam 0.5 mg 10/29/23 10:24 Lorazepam (*Crx) 0.5 Mg Tablet PO Q6H PRN Anxiety Methocarbamol 750 mg 10/29/23 15:46 Methocarbamol 750 Mg Tablet PO QID PRN Muscle spasm Metoprolol Tartrate 25 mg 10/25/23 11:35 10/31/23 08:20 Metoprolol Tartrate 25 Mg Tablet PO 25 mg BID SHERRY Administration Ondansetron HCl 4 mg 10/25/23 02:09 Ondansetron Inj 4 Mg/2 Ml Vial IV PUSH Q4H PRN Nausea Pantoprazole Sodium 40 mg 10/27/23 09:00 10/31/23 08:21 Pantoprazole 40 Mg Tablet PO 40 mg QAM SHERRY Administration Polyethylene Glycol 17 gm 10/27/23 21:03 Polyethylene Glycol 3350 17 Gm Powd.Pack PO QAM PRN Constipation Prednisone 40 mg 10/27/23 08:00 10/31/23 08:21 Prednisone 20 Mg Tablet PO 40 mg DAILY@0800 SHERRY Administration Roflumilast 250 mcg 10/28/23 09:00 10/31/23 08:22 Roflumilast 250 Mcg Tablet PO 250 mcg DAILY SHERRY Administration Vitamin D 400 units 10/26/23 09:00 10/31/23 08:21 Cholecalciferol 400 Units Tablet (Vit D) PO 400 units DAILY SHERRY Administration Radiology Results: ITS Impressions Chest X-Ray 10/25/23 05:41 Impression: No definite acute abnormality. Advanced COPD. Thoracolumbar Spine 10/29/23 17:00 IMPRESSION: 1. Mild to moderate lower lumbar predominant spondylosis. 2. New consolidation at the posterior lung are indeterminate side which could represent atelectasis or pneumonia. Labs Labs: Laboratory Results - last 24 hr 10/28/23 10/31/23 03:01 05:13 WBC 12.0 H RBC 3.33 L Hgb 10.1 L Hct 32.2 L MCV 96.7 MCH 30.3 MCHC 31.4 L RDW 13.0 Plt Count 269 MPV 9.9 Immature Gran % (Auto) 0.7 H Neut % (Auto) 67.4 Lymph % (Auto) 25.7 [place] % (Auto) 6.2 Eos % (Auto) 0.0 Baso % (Auto) 0.0 L Lymph # (Auto) 3.08 [place] # (Auto) 0.7 H Eos # (Auto) 0.0 Baso # (Auto) 0.0 Abs Immat Gran (auto) 0.08 H Absolute Neuts (auto) 8.1 H Absolute Nucleated RBC 0.000 Nucleated RBC % 0.0 Sodium 137 Potassium 4.2 Chloride 96 L Carbon Dioxide 37 H Anion Gap 4 BUN 26 H Creatinine 1.40 H Estim Creat Clear Calc 24 Estimated GFR 36 L Glucose 94 Calcium 10.2 Magnesium 2.0 Total Bilirubin 0.6 AST 29 ALT 21 Alkaline Phosphatase 51 Total Protein 7.0 Albumin 3.4 L Urine Pneumococcal Ag Not detected
[2023-11-01] VITALS (19 sets, daily range): BP systolic 128–133; BP diastolic 54–60; PULSE 78–123; RESP 18–22; TEMP 36.9–37.2; O2SAT 94–100
[2023-11-01] MEDS: LEVALBUTEROL NEB 1.25 MG/3 ML INHALATION ×4 (02:42→20:23)
[2023-11-01] MEDS: IPRATROPIUM BR 0.02% INH SOLN 0.5 MG/2.5 ML VIAL INHALATION ×4 (02:42→20:23)
[2023-11-01] MEDS: PIPERACILLIN/TAZ 2.25G/NS 50ML 2.25 GM/50 ML BAG IVPB ×3 (03:00→17:16)
[2023-11-01] MEDS: SODIUM CHLORIDE 0.9% IV 100 ML 10 ML (04:19)
[2023-11-01 04:35] LABS: Basophils Percent Auto 0.1 % (0.2-1.2); Eosinophils Percent Auto 0.1 % (0-4.4); Hematocrit 31.3 % (37.0-47.0); Hemoglobin 9.8 g/dL (12.0-15.0); Immature Granulocyte Absolute 0.06 K/mm3 (0.00-0.031); Immature Granulocyte Percent A 0.5 % (0-0.5); Lymphocytes Absolute Auto 3.01 K/mm3 (0.9-3.2); Lymphocytes Percent Auto 26.7 % (18.3-44.2); Mean Corpuscular HGB Conc 31.3 g/dl (32-36); Mean Corpuscular Hemoglobin 30.2 pg (26-34); Mean Corpuscular Volume 96.3 fl (80-100); Mean Platelet Volume 9.7 fl (7.4-10.4); Monocytes Absolute Auto 0.7 K/mm3 (0.1-0.6); Monocytes Percent Auto 6.6 % (2.6-8.5); Neutrophils Absolute Auto 7.5 K/mm3 (1.3-6.7); Platelet Count Result 311 k/mm3 (150-375); Red Blood Count 3.25 M/mm3 (4.2-5.4); Red Cell Distribution Width 13.1 % (11.5-14.5); White Blood Count 11.3 K/mm3 (4.5-10.0)
[2023-11-01 04:45] LABS: Alanine Aminotransferase 21 U/L (6-35); Albumin Level 3.3 g/dL (3.5-5.1); Alkaline Phosphatase 49 U/L (38-126); Anion Gap 6 mmol/L (4-12); Aspartate Amino Transferase 22 U/L (14-36); Bilirubin,Total 0.7 mg/dL (0.2-1.3); Blood Urea Nitrogen 23 mg/dL (7-17); Calcium 10.2 mg/dL (8.4-10.2); Carbon Dioxide 34 mmol/L (22-30); Chloride 95 mmol/L (98-107); Estimated CRCL calculation 28 ml/min; Estimated Glomerular Filt Rate 43; Glucose 95 mg/dL (65-110); Magnesium 1.9 mg/dL (1.6-2.3); Potassium 3.7 mmol/L (3.4-5.0); Sodium 135 mmol/L (137-145)
[2023-11-01] MEDS: BUDESONIDE RESPULE NEB 0.5 MG/2 ML AMP INHALATION ×2 (07:20→20:23)
[2023-11-01] MEDS: CHOLECALCIFEROL 400 UNITS TABLET (VIT D) PO (09:09)
[2023-11-01] MEDS: METOPROLOL TARTRATE 25 MG TABLET PO ×2 (09:09→17:15)
[2023-11-01] MEDS: ASPIRIN 81 MG ENTERIC TABLET PO (09:09)
[2023-11-01] MEDS: predniSONE 20 MG TABLET 40 MG PO (09:10)
[2023-11-01] MEDS: PANTOPRAZOLE 40 MG TABLET PO (09:10)
[2023-11-01] MEDS: amLODIPine BESYLATE 5 MG TABLET PO (09:10)
[2023-11-01] MEDS: ROFLUMILAST 250 MCG TABLET PO (09:10)
[2023-11-01] MEDS: OMEGA 3 POLYUNSAT FATTY ACIDS 1 GM CAP PO (09:10)
[2023-11-01] MEDS: AZITHROMYCIN 250 MG TABLET PO (09:10)
[2023-11-01] MEDS: ATORVASTATIN 40 MG TABLET PO (09:10)
[2023-11-01] MEDS: ENOXAPARIN 30 MG/0.3 ML SYRINGE SUB-Q (09:10)
--- NOTE | 2023-11-01 14:35 | P.PNIM_ITS ---
Progress Note: A&P Assessment and Plan (1) COPD with acute exacerbation: Code(s): J44.1 - Chronic obstructive pulmonary disease with (acute) exacerbation Status: Acute (2) Chest pain: Code(s): R07.9 - Chest pain, unspecified Status: Acute (3) Chronic respiratory failure with hypoxia: Code(s): J96.11 - Chronic respiratory failure with hypoxia Status: Acute (4) CKD (chronic kidney disease) stage 3, GFR 30-59 ml/min: Qualifiers: Chronic kidney disease stage 3 subtype: stage 3b (GFR 30-44) Qualified Code(s): N18.32 - Chronic kidney disease, stage 3b Code(s): N18.3 - Chronic kidney disease, stage 3 (moderate) Status: Acute (5) ASHD (arteriosclerotic heart disease): Code(s): I25.10 - Atherosclerotic heart disease of [place] coronary artery without angina pectoris Status: Acute (6) Essential (primary) hypertension: Code(s): I10 - Essential (primary) hypertension Status: Acute (7) PAD (peripheral artery disease): Code(s): I73.9 - Peripheral vascular disease, unspecified Status: Acute (8) Anemia: Code(s): D64.9 - Anemia, unspecified Status: Acute Plan Patient with chronic respiratory failure on home oxygen. She presents with wheezing, increasing shortness of breath and hypoxia with exertion. Most likely this is a COPD exacerbation. Triggers unclear but she has been exposed to her daughter who has been sick recently. WBC elevated but Chest x-ray does not reveal pneumonia and she is not having a productive cough making acute bronchitis less likely. Will resume her home azithromycin prophylaxis but not continue scheduled antibiotics. Still having cough without much expectoration. Will add Augmentin. respiratory culture grew Pseudomonas. She is allergic to levofloxacin. Added on Zosyn for Pseudomonas. This is day 3. Was started on Solu-Medrol. Currently on prednisone. Pulmonary has been consulted. Continue bronchodilators. But with tachycardia on DuoNeb and budesonide will hold urine she is allergic as well as change to Xopenex and ipratropium. She is also on Daliresp at home. Troponin negative x 2. EKG showing no significant changes from the reading in April (no image available). Echo with normal EF with grade 1 diastolic dysfunction.. Consider stress test before discharge but more likely will have her followup with cardiology for outpatient stress test. Continue ASA, Lipitor, Metoprolol. She is having weight loss due to poor appetite. 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 MALVIN was not well visualized. Add supplements. Anemia mild. FOBT positive will continue to monitor the trend. no drop H&H remains fairly stable. Tachycardia intermittent sinus. Could be related to underlying COPD exacerbation. Some anxiety add Ativan p.r.n. she has not received any. On metoprolol DVT prophylaxis - Lovenox Code status DNR. Subjective Date/time seen: 11/01/23 14:35 Interval history: No overnight stay. Still gets short of breath with activity. Cough is less. Intermittent tachycardia with exertion Review of Systems Review of Systems: All systems reviewed & are unremarkable except as noted in HPI and below Exam Narrative: GENERAL: Pleasant, in no acute distress. Well-nourished. - EYES: EOMI. Anicteric. - HENT: Moist mucous membranes. - LUNGS: Decreased air entry bilateral, coarse breath sound bilaterally, no wheezes heard - CARDIOVASCULAR: Regular rate and rhyt hm Sinus on tele with intermittent sinus tachycardia No murmur. No JVD. - ABDOMEN: Soft, non-tender and non-dist ended. No palpable masses. - EXTREMITIES: No edema. Peripheral puls es 2+. Non-tender. - NEUROLOGIC: No focal neurological defi cits. CN II-XII grossly intact. - PSYCHIATRIC: Awake, Alert and oriented x 3. Appropriate mood and affect. - SKIN: No rashes or lesions. Warm. - LYMPH: No cervical lymphadenopathy. Objective Data Vital Signs Vital Signs: Vital Signs - 24 hr 10/31/23 15:55 10/31/23 16:10 10/31/23 16:00 Temperature Pulse Rate 97 106 H 97 Respiratory Rate 18 18 Blood Pressure Pulse Oximetry Oxygen Delivery Oxygen Flow Rate Fraction of Inspired Oxygen 10/31/23 17:33 10/31/23 20:00 10/31/23 20:49 Temperature Pulse Rate 106 H 73 96 Respiratory Rate 18 Blood Pressure Pulse Oximetry Oxygen Delivery Oxygen Flow Rate Fraction of Inspired Oxygen 10/31/23 20:51 10/31/23 21:00 10/31/23 22:00 Temperature 99.2 F Pulse Rate 96 98 92 Respiratory Rate 20 18 18 Blood Pressure 140/54 L Pulse Oximetry 98 98 Oxygen Delivery Nasal Cannula Oxygen Flow Rate 3 Fraction of Inspired Oxygen 11/01/23 02:42 11/01/23 02:55 11/01/23 06:00 Temperature 98.5 F Pulse Rate 93 94 83 Respiratory Rate 18 18 18 Blood Pressure 130/54 L Pulse Oximetry 98 Oxygen Delivery Oxygen Flow Rate Fraction of Inspired Oxygen 11/01/23 00:00 11/01/23 04:00 11/01/23 07:21 Temperature Pulse Rate 82 91 100 Respiratory Rate 20 Blood Pressure Pulse Oximetry 96 Oxygen Delivery Nasal Cannula Oxygen Flow Rate 3 Fraction of Inspired Oxygen 32 11/01/23 07:21 11/01/23 07:40 11/01/23 07:40 Temperature Pulse Rate 100 99 99 Respiratory Rate 20 20 20 Blood Pressure Pulse Oximetry 100 Oxygen Delivery Nasal Cannula Oxygen Flow Rate 3 Fraction of Inspired Oxygen 32 11/01/23 08:00 11/01/23 09:09 11/01/23 12:00 Temperature Pulse Rate 123 H 112 H 93 Respiratory Rate Blood Pressure Pulse Oximetry Oxygen Delivery Oxygen Flow Rate Fraction of Inspired Oxygen 11/01/23 08:00 11/01/23 13:28 11/01/23 13:28 Temperature Pulse Rate 99 99 Respiratory Rate 20 20 Blood Pressure Pulse Oximetry 100 99 Oxygen Delivery Nasal Cannula Nasal Cannula Oxygen Flow Rate 3 3 Fraction of Inspired Oxygen 32 11/01/23 13:40 11/01/23 13:40 Temperature Pulse Rate 96 96 Respiratory Rate 20 20 Blood Pressure Pulse Oximetry 100 Oxygen Delivery Nasal Cannula Oxygen Flow Rate 3 Fraction of Inspired Oxygen 32 Intake/Output Intake/Output: Intake & Output 10/29/23 10/30/23 10/31/23 11/01/23 23:59 23:59 23:59 23:59 Intake Total 2358 5464 630 290 Output Total 7748 184 9270 550 Balance 858 280 -673 -260 Meds/Results Medications: Active Medications Generic Name Dose Route Start Last Admin Trade Name Freq PRN Reason Stop Dose Admin Acetaminophen 650 mg 10/26/23 13:06 10/31/23 08:22 Acetaminophen 325 Mg Tablet PO 650 mg Q6H PRN Administration Mild Pain (1-3) or Fever Amlodipine Besylate 5 mg 10/26/23 09:00 11/01/23 09:10 Amlodipine Besylate 5 Mg Tablet PO 5 mg DAILY SHERRY Administration Aspirin 81 mg 10/25/23 11:35 11/01/23 09:09 Aspirin 81 Mg Enteric Tablet PO 81 mg DAILY SHERRY Administration Atorvastatin Calcium 40 mg 10/25/23 11:35 11/01/23 09:10 Atorvastatin 40 Mg Tablet PO 40 mg DAILY SHERRY Administration Azithromycin 250 mg 10/25/23 11:35 11/01/23 09:10 Azithromycin 250 Mg Tablet PO 250 mg [id number] SHERRY Administration Budesonide 0.5 mg 10/28/23 20:00 11/01/23 07:20 Budesonide Respule Neb 0.5 Mg/2 Ml Amp INHALATION 0.5 mg Q12HRT SHERRY Administration Enoxaparin Sodium 30 mg 10/30/23 09:00 11/01/23 09:10 Enoxaparin 30 Mg/0.3 Ml Syringe SUB-Q 30 mg DAILY SHERRY Administration Fish Oil 1 gm 10/26/23 09:00 11/01/23 09:10 [place] 3 Polyunsat Fatty Acids 1 Gm Cap PO 1 gm DAILY SHERRY Administration Fluticasone Propionate 1 spray 10/25/23 17:00 11/01/23 09:19 Fluticasone Propionate 0.05% Na Spr 16 Gm Btl (*Bkc) NASAL Not Given BID [facility] Piperacillin Sod/Tazobactam Sod 2.25 gm in 50 mls @ 100 mls/hr 10/29/23 18:00 11/01/23 09:10 Zosyn 2.25 Gm/Ns 50 Ml IVPB 100 mls/hr Q8H SHERRY Administration Ipratropium [place] 0.5 mg 10/29/23 14:00 11/01/23 13:26 Ipratropium Br 0.02% Inh Soln 0.5 Mg/2.5 Ml Vial INHALATION 0.5 mg Q6HRT SHERRY Administration Levalbuterol HCl 1.25 mg 10/29/23 14:00 11/01/23 13:26 Levalbuterol Neb 1.25 Mg/3 Ml INHALATION 1.25 mg Q6HRT SHERRY Administration Lorazepam 0.5 mg 10/29/23 10:24 Lorazepam (*Crx) 0.5 Mg Tablet PO Q6H PRN Anxiety Methocarbamol 750 mg 10/29/23 15:46 Methocarbamol 750 Mg Tablet PO QID PRN Muscle spasm Metoprolol Tartrate 25 mg 10/25/23 11:35 11/01/23 09:09 Metoprolol Tartrate 25 Mg Tablet PO 25 mg BID SHERRY Administration Ondansetron HCl 4 mg 10/25/23 02:09 Ondansetron Inj 4 Mg/2 Ml Vial IV PUSH Q4H PRN Nausea Pantoprazole Sodium 40 mg 10/27/23 09:00 11/01/23 09:10 Pantoprazole 40 Mg Tablet PO 40 mg QAM SHERRY Administration Polyethylene Glycol 17 gm 10/27/23 21:03 Polyethylene Glycol 3350 17 Gm Powd.Pack PO QAM PRN Constipation Prednisone 40 mg 10/27/23 08:00 11/01/23 09:10 Prednisone 20 Mg Tablet PO 40 mg DAILY@0800 SHERRY Administration Roflumilast 250 mcg 10/28/23 09:00 11/01/23 09:10 Roflumilast 250 Mcg Tablet PO 250 mcg DAILY SHERRY Administration Sodium Chloride 1 spray 10/31/23 11:30 Saline 0.65% Rubén Soln 44 Ml Btl NASAL Q6HR PRN Congestion Vitamin D 400 units 10/26/23 09:00 11/01/23 09:09 Cholecalciferol 400 Units Tablet (Vit D) PO 400 units DAILY SHERRY Administration Radiology Results: ITS Impressions Chest X-Ray 10/25/23 05:41 Impression: No definite acute abnormality. Advanced COPD. Thoracolumbar Spine 10/29/23 17:00 IMPRESSION: 1. Mild to moderate lower lumbar predominant spondylosis. 2. New consolidation at the posterior lung are indeterminate side which could represent atelectasis or pneumonia. Labs Labs: Laboratory Results - last 24 hr 11/01/23 04:24 WBC 11.3 H RBC 3.25 L Hgb 9.8 L Hct 31.3 L MCV 96.3 MCH 30.2 MCHC 31.3 L RDW 13.1 Plt Count 311 MPV 9.7 Immature Gran % (Auto) 0.5 Neut % (Auto) 66.0 Lymph % (Auto) 26.7 [place] % (Auto) 6.6 Eos % (Auto) 0.1 Baso % (Auto) 0.1 L Lymph # (Auto) 3.01 [place] # (Auto) 0.7 H Eos # (Auto) 0.0 Baso # (Auto) 0.0 Abs Immat Gran (auto) 0.06 H Absolute Neuts (auto) 7.5 H Absolute Nucleated RBC 0.000 Nucleated RBC % 0.0 Sodium 135 L Potassium 3.7 Chloride 95 L Carbon Dioxide 34 H Anion Gap 6 BUN 23 H Creatinine 1.20 H Estim Creat Clear Calc 28 Estimated GFR 43 L Glucose 95 Calcium 10.2 Magnesium 1.9 Total Bilirubin 0.7 AST 22 ALT 21 Alkaline Phosphatase 49 Total Protein 7.0 Albumin 3.3 L
[2023-11-01] MEDS: guaiFENesin 12 HR 600 MG TABCR PO (17:15)
--- NOTE | 2023-11-01 20:44 | P.PNPL_ITS ---
Progress Note: A&P Assessment and Plan (1) Acute exacerbation of chronic obstructive pulmonary disease: Code(s): J44.1 - Chronic obstructive pulmonary disease with (acute) exacerbation Status: Acute Assessment and Plan: Admitted 10/24/23, chills, increased shortness of breath, low saturation high 70s- low 80% range on O2 3.5 L/min. No infiltrate on CXR. 10/27/23: increased yellow sputum, still short of breath, still feeling sick, increased WBC 19K. 10/28/23: Not having a good day, very short of breath and tachycardic this am. She dropped her saturation walking to BR 3 L/min. Increased to 4 L/min 10/29/23: Fewer secretions, down to 3 L/min, wheezes and crackles almost gone. Better exam. Pseudomonas in sputum; infected or colonized? Will try Pip-Tazo to cover this, wait for sensitivities. 11/01/23 : (2) Acute and chronic respiratory failure ([id number]): Code(s): J96.20 - Acute and chronic respiratory failure, unspecified whether with hypoxia or hypercapnia Status: Acute Assessment and Plan: At home, desaturated to 79% on her baseline 3.5 L/min. 10/27: Dropped saturation today walking to the bathroom on 3 L, increased to 4 L at rest 10/28: O2 at 3 L/min. Needs more when she is active. Gets short of breath, tachycardic with exertion. 10/31 : O2 3 L/min, less dyspneic Plan 1. Continue Cornet; it is helping clear secretions; can take and use at home. 2. Continue low dose budesonide 0.25 mg/2 ml nebulized Q 12 hours. She had anxie ty, increased heart rate today after the treatment. I do not think her tachycardia was from budesonide. 3. Increase O2 to 4 L/min with exertion. 4. Increase activity; 5. Albuterol was changed to Lev-albuterol due to tachycardia. 6. Sputum is growing Pseudomonas; she needs coverage for this. She had pip-tazo in Apr, and now her Pseudomonas is pansensitive, so can change to oral. 7. Home O2 study prior to discharge. Subjective Date/time seen: 11/01/23 20:44 Interval history: 11/01/23: Better, less sputum, appetite is returning. Less short of breath. 10/29/23: She was moved to a room with a view, Room 258 because 261 had no window. Today after the nebulized budesonide, she had shortness of breath, increased heart rate and anxiety. At the same time, she was returning from the bathroom, so the symptoms may have been from exertion and desaturation. She had a similar incident yesterday without budesonide with high HR, dyspnea, anxiety. This is significant as she has a history of allergy to this med manifested with a rash. Today, she had no rash. She says that the Cornet valve has really helped her to clear thick secretions, improved. She has little appetite. Her bowels are moving better, went twice today. A stool specimen was sent to the lab. She wants to get up and walk more often. 10/28/23: She is feeling about the same, still short of breath, reina with any exertion. She walked to the bathroom in the morning on 3 L/m, dropped saturation low, heart rate up into the 130s. Exhausted after short walk. Sputum remains yellow. She submitted sputum. With a history of allergy to several medications including budesonide, she did not have the nebulized budesonide. We talked about it, and she is willing to try. She cannot recall exactly what the reaction was, however it was not an intense rash. Her primary care, Dr Soriano a few years ago, thought that maybe her history of rashes with several medications was not really evidence of allergic reactions. 10/27/23: New Consult Irma Rocha is a 77 yo female seen in our clinic; severe COPD, on O2 3.5 L at rest and sleep, 4 L with exertion, She was admitted 3 days ago October 23 with increased shortness of breath, coughing, without sputum, rhinorrhea, wheezing, and one episode of chill;s; saturation dropped while using her usual 3 L/min, normally > 90%, dropped to low 80s and high 70s with exertion. She came to ER, CXR had no infiltrate, WBC 13 K, elevated, mild elevation BUN and creatinine. Serology for COVID, influenza A&B, RSV all negative. She had no sputum to test initially. Was started on empiric therapy for COPD exacerbation. October 26 today developed thick yellow sputum which is difficult to expectorate. WBC is higher 19 k. No fever. CXR October 22 showed increased pulmonary vascular redistribution, no infiltrate. She is not feeling better, does not feel ready to go home. Dr Galarza requested pulmonary consultation for more evaluation. She was last seen in the office 08/13/2023, takes azithromycin MWF at baseline. She uses Breztri, however she is not sure that it helps. She uses nebulized albuterol twice a day. She has O2 at home, uses 3.5 around the clock. Lives at home with her daughter. 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 DATA * 12/31/22 - PFT - Severe obstructive airway disease, lung hyperinflation and air trapping, severely reduced lung diffusion capacity. * 01/01/23 - Home O2 evaluation -required 3L/min O2 at rest and with ambulation. * 04/02/22 - CXR - mild diffuse interstitial prominence. No consolidation, pleural effusion, or pneumothorax. * 08/04/21 - Overnight oximetry on 3L/min supplemental O2 - Spent no time <= 88%. Lowest saturation 92%, maximum 99%, basal saturation 96.5%. Recommended to continue wearing 3L/min O2 with sleep. * 05/12/21 - Home sleep test, room air; mild sleep apnea, AHI 9.1; 99% of study w O2 saturation <=88%. Silas 66%. In-lab PAP titration was recommended, she declined. * PFT 02/16/19- Severe obstructive ventilatory impairment, mild air trapping, moderate increase in airway resistance. No change with bronchodilator. Compared to prior study 06/11/2015, values are very similar. ABG (RA) 7.43/39/pO258.7/25.9/91% Mild hypoxemia on room air. * Home O2 Eval 11/14/20 need for 3L O2 with activity. Overnight oximetry 05/08/20 480 minutes spent below 88%, ENMA 31/hr, suspicious for sleep apnea. * 11/14/20 Echo: EF 55-60%, mild-mod MVR, mild pulm HTN. * 03/17/21 chest CTA: There is mild scarring at the lung apices. There is severe emphysema. There are scattered nodules and tree-in-bud opacities in all lobes. There is mild atelectasis in the lungs bilaterally. No pleural effusion. The heart size is normal. There is no pulmonary embolus. Review of Systems Review of Systems: All systems reviewed & are unremarkable except as noted in HPI and below Exam Narrative: GEN: Alert, oriented, not in distress. Wearing O2 nasal cannula 3 L, 92-99%. HEENT: pupils are equal, EOMI, symmetrical face; oral membranes moist, upper and lower dentures, Mallampati II airway, no erythema, no exudate NECK: Trachea is midline CHEST: Equal air entry, symmetric excursion, decreased breath sounds; less wheezing. No crackles. CV: Regular S1S2 no m/g/r ABD : (+) bowel sounds Extremities : no clubbing, cyanosis, or edema PSYCH: normal thought Objective Data Vital Signs Vital Signs: Vital Signs - 24 hr 10/31/23 20:49 10/31/23 20:51 10/31/23 21:00 Temperature Pulse Rate 96 96 98 Respiratory Rate 18 20 18 Blood Pressure Pulse Oximetry 98 Oxygen Delivery Nasal Cannula Oxygen Flow Rate 3 Fraction of Inspired Oxygen 10/31/23 22:00 11/01/23 02:42 11/01/23 02:55 Temperature 37.3 C Pulse Rate 92 93 94 Respiratory Rate 18 18 18 Blood Pressure 140/54 L Pulse Oximetry 98 Oxygen Delivery Oxygen Flow Rate Fraction of Inspired Oxygen 11/01/23 06:00 11/01/23 00:00 11/01/23 04:00 Temperature 36.9 C Pulse Rate 83 82 91 Respiratory Rate 18 Blood Pressure 130/54 L Pulse Oximetry 98 Oxygen Delivery Oxygen Flow Rate Fraction of Inspired Oxygen 11/01/23 07:21 11/01/23 07:21 11/01/23 07:40 Temperature Pulse Rate 100 100 99 Respiratory Rate 20 20 20 Blood Pressure Pulse Oximetry 96 100 Oxygen Delivery Nasal Cannula Nasal Cannula Oxygen Flow Rate 3 3 Fraction of Inspired Oxygen 32 32 11/01/23 07:40 11/01/23 08:00 11/01/23 09:09 Temperature Pulse Rate 99 123 H 112 H Respiratory Rate 20 Blood Pressure Pulse Oximetry Oxygen Delivery Oxygen Flow Rate Fraction of Inspired Oxygen 11/01/23 12:00 11/01/23 08:00 11/01/23 13:28 Temperature Pulse Rate 93 99 Respiratory Rate 20 Blood Pressure Pulse Oximetry 100 99 Oxygen Delivery Nasal Cannula Nasal Cannula Oxygen Flow Rate 3 3 Fraction of Inspired Oxygen 32 11/01/23 13:28 11/01/23 13:40 11/01/23 13:40 Temperature Pulse Rate 99 96 96 Respiratory Rate 20 20 20 Blood Pressure Pulse Oximetry 100 Oxygen Delivery Nasal Cannula Oxygen Flow Rate 3 Fraction of Inspired Oxygen 32 11/01/23 14:00 11/01/23 16:00 11/01/23 17:15 Temperature 37.1 C Pulse Rate 110 H 117 H 105 H Respiratory Rate 22 H Blood Pressure 133/60 Pulse Oximetry 94 Oxygen Delivery Oxygen Flow Rate Fraction of Inspired Oxygen 11/01/23 20:24 11/01/23 20:24 11/01/23 20:42 Temperature 37.2 C Pulse Rate 84 78 Respiratory Rate 18 18 Blood Pressure 128/56 L Pulse Oximetry 96 98 Oxygen Delivery Nasal Cannula Oxygen Flow Rate 3 Fraction of Inspired Oxygen 11/01/23 20:43 Temperature Pulse Rate 106 H Respiratory Rate 20 Blood Pressure Pulse Oximetry Oxygen Delivery Oxygen Flow Rate Fraction of Inspired Oxygen Intake/Output Intake/Output: Intake & Output 10/29/23 10/30/23 10/31/23 11/01/23 23:59 23:59 23:59 23:59 Intake Total 2351 0996 630 580 Output Total 5252 673 2977 550 Balance 850 280 -033 30 Meds/Results Medications: Active Medications Generic Name Dose Route Start Last Admin Trade Name Freq PRN Reason Stop Dose Admin Acetaminophen 650 mg 10/26/23 13:06 10/31/23 08:22 Acetaminophen 325 Mg Tablet PO 650 mg Q6H PRN Administration Mild Pain (1-3) or Fever Amlodipine Besylate 5 mg 10/26/23 09:00 11/01/23 09:10 Amlodipine Besylate 5 Mg Tablet PO 5 mg DAILY SHERRY Administration Aspirin 81 mg 10/25/23 11:35 11/01/23 09:09 Aspirin 81 Mg Enteric Tablet PO 81 mg DAILY SHERRY Administration Atorvastatin Calcium 40 mg 10/25/23 11:35 11/01/23 09:10 Atorvastatin 40 Mg Tablet PO 40 mg DAILY SHERRY Administration Azithromycin 250 mg 10/25/23 11:35 11/01/23 09:10 Azithromycin 250 Mg Tablet PO 250 mg [id number] SHERRY Administration Budesonide 0.5 mg 10/28/23 20:00 11/01/23 20:23 Budesonide Respule Neb 0.5 Mg/2 Ml Amp INHALATION 0.5 mg Q12HRT SHERRY Administration Enoxaparin Sodium 30 mg 10/30/23 09:00 11/01/23 09:10 Enoxaparin 30 Mg/0.3 Ml Syringe SUB-Q 30 mg DAILY SHERRY Administration Fish Oil 1 gm 10/26/23 09:00 11/01/23 09:10 [place] 3 Polyunsat Fatty Acids 1 Gm Cap PO 1 gm DAILY SHERRY Administration Fluticasone Propionate 1 spray 10/25/23 17:00 11/01/23 17:18 Fluticasone Propionate 0.05% Na Spr 16 Gm Btl (*Bkc) NASAL Not Given BID [facility] Guaifenesin 600 mg 11/01/23 16:30 11/01/23 17:15 Guaifenesin 12 Hr 600 Mg Tabcr PO 600 mg Q12HR SHERRY Administration Piperacillin Sod/Tazobactam Sod 2.25 gm in 50 mls @ 100 mls/hr 10/29/23 18:00 11/01/23 17:16 Zosyn 2.25 Gm/Ns 50 Ml IVPB 100 mls/hr Q8H SHERRY Administration Ipratropium [place] 0.5 mg 10/29/23 14:00 11/01/23 20:23 Ipratropium Br 0.02% Inh Soln 0.5 Mg/2.5 Ml Vial INHALATION 0.5 mg Q6HRT SHERRY Administration Levalbuterol HCl 1.25 mg 10/29/23 14:00 11/01/23 20:23 Levalbuterol Neb 1.25 Mg/3 Ml INHALATION 1.25 mg Q6HRT SHERRY Administration Lorazepam 0.5 mg 10/29/23 10:24 Lorazepam (*Crx) 0.5 Mg Tablet PO Q6H PRN Anxiety Methocarbamol 750 mg 10/29/23 15:46 Methocarbamol 750 Mg Tablet PO QID PRN Muscle spasm Metoprolol Tartrate 25 mg 10/25/23 11:35 11/01/23 17:15 Metoprolol Tartrate 25 Mg Tablet PO 25 mg BID SHERRY Administration Ondansetron HCl 4 mg 10/25/23 02:09 Ondansetron Inj 4 Mg/2 Ml Vial IV PUSH Q4H PRN Nausea Pantoprazole Sodium 40 mg 10/27/23 09:00 11/01/23 09:10 Pantoprazole 40 Mg Tablet PO 40 mg QAM SHERRY Administration Polyethylene Glycol 17 gm 10/27/23 21:03 Polyethylene Glycol 3350 17 Gm Powd.Pack PO QAM PRN Constipation Prednisone 40 mg 10/27/23 08:00 11/01/23 09:10 Prednisone 20 Mg Tablet PO 40 mg DAILY@0800 SHERRY Administration Roflumilast 250 mcg 10/28/23 09:00 11/01/23 09:10 Roflumilast 250 Mcg Tablet PO 250 mcg DAILY SHRERY Administration Sodium Chloride 1 spray 10/31/23 11:30 Saline 0.65% Ruébn Soln 44 Ml Btl NASAL Q6HR PRN Congestion Vitamin D 400 units 10/26/23 09:00 11/01/23 09:09 Cholecalciferol 400 Units Tablet (Vit D) PO 400 units DAILY SHERRY Administration Radiology Results: ITS Impressions Chest X-Ray 10/25/23 05:41 Impression: No definite acute abnormality. Advanced COPD. Thoracolumbar Spine 10/29/23 17:00 IMPRESSION: 1. Mild to moderate lower lumbar predominant spondylosis. 2. New consolidation at the posterior lung are indeterminate side which could represent atelectasis or pneumonia. Labs Labs: Laboratory Results - last 24 hr 11/01/23 04:24 WBC 11.3 H RBC 3.25 L Hgb 9.8 L Hct 31.3 L MCV 96.3 MCH 30.2 MCHC 31.3 L RDW 13.1 Plt Count 311 MPV 9.7 Immature Gran % (Auto) 0.5 Neut % (Auto) 66.0 Lymph % (Auto) 26.7 [place] % (Auto) 6.6 Eos % (Auto) 0.1 Baso % (Auto) 0.1 L Lymph # (Auto) 3.01 [place] # (Auto) 0.7 H Eos # (Auto) 0.0 Baso # (Auto) 0.0 Abs Immat Gran (auto) 0.06 H Absolute Neuts (auto) 7.5 H Absolute Nucleated RBC 0.000 Nucleated RBC % 0.0 Sodium 135 L Potassium 3.7 Chloride 95 L Carbon Dioxide 34 H Anion Gap 6 BUN 23 H Creatinine 1.20 H Estim Creat Clear Calc 28 Estimated GFR 43 L Glucose 95 Calcium 10.2 Magnesium 1.9 Total Bilirubin 0.7 AST 22 ALT 21 Alkaline Phosphatase 49 Total Protein 7.0 Albumin 3.3 L
[2023-11-02] VITALS (20 sets, daily range): BP systolic 128–142; BP diastolic 45–56; PULSE 79–125; RESP 17–20; TEMP 36.4–36.7; O2SAT 95–98
[2023-11-02] MEDS: SODIUM CHLORIDE 0.9% IV 250 ML 10 ML (02:00)
[2023-11-02] MEDS: PIPERACILLIN/TAZ 2.25G/NS 50ML 2.25 GM/50 ML BAG IVPB ×3 (02:00→17:14)
[2023-11-02] MEDS: IPRATROPIUM BR 0.02% INH SOLN 0.5 MG/2.5 ML VIAL INHALATION ×4 (02:44→20:15)
[2023-11-02] MEDS: LEVALBUTEROL NEB 1.25 MG/3 ML INHALATION ×4 (02:44→20:15)
[2023-11-02 05:11] LABS: Basophils Percent Auto 0.1 % (0.2-1.2); Hematocrit 30.6 % (37.0-47.0); Hemoglobin 9.5 g/dL (12.0-15.0); Immature Granulocyte Absolute 0.08 K/mm3 (0.00-0.031); Immature Granulocyte Percent A 0.8 % (0-0.5); Lymphocytes Absolute Auto 2.83 K/mm3 (0.9-3.2); Lymphocytes Percent Auto 27.5 % (18.3-44.2); Mean Corpuscular Hemoglobin 30.1 pg (26-34); Mean Corpuscular Volume 96.8 fl (80-100); Mean Platelet Volume 9.7 fl (7.4-10.4); Monocytes Absolute Auto 0.9 K/mm3 (0.1-0.6); Monocytes Percent Auto 8.4 % (2.6-8.5); Neutrophils Absolute Auto 6.5 K/mm3 (1.3-6.7); Neutrophils Percent Auto 63.2 % (45.5-73.1); Platelet Count Result 334 k/mm3 (150-375); Red Blood Count 3.16 M/mm3 (4.2-5.4); Red Cell Distribution Width 13.1 % (11.5-14.5); White Blood Count 10.3 K/mm3 (4.5-10.0)
[2023-11-02 05:24] LABS: Alanine Aminotransferase 21 U/L (6-35); Albumin Level 3.3 g/dL (3.5-5.1); Alkaline Phosphatase 47 U/L (38-126); Anion Gap 6 mmol/L (4-12); Aspartate Amino Transferase 21 U/L (14-36); Bilirubin,Total 0.5 mg/dL (0.2-1.3); Blood Urea Nitrogen 23 mg/dL (7-17); Calcium 9.8 mg/dL (8.4-10.2); Carbon Dioxide 32 mmol/L (22-30); Chloride 97 mmol/L (98-107); Estimated CRCL calculation 28 ml/min; Estimated Glomerular Filt Rate 43; Glucose 103 mg/dL (65-110); Magnesium 1.9 mg/dL (1.6-2.3); Potassium 3.9 mmol/L (3.4-5.0); Sodium 135 mmol/L (137-145)
[2023-11-02] MEDS: BUDESONIDE RESPULE NEB 0.5 MG/2 ML AMP INHALATION ×2 (07:09→20:15)
[2023-11-02] MEDS: predniSONE 20 MG TABLET 40 MG PO (08:55)
[2023-11-02] MEDS: METOPROLOL TARTRATE 25 MG TABLET PO ×2 (08:55→17:13)
[2023-11-02] MEDS: guaiFENesin 12 HR 600 MG TABCR PO ×2 (08:55→20:13)
[2023-11-02] MEDS: OMEGA 3 POLYUNSAT FATTY ACIDS 1 GM CAP PO (08:55)
[2023-11-02] MEDS: CHOLECALCIFEROL 400 UNITS TABLET (VIT D) PO (08:55)
[2023-11-02] MEDS: ROFLUMILAST 250 MCG TABLET PO (08:55)
[2023-11-02] MEDS: ATORVASTATIN 40 MG TABLET PO (08:55)
[2023-11-02] MEDS: ASPIRIN 81 MG ENTERIC TABLET PO (08:55)
[2023-11-02] MEDS: ENOXAPARIN 30 MG/0.3 ML SYRINGE SUB-Q (08:56)
[2023-11-02] MEDS: PANTOPRAZOLE 40 MG TABLET PO (08:56)
[2023-11-02] MEDS: amLODIPine BESYLATE 5 MG TABLET PO (08:56)
[2023-11-02] MEDS: SALINE 0.65% NAS SOLN 44 ML BTL 1 SPRAY NASAL (12:12)
--- NOTE | 2023-11-02 14:21 | P.PNIM_ITS ---
Progress Note: A&P Assessment and Plan (1) COPD with acute exacerbation: Code(s): J44.1 - Chronic obstructive pulmonary disease with (acute) exacerbation Status: Acute (2) Chest pain: Code(s): R07.9 - Chest pain, unspecified Status: Acute (3) Chronic respiratory failure with hypoxia: Code(s): J96.11 - Chronic respiratory failure with hypoxia Status: Acute (4) CKD (chronic kidney disease) stage 3, GFR 30-59 ml/min: Qualifiers: Chronic kidney disease stage 3 subtype: stage 3b (GFR 30-44) Qualified Code(s): N18.32 - Chronic kidney disease, stage 3b Code(s): N18.3 - Chronic kidney disease, stage 3 (moderate) Status: Acute (5) ASHD (arteriosclerotic heart disease): Code(s): I25.10 - Atherosclerotic heart disease of [place] coronary artery without angina pectoris Status: Acute (6) Essential (primary) hypertension: Code(s): I10 - Essential (primary) hypertension Status: Acute (7) PAD (peripheral artery disease): Code(s): I73.9 - Peripheral vascular disease, unspecified Status: Acute (8) Anemia: Code(s): D64.9 - Anemia, unspecified Status: Acute Plan Patient with chronic respiratory failure on home oxygen. She presents with wheezing, increasing shortness of breath and hypoxia with exertion. Most likely this is a COPD exacerbation. Triggers unclear but she has been exposed to her daughter who has been sick recently. WBC elevated but Chest x-ray does not reveal pneumonia and she is not having a productive cough making acute bronchitis less likely. Will resume her home azithromycin prophylaxis but not continue scheduled antibiotics. Still having cough without much expectoration. Will add Augmentin. respiratory culture grew Pseudomonas. She is allergic to levofloxacin. Added on Zosyn for Pseudomonas. This is day 4/5 planned. Was started on Solu-Medrol. Currently on prednisone. will taper down to 30 mg daily. Pulmonary has been consulted. Continue bronchodilators. With tachycardia add DuoNeb with switched to Xopenex and ipratropium. She is also on Daliresp at home. Troponin negative x 2. EKG showing no significant changes from the reading in April (no image available). Echo with normal EF with grade 1 diastolic dysfunction.. Consider stress test before discharge but more likely will have her followup with cardiology for outpatient stress test. Continue ASA, Lipitor, Metoprolol. She is having weight loss due to poor appetite. 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 MALVIN was not well visualized. Add supplements. Anemia mild. FOBT positive will continue to monitor the trend. no drop H&H remains fairly stable. Tachycardia intermittent sinus. Could be related to underlying COPD exacerbation. Some anxiety add Ativan p.r.n. she has not received any. On metoprolol Which will be uptitrated to 37.5 mg b.i.d.. DVT prophylaxis - Lovenox Code status DNR. Pseudomonas aeruginosa will plan to treat at least for 5 days course which will conclude tomorrow. Home oxygen evaluation in a.m. tentative discharge in a.m. Subjective Date/time seen: 11/02/23 14:21 Interval history: No overnight Events. Overall feeling better. Less cough. Intermittent tachycardia with exertion persists. Receiving IV Zosyn. Day 4 Review of Systems Review of Systems: All systems reviewed & are unremarkable except as noted in HPI and below Exam Narrative: GENERAL: Pleasant, in no acute distress. Well-nourished. - EYES: EOMI. Anicteric. - HENT: Moist mucous membranes. - LUNGS: Decreased air entry bilateral, coarse breath sound bilaterally, no wheezes heard - CARDIOVASCULAR: Regular rate and rhyt hm Sinus on tele with intermittent sinus tachycardia No murmur. No JVD. - ABDOMEN: Soft, non-tender and non-dist ended. No palpable masses. - EXTREMITIES: No edema. Peripheral puls es 2+. Non-tender. - NEUROLOGIC: No focal neurological defi cits. CN II-XII grossly intact. - PSYCHIATRIC: Awake, Alert and oriented x 3. Appropriate mood and affect. - SKIN: No rashes or lesions. Warm. - LYMPH: No cervical lymphadenopathy. Objective Data Vital Signs Vital Signs: Vital Signs - 24 hr 11/01/23 16:00 11/01/23 17:15 11/01/23 20:24 Temperature Pulse Rate 117 H 105 H Respiratory Rate Blood Pressure Pulse Oximetry 96 Oxygen Delivery Nasal Cannula Oxygen Flow Rate 3 11/01/23 20:24 11/01/23 20:42 11/01/23 20:43 Temperature 98.9 F Pulse Rate 84 78 106 H Respiratory Rate 18 18 20 Blood Pressure 128/56 L Pulse Oximetry 98 Oxygen Delivery Oxygen Flow Rate 11/02/23 02:44 11/02/23 02:48 11/02/23 02:51 Temperature Pulse Rate 101 H 98 Respiratory Rate 20 20 Blood Pressure Pulse Oximetry 95 Oxygen Delivery Nasal Cannula Oxygen Flow Rate 3 11/01/23 20:00 11/02/23 00:00 11/02/23 04:00 Temperature Pulse Rate 85 83 91 Respiratory Rate Blood Pressure Pulse Oximetry Oxygen Delivery Oxygen Flow Rate 11/02/23 05:12 11/02/23 07:09 11/02/23 07:09 Temperature 97.7 F Pulse Rate 92 97 Respiratory Rate 18 18 Blood Pressure 131/53 L Pulse Oximetry 98 96 Oxygen Delivery Nasal Cannula Oxygen Flow Rate 3 11/02/23 07:31 11/02/23 08:55 11/02/23 08:00 Temperature Pulse Rate 99 125 H 117 H Respiratory Rate 18 Blood Pressure Pulse Oximetry Oxygen Delivery Oxygen Flow Rate 11/02/23 08:55 11/02/23 12:00 11/02/23 13:55 Temperature Pulse Rate 93 94 Respiratory Rate 18 Blood Pressure Pulse Oximetry 96 Oxygen Delivery Nasal Cannula Oxygen Flow Rate 3 11/02/23 14:12 Temperature Pulse Rate 108 H Respiratory Rate 18 Blood Pressure Pulse Oximetry Oxygen Delivery Oxygen Flow Rate Intake/Output Intake/Output: Intake & Output 10/30/23 10/31/23 11/01/23 11/02/23 23:59 23:59 23:59 23:59 Intake Total 1080 630 630 890 Output Total 800 1303 550 700 Balance 280 -673 80 190 Meds/Results Medications: Active Medications Generic Name Dose Route Start Last Admin Trade Name Freq PRN Reason Stop Dose Admin Acetaminophen 650 mg 10/26/23 13:06 10/31/23 08:22 Acetaminophen 325 Mg Tablet PO 650 mg Q6H PRN Administration Mild Pain (1-3) or Fever Amlodipine Besylate 5 mg 10/26/23 09:00 11/02/23 08:56 Amlodipine Besylate 5 Mg Tablet PO 5 mg DAILY SHERRY Administration Aspirin 81 mg 10/25/23 11:35 11/02/23 08:55 Aspirin 81 Mg Enteric Tablet PO 81 mg DAILY SHERRY Administration Atorvastatin Calcium 40 mg 10/25/23 11:35 11/02/23 08:55 Atorvastatin 40 Mg Tablet PO 40 mg DAILY SHERRY Administration Azithromycin 250 mg 10/25/23 11:35 11/01/23 09:10 Azithromycin 250 Mg Tablet PO 250 mg [id number] SHERRY Administration Budesonide 0.5 mg 10/28/23 20:00 11/02/23 07:09 Budesonide Respule Neb 0.5 Mg/2 Ml Amp INHALATION 0.5 mg Q12HRT SHERRY Administration Enoxaparin Sodium 30 mg 10/30/23 09:00 11/02/23 08:56 Enoxaparin 30 Mg/0.3 Ml Syringe SUB-Q 30 mg DAILY SHERRY Administration Fish Oil 1 gm 10/26/23 09:00 11/02/23 08:55 [place] 3 Polyunsat Fatty Acids 1 Gm Cap PO 1 gm DAILY SHERRY Administration Fluticasone Propionate 1 spray 10/25/23 17:00 11/02/23 08:57 Fluticasone Propionate 0.05% Na Spr 16 Gm Btl (*Bkc) NASAL Not Given BID [facility] Guaifenesin 600 mg 11/01/23 16:30 11/02/23 08:55 Guaifenesin 12 Hr 600 Mg Tabcr PO 600 mg Q12HR [facility] Administration Piperacillin Sod/Tazobactam Sod 2.25 gm in 50 mls @ 100 mls/hr 10/29/23 18:00 11/02/23 09:34 Zosyn 2.25 Gm/Ns 50 Ml IVPB Infused Q8H SHERRY Infusion Ipratropium [place] 0.5 mg 10/29/23 14:00 11/02/23 13:55 Ipratropium Br 0.02% Inh Soln 0.5 Mg/2.5 Ml Vial INHALATION 0.5 mg Q6HRT SHERRY Administration Levalbuterol HCl 1.25 mg 10/29/23 14:00 11/02/23 13:55 Levalbuterol Neb 1.25 Mg/3 Ml INHALATION 1.25 mg Q6HRT [facility] Administration Lorazepam 0.5 mg 10/29/23 10:24 Lorazepam (*Crx) 0.5 Mg Tablet PO Q6H PRN Anxiety Methocarbamol 750 mg 10/29/23 15:46 Methocarbamol 750 Mg Tablet PO QID PRN Muscle spasm Metoprolol Tartrate 25 mg 10/25/23 11:35 11/02/23 08:55 Metoprolol Tartrate 25 Mg Tablet PO 25 mg BID SHERRY Administration Ondansetron HCl 4 mg 10/25/23 02:09 Ondansetron Inj 4 Mg/2 Ml Vial IV PUSH Q4H PRN Nausea Pantoprazole Sodium 40 mg 10/27/23 09:00 11/02/23 08:56 Pantoprazole 40 Mg Tablet PO 40 mg QAM SHERRY Administration Polyethylene Glycol 17 gm 10/27/23 21:03 Polyethylene Glycol 3350 17 Gm Powd.Pack PO QAM PRN Constipation Prednisone 40 mg 10/27/23 08:00 11/02/23 08:55 Prednisone 20 Mg Tablet PO 40 mg DAILY@0800 SHERRY Administration Roflumilast 250 mcg 10/28/23 09:00 11/02/23 08:55 Roflumilast 250 Mcg Tablet PO 250 mcg DAILY SHERRY Administration Sodium Chloride 1 spray 10/31/23 11:30 11/02/23 12:12 Saline 0.65% Rubén Soln 44 Ml Btl NASAL 1 spray Q6HR PRN Administration Congestion Vitamin D 400 units 10/26/23 09:00 11/02/23 08:55 Cholecalciferol 400 Units Tablet (Vit D) PO 400 units DAILY SHERRY Administration Radiology Results: ITS Impressions Chest X-Ray 10/25/23 05:41 Impression: No definite acute abnormality. Advanced COPD. Thoracolumbar Spine 10/29/23 17:00 IMPRESSION: 1. Mild to moderate lower lumbar predominant spondylosis. 2. New consolidation at the posterior lung are indeterminate side which could represent atelectasis or pneumonia. Labs Labs: Laboratory Results - last 24 hr 11/02/23 04:44 WBC 10.3 H RBC 3.16 L Hgb 9.5 L Hct 30.6 L MCV 96.8 MCH 30.1 MCHC 31.0 L RDW 13.1 Plt Count 334 MPV 9.7 Immature Gran % (Auto) 0.8 H Neut % (Auto) 63.2 Lymph % (Auto) 27.5 [place] % (Auto) 8.4 Eos % (Auto) 0.0 Baso % (Auto) 0.1 L Lymph # (Auto) 2.83 [place] # (Auto) 0.9 H Eos # (Auto) 0.0 Baso # (Auto) 0.0 Abs Immat Gran (auto) 0.08 H Absolute Neuts (auto) 6.5 Absolute Nucleated RBC 0.000 Nucleated RBC % 0.0 Sodium 135 L Potassium 3.9 Chloride 97 L Carbon Dioxide 32 H Anion Gap 6 BUN 23 H Creatinine 1.20 H Estim Creat Clear Calc 28 Estimated GFR 43 L Glucose 103 Calcium 9.8 Magnesium 1.9 Total Bilirubin 0.5 AST 21 ALT 21 Alkaline Phosphatase 47 Total Protein 6.0 L Albumin 3.3 L
[2023-11-02] MEDS: ACETAMINOPHEN 325 MG TABLET 650 MG PO (15:51)
[2023-11-02] MEDS: METOPROLOL TARTRATE 12.5 MG TABLET PO (17:13)
[2023-11-02] MEDS: LORazepam (*CRX) 0.5 MG TABLET PO (20:13)
--- NOTE | 2023-11-02 22:02 | P.PNPL_ITS ---
Progress Note: A&P Assessment and Plan (1) Acute exacerbation of chronic obstructive pulmonary disease: Code(s): J44.1 - Chronic obstructive pulmonary disease with (acute) exacerbation Status: Acute Assessment and Plan: Admitted 10/24/23, chills, increased shortness of breath, low saturation high 70s- low 80% range on O2 3.5 L/min. No infiltrate on CXR. 10/27/23: increased yellow sputum, still short of breath, still feeling sick, increased WBC 19K. 10/28/23: Not having a good day, very short of breath and tachycardic this am. She dropped her saturation walking to BR 3 L/min. Increased to 4 L/min 10/29/23: Fewer secretions, down to 3 L/min, wheezes and crackles almost gone. Better exam. Pseudomonas in sputum; infected or colonized? Will try Pip-Tazo to cover this, wait for sensitivities. 11/01/23 : Sensitivities = norman-sensitive Pseudomonas, will change pip-tazo 11/02/23: Change pip-tazo to cefepime, then oral Rx for discharge (2) Acute and chronic respiratory failure ([id number]): Code(s): J96.20 - Acute and chronic respiratory failure, unspecified whether with hypoxia or hypercapnia Status: Acute Assessment and Plan: At home, desaturated to 79% on her baseline 3.5 L/min. 10/27: Dropped saturation today walking to the bathroom on 3 L, increased to 4 L at rest 10/28: O2 at 3 L/min. Needs more when she is active. Gets short of breath, tachycardic with exertion. 10/31 : O2 3 L/min, less dyspneic 11/01: Will be able to go home on almost the same O2 she was on before admission, Plan 1. Continue Cornet; it is helping clear secretions; can take and use at home. 2. Continue low dose budesonide 0.25 mg/2 ml nebulized Q 12 hours and use this at home. 3. Increase O2 to 4 L/min with exertion. 4. Increase activity 5. Albuterol was changed to Lev-albuterol due to tachycardia. 6. Sputum is growing Pseudomonas; she needs coverage for this. She had pip-tazo in Apr, and now her Pseudomonas is pansensitive, changed to Cefepime. 7. Home O2 study prior to discharge. Follow up in office in 2-3 weeks, sooner if needed Subjective Date/time seen: 11/02/23 20:35 Interval history: 11/02/23: improved. Finishing IV Cefepime for Pseudomonas. Less short of breath. 11/01/23: Better, less sputum, appetite is returning. 10/29/23: She was moved to a room with a view, Room 258 because 261 had no window. Today after the nebulized budesonide, she had shortness of breath, increased heart rate and anxiety. At the same time, she was returning from the bathroom, so the symptoms may have been from exertion and desaturation. She had a similar incident yesterday without budesonide with high HR, dyspnea, anxiety. This is significant as she has a history of allergy to this med manifested with a rash. Today, she had no rash. She says that the Cornet valve has really helped her to clear thick secretions, improved. She has little appetite. Her bowels are moving better, went twice today. A stool specimen was sent to the lab. She wants to get up and walk more often. 10/28/23: She is feeling about the same, still short of breath, reina with any exertion. She walked to the bathroom in the morning on 3 L/m, dropped saturation low, heart rate up into the 130s. Exhausted after short walk. Sputum remains yellow. She submitted sputum. With a history of allergy to several medications including budesonide, she did not have the nebulized budesonide. We talked about it, and she is willing to try. She cannot recall exactly what the reaction was, however it was not an intense rash. Her primary care, Dr Soriano a few years ago, thought that maybe her history of rashes with several medications was not really evidence of allergic reactions. 10/27/23: New Consult Irma Rocha is a 77 yo female seen in our clinic; severe COPD, on O2 3.5 L at rest and sleep, 4 L with exertion, She was admitted 3 days ago October 23 with increased shortness of breath, coughing, without sputum, rhinorrhea, wheezing, and one episode of chill;s; saturation dropped while using her usual 3 L/min, normally > 90%, dropped to low 80s and high 70s with exertion. She came to ER, CXR had no infiltrate, WBC 13 K, elevated, mild elevation BUN and creatinine. Serology for COVID, influenza A&B, RSV all negative. She had no sputum to test initially. Was started on empiric therapy for COPD exacerbation. October 26 today developed thick yellow sputum which is difficult to expectorate. WBC is higher 19 k. No fever. CXR October 22 showed increased pulmonary vascular redistribution, no infiltrate. She is not feeling better, does not feel ready to go home. Dr Galarza requested pulmonary consultation for more evaluation. She was last seen in the office 08/13/2023, takes azithromycin MWF at baseline. She uses Breztri, however she is not sure that it helps. She uses nebulized albuterol twice a day. She has O2 at home, uses 3.5 around the clock. Lives at home with her daughter. 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 DATA * 12/31/22 - PFT - Severe obstructive airway disease, lung hyperinflation and air trapping, severely reduced lung diffusion capacity. * 01/01/23 - Home O2 evaluation -required 3L/min O2 at rest and with ambulation. * 04/02/22 - CXR - mild diffuse interstitial prominence. No consolidation, pleural effusion, or pneumothorax. * 08/04/21 - Overnight oximetry on 3L/min supplemental O2 - Spent no time <= 88%. Lowest saturation 92%, maximum 99%, basal saturation 96.5%. Recommended to continue wearing 3L/min O2 with sleep. * 05/12/21 - Home sleep test, room air; mild sleep apnea, AHI 9.1; 99% of study w O2 saturation <=88%. Silas 66%. In-lab PAP titration was recommended, she decl ined. * PFT 02/16/19- Severe obstructive ventilatory impairment, mild air trapping, moderate increase in airway resistance. No change with bronchodilator. Compared to prior study 06/11/2015, values are very similar. ABG (RA) 7.43/39/pO258.7/25.9/91% Mild hypoxemia on room air. * Home O2 Eval 11/14/20 need for 3L O2 with activity. Overnight oximetry 05/08/20 480 minutes spent below 88%, ENMA 31/hr, suspicious for sleep apnea. * 11/14/20 Echo: EF 55-60%, mild-mod MVR, mild pulm HTN. * 03/17/21 chest CTA: There is mild scarring at the lung apices. There is severe emphysema. There are scattered nodules and tree-in-bud opacities in all lobes. There is mild atelectasis in the lungs bilaterally. No pleural effusion. The heart size is normal. There is no pulmonary embolus. Exam Narrative: GEN: Alert, oriented, not in distress. Wearing O2 nasal cannula 3 L, 93-99%. HEENT: pupils are equal, EOMI, symmetrical face; oral membranes moist, upper and lower dentures, Mallampati II airway, no erythema, no exudate NECK: Trachea is midline CHEST: Equal air entry, symmetric excursion, decreased breath sounds; less wheezing. No crackles. CV: Regular S1S2 no m/g/r ABD : (+) bowel sounds Extremities : no clubbing, cyanosis, or edema PSYCH: normal thought Objective Data Vital Signs Vital Signs: Vital Signs - 24 hr 11/02/23 02:44 11/02/23 02:48 11/02/23 02:51 Temperature Pulse Rate 101 H 98 Respiratory Rate 20 20 Blood Pressure Pulse Oximetry 95 Oxygen Delivery Nasal Cannula Oxygen Flow Rate 3 11/02/23 00:00 11/02/23 04:00 11/02/23 05:12 Temperature 36.5 C Pulse Rate 83 91 92 Respiratory Rate 18 Blood Pressure 131/53 L Pulse Oximetry 98 Oxygen Delivery Oxygen Flow Rate 11/02/23 07:09 11/02/23 07:09 11/02/23 07:31 Temperature Pulse Rate 97 99 Respiratory Rate 18 18 Blood Pressure Pulse Oximetry 96 Oxygen Delivery Nasal Cannula Oxygen Flow Rate 3 11/02/23 08:55 11/02/23 08:00 11/02/23 08:55 Temperature Pulse Rate 125 H 117 H Respiratory Rate Blood Pressure Pulse Oximetry 96 Oxygen Delivery Nasal Cannula Oxygen Flow Rate 3 11/02/23 12:00 11/02/23 13:55 11/02/23 14:12 Temperature Pulse Rate 93 94 108 H Respiratory Rate 18 18 Blood Pressure Pulse Oximetry Oxygen Delivery Oxygen Flow Rate 11/02/23 14:00 11/02/23 16:00 11/02/23 17:13 Temperature 36.4 C Pulse Rate 100 90 104 H Respiratory Rate 17 Blood Pressure 128/45 L Pulse Oximetry 95 Oxygen Delivery Oxygen Flow Rate 11/02/23 17:13 11/02/23 20:15 11/02/23 20:15 Temperature Pulse Rate 104 H 79 79 Respiratory Rate 18 Blood Pressure Pulse Oximetry 96 Oxygen Delivery Nasal Cannula Oxygen Flow Rate 3 11/02/23 20:35 11/02/23 21:13 Temperature 36.7 C Pulse Rate 86 90 Respiratory Rate 18 20 Blood Pressure 142/56 H Pulse Oximetry 98 Oxygen Delivery Oxygen Flow Rate Intake/Output Intake/Output: Intake & Output 10/30/23 10/31/23 11/01/23 11/02/23 23:59 23:59 23:59 23:59 Intake Total 1080 720 305 1413 Output Total 800 1851 152 8727 Balance 280 -673 80 310 Meds/Results Medications: Active Medications Generic Name Dose Route Start Last Admin Trade Name Freq PRN Reason Stop Dose Admin Acetaminophen 650 mg 10/26/23 13:06 11/02/23 15:51 Acetaminophen 325 Mg Tablet PO 650 mg Q6H PRN Administration Mild Pain (1-3) or Fever Amlodipine Besylate 5 mg 10/26/23 09:00 11/02/23 08:56 Amlodipine Besylate 5 Mg Tablet PO 5 mg DAILY SHERRY Administration Aspirin 81 mg 10/25/23 11:35 11/02/23 08:55 Aspirin 81 Mg Enteric Tablet PO 81 mg DAILY SHERRY Administration Atorvastatin Calcium 40 mg 10/25/23 11:35 11/02/23 08:55 Atorvastatin 40 Mg Tablet PO 40 mg DAILY SHERRY Administration Azithromycin 250 mg 10/25/23 11:35 11/01/23 09:10 Azithromycin 250 Mg Tablet PO 250 mg [id number]@0900 SHERRY Administration Budesonide 0.5 mg 10/28/23 20:00 11/02/23 20:15 Budesonide Respule Neb 0.5 Mg/2 Ml Amp INHALATION 0.5 mg Q12HRT SHERRY Administration Enoxaparin Sodium 30 mg 10/30/23 09:00 11/02/23 08:56 Enoxaparin 30 Mg/0.3 Ml Syringe SUB-Q 30 mg DAILY SHERRY Administration Fish Oil 1 gm 10/26/23 09:00 11/02/23 08:55 [place] 3 Polyunsat Fatty Acids 1 Gm Cap PO 1 gm DAILY SHERRY Administration Fluticasone Propionate 1 spray 10/25/23 17:00 11/02/23 17:12 Fluticasone Propionate 0.05% Na Spr 16 Gm Btl (*Bkc) NASAL Not Given BID [facility] Guaifenesin 600 mg 11/01/23 16:30 11/02/23 20:13 Guaifenesin 12 Hr 600 Mg Tabcr PO 600 mg Q12HR SHERRY Administration Piperacillin Sod/Tazobactam Sod 2.25 gm in 50 mls @ 100 mls/hr 10/29/23 18:00 11/02/23 17:14 Zosyn 2.25 Gm/Ns 50 Ml IVPB 100 mls/hr Q8H SHERRY Administration Ipratropium [place] 0.5 mg 10/29/23 14:00 11/02/23 20:15 Ipratropium Br 0.02% Inh Soln 0.5 Mg/2.5 Ml Vial INHALATION 0.5 mg Q6HRT SHERRY Administration Levalbuterol HCl 1.25 mg 10/29/23 14:00 11/02/23 20:15 Levalbuterol Neb 1.25 Mg/3 Ml INHALATION 1.25 mg Q6HRT SHERRY Administration Lorazepam 0.5 mg 10/29/23 10:24 11/02/23 20:13 Lorazepam (*Crx) 0.5 Mg Tablet PO 0.5 mg Q6H PRN Administration Anxiety Methocarbamol 750 mg 10/29/23 15:46 Methocarbamol 750 Mg Tablet PO QID PRN Muscle spasm Metoprolol Tartrate 12.5 mg 11/02/23 17:00 11/02/23 17:13 Metoprolol Tartrate 12.5 Mg Tablet PO 12.5 mg BID SHERRY Administration Metoprolol Tartrate 25 mg 11/02/23 17:00 11/02/23 17:13 Metoprolol Tartrate 25 Mg Tablet PO 25 mg BID SHERRY Administration Ondansetron HCl 4 mg 10/25/23 02:09 Ondansetron Inj 4 Mg/2 Ml Vial IV PUSH Q4H PRN Nausea Pantoprazole Sodium 40 mg 10/27/23 09:00 11/02/23 08:56 Pantoprazole 40 Mg Tablet PO 40 mg QAM SHERRY Administration Polyethylene Glycol 17 gm 10/27/23 21:03 Polyethylene Glycol 3350 17 Gm Powd.Pack PO QAM PRN Constipation Prednisone 30 mg 11/03/23 08:00 Prednisone 10 Mg Tablet PO DAILY@0800 SHERRY Roflumilast 250 mcg 10/28/23 09:00 11/02/23 08:55 Roflumilast 250 Mcg Tablet PO 250 mcg DAILY SHERRY Administration Sodium Chloride 1 spray 10/31/23 11:30 11/02/23 12:12 Saline 0.65% Rubén Soln 44 Ml Btl NASAL 1 spray Q6HR PRN Administration Congestion Vitamin D 400 units 10/26/23 09:00 11/02/23 08:55 Cholecalciferol 400 Units Tablet (Vit D) PO 400 units DAILY SHERRY Administration Radiology Results: ITS Impressions Chest X-Ray 10/25/23 05:41 Impression: No definite acute abnormality. Advanced COPD. Thoracolumbar Spine 10/29/23 17:00 IMPRESSION: 1. Mild to moderate lower lumbar predominant spondylosis. 2. New consolidation at the posterior lung are indeterminate side which could represent atelectasis or pneumonia. Labs Labs: Laboratory Results - last 24 hr 11/02/23 04:44 WBC 10.3 H RBC 3.16 L Hgb 9.5 L Hct 30.6 L MCV 96.8 MCH 30.1 MCHC 31.0 L RDW 13.1 Plt Count 334 MPV 9.7 Immature Gran % (Auto) 0.8 H Neut % (Auto) 63.2 Lymph % (Auto) 27.5 [place] % (Auto) 8.4 Eos % (Auto) 0.0 Baso % (Auto) 0.1 L Lymph # (Auto) 2.83 [place] # (Auto) 0.9 H Eos # (Auto) 0.0 Baso # (Auto) 0.0 Abs Immat Gran (auto) 0.08 H Absolute Neuts (auto) 6.5 Absolute Nucleated RBC 0.000 Nucleated RBC % 0.0 Sodium 135 L Potassium 3.9 Chloride 97 L Carbon Dioxide 32 H Anion Gap 6 BUN 23 H Creatinine 1.20 H Estim Creat Clear Calc 28 Estimated GFR 43 L Glucose 103 Calcium 9.8 Magnesium 1.9 Total Bilirubin 0.5 AST 21 ALT 21 Alkaline Phosphatase 47 Total Protein 6.0 L Albumin 3.3 L
[2023-11-03] VITALS (21 sets, daily range): BP systolic 133–164; BP diastolic 60–65; PULSE 74–118; RESP 17–20; TEMP 36.3–36.5; O2SAT 87–99
[2023-11-03] MEDS: PIPERACILLIN/TAZ 2.25G/NS 50ML 2.25 GM/50 ML BAG IVPB ×2 (00:56→09:22)
[2023-11-03] MEDS: LEVALBUTEROL NEB 1.25 MG/3 ML INHALATION ×3 (02:15→14:01)
[2023-11-03] MEDS: IPRATROPIUM BR 0.02% INH SOLN 0.5 MG/2.5 ML VIAL INHALATION ×3 (02:15→14:02)
[2023-11-03] MEDS: BUDESONIDE RESPULE NEB 0.5 MG/2 ML AMP INHALATION (07:45)
[2023-11-03] MEDS: ROFLUMILAST 250 MCG TABLET PO (08:23)
[2023-11-03] MEDS: amLODIPine BESYLATE 5 MG TABLET PO (08:24)
[2023-11-03] MEDS: METOPROLOL TARTRATE 12.5 MG TABLET PO (08:24)
[2023-11-03] MEDS: OMEGA 3 POLYUNSAT FATTY ACIDS 1 GM CAP PO (08:24)
[2023-11-03] MEDS: PANTOPRAZOLE 40 MG TABLET PO (08:24)
[2023-11-03] MEDS: predniSONE 10 MG TABLET 30 MG PO (08:24)
[2023-11-03] MEDS: ATORVASTATIN 40 MG TABLET PO (08:24)
[2023-11-03] MEDS: ASPIRIN 81 MG ENTERIC TABLET PO (08:24)
[2023-11-03] MEDS: CHOLECALCIFEROL 400 UNITS TABLET (VIT D) PO (08:25)
[2023-11-03] MEDS: guaiFENesin 12 HR 600 MG TABCR PO (08:25)
[2023-11-03] MEDS: AZITHROMYCIN 250 MG TABLET PO (08:25)
[2023-11-03] MEDS: ENOXAPARIN 30 MG/0.3 ML SYRINGE SUB-Q (08:25)
[2023-11-03] MEDS: METOPROLOL TARTRATE 25 MG TABLET PO (08:25)
[2023-11-03] MEDS: SALINE 0.65% NAS SOLN 44 ML BTL 1 SPRAY NASAL (08:30)
--- NOTE | 2023-11-03 10:30 | PCNFU ---
Nutrition Follow-Up Complete: Moderate protein calorie malnutrition related to chronic loss of appetite, early satiety, as evidenced by intakes <75% meals >1 month; weight loss -14%/6 months; moderate muscle wasting and fat loss goal: Adequate PO intake at least 75% meals and supplements Patient is meeting goal. No new goal. Pt current nutrition is heart healthy with Ensure compact BID. Last recorded weight is 61.81 kg, no weight changes reported. Bowel Motility: +BM reported 11/02 Labs Reviewed: Cr 1.2,BUN 23,GFR 43, Na 135 Meds Noted: Vit D, Miralax, Zofran, Lopressor, Protonix Skin: WNL Additional Notes: Patient is tolerating heart healthy diet. Diet supplements are being consumed for Ensure. Agree with diet orders. Monitoring intakes, weights, labs, meds, supplement tolerance, plan of care Follow up in 7 days
--- NOTE | 2023-11-03 15:53 | HOMEO2EVAL ---
Evaluation was performed at [facility] Home Oxygen Evaluation RC: Home Oxygen (O2) Evaluation Start: 11/01/23 16:29 Freq: ONCE Status: Active Protocol: RPE Activity Type Activity Date Activity User E-sign Co-sign Detail Recorded Client Recorded Date Recorded By Document 11/03/23 14:05 DJO [email or web address] 11/03/23 15:53 DJO Document 11/03/23 14:10 [email or web address] [email or web address] 11/03/23 15:53 DJO Document 11/03/23 14:15 [email or web address] [email or web address] 11/03/23 15:53 DJO Document 11/03/23 14:20 [email or web address] [email or web address] 11/03/23 15:53 DJO Document 11/03/23 14:25 [email or web address] [email or web address] 11/03/23 15:53 DJO Document 11/03/23 14:30 [email or web address] [email or web address] 11/03/23 15:53 DJO Document 11/03/23 14:45 [email or web address] [email or web address] 11/03/23 15:53 DJO 11/03/23 11/03/23 11/03/23 14:05 14:10 14:15 Home O2 Evaluation [Oxygen] -Test Phase Resting Resting Resting -Oxygen Delivery Room Air Nasal Cannula Nasal Cannula -Oxygen Flow Rate (L/min) 1 2 [Pulse Oximetry] -Pulse Oximetry (90-100 %) 87 L 88 L 91 [Pulse Rate] -Pulse Rate (60-100 beats/min) 92 99 96 [Evaluation] -Activity Tolerance [Exercise] -Ambulation Distance (feet) -Ambulation Distance (meters) [Charges] -Evaluation Charges O2 Evaluation by Pulmonary 11/03/23 11/03/23 11/03/23 14:20 14:25 14:30 Home O2 Evaluation [Oxygen] -Test Phase Exercise Exercise Exercise -Oxygen Delivery Nasal Cannula Nasal Cannula Nasal Cannula -Oxygen Flow Rate (L/min) 2 3 4 [Pulse Oximetry] -Pulse Oximetry (90-100 %) 87 L 88 L 91 [Pulse Rate] -Pulse Rate (60-100 beats/min) 111 H 114 H 115 H [Evaluation] -Activity Tolerance Good [Exercise] -Ambulation Distance (feet) 500 -Ambulation Distance (meters) 152.39 [Charges] -Evaluation Charges 11/03/23 14:45 Home O2 Evaluation [Oxygen] -Test Phase Resting -Oxygen Delivery Nasal Cannula -Oxygen Flow Rate (L/min) 2 [Pulse Oximetry] -Pulse Oximetry (90-100 %) 92 [Pulse Rate] -Pulse Rate (60-100 beats/min) 98 [Evaluation] -Activity Tolerance [Exercise] -Ambulation Distance (feet) -Ambulation Distance (meters) [Charges] -Evaluation Charges
--- NOTE | 2023-11-03 15:56 | PCRTNOTE ---
HOME O2 EVAL COMPLETE, 2L REST 4L ACTIVITY.. PT HAS HOME O2 WITH [facility]. SHE HAS PORTABLE O2 FOR DISCHARGE
--- NOTE | 2023-11-03 16:12 | PM.DS ---
DS: Admitting Diagnosis Discharge Date 11/03/23 Admitting Diagnosis Shortness of breath DS: Discharge Diagnosis Discharge Diagnosis (1) COPD with acute exacerbation: Code(s): J44.1 - Chronic obstructive pulmonary disease with (acute) exacerbation Status: Acute (2) Chest pain: Code(s): R07.9 - Chest pain, unspecified Status: Acute (3) Chronic respiratory failure with hypoxia: Code(s): J96.11 - Chronic respiratory failure with hypoxia Status: Acute (4) CKD (chronic kidney disease) stage 3, GFR 30-59 ml/min: Qualifiers: Chronic kidney disease stage 3 subtype: stage 3b (GFR 30-44) Qualified Code(s): N18.32 - Chronic kidney disease, stage 3b Code(s): N18.3 - Chronic kidney disease, stage 3 (moderate) Status: Acute (5) ASHD (arteriosclerotic heart disease): Code(s): I25.10 - Atherosclerotic heart disease of [place] coronary artery without angina pectoris Status: Acute (6) Essential (primary) hypertension: Code(s): I10 - Essential (primary) hypertension Status: Acute (7) PAD (peripheral artery disease): Code(s): I73.9 - Peripheral vascular disease, unspecified Status: Acute (8) Anemia: Code(s): D64.9 - Anemia, unspecified Status: Acute DS: Summary Hospital Course Reason for hospitalization: 77yo female with COPD, chronic respiratory failure (3L at rest and 4L with activity), CAD and HTN here for shortness of breath. Symptoms began about 2 days prior to admission that progressively worsened. Please see H&P for details Hospital Course: Patient with chronic respiratory failure on home oxygen. She presents with wheezing, increasing shortness of breath and hypoxia with exertion. Most likely this is a COPD exacerbation. Triggers unclear but she has been exposed to her daughter who has been sick recently. WBC elevated but Chest x-ray does not reveal pneumonia and she is not having a productive cough but her sputum grew Pseudomonas that was norman-sensitive. She completed 5 days of Zosyn. We continued her home azithromycin prophylaxis. Was started on Solu-Medrol and transitioned to prednisone taper. Pulmonary was consulted. Also treated with bronchodilators. Echo with normal EF with grade 1 diastolic dysfunction. Will have her followup with cardiology for outpatient stress test. We continue ASA, Lipitor, Metoprolol. She is having weight loss due to poor appetite. 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 MALVIN was not well visualized. We added supplements. She had a mild anemia. FOBT was positive. Hgb remained stable in the 9-10 range. She will need follow-up with GI for further evaluation. She had a home O2 evaluation and requires 2L at rest and 4L with exertion. She did well and was able to be discharged home on 11/03/23. Discharge instructions discussed with detention deputy and later with patient and family. Status at Discharge Cognitive/behavioral status at discharge: stable Time Spent with Patient Time attestation: Total time spent providing and/or coordinating discharge services: 38 minutes Time spent: Greater than 30 minutes Exam Narrative: AF 97.7 133/60 98 20 92% 2L Gen - NARD Chest - inspiratory crackles in the bases o.w distant BS. no wheezing CV - RRR S1/S2; Tele showing sinus tachycardia at times Abd - Soft, NT/ND, Positive BS Ext - No pedal edema Psych - Nml mood and affect Skin - Warm and dry DS: Data Data Completed and Pending Labs on day of discharge: Preliminary micro results at discharge 10/30/23 05:35 Acid Fast Bacilli Culture - Preliminary Sputum 10/29/23 03:35 Acid Fast Bacilli Culture - Preliminary Sputum Discharge Plan Discharge Attending physician on discharge: Hawk Mcconnell Consulting providers: Juliana Andersen Discharging Clinician: Hawk Mcconnell Anticipated Discharge Date/Time: 11/03/23 16:23 Patient Disposition: Home, Self-Care Activity: as tolerated Diet: heart healthy Discharge Instructions: Check blood pressure 1 to 2 times a day. Record and bring into your doctor for review. Call your doctor if your blood pressure is greater than 180/110. Continue to use oxygen at 2Liters at rest/sleep and 4 Liters with exertion. Take precautions to avoid falls. Rise slowly from a lying or sitting position. Pause before standing or walking. Contact your doctor or call 911 and come to the Emergency Room if you have chest pain, increasing shortness of breath or other worrisome symptoms. Avoid NSAIDs (ibuprofen, naproxen, Aleve). Tylenol is safe to take. Follow-up with your primary care provider in 1-2 weeks. Please call for appointment. Follow-up with [employer] in 2-3 weeks since you have been having chest pain. Please call for an appointment Follow-up with the GI doctor in 2-3 weeks since you have were found to have blood in your stool. Please call for an appointment. Follow-up with [employer] in 1-2 weeks. Please call for an appointment. Thank you for using [facility] for your health care needs. Patient Instructions: Antibiotic Form Stand Alone Forms: General Discharge Information Follow-up/Referrals: Juliana Andersen MD [Physician] - Call for Appointment Glenn Oliva MD [Primary Care Provider] - Call for Appointment Theresa Hopkins MD [Physician] - Call for Appointment Jose G Lawson MD [Physician] - Call for Appointment Discharge Medications: New guaifenesin [Mucus Relief ER] 600 mg Tablet Extended Release 12hr 600 mg PO Q12HR Qty: 60 0RF prednisone 10 mg Tablet 30 mg PO DIRECTED Qty: 15 0RF Rx Instructions: Take 3 tablets daily for 2 days THEN decrease to 2 tablets daily for 3 days THEN decrease to 1 tablet daily for 3 days THEN stop pantoprazole 40 mg Tablet,Delayed Release (Dr/Ec) 40 mg PO QAM Qty: 30 0RF roflumilast [Daliresp] 250 mcg Tablet 250 mcg PO DAILY Qty: 30 1RF Continued aspirin [Adult Low Dose Aspirin] 81 mg tablet,delayed release (DR/EC) 81 mg PO DAILY omega 4-krx-vtj-fish oil [Fish Oil] 1,000 mg (120 mg-180 mg) capsule 1 cap PO DAILY cholecalciferol (vitamin D3) 400 unit capsule 400 unit PO DAILY (DME) inhalational spacing device Spacer See Rx Instructions .ROUTE .MEDSUPPLY Qty: 1 0RF Rx Instructions: As directed albuterol sulfate [ProAir HFA] 90 mcg/actuation HFA aerosol inhaler 1 - 2 puff INHALATION Q4-6H PRN (Reason: shortness of breath or wheezing) Qty: 25.5 2RF Breztri Aerosphere 160-9-4.8 mcg/actuation HFA aerosol inhaler 2 inh INHALATION BID amlodipine 5 mg tablet 5 mg PO DAILY fluticasone propionate 50 mcg/actuation spray,suspension 1 spray intranasal BID azithromycin 250 mg tablet 250 mg PO QMWF 30 Days Qty: 13 5RF atorvastatin 40 mg tablet 40 mg PO DAILY Qty: 90 1RF albuterol sulfate 2.5 mg /3 mL (0.083 %) solution for nebulization See Rx Instructions .ROUTE .COMPLEX Qty: 300 9RF Dose Instruction: INHALE CONTENTS OF 1 VIAL VIA NEBULIZER EVERY 6 HOURS NEEDED FOR SHORTNESS OF BREATH OR WHEEZE Rx Instructions: INHALE CONTENTS OF 1 VIAL VIA NEBULIZER EVERY 6 HOURS NEEDED FOR SHORTNESS OF BREATH OR WHEEZE Changed metoprolol tartrate 25 mg tablet 37.5 mg PO BID 90 Days Qty: 180 1RF Held olmesartan-hydrochlorothiazide 40-12.5 mg tablet 1 tablet PO DAILY Hold Instructions: HOLD - resume when okay with your doctor Date of admission: 10/28/23 11:02 Primary Care Provider: Glenn Oliva Admitting Provider: Hawk Mcconnell Attending physician on admission: Hawk Mcconnell Condition: Stable Hospitalist MIPS Heart Failure (Exclusion) Patient has history of Heart Transplant or Left Ventricular Assistive Device?: No IF YES, STOP HERE Heart Failure (Qualifier) Patient has current or prior documentation of LVEF less than or equal to 40%, or mod/servere depressed LVSF?: No IF NO, STOP HERE
[2023-11-11 02:23] LABS: Legionella pneumophila Ag Ur NOT DETECTED
--- NOTE | 2023-11-12 12:50 | PC.NURSE ---
Urine Legionella and Pneumococcal AG are both negative.
--- NOTE | 2023-12-02 07:07 | PC.NURSE ---
Faxed Sputum cx results to Dr. Andersen per request of Dr. Mcconnell.
== END 2023-11-03 17:30 | disposition home or self-care (01) | DRG 191 ==
LOC: ANHED 10-25 01:51 → ANH2MED 10-25 08:00
PROVIDERS: Internal Medicine; Internal Medicine Critical Care Medicine; Nurse Practitioner; Admitting Provider Internal Medicine; Emergency Provider Student in an Organized Health Care Education/Training Program; PCP Family Medicine; Visit Provider Internal Medicine
DX: J44.1 Chronic obstructive pulmonary disease with (acute) exacerbation (principal); J96.11 Chronic respiratory failure with hypoxia; B96.5 Pseudomonas (aeruginosa) (mallei) (pseudomallei) as the cause of diseases classified elsewhere; I12.9 Hypertensive chronic kidney disease with stage 1 through stage 4 chronic kidney disease, or unspecified chronic kidney disease; N18.32 Chronic kidney disease, stage 3b; I25.10 Atherosclerotic heart disease of native coronary artery without angina pectoris; R00.0 Tachycardia, unspecified; I73.9 Peripheral vascular disease, unspecified; D64.9 Anemia, unspecified; E78.5 Hyperlipidemia, unspecified; F41.9 Anxiety disorder, unspecified; Z66 Do not resuscitate; Z79.82 Long term (current) use of aspirin; Z87.891 Personal history of nicotine dependence; I25.2 Old myocardial infarction; Z95.5 Presence of coronary angioplasty implant and graft; Z90.49 Acquired absence of other specified parts of digestive tract; Z90.710 Acquired absence of both cervix and uterus; Z99.81 Dependence on supplemental oxygen
CPT/HCPCS: 36415; 71046; 72080; 80048; 80053; 82274; 82607; 82728; 82746; 83540; 83550; 83605; 83735; 83880; 84439; 84443; 84480; 84484; 85025; 85027; 85049; 87015; 87070; 87102; 87116; 87118; 87186; 87205; 87206; 87449; 87493; 87637; 87899; 93005; 93306; 94618; 94640; 94667; 96365; 96372; 96375; 96376; 97116; 97161; 97165; 99285; A9270; G0378; J1650; J2543; J2919; J7050; J7512

== ENCOUNTER 2023-12-16 09:26 | Outpatient (CLI) | payer MEDICARE, MEDICAID, SELFPAY ==
[2023-12-16 10:32] LABS: Anion Gap 7 mmol/L (4-12); Blood Urea Nitrogen 37 mg/dL (7-17); Calcium 10.7 mg/dL (8.4-10.2); Carbon Dioxide 34 mmol/L (22-30); Chloride 95 mmol/L (98-107); Estimated Glomerular Filt Rate 31; Glucose 154 mg/dL (65-110); Potassium 4.3 mmol/L (3.4-5.0); Sodium 136 mmol/L (137-145)
== END 2023-12-16 09:27 | disposition home or self-care (01) ==
PROVIDERS: PCP Nurse Practitioner Family; Visit Provider Nurse Practitioner Adult Health
DX: R60.9 Edema, unspecified (principal); I10 Essential (primary) hypertension
CPT/HCPCS: 36415; 80048

== ENCOUNTER 2024-02-11 08:53 | Outpatient (CLI) | payer MEDICARE, MEDICAID, SELFPAY ==
[2024-02-11 09:16] LABS: Basophils Percent Auto 0.2 % (0.2-1.2); Eosinophils Percent Auto 0.1 % (0-4.4); Hematocrit 33.9 % (37.0-47.0); Hemoglobin 10.4 g/dL (12.0-15.0); Immature Granulocyte Percent A 0.6 % (0-0.5); Lymphocytes Absolute Auto 2.68 K/mm3 (0.9-3.2); Lymphocytes Percent Auto 15.6 % (18.3-44.2); Mean Corpuscular HGB Conc 30.7 g/dl (32-36); Mean Corpuscular Hemoglobin 29.6 pg (26-34); Mean Corpuscular Volume 96.6 fl (80-100); Mean Platelet Volume 10.5 fl (7.4-10.4); Monocytes Absolute Auto 1.4 K/mm3 (0.1-0.6); Monocytes Percent Auto 8.2 % (2.6-8.5); Neutrophils Absolute Auto 12.9 K/mm3 (1.3-6.7); Neutrophils Percent Auto 75.3 % (45.5-73.1); Platelet Count Result 266 k/mm3 (150-375); Red Blood Count 3.51 M/mm3 (4.2-5.4); Red Cell Distribution Width 13.8 % (11.5-14.5); White Blood Count 17.2 K/mm3 (4.5-10.0)
[2024-02-11 10:32] LABS: Alanine Aminotransferase 16 U/L (6-35); Albumin Level 4.1 g/dL (3.5-5.1); Alkaline Phosphatase 52 U/L (38-126); Anion Gap 9 mmol/L (4-12); Aspartate Amino Transferase 28 U/L (14-36); Blood Urea Nitrogen 44 mg/dL (7-17); Calcium 11.4 mg/dL (8.4-10.2); Carbon Dioxide 34 mmol/L (22-30); Chloride 95 mmol/L (98-107); Cholesterol 137 mg/dL (0-200); Estimated Glomerular Filt Rate 39; Glucose 119 mg/dL (65-110); HDL Direct 61 mg/dL; Potassium 3.6 mmol/L (3.4-5.0); Sodium 138 mmol/L (137-145); Triglycerides 59 mg/dL (<150)
[2024-02-11 10:43] LABS: LDL Cholesterol Direct 39 mg/dL
[2024-02-11 10:53] LABS: Free T4 Free Thyroxine 1.27 ng/mL (0.78-2.19); Vitamin D 25 Hydroxy 51.8 ng/mL
[2024-02-11 11:03] LABS: Thyroid Stimulating Hormone 0.682 uIU/mL (0.465-4.680)
[2024-02-11 11:18] LABS: Iron 36 ug/dL (37-170); Percent Iron Saturation 10 % (20-50)
[2024-02-11 11:39] LABS: Folic Acid 5.5 ng/mL (2.76->20)
== END 2024-02-11 08:54 | disposition home or self-care (01) ==
PROVIDERS: PCP Nurse Practitioner Family; Visit Provider Nurse Practitioner Family
DX: E55.9 Vitamin D deficiency, unspecified (principal); D64.9 Anemia, unspecified; J44.1 Chronic obstructive pulmonary disease with (acute) exacerbation; I10 Essential (primary) hypertension; R78.5 Finding of other psychotropic drug in blood; R73.01 Impaired fasting glucose; D72.829 Elevated white blood cell count, unspecified; G47.33 Obstructive sleep apnea (adult) (pediatric); I73.9 Peripheral vascular disease, unspecified; J18.9 Pneumonia, unspecified organism; R00.0 Tachycardia, unspecified; I25.10 Atherosclerotic heart disease of native coronary artery without angina pectoris; I65.29 Occlusion and stenosis of unspecified carotid artery; E78.5 Hyperlipidemia, unspecified; G62.9 Polyneuropathy, unspecified
CPT/HCPCS: 36415; 80053; 80061; 82306; 82607; 82746; 83540; 83550; 84439; 84443; 85025

== ENCOUNTER 2024-03-02 17:20 | Observation (INO) | payer MEDICARE, MEDICAID, SELFPAY ==
[2024-03-02] VITALS (10 sets, daily range): BP systolic 102–117; BP diastolic 51–66; PULSE 106–114; RESP 16–39; TEMP 36.3–36.9; O2SAT 90–99
--- NOTE | ~2024-03-02 | US_ITS ---
EXAMINATION: US venous doppler [facility] DATE: 03/03/2024 11:10 INDICATION: Chest pain. TECHNIQUE: Grayscale ultrasound images without and with compression and Doppler ultrasound images of the bilateral lower extremity veins were obtained. COMPARISON: None. FINDINGS: The visualized portions of right common femoral vein, profunda (deep) femoral vein, femoral vein, pop liteal vein, peroneal veins, posterior tibial veins, and greater saphenous vein outflow are patent. The visualized portions of left common femoral vein, profunda femoral vein, femoral vein, popliteal v ein, peroneal veins, posterior tibial veins, and greater saphenous vein outflow are patent. IMPRESSION: 1. No deep venous thrombosis. Reviewed, dictated and finalized at location A. [employer] ARCHIVIST
--- NOTE | ~2024-03-02 | NM_ITS ---
EXAMINATION: NM lung vent and perfusion DATE: 03/03/2024 11:07 INDICATION: Shortness of breath. TECHNIQUE: 25.5 mCi Xenon-133 was given for ventilation images. 4.72 mCi Tc-99m MAA was administered intravenously for perfusion images. Scintigraphic images of the chest were obtained. COMPARISON: Chest CT 03/02/2024, chest 2 views 03/02/2024 FINDINGS: The single breath images demonstrate small and moderate sized defects in the lower lung zones. There is diffuse retention in the lungs bilaterally correlating with emphysema by CT. The perfusion images demonstrate large matched defects in the lower lobes. IMPRESSION: 1. Intermediate probably for pulmonary embolism. Reviewed, dictated and finalized at location A. PATIONAL WORK EXPERIENCE TEACHER
--- NOTE | ~2024-03-02 | XR_ITS ---
CHEST RADIOGRAPH CLINICAL HISTORY: sob . COMPARISON: 10/24/2023 TECHNIQUE: Single portable view of the chest. FINDINGS The cardiomediastinal silhouette is enlarged, unchanged Small left-sided pleural effusion remains, unchanged from 10/24/2023. Remainder of the lungs demonstrate coarse interstitial markings similar to prior study and likely chr onic Visualized osseous structures and soft tissues are unremarkable. IMPRESSION: Small left-sided pleural effusion coarse interstitial lung markings, unchanged from 10/24/2023 Reviewed, dictated and finalized at location A. E MAN
--- NOTE | ~2024-03-02 | CT_ITS ---
EXAMINATION: CTA chest PE protocol DATE: 03/04/2024 14:11 INDICATION: r/o/PE TECHNIQUE: Computed tomography angiography (CTA) of the chest was performed with 100 mL Omnipaque-350 intravenous contrast timed to evaluate the pulmonary arteries. Coronal maximum intensity projection 3D-reconstructions were created by the technologist. The dose-length product (DLP) was 228.03 mGy-cm. Automated exposure control and iterative reconstruction technique were employed. COMPARISON: 03/02/2024. FINDINGS: Lung parenchyma and airways: Moderate emphysema. Scattered linear and focal reticulonodular areas. De pendent atelectasis. Patent airways. Pleura: Small bilateral pleural fluid collections. Thoracic inlet, axillae and chest wall: Unremarkable. Thoracic aorta: No significant dilation. No dissection. Moderate atherosclerotic plaque. Mediastinum: Normal. Heart and pericardium: Normal heart size. Small pericardial effusion. Coronary artery calcifications: Moderate. Upper abdomen: No significant finding. Bones: No acute osseous finding. Pulmonary arteries: Study quality: Adequate. No pulmonary emboli detected. IMPRESSION: No CT evidence of acute pulmonary embolus. Scattered areas of scarring and chronic infection, over a background of moderate emphysema. Small bilateral pleural effusions. Small pericardial effusion. Reviewed, dictated and finalized at location K. OR PRINCIPAL IMPRESSION: No CT evidence of acute pulmonary embolus. Scattered areas of scarring and chronic infection, over a background of moderat e emphysema. Small bilateral pleural effusions. Small pericardial effusion.
--- NOTE | ~2024-03-02 | CT_ITS ---
Clinical indication:Chest pain and hypoxia COMPARISON:Reference is made to plain film evaluation of the chest performed the same day TECHNIQUE: Multiple contiguous axial images of the chest were performed without the administration of intravenous contrast. FINDINGS: LUNG:Panlobular emphysema is identified coarse interstitial lung markings. Tree-in-bud opacification is also noted, suggesting hypersensitivity pneumonitis. Bibasilar pleural thickening is also noted, likely owing to the appearance of a pleural effusion on c hest x-ray. MEDIASTINUM:No pathologically enlarged or identified mediastinum. HEART:The heart is of normal size, with a small cardiac perfusion measuring 8 mm in greatest caliber. SOFT TISSUES OF THE CHEST: Unremarkable BONES OF THE CHEST: Significant kyphosis is present. Trace degenerative disease. No lytic or blastic lesions. VISUALIZED PORTION OF THE UPPER ABDOMEN: Densely calcified atherosclerotic disease within the abdomin al IMPRESSION: Panlobular emphysema with additional findings suggesting persistent pneumonitis. Bibasilar pleural th ickening. Small pericardial effusion. Reviewed, dictated and finalized at location A. OR ANALYST IMPRESSION: Panlobular emphysema with additional findings suggesting persistent pneumonitis . Bibasilar pleural thickening. Small pericardial effusion.
--- NOTE | 2024-03-02 21:51 | ECG_ITS ---
Test Date: 2024-03-02 22:20:56 Measurements Intervals [place] Rate: 106 P: 67 ND: 157 QRS: 42 QRSD: 82 T: 0 QT: 271 QTc: 360 Interpretive Statements SINUS TACHYCARDIA MINIMAL Q WAVES- ANTEROLAT/INF LEADS NONSPECIFIC T WAVE ABNORMALITY- DIFFUSE LEADS ABNORMAL ECG Compared to ECG 10/26/2023 11:00:05 HEART RATE HAS INCREASED T-wave abnormality now present Electronically Signed On 03-03-2024 06:25:40 [employer] by Joon Boyce D.O.
[2024-03-02 22:23] LABS: Basophils Percent Auto 0.2 % (0.2-1.2); Eosinophils Percent Auto 0.1 % (0-4.4); Hematocrit 33.3 % (37.0-47.0); Hemoglobin 10.4 g/dL (12.0-15.0); Immature Granulocyte Absolute 0.09 K/mm3 (0.00-0.031); Immature Granulocyte Percent A 0.4 % (0-0.5); Lymphocytes Absolute Auto 1.83 K/mm3 (0.9-3.2); Lymphocytes Percent Auto 8.7 % (18.3-44.2); Mean Corpuscular HGB Conc 31.2 g/dl (32-36); Mean Corpuscular Hemoglobin 29.7 pg (26-34); Mean Corpuscular Volume 95.1 fl (80-100); Mean Platelet Volume 9.8 fl (7.4-10.4); Monocytes Absolute Auto 1.3 K/mm3 (0.1-0.6); Monocytes Percent Auto 6.4 % (2.6-8.5); Neutrophils Absolute Auto 17.7 K/mm3 (1.3-6.7); Neutrophils Percent Auto 84.2 % (45.5-73.1); Platelet Count Result 262 k/mm3 (150-375); Red Cell Distribution Width 14.3 % (11.5-14.5)
[2024-03-02 22:33] LABS: INR 1.3; Prothrombin Time 16.7 Seconds (11.1-14.7)
[2024-03-02 22:34] LABS: Partial Thromboplastin Time 38.4 Seconds (22.3-36.8)
[2024-03-02 22:37] LABS: D Dimer 1.53 ug/mL (<0.48)
[2024-03-02 22:39] LABS: Alanine Aminotransferase 18 U/L (6-35); Albumin Level 3.9 g/dL (3.5-5.1); Alkaline Phosphatase 77 U/L (38-126); Anion Gap 7 mmol/L (4-12); Aspartate Amino Transferase 20 U/L (14-36); Bilirubin,Total 0.9 mg/dL (0.2-1.3); Blood Urea Nitrogen 50 mg/dL (7-17); Calcium 10.6 mg/dL (8.4-10.2); Carbon Dioxide 32 mmol/L (22-30); Chloride 95 mmol/L (98-107); Estimated CRCL calculation 19 ml/min; Estimated Glomerular Filt Rate 27; Glucose 122 mg/dL (65-110); Magnesium 1.8 mg/dL (1.6-2.3); Potassium 4.2 mmol/L (3.4-5.0); Sodium 134 mmol/L (137-145)
[2024-03-02 22:44] LABS: Hypochromasia 1+; Ovalocytes 1+; Platelet Estimate Adequate (Adequate)
[2024-03-02 22:45] LABS: Schistocytes None Seen
[2024-03-02 22:52] LABS: NT Pro B Type Natriuretic Pept 2010 pg/mL (19.9-100)
[2024-03-02 22:58] LABS: Influenza A QL RT-PCR Negative (Negative); Influenza B QL RT-PCR Negative (Negative); RSV RNA, RT-PCR Negative (Negative); SARS-CoV-2 RNA PCR Negative (Negative)
--- NOTE | 2024-03-02 23:20 | ED.SOB ---
HPI - SOB/Dyspnea General Chief Complaint: Shortness of Breath/Dyspnea Stated Complaint: SOB Time Seen by Provider: 03/02/24 21:50 Source: patient Mode of arrival: ambulatory Limitations: no limitations History of Present Illness HPI Narrative: Patient is an 78-year-old female who presents to the ED with report of shortness of breath and pleuritic pain. Patient reports over the past 2 days, she began having significant pain with deep breaths. She has been feeling increasingly short of breath. She does have history of end-stage emphysema, MAX. Sees Dr. Andersen. Chronically on 2.5-3 L nasal cannula at all times, 4 L with exertion. Reports sats have been dropping into the mid 80s at home. Also reports dry cough, subjective fevers. Denies lower extremity pain or swelling, known sick contacts. Denies previous hx of blood clots. Not on any anticoagulation. Related Data Home Medications Medication Instructions Recorded Confirmed aspirin 81 mg tablet,delayed 81 mg PO DAILY 02/10/19 03/03/24 release (Adult Low Dose Aspirin) cholecalciferol (vitamin D3) 10 400 unit PO DAILY 02/10/19 03/03/24 mcg (400 unit) capsule omega 7-jeb-awi-fish oil 1,000 mg 1 cap PO DAILY 02/10/19 03/03/24 (120 mg-180 mg) capsule (Fish Oil) amlodipine 5 mg tablet 5 mg PO DAILY 10/25/23 03/03/24 atorvastatin 40 mg tablet 40 mg PO DAILY 03/03/24 03/03/24 olmesartan 40 1 tablet PO DAILY 03/03/24 03/03/24 mg-hydrochlorothiazide 12.5 mg tablet revefenacin 175 mcg/3 mL solution 175 mcg inhalation QAM 03/03/24 03/03/24 for nebulization (Yupelri) revefenacin 175 mcg/3 mL solution mcg inhalation 03/03/24 for nebulization (Yupelri) roflumilast 250 mcg tablet 250 mcg PO DAILY 03/03/24 03/03/24 Allergies Allergy/AdvReac Type Severity Reaction Status Date / Time TULIO Inhibitors Allergy Unknown Rash Verified 11/26/23 15:00 budesonide Allergy Unknown Rash Verified 11/26/23 15:00 ceftriaxone Allergy Unknown Rash Verified 11/26/23 15:00 codeine Allergy Unknown Rash Verified 11/26/23 15:00 formoterol Allergy Unknown Rash Verified 11/26/23 15:00 levofloxacin Allergy Unknown Rash Verified 11/26/23 15:00 lisinopril Allergy Unknown Rash Verified 11/26/23 15:00 Review of Systems Review of Systems: All systems reviewed & are unremarkable except as noted in HPI. All systems reviewed & are unremarkable except as noted in HPI and below PMFSH Past Medical History Medical History ARF (acute renal failure) Carotid occlusion, bilateral She sees her vascular surgeon every 6 months for this Chronic respiratory failure COPD with acute exacerbation Emphysema of lung History of tobacco abuse HTN (hypertension) Hyperlipidemia Myocardial infarction PAD (peripheral artery disease) Pneumonia Seasonal allergies Surgical History Surgical History H/O heart artery stent H/O: hysterectomy Hx of appendectomy Family History Family History Grandparent Family history of tuberculosis Mother Cerebrovascular accident, Onset Age: 73 Father Family history of chronic obstructive pulmonary disease Family history of heart disease in male family member before age 55 Acute myocardial infarction Sibling Family history of chronic obstructive pulmonary disease Family history of lung cancer Family history of malignant neoplasm Family history of lung disease Social History Social History Social History: Lives with her daughter. Code status - DNR She nominates her daughter to be the individual would make medical decisions for her if she is unable. Smoking packs per day: 2 Smoking cigarettes per day: 40.0 Years smoked: 20 Smoking pack-years: 40.00 Smoking status: Former smoker Second hand tobacco smoke exposure: No Alcohol intake: never Substance use: never Substance use type: does not use Do You Feel Safe in your Home?: Yes Lack of Transportation: No Lack of Food: Never True Current Housing: I Have Housing Concerned About Future Housing: No Difficulty Paying Gas/Electric Bills: No Difficulty Paying for Meds: No Currently Unemployed: No Education: High School Diploma/GED Difficulty w/ Childcare or Family Care: No Gender identity (if verbalized by the patient): Female Spiritual care concerns: No Agree to blood products: Yes Exam Narrative: GENERAL: Chronically ill-appearing, thin, non-toxic, in no acute distress. HEAD: Normocephalic, atraumatic. RESPIRATORY: Airway patent, respirations nonlabored. Decreased lung sounds throughout. Coarse lung sounds in bases bilaterally. On 3 L nasal cannula. Some conversational dyspnea. CARDIOVASCULAR: Borderline tachycardic with regular rhythm without murmurs, rubs, or gallops. ABDOMINAL: Soft, nontender, nondistended. Normoactive BS. MUSCULOSKELETAL: Moves all extremities. No gross deformities. No peripheral edema. SKIN: Warm, dry, normal color. NEURO: A&O X3. Speech clear. PSYCHIATRIC: Appropriate mood and affect. Normal interaction. Course Vital Signs Vital signs: Vital Signs Temperature 98.4 F 03/02/24 17:28 Pulse Rate 107 H 03/02/24 17:28 Respiratory Rate 24 H 03/02/24 17:28 Blood Pressure 102/66 03/02/24 17:28 Pulse Oximetry 90 03/02/24 17:28 Oxygen Delivery Nasal Cannula 03/02/24 17:28 Oxygen Flow Rate 3 03/02/24 17:28 Temperature 97.5 F L 03/03/24 16:00 Pulse Rate 99 03/03/24 18:00 Respiratory Rate 18 03/03/24 16:00 Blood Pressure 129/52 L 03/03/24 16:00 Pulse Oximetry 97 03/03/24 16:00 Oxygen Delivery Nasal Cannula 03/03/24 14:26 Oxygen Flow Rate 2 03/03/24 14:26 MDM - SOB/Dyspnea MDM Narrative Medical decision making narrative: Patient presented to ED with increased SOB, hypoxia on home O2, cough, subjective fevers. Patient tachycardic and tachypneic upon arrival. Oxygen 90% on 3 L nasal cannula. Afebrile here. CBC with white blood cell count of 21.0. Neutrophil predominance. No bandemia. Patient has been on steroids in the past 2 weeks. H&H is stable. CMP with sodium 134, chloride of 95, bicarb at 32. Appears to have an SHAD with creatinine today of 1.8. Baseline around 1.3. Patient given small dose of fluids in the ED. initial EKG with sinus tachycardia. No significant ST changes. Patient is reporting pain mostly with deep breathing verses pain at rest. Baseline troponin is 0.020. Will continue to monitor. BNP is 2010. Viral swabs are negative. Initial chest x-ray showing left-sided pleural effusion, unchanged. D-dimer resulted elevated at 1.53. Unfortunately due to SHAD, patient unable to receive contrast at this time. Will obtain V/Q scan. Notified by CT scan that VQ is not available until the morning. Will place order for am and give dose of Lovenox overnight. CT scan of chest w/o con was obtained and showing severe emphysema and pneumonitis. Patient will be admitted for further evaluation of acute on chronic hypoxia, SHAD, pneumonitis. Given dose of IV azithromycin in the ED. She does take this every other day for her history of MAX. Will have pulmonology consult. Sees Dr Andersen. Discussed case with Yolis Fried PA hospitalist, accepted patient for admission. Patient had initially been tachycardic throughout ED stay into 100s to 120s, sinus rhythm. She did go into an abnormal rhythm with rates up into the 170s-190s. It did appear to be SVT. Patient reports she has a history of SVT. She denies previous history of AFib. She is not on any anticoagulation. Attempted vagal maneuvers in the ED without improvement. Attempted 6 mg then 12mg of Adenosine. There was an appropriate pause with the 12 mg of adenosine and began looking more like a flutter. Will initiate Cardizem bolus and drip. Heart rate still persistently into the 160s and 170s. Given additional dose of IV Lopressor with improvement of rate in the 120-140. It does appear very consistent with a flutter at this time. Will keep on cardizem gtt and admit to IMU. Cardiology consulted. Patient in agreement with plan and need for admission. Medical Records Attestation: I reviewed the patient's medical records. Lab Data Attestation: I reviewed the patient's lab results. 03/03/24 04:24 03/03/24 15:00 Labs: Lab Results 03/02/24 03/02/24 Range/Units 22:16 23:24 WBC 21.0 H (4.5-10.0) K/mm3 RBC 3.50 L (4.2-5.4) M/mm3 Hgb 10.4 L (12.0-15.0) g/dL Hct 33.3 L (37.0-47.0) % MCV 95.1 (80-100) fl MCH 29.7 (26-34) pg MCHC 31.2 L (32-36) g/dl RDW 14.3 (11.5-14.5) % Plt Count 262 (150-375) k/mm3 MPV 9.8 (7.4-10.4) fl Immature Gran % (Auto) 0.4 (0-0.5) % Neut % (Auto) 84.2 H (45.5-73.1) % Lymph % (Auto) 8.7 L (18.3-44.2) % [place] % (Auto) 6.4 (2.6-8.5) % Eos % (Auto) 0.1 (0-4.4) % Baso % (Auto) 0.2 (0.2-1.2) % Lymph # (Auto) 1.83 (0.9-3.2) K/mm3 [place] # (Auto) 1.3 H (0.1-0.6) K/mm3 Eos # (Auto) 0.0 (0-0.3) K/mm3 Baso # (Auto) 0.0 (0.0-0.1) K/mm3 Abs Immat Gran (auto) 0.09 H (0.00-0.031) K/mm3 Absolute Neuts (auto) 17.7 H (1.3-6.7) K/mm3 Absolute Nucleated RBC 0.000 (0.0-0.012) K/mm3 Nucleated RBC % 0.0 (0.0-0.2) % Platelet Estimate Adequate (Adequate) Hypochromasia 1+ Ovalocytes 1+ Schistocytes None seen PT 16.7 H (11.1-14.7) Seconds INR 1.3 APTT 38.4 H (22.3-36.8) Seconds D-Dimer 1.53 H (<0.48) ug/mL Sodium 134 L (137-145) mmol/L Potassium 4.2 (3.4-5.0) mmol/L Chloride 95 L (98-107) mmol/L Carbon Dioxide 32 H (22-30) mmol/L Anion Gap 7 (4-12) mmol/L BUN 50 H (7-17) mg/dL Creatinine 1.80 H (0.7-1.0) mg/dL Estim Creat Clear Calc 19 ml/min Estimated GFR 27 L (59 - ) Glucose 122 H (65-110) mg/dL Lactic Acid 1.0 (0.7-2.0) mmol/L Calcium 10.6 H (8.4-10.2) mg/dL Magnesium 1.8 (1.6-2.3) mg/dL Total Bilirubin 0.9 (0.2-1.3) mg/dL AST 20 (14-36) U/L ALT 18 (6-35) U/L Alkaline Phosphatase 77 (38-126) U/L Troponin I 0.020 (0.000-0.034) ng/mL NT-Pro-B Natriuret Pep 2010 H (19.9-100) pg/mL Total Protein 8.0 (6.3-8.2) g/dL Albumin 3.9 (3.5-5.1) g/dL Influenza A (RT-PCR) Negative (Negative) Influenza B (RT-PCR) Negative (Negative) RSV (RT-PCR) Negative (Negative) SARS-CoV-2 RNA (RT-PCR) Negative (Negative) Imaging Data Attestation: I personally reviewed and interpreted this imaging study as follows: Radiologist's impression: ITS Impressions Chest X-Ray 03/02/24 22:39 IMPRESSION: Small left-sided pleural effusion coarse interstitial lung markings, unchanged from 10/24/[address] 03/02/24 23:06 IMPRESSION: Panlobular emphysema with additional findings suggesting persistent pneumonitis. Bibasilar pleural thickening. Small pericardial effusion. ECG Data EKG #1: Attestation: I personally reviewed and interpreted this ECG as follows: ECG completion date: 03/02/24 ECG completion time: 22:20 EKG Interpretation: tachycardia (106), sinus rhythm and non-specific ST changes Discharge Plan Discharge Clinical Impression: Atrial flutter, SHAD (acute kidney injury), Pneumonitis, Elevated d-dimer, Acute exacerbation of chronic obstructive pulmonary disease (COPD), Acute on chronic hypoxic respiratory failure Patient Disposition: Still a Patient Condition: Serious
[2024-03-02] MEDS: SODIUM CHLORIDE 0.9% IV 1,000 ML 999 ML IV CONT (23:26)
[2024-03-03] VITALS (26 sets, daily range): BP systolic 94–142; BP diastolic 43–76; PULSE 74–171; RESP 16–25; TEMP 36.4–36.9; O2SAT 94–100; BMI 21.4
--- NOTE | 2024-03-03 | ECHO_ITS ---
Patient Info Name: Irma Rocha Age: 78 years : 1945 Gender: Female Ht: 63 in Wt: 119 lbs BSA: 1.55 m2 HR: 86 bpm Heart Rhythm: Indeterminant Technical Quality: Good Exam Date: 03/03/2024 1:35 PM Exam Location: Echo Lab Patient Status: Inpatient Admit Date: 03/03/2024 Staff Ordering Physician: Theresa Hopkins MD (guru/klaudia) Youth Probation Officer: Jaclyn Neal RDCS Attending Provider: Yonatan Alvarez MD Referring Physician: Sandeep BOWLES; Exam Type: CA echo doppler color flow Study Info Indications - atrial flutter Complete two-dimensional, color flow and Doppler transthoracic echocardiogram is performed. Summary 1. Complete two-dimensional, color flow and Doppler transthoracic echocardiogram is performed. 2. Left ventricular systolic function is normal, estimated at 60-65%. 3. The left ventricular diastolic function is grade I diastolic dysfunction. 4. There is mild aortic valve sclerosis. 5. There is mild mitral valve calcification. 6. There is mild tricuspid valve regurgitation. 7. Mild pulmonary hypertension, estimated pulmonary arterial systolic pressure is 44 mmHg. 8. There is small to moderate pericardial effusion mainly around the right ventricle. No tamponade. Left Ventricle Left ventricular chamber dimension is normal. Left ventricular systolic function is normal, estimated at 60-65%. There is no increased left ventricular wall thickness. Left ventricular septal wall motion is normal. The left ventricular diastolic function is grade I diastolic dysfunction. Right Ventricle Right ventricular chamber dimension is normal. Right ventricular systolic function is normal. Left Atria Left atrial chamber dimension is normal. Right Atria Right atrial chamber dimension is normal. Atrial Septum Intact interatrial septum visualized by color flow imaging. Aortic Valve The aortic valve is trileaflet. There is mild aortic valve sclerosis. There is no aortic valve stenosis. There is no aortic valve regurgitation. Pulmonic Valve The pulmonic valve is normal. There is no pulmonic valve stenosis. There is no pulmonic regurgitation. Mitral Valve The mitral valve has normal leaflets. There is no mitral valve stenosis. There is no mitral valve regurgitation. There is mild mitral valve calcification. Tricuspid Valve The tricuspid valve leaflets are normal. There is no significant tricuspid valve stenosis. There is mild tricuspid valve regurgitation. Mild pulmonary hypertension, estimated pulmonary arterial systolic pressure is 44 mmHg. Pericardium/Pleural There is small to moderate pericardial effusion mainly around the right ventricle. No tamponade. Inferior Vena Cava Dilated inferior vena cava with <50% collapse upon inspiration consistent with Empty right atrial pressure, 15 mmHg. Aorta The aortic root size at the sinus of Valsalva is normal. The prox ascending aorta size is normal. Left Ventricular Outflow Tract Name Value Normal LVOT 2D LVOT Diameter 2.0 cm LVOT Doppler LVOT Peak Gradient 4 mmHg LVOT Mean Gradient 2 mmHg LVOT VTI 23 cm LVOT VTI/AV VTI Ratio 0.7 LVOT Stroke Volume 73 ml LVOT CO 6.1 l/min LVOT CI 3.9 l/min/m2 Mitral Valve Name Value Normal MV Doppler MV Decel [place] 774 cm/s2 MV PHT 33 ms MV Area (PHT) 6.7 cm2 4.0-5.0 MV Regurgitation Doppler MR Peak Gradient 72 mmHg MV Diastolic Function MV E Peak Velocity 88 cm/s MV A Peak Velocity 98 cm/s MV E/A 0.9 MV Decel Time 113 ms MV Annular TDI MV E/e' (Septal) 11.0 <=8.0 MV E/e' (Lateral) 10.7 <=8.0 MV E/e' (Average) 10.9 Tricuspid Valve Name Value Normal TV Regurgitation Doppler TR Peak Velocity 270 cm/s TR Peak Gradient 29 mmHg Estimated PAP/RSVP RA Pressure 15 mmHg <=5 PA Systolic Pressure 44 mmHg <36 RV Systolic Pressure 44 mmHg <36 Aortic Valve Name Value Normal AV Doppler AV Peak Velocity 147 cm/s AV Peak Gradient 9 mmHg AV Mean Gradient 5 mmHg AV VTI 32 cm AV Area (Cont Eq VTI) 2.3 cm2 >=3.0 AV Area (Cont Eq Dung) 2.0 cm2 AV Regurgitation 2D LVOT Area 3.1 cm2 Ventricles Name Value Normal LV Dimensions 2D/MM IVS Diastolic Thickness (2D) 1.0 cm 0.6-1.0 LVID Diastole (2D) 4.8 cm 3.8-5.2 LVIW Diastolic Thickness (2D) 0.9 cm 0.6-0.9 LVID Systole (2D) 3.1 cm 2.2-3.5 LVOT Diameter 2.0 cm LV Mass (2D Cubed) 164.19 g 67.00-162.00 LV Mass Index (2D Cubed) 106 g/m2 43-95 Relative Wall Thickness (2D) 0.39 LV Fractional Shortening/Ejection Fraction 2D/MM LV Fractional Shortening (2D) 34 % 27-45 LV EF (2D Teicholz) 63 % 54-74 LV Diastolic Volume (4C MOD) 81 ml LV EF (4C MOD) 69 % LV Diastolic Volume (2C MOD) 80 ml LV EF (2C MOD) 69 % LV Diastolic Volume (BP MOD) 81 ml 46-106 LV Diastolic Volume Index (BP MOD) 52 ml/m2 29-61 LV Systolic Volume (BP MOD) 25 ml 14-42 LV Systolic Volume Index (BP MOD) 16 ml/m2 8-24 LV EF (BP MOD) 69 % 54-74 LV Diastolic Length (4C) 6.8 cm LV Systolic Length (4C) 5.1 cm LV Stroke Volume (4C MOD) 56 ml Atria Name Value Normal LA Dimensions LA Volume (4C A-L) 31 ml LA Volume (BP A-L) 36 ml RA Dimensions RA Area (4C) 13.8 cm2 <=18.0 Report Signatures
[2024-03-03] MEDS: ADENOSINE IV SOLN 6 MG/2 ML VIAL IV PUSH (00:02)
[2024-03-03] MEDS: ADENOSINE IV SOLN 6 MG/2 ML VIAL 12 MG IV PUSH (00:03)
[2024-03-03] MEDS: dilTIAZem HCl INJ 25 MG/5 ML VIAL 10 MG IV PUSH (00:07)
[2024-03-03] MEDS: dilTIAZem HCl INJ 25 MG/5 ML VIAL (00:12)
[2024-03-03] MEDS: dilTIAZem 100 MG/100 ML 100 MG/100 ML BAG IV CONT (00:13)
[2024-03-03] MEDS: methylPREDNISolone SOD SUCC 125 MG VIAL IV PUSH (00:15)
[2024-03-03] MEDS: AZITHROMYCIN 500 MG/NS 250 ML 500 MG/250 ML BAG 250 MG IVPB ×2 (00:17→21:16)
[2024-03-03] MEDS: METOPROLOL TARTRATE INJ 5 MG/5 ML VIAL IV PUSH (00:41)
--- NOTE | 2024-03-03 00:46 | ECG_ITS ---
Test Date: 2024-03-03 00:49:03 Measurements Intervals [place] Rate: 98 P: 0 SC: 0 QRS: 46 QRSD: 79 T: 95 QT: 312 QTc: 399 Interpretive Statements ATRIAL FLUTTER NONSPECIFIC ST & T-WAVE ABNORMALITY- HIGH LATERAL LEADS ABNORMAL ECG Compared to ECG 03/02/2024 22:20:56 Sinus tachycardia no longer present Electronically Signed On 03-03-2024 06:26:25 HEAD WORKER by Joon Boyce D.O.
--- NOTE | 2024-03-03 00:59 | ECG_ITS ---
Test Date: 2024-03-03 01:00:51 Measurements Intervals [place] Rate: 93 P: 70 ND: 176 QRS: 44 QRSD: 83 T: 76 QT: 319 QTc: 398 Interpretive Statements SINUS RHYTHM MINIMAL Q WAVES- ANTEROLAT/INF LEADS NONSPECIFIC T-WAVE ABNORMALITY- LAT/HIGH LAT LEADS BASELINE ARTIFACT- I, III BORDERLINE ECG Compared to ECG 03/03/2024 00:49:03 Atrial flutter no longer present Electronically Signed On 03-03-2024 06:27:01 LINOLEUM LAYER by Joon Boyce D.O.
[2024-03-03] MEDS: ENOXAPARIN 60 MG/0.6 ML SYRINGE 54 MG SUB-Q (01:30)
[2024-03-03] MEDS: ONDANSETRON INJ 4 MG/2 ML VIAL (01:30)
--- NOTE | 2024-03-03 02:19 | ADMGEN ---
This patient, Irma Rocha, was admitted to IMU Room 205-01. Patient/family oriented to hospital policies and general routines including ID bracelet, bed and alarms, visiting hours, pain management, procedures, bathroom and other care routines, personal items, smoking policy, room service/diet, and visiting hours. Information on how to activate the Rapid Response Team has been discussed. Patient/Family are encouraged to report perceived risks to care and to ask questions if they do not understand what they are told or what they should do.
[2024-03-03] MEDS: SODIUM CHLORIDE 0.9% IV 1,000 ML 75 ML IV CONT (04:05)
--- NOTE | 2024-03-03 04:45 | PCRCNOTE ---
Window of time for administration has passed. See next scheduled administration.
[2024-03-03 04:54] LABS: Basophils Percent Auto 0.1 % (0.2-1.2); Hematocrit 28.9 % (37.0-47.0); Hemoglobin 9.1 g/dL (12.0-15.0); Immature Granulocyte Absolute 0.09 K/mm3 (0.00-0.031); Immature Granulocyte Percent A 0.5 % (0-0.5); Lymphocytes Absolute Auto 0.54 K/mm3 (0.9-3.2); Mean Corpuscular HGB Conc 31.5 g/dl (32-36); Mean Corpuscular Volume 95.4 fl (80-100); Mean Platelet Volume 10.4 fl (7.4-10.4); Monocytes Absolute Auto 0.2 K/mm3 (0.1-0.6); Monocytes Percent Auto 0.9 % (2.6-8.5); Neutrophils Absolute Auto 17.3 K/mm3 (1.3-6.7); Neutrophils Percent Auto 95.5 % (45.5-73.1); Platelet Count Result 238 k/mm3 (150-375); Red Blood Count 3.03 M/mm3 (4.2-5.4); Red Cell Distribution Width 14.3 % (11.5-14.5); White Blood Count 18.1 K/mm3 (4.5-10.0)
[2024-03-03 05:07] LABS: Anion Gap 8 mmol/L (4-12); Blood Urea Nitrogen 50 mg/dL (7-17); Calcium 9.9 mg/dL (8.4-10.2); Carbon Dioxide 27 mmol/L (22-30); Chloride 99 mmol/L (98-107); Estimated CRCL calculation 21 ml/min; Estimated Glomerular Filt Rate 31; Glucose 132 mg/dL (65-110); Magnesium 1.8 mg/dL (1.6-2.3); Potassium 4.5 mmol/L (3.4-5.0); Sodium 134 mmol/L (137-145)
[2024-03-03 05:19] LABS: Troponin I 0.034 ng/mL (0.000-0.034)
[2024-03-03 05:27] LABS: Hypochromasia 1+; Ovalocytes 1+; Platelet Estimate Adequate (Adequate); Schistocytes None Seen
[2024-03-03 05:33] LABS: Troponin I 0.137 ng/mL (0.000-0.034)
[2024-03-03] MEDS: methylPREDNISolone SOD SUCC 125 MG VIAL 60 MG IV PUSH (05:41)
[2024-03-03 05:50] LABS: Thyroid Stimulating Hormone Reflex 0.626 uIU/mL (0.465-4.68)
[2024-03-03 07:11] LABS: MRSA (PCR) NOT DETECTED (NOT DETECTE)
--- NOTE | 2024-03-03 07:44 | PM.CNPUL ---
Assessment and Plan Assessment and plan (1) Chronic obstructive pulmonary disease: Qualifiers: COPD type: unspecified COPD Qualified Code(s): J44.9 - Chronic obstructive pulmonary disease, unspecified Code(s): J44.9 - Chronic obstructive pulmonary disease, unspecified Status: Acute Assessment and Plan: Regarding her GOLD grade 3 group E COPD: patient was 79 pack year tobacco use, quit in 1998. PFTs 12/31/2022 with a very severe obstructive abnormality with a FEV1 of 0.64 L, 34% predicted, ratio 37%, total lung capacity 124%, residual volume 137% and a DLCO severely decreased and remains moderately decreased when adjusted for alveolar volume. Compared to 02/16/2019 there is a significant decrease in the FVC and FEV1 and a significant increase in the total lung capacity and residual volume. She is maintained on nebulized arformoterol, yuperli and budesonide. She takes Daliresp 250 a day could not tolerate 500 due to diarrhea, takes azithromycin 250 mg p.o. 3 times a week. She is on 2 to 2.5 L at rest, 4 L with activity and 2 to 2.5 L at night. Echocardiogram 10/26/2023 with LVEF 60-65%, grade 1 diastolic dysfunction, normal right ventricular size and function, normal right atrial size and a PASP of 39. At baseline the patient tells me she can walk half a block and 1 year ago she could walk 2 blocks. She has no chronic wheezing, cough, phlegm production or hemoptysis. Approximately 2 months ago she developed COVID and was treated with Paxil of id and recovered after few weeks. She presented to the emergency room with 2 days of feeling sick, anterior chest soreness and pain, shortness of breath and worsening oxygenation. D-dimer positive. CT scan of the chest with no acute changes and no evidence of bacterial pneumonia, fluid overload or pleural disease. She developed atrial flutter with rapid ventricular response in the emergency room. She was treated with Solu-Medrol, IV fluids, bronchodilators and azithromycin and Lovenox. 03/03/2024: Currently the patient tells me she is breathing completely normal back at her baseline. Her chest soreness and pain is gone and feels normal. She is afebrile. When I enter the room she was on 3 L nasal cannula saturations 100% I decreased her to 2 L and her saturations were 97%. Her white blood cell count is 18.1. Her creatinine is 1.6. The TSH is normal. V/Q scan is intermediate probability for PE. Lower extremity Dopplers negative for DVT. Plan: Patient with positive D-dimer and a V/Q scan that is intermediate probability for PE with negative lower extremity Dopplers. Her clinical presentation is consistent with pulmonary embolism and at this time would continue Lovenox 1 milligram/kilos b.i.d.. Patient's creatinine and EGFR have improved to 31 and I will order CT angiogram of the chest. I called Radiology and unfortunately both of our CT scans in the hospital are not functioning and emergently required scans are leaving the hospital but at this time given her a rhythm me as I do not want her leaving the hospital. The scans may be repaired at 4:[address] angiogram of the chest can wait until then or even till tomorrow. I do not believe the patient is having a COPD exacerbation. I will discontinue systemic steroids at this time. I will continue levalbuterol and ipratropium nebulizers q.6 hours. Will treat her for bronchitis and continue azithromycin 500 q.day for now. Pulmonary inpatient services will resume on 03/06/2024, call with questions. Discussed with Dr. Alvarez. (2) MAX (mycobacterium avium-intracellulare): Code(s): A31.0 - Pulmonary mycobacterial infection Status: Acute Assessment and Plan: Regarding her sputum with MAX and chronic peripheral reticular nodule tree-in-bud infiltrates wihtout progression from 03/17/2021 (not present on CT from 09/20/2015). Additional sputums were ordered as an outpatient but this is limited because the patient has no transportation to get herself to and from a laboratory to collect the sputums. In addition she has no chronic sputum production. She denied chronic fevers. She does have a significant weight loss since April of 2023 but also has nausea and decreased appetite. Plan: Patient CT scan has been stable since 03/17/2021 and the patient is either colonized or has essentially a nonprogressive infection. She has no systemic manifestations of an active infection. She does have weight loss but has had nausea and poor appetite. She denies night sweats or chronic phlegm production. Will order sputum induction for AFB q.a.m. x3. Our laboratory called [facility] and the MAX isolate from 10/30/2023 is no longer available to perform sensitivities on. (3) Atrial flutter: Code(s): I48.92 - Unspecified atrial flutter Status: Acute Assessment and Plan: Patient tells me that over the last 2 months approximately once a week she will have fluttering in her chest the last for 1 minute. less light in the emergency department she developed this fluttering in the chest with heart rates of 170-190 with presumptive diagnosis of atrial flutter and was treated with adenosine, diltiazem and metoprolol. Cardiology will be consulted. Plan: If it is recommended the patient receive systemic anticoagulation for her arrythmia can consider holding off on the CTA of chest. History of Present Illness History of Present Illness Consult date: 03/03/24 Chief complaint: SOB Narrative: 03/03/2024: This is a new pulmonary consult for GOLD grade 3 group E COPD. 78-year-old with a history of hypertension, hyperlipidemia, coronary artery disease status post [place] with a stent in 1998, COPD with chronic hypoxemic respiratory failure requiring 2 to 2.5 L at rest, 4 with activity and 2 to 2.5 L at night. Chronic tree-in-bud and reticular nodule infiltrates on her CT scan 1st noted on 03/17/2021 and sputum with MAX from 10/30/2023. patient is followed in the Pulmonary Clinic in last seen on 11/15/2023. This was a hospital follow-up from 10/25/2023 through 11/03/2023 for COPD exacerbation. At that time she grew pansensitive Pseudomonas. Sputum from 10/30/2023 grew MAX. Regarding her gold grade 3 group E COPD: patient was 79 pack year tobacco use, quit in 1998. PFTs 12/31/2022 with a very severe obstructive abnormality with a FEV1 of 0.64 L, 34% predicted, ratio 37%, total lung capacity 124%, residual volume 137% and a DLCO severely decreased and remains moderately decreased when adjusted for alveolar volume. Compared to 02/16/2019 there is a significant decrease in the FVC and FEV1 and a significant increase in the total lung capacity and residual volume. She is maintained on nebulized arformoterol, yuperli and budesonide. She takes Daliresp 250 a day could not tolerate 500 due to diarrhea, takes azithromycin 250 mg p.o. 3 times a week. She is on 2 to 2.5 L at rest, 4 L with activity and 2 to 2.5 L at night. Echocardiogram 10/26/2023 with LVEF 60-65%, grade 1 diastolic dysfunction, normal right ventricular size and function, normal right atrial size and a PASP of 39. Regarding her sputum with MAX and chronic reticular nodule tree-in-bud infiltrates from 03/17/2021 (not present on CT from 09/20/2015). additional sputums were ordered as an outpatient but this is limited because the patient has no transportation to get herself to and from a laboratory to collect the sputums. In addition she has no chronic sputum production. She denied chronic fevers. She does have a significant weight loss since April of 2023 but also has nausea and decreased appetite. At baseline the patient tells me she can walk half a block and 1 year ago she could walk 2 blocks. She has no chronic wheezing, cough, phlegm production or hemoptysis. Approximately 2 months ago she developed COVID and was treated with Paxil of id and recovered after few weeks. On 02/12/2024 she developed shortness of breath, wheezing and nasal congestion which worsened and she called the pulmonary clinic on 02/13 and she was treated with azithromycin x5 days and a prednisone 12 day taper. She did improve and finished the prednisone approximately 02/27/2024. On 02/29/2024 she developed a sore chest. she felt sick and was not eating or drinking. On 03/01 she said she felt sick and had low oxygen saturations on 2 L that were 85%. She had chest soreness and pain in her anterior chest worsened with deep breathing. Symptoms worsened and she presented to the emergency room on 03/02/2024. In the emergency room she complained of pleuritic chest pain, blood pressure 102/66, heart rate 107, 3 L nasal cannula saturations were 90%. She had decreased breath sounds that were coarse at the bases. White blood cell count was 21.0, eosinophils 0.1%, creatinine 1.8, BNP 2010, troponin 0.02, COVID influenza and RSV RT PCR study negative, MRSA RT PCR negative. D-dimer positive 1.53. Chest x-ray showed small left effusion with no significant change from 10/24/2023. CT of the chest showed moderate apical predominant centrilobular emphysema. Peripheral reticular nodule tree-in-bud infiltrates in all lung [place] that was unchanged compared to 05/16/2023 and 03/17/2021. There were no confluent infiltrates, consolidations, masses or significant pleural effusions. Patient could not receive a CT angiogram of the chest given her acute renal failure and was placed on Lovenox 1 milligram/kilos b.i.d.. Patient was given Solu-Medrol 125 in the emergency room. Later in the emergency the patient developed tachycardia 170-190 and was given adenosine with the diagnosis of atrial flutter. Patient received IV diltiazem, metoprolol and diltiazem drip was ordered. When this happened the patient felt that her chest was fluttering and she says over the last 2 months she has had episodes similar to this occurring every week that last for about 1 minute that resolve when she rests and take a deep breath. 03/03/2024: Currently the patient tells me she is breathing completely normal back at her baseline. Her chest soreness and pain is gone and feels normal. She is afebrile. When I enter the room she was on 3 L nasal cannula saturations 100% I decreased her to 2 L and her saturations were 97%. Her white blood cell count is 18.1. Her creatinine is 1.6. The TSH is normal. V/Q scan is intermediate probability for PE. Lower extremity Dopplers negative for DVT. DATA: 03/03/24: EXAMINATION: NM lung vent and perfusion DATE: 03/03/2024 11:07 INDICATION: Shortness of breath. TECHNIQUE: 25.5 mCi Xenon-133 was given for ventilation images. 4.72 mCi Tc-99m MAA was administered intravenously for perfusion images. Scintigraphic images of the chest were obtained. COMPARISON: Chest CT 03/02/2024, chest 2 views 03/02/2024 FINDINGS: The single breath images demonstrate small and moderate sized defects in the lower lung zones. There is diffuse retention in the lungs bilaterally correlating with emphysema by CT. The perfusion images demonstrate large matched defects in the lower lobes. IMPRESSION: 1. Intermediate probably for pulmonary embolism. 03/02/24: Clinical indication:Chest pain and hypoxia COMPARISON:Reference is made to plain film evaluation of the chest performed the same day FINDINGS: LUNG:Panlobular emphysema is identified coarse interstitial lung markings. Tree-in-bud opacification is also noted, suggesting hypersensitivity pneumonitis. Bibasilar pleural thickening is also noted, likely owing to the appearance of a pleural effusion on chest x-ray. MEDIASTINUM:No pathologically enlarged or identified mediastinum. HEART:The heart is of normal size, with a small cardiac perfusion measuring 8 mm in greatest caliber. SOFT TISSUES OF THE CHEST: Unremarkable BONES OF THE CHEST: Significant kyphosis is present. Trace degenerative disease. No lytic or blastic lesions. VISUALIZED PORTION OF THE UPPER ABDOMEN: Densely calcified atherosclerotic disease within the abdominal IMPRESSION: Panlobular emphysema with additional findings suggesting persistent pneumonitis. Bibasilar pleural thickening. Small pericardial effusion. 05/16/2023: EXAMINATION: CTA chest PE abdomen pel DATE: 05/16/2023 13:17 GLOBAL COMPENSATION ANALYST INDICATION: Dyspnea. Abdomen pain. TECHNIQUE: Computed tomographic angiography (CTA) of the chest, abdomen, and pelvis was performed without and with 100 mL Omnipaque-350 intravenous contrast. The dose-length product was 969.95 mGy-cm. Maximum intensity projection 3D-reconstructions of the aorta and other arteries were constructed by the technologist on a separate workstation. COMPARISON: CT dated 03/17/2021. FINDINGS: CHEST CTA: Bilateral hilar lymphadenopathy. Study is technically adequate without evidence for pulmonary embolism. No significant pleural or pericardial effusion. Emphysema. There are bilateral reticulonodular densities in both lungs with upper lobe predominance, suspicious for pneumonia. No endobronchial lesions. No pneumothorax. Accentuated thoracic kyphosis with moderate thoracic spondylosis. Port ABDOMEN AND PELVIS CTA: Heart size normal. No significant pleural or pericardial effusion. Fatty infiltration of the liver. Gallbladder is present. The spleen, pancreas, adrenal glands and left kidney are unremarkable. There are small subcentimeter hypodensities of the right kidney, too small to characterize, although statistically likely benign. Bowel pattern is nonobstructive. Colonic diverticulosis without evidence for diverticulitis. There is atherosclerosis of the aorta without aneurysm. No lymphadenopathy. There is stenosis at the origin of the celiac axis, SMA and right renal artery. The MALVIN is not well visualized. Colonic diverticulosis without evidence for diverticulitis. Mild lumbar spondylosis. IMPRESSION: 1. Extensive reticulonodular densities of both lungs, compatible with pneumonia. 2: Emphysema. 3: Atherosclerosis with stenosis at the origin of the celiac axis, SMA and right renal artery. 10/26/2023: Echo Summary 1. Complete two-dimensional, color flow and Doppler transthoracic echocardiogram is performed. 2. Left ventricular chamber dimension is normal. 3. Left ventricular systolic function is normal, estimated at 60-65%. 4. The left ventricular diastolic function is grade I diastolic dysfunction. 5. E/e' 13 is mildly elevated. 6. There is mild aortic valve sclerosis. 7. There is trace aortic valve regurgitation. 8. The mitral valve has mildly calcified annulus. 9. There is trace mitral valve regurgitation. 10. No pulmonary hypertension, estimated pulmonary arterial systolic pressure is 39 mmHg. Right Ventricle Right ventricular systolic function is normal and with normal TAPSE 2.0 cm. Right ventricular chamber dimension is normal. Right Atria Right atrial chamber dimension is normal. 03/17/2021: EXAMINATION: CTA chest PE protocol INDICATION: Dyspnea. COMPARISON: Chest CT 09/20/2015 FINDINGS: There is mild scarring at the lung apices. There is severe emphysema. There are scattered nodules and tree-in-bud opacities in all lobes. There is mild atelectasis in the lungs bilaterally. No pleural effusion. The heart size is normal. There are coronary artery calcifications. No pericardial effusion. There is no pulmonary embolus. There is kyphosis and severe spondylosis of thoracic spine. IMPRESSION: 1. No pulmonary embolus. 2. Severe emphysema. 3. Diffuse lung disease, consistent with pneumonia. 12/31/2022: This is a pulmonary function test with spirometry, plethysmography and diffusing capacity. The test was performed and results interpreted in accordance with the 2019 and 2005 ATS/ERS Task Force guidelines respectively using the Global Lung Function Initiative-2012 reference equations. Patient demonstrated good effort and cooperation. Reproducibility criteria were met. The quality of the spirometry maneuver was Grade A. Of note the patient declined post spirometry due to shortness of breath Findings: Spirometry: There is decreased maximal expiratory airflow at all lung volumes with concave expiratory flow tracing. The contour the inspiratory flow tracing is normal. The pre bronchodilator FVC is 1.75 L, 71% predicted. The pre bronchodilator FEV1 is 0.64 L, 34% predicted. The pre bronchodilator FEV1: FVC ratio is 37%. Plethysmography: The total lung capacity is 6.06 L, 124% predicted. The functional residual capacity is 3.20 L, 113% predicted. The residual volume is 3.17 L, 137% predicted. The residual volume: Total lung capacity ratio is 52%. Diffusing capacity: The diffusing capacity unadjusted for hemoglobin and carboxyhemoglobin is 4.9, 26% predicted. The diffusing capacity adjusted for alveolar volume is 1.91 L, 46% predicted. In comparison to previous pulmonary function testing on 02/16/2019 the FVC has decreased from 2.24 L to 1.75 L. The FEV1 has decreased from 0.86 L to 0.64 L. The total lung capacity has increased from 4.53 L to 6.06 L. The functional residual capacity is unchanged from 3.13 L to 3.20 L. The residual volume is increased from 2.23 L to 3.17 L. the residual volume: Total lung capacity ratio is unchanged from 49% to 52%. Patient was unable to complete the SUSIE after multiple attempts. Impression: There is a very severe obstructive abnormality. The total lung capacity and residual volume are increased with normal functional residual capacity and residual volume: Total lung capacity ratio. This is an abnormal but nonspecific lung volume pattern. The diffusing capacity unadjusted for hemoglobin and carboxyhemoglobin is severely decreased and remains moderately decreased when adjusted for alveolar volume. in comparison to prior pulmonary function testing on 02/16/2019 there has been a greater than anticipated time dependent decrease in the FVC and FEV1. There has been a greater than anticipated time dependent increase in the total lung capacity, residual volume with no significant change in the functional residual capacity. Review of Systems Constitutional: Constitutional: Reports no additional constitutional complaints Eyes: Eyes: Reports no additional eye complaints ENT: Reports system reviewed and no additional complaints, except as documented Cardiovascular: Cardiovascular: Reports no additional cardiovascular complaints Respiratory: Respiratory: Reports no additional respiratory complaints Gastrointestinal: Gastrointestinal: Reports no additional gastrointestinal complaints Musculoskeletal: Musculoskeletal: Reports no additional musculoskeletal complaints Neurologic: Reports system reviewed and no additional complaints, except as documented Psychiatric: Psychiatric: Reports no additional psychiatric complaints Endocrine: Endocrine: Reports no additional endocrine complaints Hematologic/Lymphatic: Hematologic/Lymphatic: Reports no additional hematologic/lymphatic complaints Allergic/Immunologic: Allergic/Immunologic: Reports no additional allergic/immunologic complaints [facility] Past Medical History Medical History ARF (acute renal failure) Carotid occlusion, bilateral She sees her vascular surgeon every 6 months for this Chronic respiratory failure COPD with acute exacerbation Emphysema of lung History of tobacco abuse HTN (hypertension) Hyperlipidemia Myocardial infarction PAD (peripheral artery disease) Pneumonia Seasonal allergies Surgical History Surgical History H/O heart artery stent H/O: hysterectomy Hx of appendectomy Family History Family History Grandparent Family history of tuberculosis Mother Cerebrovascular accident, Onset Age: 73 Father Family history of chronic obstructive pulmonary disease Family history of heart disease in male family member before age 55 Acute myocardial infarction Sibling Family history of chronic obstructive pulmonary disease Family history of lung cancer Family history of malignant neoplasm Family history of lung disease Social History Social History Social History: Lives with her daughter. Code status - DNR She nominates her daughter to be the individual would make medical decisions for her if she is unable. Smoking packs per day: 2 Smoking cigarettes per day: 40.0 Years smoked: 20 Smoking pack-years: 40.00 Smoking status: Former smoker Second hand tobacco smoke exposure: No Alcohol intake: never Substance use: never Substance use type: does not use Do You Feel Safe in your Home?: Yes Lack of Transportation: No Lack of Food: Never True Current Housing: I Have Housing Concerned About Future Housing: No Difficulty Paying Gas/Electric Bills: No Difficulty Paying for Meds: No Currently Unemployed: No Education: High School Diploma/GED Difficulty w/ Childcare or Family Care: No Gender identity (if verbalized by the patient): Female Spiritual care concerns: No Agree to blood products: Yes Meds Home Medications and Allergies Home Medications Medication Instructions Recorded Confirmed Type aspirin 81 mg tablet,delayed 81 mg PO DAILY 02/10/19 03/03/24 History release (Adult Low Dose Aspirin) cholecalciferol (vitamin D3) 10 400 unit PO DAILY 02/10/19 03/03/24 History mcg (400 unit) capsule omega 8-dox-yat-fish oil 1,000 mg 1 cap PO DAILY 02/10/19 03/03/24 History (120 mg-180 mg) capsule (Fish Oil) inhalational spacing device #1 ea 12/02/21 03/03/24 Rx amlodipine 5 mg tablet 5 mg PO DAILY 10/25/23 03/03/24 History arformoterol 15 mcg/2 mL solution 2 ml inhalation BID COPD 1 month 11/04/23 03/03/24 Rx for nebulization #120 mL budesonide 0.25 mg/2 mL suspension 0.25 mg (2 mL) inhalation BID COPD 11/04/23 03/03/24 Rx for nebulization 1 month #120 mL metoprolol tartrate 37.5 mg tablet 37.5 mg PO BID #180 tabs 11/09/23 03/03/24 Rx ondansetron 4 mg disintegrating 4 mg PO Q8H #60 tabs 11/26/23 03/03/24 Rx tablet atorvastatin 40 mg tablet 40 mg PO DAILY 03/03/24 03/03/24 History olmesartan 40 1 tablet PO DAILY 03/03/24 03/03/24 History mg-hydrochlorothiazide 12.5 mg tablet revefenacin 175 mcg/3 mL solution 175 mcg inhalation QAM 03/03/24 03/03/24 History for nebulization (Yupelri) revefenacin 175 mcg/3 mL solution mcg inhalation 03/03/24 History for nebulization (Yupelri) roflumilast 250 mcg tablet 250 mcg PO DAILY 03/03/24 03/03/24 History Allergies Allergy/AdvReac Type Severity Reaction Status Date / Time TULIO Inhibitors Allergy Unknown Rash Verified 11/26/23 15:00 budesonide Allergy Unknown Rash Verified 11/26/23 15:00 ceftriaxone Allergy Unknown Rash Verified 11/26/23 15:00 codeine Allergy Unknown Rash Verified 11/26/23 15:00 formoterol Allergy Unknown Rash Verified 11/26/23 15:00 levofloxacin Allergy Unknown Rash Verified 11/26/23 15:00 lisinopril Allergy Unknown Rash Verified 11/26/23 15:00 Vital Signs Vital Signs - 24 hr 03/02/24 17:28 03/02/24 21:05 03/02/24 22:29 Temperature 36.9 C 36.3 C L Pulse Rate 107 H 106 H Respiratory Rate 24 H 16 Blood Pressure 102/66 117/51 L Pulse Oximetry 90 93 94 Oxygen Delivery Nasal Cannula Nasal Cannula Oxygen Flow Rate 3 3 03/03/24 00:13 03/03/24 00:27 03/02/24 22:23 Temperature Pulse Rate 127 H 171 H 112 H Respiratory Rate 27 H Blood Pressure 120/58 L 115/61 Pulse Oximetry 99 Oxygen Delivery Oxygen Flow Rate 03/02/24 22:33 03/02/24 22:45 03/02/24 23:06 Temperature Pulse Rate 109 H 110 H 111 H Respiratory Rate 25 H 27 H 26 H Blood Pressure Pulse Oximetry 99 98 Oxygen Delivery Oxygen Flow Rate 03/02/24 23:15 03/02/24 23:33 03/02/24 23:45 Temperature Pulse Rate 112 H 113 H 114 H Respiratory Rate 26 H 39 H 24 H Blood Pressure Pulse Oximetry 99 91 98 Oxygen Delivery Oxygen Flow Rate 03/03/24 00:01 03/03/24 00:12 03/03/24 00:14 Temperature Pulse Rate 165 H 123 H 128 H Respiratory Rate 22 H 21 H 25 H Blood Pressure 94/59 L 122/43 L 120/58 L Pulse Oximetry 100 Oxygen Delivery Oxygen Flow Rate 03/03/24 00:21 03/03/24 00:41 03/03/24 00:42 Temperature Pulse Rate 157 H 170 H 170 H Respiratory Rate 20 Blood Pressure 114/63 110/61 Pulse Oximetry Oxygen Delivery Oxygen Flow Rate 03/03/24 02:20 03/03/24 04:00 03/03/24 04:00 Temperature 36.9 C 36.7 C Pulse Rate 99 83 Respiratory Rate 16 16 Blood Pressure 132/49 L 118/49 L Pulse Oximetry 98 98 98 Oxygen Delivery Nasal Cannula Oxygen Flow Rate 2 03/03/24 02:30 03/03/24 04:00 03/03/24 06:00 Temperature Pulse Rate 86 77 Respiratory Rate Blood Pressure Pulse Oximetry 97 Oxygen Delivery Nasal Cannula Oxygen Flow Rate 2 Exam Const: General: cooperative, healthy appearing and comfortable Orientation/consciousness: oriented to person, oriented to place and oriented to time HENMT: Head: normal to inspection Ears: hearing grossly normal bilaterally Eyes: General: appearance normal, both eyes and all related structures Neck: Neck: normal visual inspection Chest: Chest palpation & inspection: normal inspection of the chest Resp: Effort & Inspection: normal respiratory effort and able to speak in complete sentences Auscultation: crackles, no rales, no rhonchi, no wheezes and diminished lung sounds Other: crackles bases Cardio: Jugular venous distension: no JVD GI: Inspection: normal to inspection GI Palp: No abdominal tenderness Skin: General skin exam: normal color Neuro: General: oriented to person, oriented to place and oriented to time Extrem: General: normal to inspection and no edema Psych: Appearance: grossly normal Results Laboratory Findings 03/03/24 04:24 03/03/24 04:24 ABG, PT/INR, D-dimer: PT/INR, D-dimer PT 16.7 Seconds (11.1-14.7) H 03/02/24 22:16 INR 1.3 03/02/24 22:16 D-Dimer 1.53 ug/mL (<0.48) H 03/02/24 22:16 Abnormal lab findings: Abnormal Labs 03/02/24 03/03/24 03/03/24 22:16 04:24 04:42 WBC 21.0 H 18.1 H RBC 3.50 L 3.03 L Hgb 10.4 L 9.1 L Hct 33.3 L 28.9 L MCHC 31.2 L 31.5 L Neut % (Auto) 84.2 H 95.5 H Lymph % (Auto) 8.7 L 3.0 L [place] % (Auto) 0.9 L Baso % (Auto) 0.1 L Lymph # (Auto) 0.54 L [place] # (Auto) 1.3 H Abs Immat Gran (auto) 0.09 H 0.09 H Absolute Neuts (auto) 17.7 H 17.3 H PT 16.7 H APTT 38.4 H D-Dimer 1.53 H Sodium 134 L 134 L Chloride 95 L Carbon Dioxide 32 H BUN 50 H 50 H Creatinine 1.80 H 1.60 H Estimated GFR 27 L 31 L Glucose 122 H 132 H Calcium 10.6 H Troponin I 0.137 H* D NT-Pro-B Natriuret Pep 2010 H Diagnostic Findings Additional studies: ITS Impressions Chest X-Ray 03/02/24 22:39 IMPRESSION: Small left-sided pleural effusion coarse interstitial lung markings, unchanged from 10/24/[address] 03/02/24 23:06 IMPRESSION: Panlobular emphysema with additional findings suggesting persistent pneumonitis. Bibasilar pleural thickening. Small pericardial effusion. Pulmonary Perfusion Imaging 03/03/24 11:23 IMPRESSION: 1. Intermediate probably for pulmonary embolism. Venous Doppler Study 03/03/24 11:29 IMPRESSION: 1. No deep venous thrombosis.
[2024-03-03] MEDS: ATORVASTATIN 40 MG TABLET PO (09:21)
[2024-03-03] MEDS: METOPROLOL TARTRATE 12.5 MG TABLET 37.5 MG PO (09:21)
[2024-03-03] MEDS: ROFLUMILAST 250 MCG TABLET PO (09:21)
[2024-03-03 12:18] LABS: Alveolar/Arterial O2 Gradient 68.9 mmHg; Base Excess ABG 1.1 mEq/l (+/-2.0); Fractional Inspired Oxygen 28 %; HCO3 ABG 26.5 mEq/l (22.0-26.0); Oxygen Content ABG 13.5 %vol (16.0-22.0); Oxygen Saturation ABG 94.9 % (95.0-100.0); Oxyhemoglobin 94.8 % THb (90.0-100.0); PCO2 ABG 46.1 mmHg (35.0-45.0); PO2 ABG 76.3 mmHg (80.0-100.0); PO2 FiO2 Ratio Arterial Blood 2.73 %; Total Hemoglobin 10.1 g/dL (12.0-18.0); pH ABG 7.378 (7.350-7.450)
[2024-03-03 12:19] LABS: Device NASAL CANNULA; Modified Allen's Test Pass; Site Drawn RIGHT RADIAL
--- NOTE | 2024-03-03 12:20 | PM.CNCAR ---
Assessment and Plan Assessment and plan (1) Atrial flutter: Code(s): I48.92 - Unspecified atrial flutter Status: Acute Plan Atrial flutter: New diagnosis for the patient. TSH level normal. Will check echocardiogram. On Metoprolol 37.5mg BID, will increase to 50mg BID. Anticoagulation recommended to reduce stroke risk, given [id number] of 5. However, there is also concern for PE. If she in fact does have a PE, then she will need the DVT/PE dosing of anticoagulation. If no PE, then recommend Eliquis 2.5mg BID given her age, renal function and weight. CAD: History of PCI. Stable. Continue ASA, statin, beta felix. Hypertension: Continue home antihypertensives. Increasing Metoprolol as noted above. Hyperlipidemia: Continue statin. Possible PE: CTA pending. COPD with chronic hypoxemic respiratory failure: Pulmonary consulted. History of Present Illness History of Present Illness Consult date/time: 03/03/24 12:20 Requesting physician: Chelsey Regalado PA-C Consult reason: Other (Atrial flutter) Reason For Visit: SOB Narrative: This is an 78 year old female with coronary artery disease s/p PCI to the LCX, COPD with chronic hypoxemic respiratory failure, hypertension, hyperlipidemia. Follows with Dr. Lee in the office. Presented to [facility] for pleuritic chest pain, shortness of breath. While in the ED, she went into SVT, with heart rates up to the 170s to 190s. ER attempted vagal maneuver without any improvement. Given Adenosine 6mg followed by 12mg. After the 12mg of Adenosine, they noticed a pause and her tachycardia appeared to be consistent with atrial flutter. Given IV Metoprolol with improvement in heart rates and started on IV Diltiazem. She is now back in sinus rhythm. Workup shows troponin of 0.020, 0.034, 0.137. Chest CT with panlobular emphysema with additional findings suggesting persistent pneumonitis. Small pericardial effusion. V/Q scan shows intermediate probability for pulmonary embolism. Venous duplex negative for DVT. EKK does in fact show atrial flutter. Review of Systems Review of Systems: All systems reviewed & are unremarkable except as noted in HPI and below (HPI) FOR[facility]LY [facility] Past Medical History Medical History ARF (acute renal failure) Carotid occlusion, bilateral She sees her vascular surgeon every 6 months for this Chronic respiratory failure COPD with acute exacerbation Emphysema of lung History of tobacco abuse HTN (hypertension) Hyperlipidemia Myocardial infarction PAD (peripheral artery disease) Pneumonia Seasonal allergies Surgical History Surgical History H/O heart artery stent H/O: hysterectomy Hx of appendectomy Family History Family History Grandparent Family history of tuberculosis Mother Cerebrovascular accident, Onset Age: 73 Father Family history of chronic obstructive pulmonary disease Family history of heart disease in male family member before age 55 Acute myocardial infarction Sibling Family history of chronic obstructive pulmonary disease Family history of lung cancer Family history of malignant neoplasm Family history of lung disease Social History Social History Social History: Lives with her daughter. Code status - DNR She nominates her daughter to be the individual would make medical decisions for her if she is unable. Smoking packs per day: 2 Smoking cigarettes per day: 40.0 Years smoked: 20 Smoking pack-years: 40.00 Smoking status: Former smoker Second hand tobacco smoke exposure: No Alcohol intake: never Substance use: never Substance use type: does not use Do You Feel Safe in your Home?: Yes Lack of Transportation: No Lack of Food: Never True Current Housing: I Have Housing Concerned About Future Housing: No Difficulty Paying Gas/Electric Bills: No Difficulty Paying for Meds: No Currently Unemployed: No Education: High School Diploma/GED Difficulty w/ Childcare or Family Care: No Gender identity (if verbalized by the patient): Female Spiritual care concerns: No Agree to blood products: Yes Meds Home Medications and Allergies Home Medications Medication Instructions Recorded Confirmed Type aspirin 81 mg tablet,delayed 81 mg PO DAILY 02/10/19 03/03/24 History release (Adult Low Dose Aspirin) cholecalciferol (vitamin D3) 10 400 unit PO DAILY 02/10/19 03/03/24 History mcg (400 unit) capsule omega [id number]-fish oil 1,000 mg 1 cap PO DAILY 02/10/19 03/03/24 History (120 mg-180 mg) capsule (Fish Oil) inhalational spacing device #1 ea 12/02/21 03/03/24 Rx amlodipine 5 mg tablet 5 mg PO DAILY 10/25/23 03/03/24 History arformoterol 15 mcg/2 mL solution 2 ml inhalation BID COPD 1 month 11/04/23 03/03/24 Rx for nebulization #120 mL budesonide 0.25 mg/2 mL suspension 0.25 mg (2 mL) inhalation BID COPD 11/04/23 03/03/24 Rx for nebulization 1 month #120 mL metoprolol tartrate 37.5 mg tablet 37.5 mg PO BID #180 tabs 11/09/23 03/03/24 Rx ondansetron 4 mg disintegrating 4 mg PO Q8H #60 tabs 11/26/23 03/03/24 Rx tablet atorvastatin 40 mg tablet 40 mg PO DAILY 03/03/24 03/03/24 History olmesartan 40 1 tablet PO DAILY 03/03/24 03/03/24 History mg-hydrochlorothiazide 12.5 mg tablet revefenacin 175 mcg/3 mL solution 175 mcg inhalation QAM 03/03/24 03/03/24 History for nebulization (Yupelri) revefenacin 175 mcg/3 mL solution mcg inhalation 03/03/24 History for nebulization (Yupelri) roflumilast 250 mcg tablet 250 mcg PO DAILY 03/03/24 03/03/24 History Allergies Allergy/AdvReac Type Severity Reaction Status Date / Time TULIO Inhibitors Allergy Unknown Rash Verified 11/26/23 15:00 budesonide Allergy Unknown Rash Verified 11/26/23 15:00 ceftriaxone Allergy Unknown Rash Verified 11/26/23 15:00 codeine Allergy Unknown Rash Verified 11/26/23 15:00 formoterol Allergy Unknown Rash Verified 11/26/23 15:00 levofloxacin Allergy Unknown Rash Verified 11/26/23 15:00 lisinopril Allergy Unknown Rash Verified 11/26/23 15:00 Vital Signs Vital Signs - 24 hr 03/02/24 17:28 03/02/24 21:05 03/02/24 22:29 Temperature 36.9 C 36.3 C L Pulse Rate 107 H 106 H Respiratory Rate 24 H 16 Blood Pressure 102/66 117/51 L Pulse Oximetry 90 93 94 Oxygen Delivery Nasal Cannula Nasal Cannula Oxygen Flow Rate 3 3 03/03/24 00:13 03/03/24 00:27 03/02/24 22:23 Temperature Pulse Rate 127 H 171 H 112 H Respiratory Rate 27 H Blood Pressure 120/58 L 115/61 Pulse Oximetry 99 Oxygen Delivery Oxygen Flow Rate 03/02/24 22:33 03/02/24 22:45 03/02/24 23:06 Temperature Pulse Rate 109 H 110 H 111 H Respiratory Rate 25 H 27 H 26 H Blood Pressure Pulse Oximetry 99 98 Oxygen Delivery Oxygen Flow Rate 03/02/24 23:15 03/02/24 23:33 03/02/24 23:45 Temperature Pulse Rate 112 H 113 H 114 H Respiratory Rate 26 H 39 H 24 H Blood Pressure Pulse Oximetry 99 91 98 Oxygen Delivery Oxygen Flow Rate 03/03/24 00:01 03/03/24 00:12 03/03/24 00:14 Temperature Pulse Rate 165 H 123 H 128 H Respiratory Rate 22 H 21 H 25 H Blood Pressure 94/59 L 122/43 L 120/58 L Pulse Oximetry 100 Oxygen Delivery Oxygen Flow Rate 03/03/24 00:21 03/03/24 00:41 03/03/24 00:42 Temperature Pulse Rate 157 H 170 H 170 H Respiratory Rate 20 Blood Pressure 114/63 110/61 Pulse Oximetry Oxygen Delivery Oxygen Flow Rate 03/03/24 02:20 03/03/24 04:00 03/03/24 04:00 Temperature 36.9 C 36.7 C Pulse Rate 99 83 Respiratory Rate 16 16 Blood Pressure 132/49 L 118/49 L Pulse Oximetry 98 98 98 Oxygen Delivery Nasal Cannula Oxygen Flow Rate 2 03/03/24 02:30 03/03/24 04:00 03/03/24 06:00 Temperature Pulse Rate 86 77 Respiratory Rate Blood Pressure Pulse Oximetry 97 Oxygen Delivery Nasal Cannula Oxygen Flow Rate 2 03/03/24 08:00 03/03/24 08:00 03/03/24 10:00 Temperature 36.8 C Pulse Rate 86 92 79 Respiratory Rate 18 Blood Pressure 118/43 L Pulse Oximetry 100 Oxygen Delivery Oxygen Flow Rate 03/03/24 12:00 Temperature 36.9 C Pulse Rate 74 Respiratory Rate 22 H Blood Pressure 142/76 H Pulse Oximetry 96 Oxygen Delivery Oxygen Flow Rate Exam Const: General: comfortable and no acute distress HENMT: Mouth: Yes moist mucous membranes Eyes: General: appearance normal, both eyes and all related structures Sclera: sclerae normal Resp: Effort & Inspection: normal respiratory effort Auscultation: diminished lung sounds Cardio: Rate: regular rate Rhythm: regular rhythm Heart sounds: no murmurs Skin: General skin exam: normal color Neuro: Speech: normal speech Psych: Mental Status: mental status grossly normal Affect: normal affect Results Labs and Meds 03/03/24 04:24 03/03/24 04:24 Lab results: Cardiac Enzymes 03/02/24 03/03/24 03/03/24 Range/Units 22:16 04:24 04:42 AST 20 (14-36) U/L Troponin I 0.020 0.034 D 0.137 H* D (0.000-0.034) ng/mL Coagulation 03/02/24 Range/Units 22:16 PT 16.7 H (11.1-14.7) Seconds APTT 38.4 H (22.3-36.8) Seconds CBC 03/02/24 03/03/24 Range/Units 22:16 04:24 WBC 21.0 H 18.1 H (4.5-10.0) K/mm3 RBC 3.50 L 3.03 L (4.2-5.4) M/mm3 Hgb 10.4 L 9.1 L (12.0-15.0) g/dL Hct 33.3 L 28.9 L (37.0-47.0) % Plt Count 262 238 (150-375) k/mm3 Lymph # (Auto) 1.83 0.54 L (0.9-3.2) K/mm3 [place] # (Auto) 1.3 H 0.2 (0.1-0.6) K/mm3 Eos # (Auto) 0.0 0.0 (0-0.3) K/mm3 Baso # (Auto) 0.0 0.0 (0.0-0.1) K/mm3 Comprehensive Metabolic Panel 03/02/24 03/03/24 Range/Units 22:16 04:24 Sodium 134 L 134 L (137-145) mmol/L Potassium 4.2 4.5 (3.4-5.0) mmol/L Chloride 95 L 99 (98-107) mmol/L Carbon Dioxide 32 H 27 (22-30) mmol/L BUN 50 H 50 H (7-17) mg/dL Creatinine 1.80 H 1.60 H (0.7-1.0) mg/dL Glucose 122 H 132 H (65-110) mg/dL Calcium 10.6 H 9.9 (8.4-10.2) mg/dL AST 20 (14-36) U/L ALT 18 (6-35) U/L Alkaline Phosphatase 77 (38-126) U/L Total Protein 8.0 (6.3-8.2) g/dL Albumin 3.9 (3.5-5.1) g/dL Intake and Output 03/02/24 03/03/24 03/03/24 23:59 07:59 15:59 Intake Total 3.1 Output Total 100 Balance -96.9 Intake: IV 3.1 dilTIAZem 100 MG/100 ML 100 mg 3.1 In 100 ml @ 5 MG/HR 5 mls/hr IV CONT .Q20H STA Rx#:[id number] Output: Urine 100 Patient Weight 03/03/24 23:59 Weight 55 kg
[2024-03-03 12:44] LABS: IFOB Positive Control Positive; Immunochemical Fecal Occult Bl Negative (N)
--- NOTE | 2024-03-03 14:14 | PM.IMPN ---
Progress Note: A&P Assessment and Plan (1) MAX (mycobacterium avium-intracellulare): Code(s): A31.0 - Pulmonary mycobacterial infection Status: Acute (2) Atrial flutter: Code(s): I48.92 - Unspecified atrial flutter Status: Acute (3) Acute exacerbation of chronic obstructive pulmonary disease (COPD): Code(s): J44.1 - Chronic obstructive pulmonary disease with (acute) exacerbation Status: Acute Plan COPD exacerbation Pulmonology evaluated and without exacerbation Continue bronchodilators, no systemic steroids continue azithromycin. Go to grade 3 group E COPD Pulmonology following. Possible pulmonary embolism V/Q scan showed intermediate for DVT, lower extremity Doppler negative for DVT Continuous Improvement Coach strongly suspects PE Continue therapeutic dose Lovenox CTA chest PE protocol Monitor complete Chronic respiratory failure from COPD Patient now baseline oxygen Continue monitoring. History of MAX Patient is well known to Dr. 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 Pulmonology continued to follow. Atrial flutter New onset TSH normal Echo pending. Patient Aricept 0.5 mg of metoprolol increased to 50 mg by cardiology. Currently on Lovenox awaiting rule out PE. Cardiology following. Hypertension Continue home medications. Coronary artery disease Continue aspirin statin beta-felix. Hyperlipidemia Continue statin. DVT prophylaxis patient on full-dose Lovenox. Subjective Date/time seen: 03/03/24 14:14 Interval history: Comfortable at bedside now at baseline oxygen therapy however, pulm recommended ruling out PE V/q scan intermediate probability and Venous doppler negative for DVT Exam Narrative: General: alert and comfortable Eyes: EOMI, PERRLA ENNT External ears normal, Neck is supple, no masses, Respiratory systems: Clear to auscultation Cardiovascular S1, S2, normal rhythm, no murmur, rub, or gallop; no thrill or palpable murmurs on palpation. Gastrointestinal: soft, non-tender, and non-distended abdomen with no masses; BS present Skin: no rash, lesions, ulcerations, subcutaneous nodules or induration Musculoskeletal: no abnormality and no tenderness, normal ROM Neurologic: Alert and oriented x3, non focal Mental Status Exam: normal affect Objective Data Vital Signs Vital Signs: Vital Signs - 24 hr 03/02/24 17:28 03/02/24 21:05 03/02/24 22:29 Temperature 98.4 F 97.4 F L Pulse Rate 107 H 106 H Respiratory Rate 24 H 16 Blood Pressure 102/66 117/51 L Pulse Oximetry 90 93 94 Oxygen Delivery Nasal Cannula Nasal Cannula Oxygen Flow Rate 3 3 03/03/24 00:13 03/03/24 00:27 03/02/24 22:23 Temperature Pulse Rate 127 H 171 H 112 H Respiratory Rate 27 H Blood Pressure 120/58 L 115/61 Pulse Oximetry 99 Oxygen Delivery Oxygen Flow Rate 03/02/24 22:33 03/02/24 22:45 03/02/24 23:06 Temperature Pulse Rate 109 H 110 H 111 H Respiratory Rate 25 H 27 H 26 H Blood Pressure Pulse Oximetry 99 98 Oxygen Delivery Oxygen Flow Rate 03/02/24 23:15 03/02/24 23:33 03/02/24 23:45 Temperature Pulse Rate 112 H 113 H 114 H Respiratory Rate 26 H 39 H 24 H Blood Pressure Pulse Oximetry 99 91 98 Oxygen Delivery Oxygen Flow Rate 03/03/24 00:01 03/03/24 00:12 03/03/24 00:14 Temperature Pulse Rate 165 H 123 H 128 H Respiratory Rate 22 H 21 H 25 H Blood Pressure 94/59 L 122/43 L 120/58 L Pulse Oximetry 100 Oxygen Delivery Oxygen Flow Rate 03/03/24 00:21 03/03/24 00:41 03/03/24 00:42 Temperature Pulse Rate 157 H 170 H 170 H Respiratory Rate 20 Blood Pressure 114/63 110/61 Pulse Oximetry Oxygen Delivery Oxygen Flow Rate 03/03/24 02:20 03/03/24 04:00 03/03/24 04:00 Temperature 98.5 F 98.1 F Pulse Rate 99 83 Respiratory Rate 16 16 Blood Pressure 132/49 L 118/49 L Pulse Oximetry 98 98 98 Oxygen Delivery Nasal Cannula Oxygen Flow Rate 2 03/03/24 02:30 03/03/24 04:00 03/03/24 06:00 Temperature Pulse Rate 86 77 Respiratory Rate Blood Pressure Pulse Oximetry 97 Oxygen Delivery Nasal Cannula Oxygen Flow Rate 2 03/03/24 08:00 03/03/24 08:00 03/03/24 10:00 Temperature 98.2 F Pulse Rate 86 92 79 Respiratory Rate 18 Blood Pressure 118/43 L Pulse Oximetry 100 Oxygen Delivery Oxygen Flow Rate 03/03/24 12:00 03/03/24 12:00 Temperature 98.5 F Pulse Rate 74 84 Respiratory Rate 22 H Blood Pressure 142/76 H Pulse Oximetry 96 Oxygen Delivery Oxygen Flow Rate Intake/Output Intake/Output: Intake & Output 02/29/24 03/01/24 03/02/24 03/03/24 23:59 23:59 23:59 23:59 Intake Total 343.1 Output Total 100 Balance 243.1 Meds/Results Medications: Active Medications Generic Name Dose Route Start Last Admin Trade Name Freq PRN Reason Stop Dose Admin Acetaminophen 650 mg 03/03/24 00:49 Acetaminophen 325 Mg Tablet PO Q6H PRN Mild Pain (1-3) or Fever Aspirin 81 mg 03/03/24 12:40 Aspirin 81 Mg Enteric Tablet PO QAM SHERRY Atorvastatin Calcium 40 mg 03/03/24 09:00 03/03/24 09:21 Atorvastatin 40 Mg Tablet PO 40 mg DAILY SHERRY Administration Enoxaparin Sodium 55 mg 03/04/24 09:00 Enoxaparin 60 Mg/0.6 Ml Syringe SUB-Q Q24H [facility] Azithromycin 500 mg in 250 mls @ 250 mls/hr 03/03/24 22:00 Zithromax IVPB Q24H SHERRY Ipratropium [place] 0.5 mg 03/03/24 08:00 03/03/24 09:04 Ipratropium Br 0.02% Inh Soln 0.5 Mg/2.5 Ml Vial INHALATION Not Given Q6HRT [facility] Levalbuterol HCl 1.25 mg 03/03/24 08:00 03/03/24 09:05 Levalbuterol Neb 1.25 Mg/3 Ml INHALATION Not Given Q6HRT [facility] Metoprolol Tartrate 50 mg 03/03/24 21:00 Metoprolol Tartrate 50 Mg Tab PO Q12HR [facility] Perflutren Lipid Microsphere 0 ml 03/03/24 12:28 Perflutren Lipid Microspheres 1.5 Ml Vial Diluted To 10 Ml Total Volume IV PUSH 03/06/24 12:28 ONCE PRN adequate visualization Protocol Roflumilast 250 mcg 03/03/24 09:00 03/03/24 09:21 Roflumilast 250 Mcg Tablet PO 250 mcg DAILY SHERRY Administration Sodium Chloride 6 ml 03/04/24 05:00 Sodium Chlor 3% 15 Ml Neb (Respiratory Therapy) INHALATION 03/06/24 05:01 DAILY@0500 [facility] Radiology Results: ITS Impressions Chest X-Ray 03/02/24 22:39 IMPRESSION: Small left-sided pleural effusion coarse interstitial lung markings, unchanged from 10/24/[address] 03/02/24 23:06 IMPRESSION: Panlobular emphysema with additional findings suggesting persistent pneumonitis. Bibasilar pleural thickening. Small pericardial effusion. Pulmonary Perfusion Imaging 03/03/24 11:23 IMPRESSION: 1. Intermediate probably for pulmonary embolism. Venous Doppler Study 03/03/24 11:29 IMPRESSION: 1. No deep venous thrombosis. Labs Labs: Laboratory Results - last 24 hr 03/02/24 03/02/24 03/03/24 22:16 23:24 04:24 WBC 21.0 H 18.1 H RBC 3.50 L 3.03 L Hgb 10.4 L 9.1 L Hct 33.3 L 28.9 L MCV 95.1 95.4 MCH 29.7 30.0 MCHC 31.2 L 31.5 L RDW 14.3 14.3 Plt Count 262 238 MPV 9.8 10.4 Immature Gran % (Auto) 0.4 0.5 Neut % (Auto) 84.2 H 95.5 H Lymph % (Auto) 8.7 L 3.0 L [place] % (Auto) 6.4 0.9 L Eos % (Auto) 0.1 0.0 Baso % (Auto) 0.2 0.1 L Lymph # (Auto) 1.83 0.54 L [place] # (Auto) 1.3 H 0.2 Eos # (Auto) 0.0 0.0 Baso # (Auto) 0.0 0.0 Abs Immat Gran (auto) 0.09 H 0.09 H Absolute Neuts (auto) 17.7 H 17.3 H Absolute Nucleated RBC 0.000 0.000 Nucleated RBC % 0.0 0.0 Platelet Estimate Adequate Adequate Hypochromasia 1+ 1+ Ovalocytes 1+ 1+ Schistocytes None seen None seen PT 16.7 H INR 1.3 APTT 38.4 H D-Dimer 1.53 H Puncture Site ABG pH ABG pCO2 ABG pO2 ABG PO2/FiO2 Ratio ABG HCO3 ABG O2 Saturation ABG O2 Content ABG Base Excess A-a Gradient Oxyhemoglobin Total Hemoglobin O2 Delivery Device O2 Liters/Min FiO2 Sodium 134 L 134 L Potassium 4.2 4.5 Chloride 95 L 99 Carbon Dioxide 32 H 27 Anion Gap 7 8 BUN 50 H 50 H Creatinine 1.80 H 1.60 H Estim Creat Clear Calc 19 21 Estimated GFR 27 L 31 L Glucose 122 H 132 H Lactic Acid 1.0 Calcium 10.6 H 9.9 Magnesium 1.8 1.8 Total Bilirubin 0.9 AST 20 ALT 18 Alkaline Phosphatase 77 Troponin I 0.020 0.034 D NT-Pro-B Natriuret Pep 2010 H Total Protein 8.0 Albumin 3.9 TSH (Reflex) 0.626 Nasal MRSA (PCR) Stl Occult Blood (IFOB) Influenza A (RT-PCR) Negative Influenza B (RT-PCR) Negative RSV (RT-PCR) Negative SARS-CoV-2 RNA (RT-PCR) Negative 03/03/24 03/03/24 03/03/24 04:42 05:38 11:46 WBC RBC Hgb Hct MCV MCH MCHC RDW Plt Count MPV Immature Gran % (Auto) Neut % (Auto) Lymph % (Auto) [place] % (Auto) Eos % (Auto) Baso % (Auto) Lymph # (Auto) [place] # (Auto) Eos # (Auto) Baso # (Auto) Abs Immat Gran (auto) Absolute Neuts (auto) Absolute Nucleated RBC Nucleated RBC % Platelet Estimate Hypochromasia Ovalocytes Schistocytes PT INR APTT D-Dimer Puncture Site ABG pH ABG pCO2 ABG pO2 ABG PO2/FiO2 Ratio ABG HCO3 ABG O2 Saturation ABG O2 Content ABG Base Excess A-a Gradient Oxyhemoglobin Total Hemoglobin O2 Delivery Device O2 Liters/Min FiO2 Sodium Potassium Chloride Carbon Dioxide Anion Gap BUN Creatinine Estim Creat Clear Calc Estimated GFR Glucose Lactic Acid Calcium Magnesium Total Bilirubin AST ALT Alkaline Phosphatase Troponin I 0.137 H* D NT-Pro-B Natriuret Pep Total Protein Albumin TSH (Reflex) Nasal MRSA (PCR) Not detected Stl Occult Blood (IFOB) Negative Influenza A (RT-PCR) Influenza B (RT-PCR) RSV (RT-PCR) SARS-CoV-2 RNA (RT-PCR) 03/03/24 12:11 WBC RBC Hgb Hct MCV MCH MCHC RDW Plt Count MPV Immature Gran % (Auto) Neut % (Auto) Lymph % (Auto) [place] % (Auto) Eos % (Auto) Baso % (Auto) Lymph # (Auto) [place] # (Auto) Eos # (Auto) Baso # (Auto) Abs Immat Gran (auto) Absolute Neuts (auto) Absolute Nucleated RBC Nucleated RBC % Platelet Estimate Hypochromasia Ovalocytes Schistocytes PT INR APTT D-Dimer Puncture Site Right radial ABG pH 7.378 ABG pCO2 46.1 H ABG pO2 76.3 L ABG PO2/FiO2 Ratio 2.73 ABG HCO3 26.5 H ABG O2 Saturation 94.9 L ABG O2 Content 13.5 L ABG Base Excess 1.1 A-a Gradient 68.9 Oxyhemoglobin 94.8 Total Hemoglobin 10.1 L O2 Delivery Device Nasal cannula O2 Liters/Min 2.0 FiO2 28 Sodium Potassium Chloride Carbon Dioxide Anion Gap BUN Creatinine Estim Creat Clear Calc Estimated GFR Glucose Lactic Acid Calcium Magnesium Total Bilirubin AST ALT Alkaline Phosphatase Troponin I NT-Pro-B Natriuret Pep Total Protein Albumin TSH (Reflex) Nasal MRSA (PCR) Stl Occult Blood (IFOB) Influenza A (RT-PCR) Influenza B (RT-PCR) RSV (RT-PCR) SARS-CoV-2 RNA (RT-PCR)
[2024-03-03] MEDS: IPRATROPIUM BR 0.02% INH SOLN 0.5 MG/2.5 ML VIAL INHALATION ×2 (14:26→20:21)
[2024-03-03] MEDS: LEVALBUTEROL NEB 1.25 MG/3 ML INHALATION ×2 (14:26→20:21)
[2024-03-03 15:37] LABS: Alanine Aminotransferase 64 U/L (6-35); Albumin Level 3.5 g/dL (3.5-5.1); Alkaline Phosphatase 157 U/L (38-126); Anion Gap 7 mmol/L (4-12); Aspartate Amino Transferase 68 U/L (14-36); Bilirubin,Total 0.7 mg/dL (0.2-1.3); Blood Urea Nitrogen 53 mg/dL (7-17); Calcium 9.9 mg/dL (8.4-10.2); Carbon Dioxide 27 mmol/L (22-30); Chloride 101 mmol/L (98-107); Estimated CRCL calculation 22 ml/min; Estimated Glomerular Filt Rate 33; Glucose 197 mg/dL (65-110); Potassium 4.3 mmol/L (3.4-5.0); Sodium 135 mmol/L (137-145)
[2024-03-03] MEDS: ASPIRIN 81 MG ENTERIC TABLET PO (17:31)
[2024-03-03] MEDS: METOPROLOL TARTRATE 50 MG TAB PO (21:15)
[2024-03-04] VITALS (22 sets, daily range): BP systolic 109–142; BP diastolic 48–53; PULSE 71–145; RESP 16–20; TEMP 36.5–36.8; O2SAT 95–100
--- NOTE | 2024-03-04 04:19 | PCRCNOTE ---
0200 neb tx was omitted due to oximetry study.
[2024-03-04 05:02] LABS: Basophils Percent Auto 0.2 % (0.2-1.2); Hematocrit 27.9 % (37.0-47.0); Hemoglobin 8.9 g/dL (12.0-15.0); Immature Granulocyte Absolute 0.15 K/mm3 (0.00-0.031); Immature Granulocyte Percent A 0.6 % (0-0.5); Lymphocytes Percent Auto 3.9 % (18.3-44.2); Mean Corpuscular HGB Conc 31.9 g/dl (32-36); Mean Corpuscular Hemoglobin 30.8 pg (26-34); Mean Corpuscular Volume 96.5 fl (80-100); Mean Platelet Volume 10.8 fl (7.4-10.4); Monocytes Absolute Auto 0.3 K/mm3 (0.1-0.6); Monocytes Percent Auto 1.4 % (2.6-8.5); Neutrophils Absolute Auto 21.7 K/mm3 (1.3-6.7); Neutrophils Percent Auto 93.9 % (45.5-73.1); Platelet Count Result 232 k/mm3 (150-375); Red Blood Count 2.89 M/mm3 (4.2-5.4); Red Cell Distribution Width 14.5 % (11.5-14.5); White Blood Count 23.2 K/mm3 (4.5-10.0)
[2024-03-04] MEDS: SODIUM CHLOR 3% 15 ML NEB (RESPIRATORY THERAPY) 6 ML INHALATION (05:12)
[2024-03-04 05:20] LABS: Alanine Aminotransferase 52 U/L (6-35); Albumin Level 3.4 g/dL (3.5-5.1); Alkaline Phosphatase 125 U/L (38-126); Anion Gap 9 mmol/L (4-12); Aspartate Amino Transferase 43 U/L (14-36); Bilirubin,Total 0.2 mg/dL (0.2-1.3); Blood Urea Nitrogen 52 mg/dL (7-17); Calcium 10.1 mg/dL (8.4-10.2); Carbon Dioxide 28 mmol/L (22-30); Chloride 101 mmol/L (98-107); Estimated CRCL calculation 22 ml/min; Estimated Glomerular Filt Rate 33; Glucose 132 mg/dL (65-110); Potassium 4.2 mmol/L (3.4-5.0); Sodium 138 mmol/L (137-145)
[2024-03-04 05:26] LABS: Hypochromasia 1+; Platelet Estimate Adequate (Adequate)
[2024-03-04 05:27] LABS: Anisocytosis 1+; Ovalocytes 1+; Schistocytes None Seen
--- NOTE | 2024-03-04 05:34 | PCRCNOTE ---
pt was unable to submit a sputum sample
[2024-03-04] MEDS: IPRATROPIUM BR 0.02% INH SOLN 0.5 MG/2.5 ML VIAL INHALATION ×3 (07:15→20:49)
[2024-03-04] MEDS: LEVALBUTEROL NEB 1.25 MG/3 ML INHALATION ×3 (07:15→20:49)
[2024-03-04] MEDS: ENOXAPARIN 60 MG/0.6 ML SYRINGE 55 MG SUB-Q (08:22)
[2024-03-04] MEDS: ASPIRIN 81 MG ENTERIC TABLET PO (08:23)
[2024-03-04] MEDS: ATORVASTATIN 40 MG TABLET PO (08:23)
[2024-03-04] MEDS: METOPROLOL TARTRATE 50 MG TAB PO ×2 (08:24→21:22)
[2024-03-04] MEDS: ROFLUMILAST 250 MCG TABLET PO (08:24)
[2024-03-04] MEDS: busPIRone HCL 5 MG TABLET PO ×2 (09:01→21:22)
[2024-03-04] MEDS: METOPROLOL TARTRATE INJ 5 MG/5 ML VIAL IV PUSH (09:25)
[2024-03-04 09:52] LABS: Iron 15 ug/dL (37-170)
[2024-03-04 10:01] LABS: Percent Iron Saturation 6 % (20-50)
[2024-03-04] MEDS: SODIUM CHLORIDE 0.9% IV 1,000 ML 50 ML IV CONT (15:29)
--- NOTE | 2024-03-04 16:36 | P.PNCA_ITS ---
Progress Note: A&P Assessment and Plan (1) Atrial flutter: Qualifiers: Atrial flutter type: unspecified Qualified Code(s): I48.92 - Unspecified atrial flutter Code(s): I48.92 - Unspecified atrial flutter Status: Acute Plan 78-year-old woman with CAD status post PCI to the left circ, chronic hypoxemic respiratory failure, hypertension, and hyperlipidemia presents with chest pain and was found to have atrial flutter Chest pain -her episodes of chest discomfort-she describes correlates well with atrial flutter with rapid ventricular rate -will start her on metoprolol to control her ventricular rates when in atrial flutter Atrial flutter with RVR -given elevated chads Vasc score, would start Eliquis 2.5 mg p.o. b.i.d. given her weight and age -continue metoprolol tartrate 50 mg p.o. b.i.d. -outpatient follow-up Troponin elevation -most likely secondary to episodes of RVR -with trend troponin to peak CAD status post PCI -continue aspirin 81 mg daily Hypertension -continue metoprolol tartrate 50 mg b.i.d. with goal systolic blood pressure less than 130 mm Hg Hyperlipidemia -continue atorvastatin 40 mg every evening Subjective Date/time seen: 03/04/24 16:36 Interval history: She is feeling very anxious. Otherwise she denies shortness of breath or chest pain Review of Systems Cardiovascular: Cardiovascular: Reports as per HPI Respiratory: Respiratory: Reports as per HPI Exam Const: General: comfortable HENMT: Mouth: Yes moist mucous membranes Eyes: EOM: EOMs intact bilaterally Neck: Neck: no JVD Resp: Effort & Inspection: normal respiratory effort Auscultation: clear to auscultation bilaterally Cardio: Rate: regular rate Rhythm: regular rhythm GI: GI Palp: Yes Soft to palpation Neuro: Speech: normal speech Objective Data Vital Signs Vital Signs: Vital Signs - 24 hr 03/03/24 18:00 03/03/24 20:00 03/03/24 20:22 Temperature 36.7 C Pulse Rate 99 96 92 Respiratory Rate 16 20 Blood Pressure 124/63 Pulse Oximetry 99 Oxygen Delivery Oxygen Flow Rate 03/03/24 20:37 03/03/24 21:15 03/03/24 20:00 Temperature Pulse Rate 90 109 H Respiratory Rate 20 Blood Pressure Pulse Oximetry 99 Oxygen Delivery Nasal Cannula Oxygen Flow Rate 2 03/04/24 00:00 03/04/24 00:00 03/03/24 20:00 Temperature 36.7 C Pulse Rate 73 91 Respiratory Rate 16 Blood Pressure 120/53 L Pulse Oximetry 98 98 Oxygen Delivery Nasal Cannula Oxygen Flow Rate 2 03/03/24 22:00 03/04/24 00:00 03/04/24 02:00 Temperature Pulse Rate 96 71 72 Respiratory Rate Blood Pressure Pulse Oximetry Oxygen Delivery Oxygen Flow Rate 03/03/24 20:20 03/04/24 04:00 03/04/24 04:00 Temperature 36.5 C Pulse Rate 84 Respiratory Rate 16 Blood Pressure 126/49 L Pulse Oximetry 98 100 100 Oxygen Delivery Nasal Cannula Nasal Cannula Oxygen Flow Rate 2 2 03/04/24 04:00 03/04/24 06:00 03/04/24 07:15 Temperature Pulse Rate 73 77 Respiratory Rate Blood Pressure Pulse Oximetry 95 Oxygen Delivery Nasal Cannula Oxygen Flow Rate 2 03/04/24 07:15 03/04/24 07:32 03/04/24 08:24 Temperature Pulse Rate 90 92 123 H Respiratory Rate 20 20 Blood Pressure Pulse Oximetry Oxygen Delivery Oxygen Flow Rate 03/04/24 08:00 03/04/24 09:25 03/04/24 08:00 Temperature 36.7 C Pulse Rate 104 H 145 H 145 H Respiratory Rate 20 20 Blood Pressure 142/52 H Pulse Oximetry 97 97 Oxygen Delivery Nasal Cannula Oxygen Flow Rate 2 03/04/24 08:00 03/04/24 10:00 03/04/24 11:48 Temperature 36.8 C Pulse Rate 103 H 99 95 Respiratory Rate 16 Blood Pressure 109/49 L Pulse Oximetry 97 Oxygen Delivery Oxygen Flow Rate 03/04/24 12:00 03/04/24 12:00 03/04/24 13:22 Temperature Pulse Rate 95 86 83 Respiratory Rate 16 20 Blood Pressure Pulse Oximetry 97 Oxygen Delivery Nasal Cannula Oxygen Flow Rate 2 03/04/24 13:42 03/04/24 14:00 03/04/24 16:00 Temperature 36.6 C Pulse Rate 84 93 95 Respiratory Rate 20 20 Blood Pressure 119/48 L Pulse Oximetry 97 Oxygen Delivery Oxygen Flow Rate 03/04/24 16:00 Temperature Pulse Rate 96 Respiratory Rate Blood Pressure Pulse Oximetry Oxygen Delivery Oxygen Flow Rate Intake/Output Intake/Output: Intake & Output 03/01/24 03/02/24 03/03/24 03/04/24 23:59 23:59 23:59 23:59 Intake Total 1213.1 700 Output Total 100 500 Balance 1113.1 200 Meds/Results Medications: Active Medications Generic Name Dose Route Start Last Admin Trade Name Freq PRN Reason Stop Dose Admin Acetaminophen 650 mg 03/03/24 00:49 Acetaminophen 325 Mg Tablet PO Q6H PRN Mild Pain (1-3) or Fever Aspirin 81 mg 03/03/24 12:40 03/04/24 08:23 Aspirin 81 Mg Enteric Tablet PO 81 mg QAM SHERRY Administration Atorvastatin Calcium 40 mg 03/03/24 09:00 03/04/24 08:23 Atorvastatin 40 Mg Tablet PO 40 mg DAILY SHERRY Administration Buspirone HCl 5 mg 03/04/24 09:00 03/04/24 09:01 Buspirone Hcl 5 Mg Tablet PO 5 mg Q12HR SHERRY Administration Enoxaparin Sodium 55 mg 03/04/24 09:00 03/04/24 08:22 Enoxaparin 60 Mg/0.6 Ml Syringe SUB-Q 55 mg Q24H SHERRY Administration Azithromycin 500 mg in 250 mls @ 250 mls/hr 03/03/24 22:00 03/03/24 22:16 Zithromax IVPB Infused Q24H SHERRY Infusion Sodium Chloride 1,000 mls @ 50 mls/hr 03/04/24 15:23 03/04/24 15:29 Normal Saline Iv IV CONT 03/05/24 11:22 50 mls/hr .Q20H SHERRY Administration Ipratropium [place] 0.5 mg 03/03/24 08:00 03/04/24 13:21 Ipratropium Br 0.02% Inh Soln 0.5 Mg/2.5 Ml Vial INHALATION 0.5 mg Q6HRT SHERRY Administration Levalbuterol HCl 1.25 mg 03/03/24 08:00 03/04/24 13:22 Levalbuterol Neb 1.25 Mg/3 Ml INHALATION 1.25 mg Q6HRT SHERRY Administration Metoprolol Tartrate 50 mg 03/03/24 21:00 03/04/24 08:24 Metoprolol Tartrate 50 Mg Tab PO 50 mg Q12HR SHERRY Administration Perflutren Lipid Microsphere 0 ml 03/03/24 12:28 Perflutren Lipid Microspheres 1.5 Ml Vial Diluted To 10 Ml Total Volume IV PUSH 03/06/24 12:28 ONCE PRN adequate visualization Protocol Roflumilast 250 mcg 03/03/24 09:00 03/04/24 08:24 Roflumilast 250 Mcg Tablet PO 250 mcg DAILY SHERRY Administration Sodium Chloride 6 ml 03/04/24 05:00 03/04/24 05:12 Sodium Chlor 3% 15 Ml Neb (Respiratory Therapy) INHALATION 03/06/24 05:01 6 ml DAILY@0500 SHERRY Administration Radiology Results: ITS Impressions Chest X-Ray 03/02/24 22:39 IMPRESSION: Small left-sided pleural effusion coarse interstitial lung markings, unchanged from 10/24/[address] 03/02/24 23:06 IMPRESSION: Panlobular emphysema with additional findings suggesting persistent pneumonitis. Bibasilar pleural thickening. Small pericardial effusion. Pulmonary Perfusion Imaging 03/03/24 11:23 IMPRESSION: 1. Intermediate probably for pulmonary embolism. Venous Doppler Study 03/03/24 11:29 IMPRESSION: 1. No deep venous thrombosis. Chest CTA 03/04/24 14:14 IMPRESSION: No CT evidence of acute pulmonary embolus. Scattered areas of scarring and chronic infection, over a background of moderate emphysema. Small bilateral pleural effusions. Small pericardial effusion. Labs Labs: Laboratory Results - last 24 hr 03/04/24 03/04/24 04:16 04:19 WBC 23.2 H RBC 2.89 L Hgb 8.9 L Hct 27.9 L MCV 96.5 MCH 30.8 MCHC 31.9 L RDW 14.5 Plt Count 232 MPV 10.8 H Immature Gran % (Auto) 0.6 H Neut % (Auto) 93.9 H Lymph % (Auto) 3.9 L [place] % (Auto) 1.4 L Eos % (Auto) 0.0 Baso % (Auto) 0.2 Lymph # (Auto) 0.90 [place] # (Auto) 0.3 Eos # (Auto) 0.0 Baso # (Auto) 0.0 Abs Immat Gran (auto) 0.15 H Absolute Neuts (auto) 21.7 H Absolute Nucleated RBC 0.000 Nucleated RBC % 0.0 Platelet Estimate Adequate Hypochromasia 1+ Anisocytosis 1+ Ovalocytes 1+ Schistocytes None seen Sodium 138 Potassium 4.2 Chloride 101 Carbon Dioxide 28 Anion Gap 9 BUN 52 H Creatinine 1.50 H Estim Creat Clear Calc 22 Estimated GFR 33 L Glucose 132 H Calcium 10.1 Magnesium 2.0 Iron 15 L TIBC 265 % Saturation 6 L Total Bilirubin 0.2 AST 43 H ALT 52 H Alkaline Phosphatase 125 Total Protein 7.0 Albumin 3.4 L
--- NOTE | 2024-03-04 17:07 | PM.IMPN ---
Progress Note: A&P Assessment and Plan (1) MAX (mycobacterium avium-intracellulare): Code(s): A31.0 - Pulmonary mycobacterial infection Status: Acute (2) Atrial flutter: Qualifiers: Atrial flutter type: unspecified Qualified Code(s): I48.92 - Unspecified atrial flutter Code(s): I48.92 - Unspecified atrial flutter Status: Acute (3) Acute exacerbation of chronic obstructive pulmonary disease (COPD): Code(s): J44.1 - Chronic obstructive pulmonary disease with (acute) exacerbation Status: Acute Plan COPD exacerbation Pulmonology evaluated and without exacerbation Continue bronchodilators, no systemic steroids continue azithromycin. Go to grade 3 group E COPD Pulmonology following. Possible pulmonary embolism V/Q scan showed intermediate for DVT, lower extremity Doppler negative for DVT Director Client Services strongly suspects PE Continue therapeutic dose Lovenox CTA chest PE protocol negative for PE Monitor closely Chronic respiratory failure from COPD Patient now baseline oxygen Continue monitoring. History of MAX Patient is well known to Dr. 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 Pulmonology continued to follow. Atrial flutter New onset TSH normal Echo EF 60-65%no regional wall motion abnormalities, Grade I diastolic dysfunction Patient Aricept 0.5 mg of metoprolol increased to 50 mg by cardiology. stop full anticoagulation Cardiology following. Iron deficiency anemia hb 8.9, isat 6 Start iron replacement 500/1000 occult blood stool ordered ?B12 deficiency B12 level 285 Homocysteine and Mehtylmalonic acid orderd f/u Hypertension Continue home medications. Coronary artery disease Continue aspirin statin beta-felix. Hyperlipidemia Continue statin. DVT prophylaxis patient on full-dose Lovenox. Subjective Date/time seen: 03/04/24 17:07 Interval history: Comfortable at bedside Iron deficiency, started on IV iron CTA chest negative for PE possible discharge tomorrow if HR stays stabel Exam Narrative: General: alert and comfortable Eyes: EOMI, PERRLA ENNT External ears normal, Neck is supple, no masses, Respiratory systems: Clear to auscultation Cardiovascular S1, S2, normal rhythm, no murmur, rub, or gallop; no thrill or palpable murmurs on palpation. Gastrointestinal: soft, non-tender, and non-distended abdomen with no masses; BS present Skin: no rash, lesions, ulcerations, subcutaneous nodules or induration Musculoskeletal: no abnormality and no tenderness, normal ROM Neurologic: Alert and oriented x3, non focal Mental Status Exam: normal affect Objective Data Vital Signs Vital Signs: Vital Signs - 24 hr 03/03/24 18:00 03/03/24 20:00 03/03/24 20:22 Temperature 98.1 F Pulse Rate 99 96 92 Respiratory Rate 16 20 Blood Pressure 124/63 Pulse Oximetry 99 Oxygen Delivery Oxygen Flow Rate 03/03/24 20:37 03/03/24 21:15 03/03/24 20:00 Temperature Pulse Rate 90 109 H Respiratory Rate 20 Blood Pressure Pulse Oximetry 99 Oxygen Delivery Nasal Cannula Oxygen Flow Rate 2 03/04/24 00:00 03/04/24 00:00 03/03/24 20:00 Temperature 98.1 F Pulse Rate 73 91 Respiratory Rate 16 Blood Pressure 120/53 L Pulse Oximetry 98 98 Oxygen Delivery Nasal Cannula Oxygen Flow Rate 2 03/03/24 22:00 03/04/24 00:00 03/04/24 02:00 Temperature Pulse Rate 96 71 72 Respiratory Rate Blood Pressure Pulse Oximetry Oxygen Delivery Oxygen Flow Rate 03/03/24 20:20 03/04/24 04:00 03/04/24 04:00 Temperature 97.7 F Pulse Rate 84 Respiratory Rate 16 Blood Pressure 126/49 L Pulse Oximetry 98 100 100 Oxygen Delivery Nasal Cannula Nasal Cannula Oxygen Flow Rate 2 2 03/04/24 04:00 03/04/24 06:00 03/04/24 07:15 Temperature Pulse Rate 73 77 Respiratory Rate Blood Pressure Pulse Oximetry 95 Oxygen Delivery Nasal Cannula Oxygen Flow Rate 2 03/04/24 07:15 03/04/24 07:32 03/04/24 08:24 Temperature Pulse Rate 90 92 123 H Respiratory Rate 20 20 Blood Pressure Pulse Oximetry Oxygen Delivery Oxygen Flow Rate 03/04/24 08:00 03/04/24 09:25 03/04/24 08:00 Temperature 98.0 F Pulse Rate 104 H 145 H 145 H Respiratory Rate 20 20 Blood Pressure 142/52 H Pulse Oximetry 97 97 Oxygen Delivery Nasal Cannula Oxygen Flow Rate 2 03/04/24 08:00 03/04/24 10:00 03/04/24 11:48 Temperature 98.2 F Pulse Rate 103 H 99 95 Respiratory Rate 16 Blood Pressure 109/49 L Pulse Oximetry 97 Oxygen Delivery Oxygen Flow Rate 03/04/24 12:00 03/04/24 12:00 03/04/24 13:22 Temperature Pulse Rate 95 86 83 Respiratory Rate 16 20 Blood Pressure Pulse Oximetry 97 Oxygen Delivery Nasal Cannula Oxygen Flow Rate 2 03/04/24 13:42 03/04/24 14:00 03/04/24 16:00 Temperature 97.9 F Pulse Rate 84 93 95 Respiratory Rate 20 20 Blood Pressure 119/48 L Pulse Oximetry 97 Oxygen Delivery Oxygen Flow Rate 03/04/24 16:00 Temperature Pulse Rate 96 Respiratory Rate Blood Pressure Pulse Oximetry Oxygen Delivery Oxygen Flow Rate Intake/Output Intake/Output: Intake & Output 03/01/24 03/02/24 03/03/24 03/04/24 23:59 23:59 23:59 23:59 Intake Total 1213.1 820 Output Total 100 500 Balance 1113.1 320 Meds/Results Medications: Active Medications Generic Name Dose Route Start Last Admin Trade Name Freq PRN Reason Stop Dose Admin Acetaminophen 650 mg 03/03/24 00:49 Acetaminophen 325 Mg Tablet PO Q6H PRN Mild Pain (1-3) or Fever Apixaban 2.5 mg 03/05/24 09:00 Apixaban 2.5 Mg Tablet PO Q12HR SHERRY Aspirin 81 mg 03/03/24 12:40 03/04/24 08:23 Aspirin 81 Mg Enteric Tablet PO 81 mg QAM SHERRY Administration Atorvastatin Calcium 40 mg 03/03/24 09:00 03/04/24 08:23 Atorvastatin 40 Mg Tablet PO 40 mg DAILY SHERRY Administration Buspirone HCl 5 mg 03/04/24 09:00 03/04/24 09:01 Buspirone Hcl 5 Mg Tablet PO 5 mg Q12HR SHERRY Administration Cyanocobalamin 1,000 mcg 03/04/24 17:06 Cyanocobalamin Inj 1,000 Mcg/Ml Vial IM 03/04/24 17:07 ONCE ONE Azithromycin 500 mg in 250 mls @ 250 mls/hr 03/03/24 22:00 03/03/24 22:16 Zithromax IVPB Infused Q24H SHERRY Infusion Sodium Chloride 1,000 mls @ 50 mls/hr 03/04/24 15:23 03/04/24 15:29 Normal Saline Iv IV CONT 03/05/24 11:22 50 mls/hr .Q20H SHERRY Administration Ipratropium [place] 0.5 mg 03/03/24 08:00 03/04/24 13:21 Ipratropium Br 0.02% Inh Soln 0.5 Mg/2.5 Ml Vial INHALATION 0.5 mg Q6HRT SHERRY Administration Levalbuterol HCl 1.25 mg 03/03/24 08:00 03/04/24 13:22 Levalbuterol Neb 1.25 Mg/3 Ml INHALATION 1.25 mg Q6HRT SHERRY Administration Metoprolol Tartrate 50 mg 03/03/24 21:00 03/04/24 08:24 Metoprolol Tartrate 50 Mg Tab PO 50 mg Q12HR SHERRY Administration Perflutren Lipid Microsphere 0 ml 03/03/24 12:28 Perflutren Lipid Microspheres 1.5 Ml Vial Diluted To 10 Ml Total Volume IV PUSH 03/06/24 12:28 ONCE PRN adequate visualization Protocol Roflumilast 250 mcg 03/03/24 09:00 03/04/24 08:24 Roflumilast 250 Mcg Tablet PO 250 mcg DAILY SHERRY Administration Sodium Chloride 6 ml 03/04/24 05:00 03/04/24 05:12 Sodium Chlor 3% 15 Ml Neb (Respiratory Therapy) INHALATION 03/06/24 05:01 6 ml DAILY@0500 SHERRY Administration Radiology Results: ITS Impressions Chest X-Ray 03/02/24 22:39 IMPRESSION: Small left-sided pleural effusion coarse interstitial lung markings, unchanged from 10/24/[address] 03/02/24 23:06 IMPRESSION: Panlobular emphysema with additional findings suggesting persistent pneumonitis. Bibasilar pleural thickening. Small pericardial effusion. Pulmonary Perfusion Imaging 03/03/24 11:23 IMPRESSION: 1. Intermediate probably for pulmonary embolism. Venous Doppler Study 03/03/24 11:29 IMPRESSION: 1. No deep venous thrombosis. Chest CTA 03/04/24 14:14 IMPRESSION: No CT evidence of acute pulmonary embolus. Scattered areas of scarring and chronic infection, over a background of moderate emphysema. Small bilateral pleural effusions. Small pericardial effusion. Labs Labs: Laboratory Results - last 24 hr 03/04/24 03/04/24 04:16 04:19 WBC 23.2 H RBC 2.89 L Hgb 8.9 L Hct 27.9 L MCV 96.5 MCH 30.8 MCHC 31.9 L RDW 14.5 Plt Count 232 MPV 10.8 H Immature Gran % (Auto) 0.6 H Neut % (Auto) 93.9 H Lymph % (Auto) 3.9 L [place] % (Auto) 1.4 L Eos % (Auto) 0.0 Baso % (Auto) 0.2 Lymph # (Auto) 0.90 [place] # (Auto) 0.3 Eos # (Auto) 0.0 Baso # (Auto) 0.0 Abs Immat Gran (auto) 0.15 H Absolute Neuts (auto) 21.7 H Absolute Nucleated RBC 0.000 Nucleated RBC % 0.0 Platelet Estimate Adequate Hypochromasia 1+ Anisocytosis 1+ Ovalocytes 1+ Schistocytes None seen Sodium 138 Potassium 4.2 Chloride 101 Carbon Dioxide 28 Anion Gap 9 BUN 52 H Creatinine 1.50 H Estim Creat Clear Calc 22 Estimated GFR 33 L Glucose 132 H Calcium 10.1 Magnesium 2.0 Iron 15 L TIBC 265 % Saturation 6 L Total Bilirubin 0.2 AST 43 H ALT 52 H Alkaline Phosphatase 125 Total Protein 7.0 Albumin 3.4 L
[2024-03-04] MEDS: IRON SUCROSE COMPLEX 400 MG, IRON SUCROSE COMPLEX 100 MG in SODIUM CHLORIDE 0.9% IV 250 ML 78.57 MG IVPB (18:08)
[2024-03-04] MEDS: CYANOCOBALAMIN INJ 1,000 MCG/ML VIAL 1000 MCG IM (18:08)
[2024-03-04] MEDS: AZITHROMYCIN 500 MG/NS 250 ML 500 MG/250 ML BAG 250 MG IVPB (22:34)
[2024-03-05] VITALS (12 sets, daily range): BP systolic 134–151; BP diastolic 61–66; PULSE 78–108; RESP 16–20; TEMP 36.2–36.8; O2SAT 93–97
[2024-03-05] MEDS: IPRATROPIUM BR 0.02% INH SOLN 0.5 MG/2.5 ML VIAL INHALATION ×2 (01:35→07:56)
[2024-03-05] MEDS: LEVALBUTEROL NEB 1.25 MG/3 ML INHALATION ×2 (01:35→07:56)
[2024-03-05 04:58] LABS: Basophils Percent Auto 0.1 % (0.2-1.2); Hematocrit 28.4 % (37.0-47.0); Hemoglobin 8.7 g/dL (12.0-15.0); Immature Granulocyte Absolute 0.08 K/mm3 (0.00-0.031); Immature Granulocyte Percent A 0.5 % (0-0.5); Lymphocytes Absolute Auto 2.18 K/mm3 (0.9-3.2); Lymphocytes Percent Auto 13.2 % (18.3-44.2); Mean Corpuscular HGB Conc 30.6 g/dl (32-36); Mean Corpuscular Hemoglobin 29.7 pg (26-34); Mean Corpuscular Volume 96.9 fl (80-100); Mean Platelet Volume 10.2 fl (7.4-10.4); Monocytes Absolute Auto 0.6 K/mm3 (0.1-0.6); Monocytes Percent Auto 3.4 % (2.6-8.5); Neutrophils Absolute Auto 13.6 K/mm3 (1.3-6.7); Neutrophils Percent Auto 82.8 % (45.5-73.1); Platelet Count Result 265 k/mm3 (150-375); Red Blood Count 2.93 M/mm3 (4.2-5.4); Red Cell Distribution Width 14.7 % (11.5-14.5); White Blood Count 16.5 K/mm3 (4.5-10.0)
[2024-03-05 05:08] LABS: Alanine Aminotransferase 59 U/L (6-35); Albumin Level 3.2 g/dL (3.5-5.1); Alkaline Phosphatase 128 U/L (38-126); Anion Gap 3 mmol/L (4-12); Aspartate Amino Transferase 39 U/L (14-36); Bilirubin,Total 0.5 mg/dL (0.2-1.3); Blood Urea Nitrogen 45 mg/dL (7-17); Calcium 9.7 mg/dL (8.4-10.2); Carbon Dioxide 29 mmol/L (22-30); Chloride 105 mmol/L (98-107); Estimated CRCL calculation 28 ml/min; Estimated Glomerular Filt Rate 43; Glucose 109 mg/dL (65-110); Magnesium 2.1 mg/dL (1.6-2.3); Sodium 137 mmol/L (137-145)
[2024-03-05] MEDS: SODIUM CHLOR 3% 15 ML NEB (RESPIRATORY THERAPY) 6 ML INHALATION (05:33)
[2024-03-05 05:34] LABS: Troponin I 0.065 ng/mL (0.000-0.034)
[2024-03-05] MEDS: ASPIRIN 81 MG ENTERIC TABLET PO (08:03)
[2024-03-05] MEDS: busPIRone HCL 5 MG TABLET PO (08:03)
[2024-03-05] MEDS: APIXABAN 2.5 MG TABLET PO (08:03)
[2024-03-05] MEDS: ATORVASTATIN 40 MG TABLET PO (08:03)
[2024-03-05] MEDS: ROFLUMILAST 250 MCG TABLET PO (08:03)
[2024-03-05] MEDS: METOPROLOL TARTRATE 50 MG TAB PO (08:03)
[2024-03-05] MEDS: IRON SUCROSE COMPLEX 400 MG, IRON SUCROSE COMPLEX 100 MG in SODIUM CHLORIDE 0.9% IV 250 ML 78.57 MG IVPB (08:29)
[2024-03-05] MEDS: ACETAMINOPHEN 325 MG TABLET 650 MG PO (09:48)
[2024-03-05 10:12] LABS: IFOB Positive Control Positive; Immunochemical Fecal Occult Bl Negative (N)
--- NOTE | 2024-03-05 12:49 | PM.DS ---
DS: Admitting Diagnosis Discharge Date 03/05/24 Admitting Diagnosis SOB DS: Discharge Diagnosis Discharge Diagnosis (1) Atrial flutter: Qualifiers: Atrial flutter type: unspecified Qualified Code(s): I48.92 - Unspecified atrial flutter Code(s): I48.92 - Unspecified atrial flutter Status: Acute (2) Acute on chronic hypoxic respiratory failure: Code(s): J96.21 - Acute and chronic respiratory failure with hypoxia Status: Acute DS: Summary Hospital Course Hospital Course: 78-year-old female past medical history hypertension, COPD on 3 L at baseline, hyperlipidemia periphery artery disease, Mycobacterium avium intracellular the patient is remarkable for shortness of . CT scan of the chest in the ER which showed norman lobar emphysema with additional finding suggestive of some persistent edema night to use bibasilar pleural thickening and small pericardial effusion. EKG showed atrial flutter. Pulmonology was consulted who noted the patient's CTs findings were chronic from Mycobacterium avium intracellularly, and patient was noted COPD exacerbation, however suspected pulmonary embolism on CT a chest with PE protocol was negative for PE. Patient back on baseline oxygen which history cancer. Cardiology was consulted increase patient's metoprolol from 37.5 to 50 mg b.i.d., patient was started on Eliquis 2.5 mg b.i.d.. Echo showed EF 60-65% with grade 1 diastolic dysfunction, no regional wall motion abnormalities. Hemoglobin was 10.4 on admission and trended down to 8.7, a couple stool was negative. Patient was not interested in endoscopy, she reported she has been off on endoscopy patient which she has defied for now will continue follow-up with Gastroenterology. . Iron Saturation was 6 and patient received 1 g of IV iron infusion. Today patient currently at baseline, but for oxygen on mental status, appetite and normal intake is adequate. Last bowel movement showed normal stool color. No blood or dark stool noted. Discussed with patient and daughter at bedside at length, patient noted she will continue continue follow-up with her GI doctor further plans. Follow-up PCP in 3-5 days, follow with GI Cardiology pulmonology as instructed. Assessment and Plan (1) MAX (mycobacterium avium-intracellulare): Code(s): A31.0 - Pulmonary mycobacterial infection Status: Acute (2) Atrial flutter: Qualifiers: Atrial flutter type: unspecified Qualified Code(s): I48.92 - Unspecified atrial flutter Code(s): I48.92 - Unspecified atrial flutter Status: Acute (3) Acute exacerbation of chronic obstructive pulmonary disease (COPD): Code(s): J44.1 - Chronic obstructive pulmonary disease with (acute) exacerbation Status: Acute Plan COPD exacerbation Pulmonology evaluated and without exacerbation Continue bronchodilators, no systemic steroids continue azithromycin. Go to grade 3 group E COPD continue home bronchodilators and f/u with pulm as instructed Possible pulmonary embolism V/Q scan showed intermediate for DVT, lower extremity Doppler negative for DVT Public Health Aide strongly suspects PE Lovenox discontinued CTA chest PE protocol negative for PE Monitor closely Chronic respiratory failure from COPD Patient now baseline oxygen Continue monitoring. History of MAX Patient is well known to Dr. 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 Pulmonology will continue outpatient follow up Atrial flutter New onset TSH normal Echo EF 60-65%no regional wall motion abnormalities, Grade I diastolic dysfunction Patient Aricept 0.5 mg of metoprolol increased to 50 mg by cardiology. stop full anticoagulation Cardiology following. Iron deficiency anemia hb 8.9, isat 6 Start iron replacement 1000/1000 occult blood stool ordered ?B12 deficiency B12 level 285 Homocysteine and Mehtylmalonic acid pending discharge on b12 1000mcg daily in the meantime f/u Hypertension Continue home medications, decreased amlodipine to 2.5mg daily, as metoprolol was increased from 37.5 to 50mg bid Coronary artery disease Continue aspirin statin beta-felix. Hyperlipidemia Continue statin. Time Spent with Patient Time attestation: Total time spent providing and/or coordinating discharge services: DS: Data Data Completed and Pending Labs on day of discharge: Labs from last 24 hours 03/05/24 03/05/24 03/05/24 08:31 04:33 04:33 WBC RBC Hgb Hct MCV MCH MCHC RDW Plt Count MPV Immature Gran % (Auto) Neut % (Auto) Lymph % (Auto) [place] % (Auto) Eos % (Auto) Baso % (Auto) Lymph # (Auto) [place] # (Auto) Eos # (Auto) Baso # (Auto) Abs Immat Gran (auto) Absolute Neuts (auto) Absolute Nucleated RBC Nucleated RBC % Sodium Potassium Chloride Carbon Dioxide Anion Gap BUN Creatinine Estim Creat Clear Calc Estimated GFR Glucose Calcium Magnesium Total Bilirubin AST ALT Alkaline Phosphatase Troponin I Total Protein Cancelled Albumin Cancelled 3.2 L Methylmalonic Acid Pending Homocysteine Pending Stl Occult Blood (IFOB) Negative 03/05/24 03/05/24 03/05/24 04:33 04:33 04:33 WBC RBC Hgb Hct MCV MCH MCHC RDW Plt Count MPV Immature Gran % (Auto) Neut % (Auto) Lymph % (Auto) [place] % (Auto) Eos % (Auto) Baso % (Auto) Lymph # (Auto) [place] # (Auto) Eos # (Auto) Baso # (Auto) Abs Immat Gran (auto) Absolute Neuts (auto) Absolute Nucleated RBC Nucleated RBC % Sodium Potassium Chloride Carbon Dioxide Anion Gap BUN Creatinine Estim Creat Clear Calc Estimated GFR Glucose Calcium Magnesium Total Bilirubin AST Cancelled ALT Cancelled 59 H Alkaline Phosphatase Cancelled 128 H Troponin I 0.065 H* Total Protein 7.0 Albumin Methylmalonic Acid Homocysteine Stl Occult Blood (IFOB) 03/05/24 03/05/24 03/05/24 04:33 04:33 04:33 WBC RBC Hgb Hct MCV MCH MCHC RDW Plt Count MPV Immature Gran % (Auto) Neut % (Auto) Lymph % (Auto) [place] % (Auto) Eos % (Auto) Baso % (Auto) Lymph # (Auto) [place] # (Auto) Eos # (Auto) Baso # (Auto) Abs Immat Gran (auto) Absolute Neuts (auto) Absolute Nucleated RBC Nucleated RBC % Sodium Potassium Chloride Carbon Dioxide Anion Gap BUN Creatinine Estim Creat Clear Calc Estimated GFR Glucose Calcium Cancelled Magnesium Cancelled 2.1 Total Bilirubin Cancelled 0.5 AST 39 H ALT Alkaline Phosphatase Troponin I Total Protein Albumin Methylmalonic Acid Homocysteine Stl Occult Blood (IFOB) 03/05/24 03/05/24 03/05/24 04:33 04:33 04:33 WBC RBC Hgb Hct MCV MCH MCHC RDW Plt Count MPV Immature Gran % (Auto) Neut % (Auto) Lymph % (Auto) [place] % (Auto) Eos % (Auto) Baso % (Auto) Lymph # (Auto) [place] # (Auto) Eos # (Auto) Baso # (Auto) Abs Immat Gran (auto) Absolute Neuts (auto) Absolute Nucleated RBC Nucleated RBC % Sodium Potassium Chloride Carbon Dioxide Anion Gap BUN Creatinine Estim Creat Clear Calc Cancelled Estimated GFR Cancelled 43 L Glucose Cancelled 109 Calcium 9.7 Magnesium Total Bilirubin AST ALT Alkaline Phosphatase Troponin I Total Protein Albumin Methylmalonic Acid Homocysteine Stl Occult Blood (IFOB) 03/05/24 03/05/24 03/05/24 04:33 04:33 04:33 WBC RBC Hgb Hct MCV MCH MCHC RDW Plt Count MPV Immature Gran % (Auto) Neut % (Auto) Lymph % (Auto) [place] % (Auto) Eos % (Auto) Baso % (Auto) Lymph # (Auto) [place] # (Auto) Eos # (Auto) Baso # (Auto) Abs Immat Gran (auto) Absolute Neuts (auto) Absolute Nucleated RBC Nucleated RBC % Sodium Potassium Chloride Carbon Dioxide Anion Gap Cancelled BUN Cancelled 45 H Creatinine Cancelled 1.20 H Estim Creat Clear Calc 28 Estimated GFR Glucose Calcium Magnesium Total Bilirubin AST ALT Alkaline Phosphatase Troponin I Total Protein Albumin Methylmalonic Acid Homocysteine Stl Occult Blood (IFOB) 03/05/24 03/05/24 03/05/24 04:33 04:33 04:33 WBC RBC Hgb Hct MCV MCH MCHC RDW Plt Count MPV Immature Gran % (Auto) Neut % (Auto) Lymph % (Auto) [place] % (Auto) Eos % (Auto) Baso % (Auto) Lymph # (Auto) [place] # (Auto) Eos # (Auto) Baso # (Auto) Abs Immat Gran (auto) Absolute Neuts (auto) Absolute Nucleated RBC Nucleated RBC % Sodium Potassium Cancelled Chloride Cancelled 105 Carbon Dioxide Cancelled 29 Anion Gap 3 L BUN Creatinine Estim Creat Clear Calc Estimated GFR Glucose Calcium Magnesium Total Bilirubin AST ALT Alkaline Phosphatase Troponin I Total Protein Albumin Methylmalonic Acid Homocysteine Stl Occult Blood (IFOB) 03/05/24 03/05/24 04:33 04:33 WBC 16.5 H RBC 2.93 L Hgb 8.7 L Hct 28.4 L MCV 96.9 MCH 29.7 MCHC 30.6 L RDW 14.7 H Plt Count 265 MPV 10.2 Immature Gran % (Auto) 0.5 Neut % (Auto) 82.8 H Lymph % (Auto) 13.2 L [place] % (Auto) 3.4 Eos % (Auto) 0.0 Baso % (Auto) 0.1 L Lymph # (Auto) 2.18 [place] # (Auto) 0.6 Eos # (Auto) 0.0 Baso # (Auto) 0.0 Abs Immat Gran (auto) 0.08 H Absolute Neuts (auto) 13.6 H Absolute Nucleated RBC 0.000 Nucleated RBC % 0.0 Sodium Cancelled 137 Potassium 4.0 Chloride Carbon Dioxide Anion Gap BUN Creatinine Estim Creat Clear Calc Estimated GFR Glucose Calcium Magnesium Total Bilirubin AST ALT Alkaline Phosphatase Troponin I Total Protein Albumin Methylmalonic Acid Homocysteine Stl Occult Blood (IFOB) Preliminary micro results at discharge 03/02/24 23:24 Blood Culture - Preliminary Blood 03/02/24 23:24 Blood Culture - Preliminary Blood Discharge Plan Discharge Attending physician on discharge: Yonatan Alvarez Consulting providers: Faisal Philip; Theresa Hopkins Discharging Clinician: Yonatan Alvarez Anticipated Discharge Date/Time: 03/05/24 12:39 Patient Disposition: Home, Self-Care Activity: as tolerated Diet: as tolerated Patient Instructions: Antibiotic Form, Buspirone (By mouth), Apixaban (By mouth), Atrial Flutter (DC), Supraventricular Tachycardia (GEN), Acute Kidney Injury (GEN), Pneumonia (GEN), Acute Respiratory Failure (GEN) Stand Alone Forms: General Discharge Information Follow-up/Referrals: Theresa Hopkins MD [Physician] - (F/u with Cardiology as instructed ) Faisal Philip MD [Physician] - (F/u with Pulm as instructed ) Yvette Newton APRN [Primary Care Provider] - (F/u with PCP in 3-5 days ) Discharge Medications: New metoprolol tartrate 50 mg Tablet 50 mg PO Q12HR 30 Days Qty: 60 1RF Eliquis 2.5 mg Tablet 2.5 mg PO Q12HR 30 Days Qty: 60 1RF cyanocobalamin (vitamin B-12) 1,000 mcg tablet 1,000 mcg PO DAILY 30 Days Qty: 30 0RF Continued ondansetron 4 mg tablet,disintegrating 4 mg PO Q8H Qty: 60 2RF aspirin [Adult Low Dose Aspirin] 81 mg tablet,delayed release (DR/EC) 81 mg PO DAILY omega [id number]-mrw-fish oil [Fish Oil] 1,000 mg (120 mg-180 mg) capsule 1 cap PO DAILY cholecalciferol (vitamin D3) 400 unit capsule 400 unit PO DAILY (DME) inhalational spacing device Spacer See Rx Instructions .ROUTE .MEDSUPPLY Qty: 1 0RF Rx Instructions: As directed olmesartan-hydrochlorothiazide 40-12.5 mg tablet 1 tablet PO DAILY atorvastatin 40 mg tablet 40 mg PO DAILY roflumilast 250 mcg tablet 250 mcg PO DAILY Yupelri 175 mcg/3 mL solution for nebulization 175 mcg INHALATION QAM budesonide 0.25 mg/2 mL suspension for nebulization 0.25 mg inhalation BID 30 Days Qty: 120 3RF arformoterol 15 mcg/2 mL solution for nebulization 2 ml inhalation BID 30 Days Qty: 120 3RF Changed amlodipine 5 mg tablet 2.5 mg PO DAILY 30 Days Qty: 0 1RF Discontinued metoprolol tartrate 37.5 mg tablet 37.5 mg PO BID Qty: 180 1RF Date of admission: 03/03/24 03:48 Primary Care Provider: Yvette Newton Admitting Provider: Yonatan Alvarez Attending physician on admission: Yonatan Alvarez Condition: Serious
[2024-03-07 10:28] LABS: Homocysteine 23.1 umol/L (<10.4)
[2024-03-07 10:43] LABS: Mycoplasma IgM Antibody Titer 82 U/mL
--- NOTE | 2024-03-08 15:37 | HP_ITS ---
DATE OF SERVICE: 03/03/2024 CHIEF COMPLAINT: Shortness of breath. HISTORY OF PRESENT ILLNESS: This is a very pleasant 78-year-old female with chronic respiratory failure, on home oxygen, MAX, chronic obstructive pulmonary disease, hypertension, hyperlipidemia, chronic kidney disease, paroxysmal supraventricular tachycardia, and other comorbidities, who presented to the Emergency Department for evaluation of shortness of breath. The patient provides the following history. She has shortness of breath with exertion at baseline, but it seems to have gotten gradually worse over the past 2 days. She has also noticed a mild, nonproductive cough, which is unusual for her. While in the ED, she reported mild pleuritic pain, however, denied that to me. Instead, she reports having some tightness in her chest when trying to take in a deep breath. Her nebulizer treatments at home have provided her with lesser and lesser benefit. She denies fever, chills, sweats, sinus congestion, sore throat, orthopnea, paroxysmal nocturnal dyspnea, lower extremity edema, calf pain, nausea, or vomiting. While in the ED, she went in to a narrow complex tachycardia with rates up into the 180s. She was given adenosine x2 doses and the heart rate slowed down enough to reveal what looks like atrial fibrillation or flutter. She was then started on diltiazem drip, which dropped her blood pressure. That was discontinued and she was given Lopressor 5 mg IV with subsequent caodaism of sinus rhythm. While her heart rate was high, she reports having feelings of shortness of breath and chest tightness as well as palpitations. She goes on to say that she has had intermittent, but self-limiting episodes of palpitations and recently had her metoprolol dose increased. Of note, she is currently on a prednisone taper. PAST MEDICAL HISTORY: 1. Carotid artery disease. 2. Hyperlipidemia. 3. Hypertension. 4. Chronic obstructive pulmonary disease. 5. Chronic respiratory failure, on home oxygen. 6. Chronic kidney disease, stage 3. 7. Osteoporosis. 8. MAX. PAST SURGICAL HISTORY: 1. Appendectomy. 2. Coronary artery stent. 3. Cataract extraction. FAMILY HISTORY: Significant for a stroke, COPD, lung cancer, and heart disease. SOCIAL HISTORY: The patient lives in [place]. She is a former smoker. No alcohol or illicit substance use. Code status: Full code. ALLERGIES: TULIO INHIBITORS, BUDESONIDE, CEFTRIAXONE, CODEINE, FORMOTEROL, LEVOFLOXACIN, LISINOPRIL, ALL CAUSE RASH. HOME MEDICATIONS: 1. Amlodipine 5 mg daily. 2. Arformoterol 2 mL inhaled twice daily. 3. Aspirin 81 mg daily. 4. Atorvastatin 40 mg daily. 5. Azithromycin 250 mg q. Wednesday, Wednesday, Wednesday. 6. Budesonide 0.2 mg inhaled twice daily. 7. Cholecalciferol 400 units daily. 8. Fluticasone 1 spray nasally twice daily. 9. Metoprolol tartrate 3.75 mg twice daily. 10. [place]-3 capsule daily. 11. Prednisone 10 mg daily. 12. Roflumilast 250 mcg daily. PHYSICAL EXAMINATION: CURRENT VITAL SIGNS: Pulse is 98, respiratory rate 20, blood pressure 110/61, SpO2 100% on 3 L, temperature 97.4, weight 61.1 kg, and BMI 23.6. GENERAL: Chronically ill-appearing, elderly female in Semi-Mott's position in bed in no acute distress. HEENT: Normocephalic, atraumatic. Pupils are reactive. Extraocular motions intact. Changes consistent with prior cataract extraction. Moist mucous membranes. NECK: Supple and no JVD. RESPIRATORY: Respirations are nonlabored. She is speaking in full sentences. She is on 3 L nasal cannula. LUNGS: Lung sounds are diminished throughout with some expiratory wheezing. CARDIOVASCULAR: Tachycardic with normal S1, S2. GASTROINTESTINAL: Abdomen is soft, nontender, nondistended with positive bowel sounds. INTEGUMENT: Skin is warm and dry without rash or lesion on limited exam. EXTREMITIES: No cyanosis or clubbing. Trace pretibial edema bilaterally. No palpable nodules or cords. Equivocal Homans sign bilaterally. NEUROLOGIC: Alert and oriented. Cranial nerves 2 through 12 grossly intact. No gross focal deficits. Casual conversation. PSYCHIATRIC: Appropriate mood and affect. PERTINENT LABORATORY DATA: WBC count 21.0, hemoglobin 10.4, hematocrit 33.3%, and platelet 260. Troponin 0.020. ProBNP 2009. She tested negative for influenza, RSV, and COVID. Lactic acid 1.0. Sodium 134, potassium 4.2, BUN 50, and creatinine 1.80. D-dimer 1.53. IMAGING: Chest x-ray, small left-sided pleural effusion with coarse interstitial markings. Chest CT without contrast, panlobar emphysema with additional findings suggesting persistent pneumonitis, bibasilar pleural thickening. Small pericardial effusion. INITIAL IMPRESSION: 1. COPD exacerbation. 2. Pneumonitis noted on CT scan. 3. Chronic respiratory failure with hypoxia, on oxygen. 4. Paroxysmal atrial fibrillation/flutter. 5. Hypertension. 6. Hyperlipidemia. PLAN: The patient presented to the Emergency Department for evaluation of shortness of breath as detailed in HPI. Labs, imaging, EKG, and all notes were reviewed. Clinically, she seems to have a COPD exacerbation. She has been started on scheduled bronchodilators and steroids. She has also been started on azithromycin, given history of MAX. Sputum to be attempted for culture. The ED physician consulted her health and safety specialist, whose input is appreciated. She also went into paroxysmal atrial fibrillation/flutter as detailed above, but converted to normal sinus rhythm with IV Lopressor. Continue metoprolol tartrate at current dose. Dr. Lee has been consulted for further recommendations. If she has not had an echocardiogram done recently, 1 will be ordered. Vital signs were reviewed and they are stable. Her home medications will be reviewed and resumed as appropriate. D I MT: Kit STANTON
[2024-03-09 17:53] LABS: Pneumococcal Antigen Urine NOT DETECTED
[2024-03-11 05:08] LABS: Methylmalonic Acid 377 nmol/L (85-423)
--- NOTE | 2024-03-11 12:49 | WPDHPUPDATE1 ---
History and Physical Update Update Date/Time: 03/11/24 12:49 Addendum to 03/03/2024 history and physical: I have utilized all available immediate resources to obtain, update, or review the patient's current medications (including all prescriptions, [id number]-wdlrewd products, herbals, cannabis/cannabidiol products, and vitamin/mineral/dietary (nutritional) supplements). YES I confirmed that the patient's Advance Care Plan is present, code status is documented, or surrogate decision maker is listed in the patient's medical record. YES
[2024-03-14 19:33] LABS: Legionella pneumophila Ag Ur NOT DETECTED
== END 2024-03-05 15:00 | disposition home or self-care (01) ==
LOC: ANHED 03-03 00:47 → ANHIMU 03-03 06:33
PROVIDERS: Internal Medicine; Internal Medicine Pulmonary Disease; Physician Assistant; Admitting Provider Internal Medicine; Emergency Provider Physician Assistant; PCP Nurse Practitioner Family; Visit Provider Internal Medicine
DX: J96.21 Acute and chronic respiratory failure with hypoxia (principal); A31.0 Pulmonary mycobacterial infection; J43.1 Panlobular emphysema; J98.4 Other disorders of lung; N17.9 Acute kidney failure, unspecified; I48.0 Paroxysmal atrial fibrillation; I48.92 Unspecified atrial flutter; I47.10 Supraventricular tachycardia, unspecified; R79.89 Other specified abnormal findings of blood chemistry; E78.5 Hyperlipidemia, unspecified; I12.9 Hypertensive chronic kidney disease with stage 1 through stage 4 chronic kidney disease, or unspecified chronic kidney disease; N18.30 Chronic kidney disease, stage 3 unspecified; I25.10 Atherosclerotic heart disease of native coronary artery without angina pectoris; I65.23 Occlusion and stenosis of bilateral carotid arteries; I73.9 Peripheral vascular disease, unspecified; D50.9 Iron deficiency anemia, unspecified; M81.0 Age-related osteoporosis without current pathological fracture; Z79.82 Long term (current) use of aspirin; Z99.81 Dependence on supplemental oxygen; Z87.891 Personal history of nicotine dependence; Z66 Do not resuscitate; Z79.899 Other long term (current) drug therapy; Z95.5 Presence of coronary angioplasty implant and graft; Z98.49 Cataract extraction status, unspecified eye; Z90.49 Acquired absence of other specified parts of digestive tract
CPT/HCPCS: 36415; 36600; 71046; 71250; 71275; 78582; 80048; 80053; 82104; 82274; 82728; 82805; 83090; 83540; 83550; 83605; 83735; 83880; 83921; 84443; 84484; 85018; 85025; 85380; 85610; 85730; 86738; 87040; 87449; 87637; 87641; 87899; 93005; 93306; 93970; 94640; 94762; 96365; 96372; 96375; 99285; A9270; A9540; A9558; G0378; J0153; J0456; J1650; J1756; J2405; J2919; J3420; J7030; J7050; Q9967

== ENCOUNTER 2024-03-15 09:40 | Outpatient (CLI) | payer MEDICARE, MEDICAID, SELFPAY ==
[2024-03-15 10:27] LABS: Alanine Aminotransferase 22 U/L (6-35); Albumin Level 3.7 g/dL (3.5-5.1); Alkaline Phosphatase 73 U/L (38-126); Anion Gap 3 mmol/L (4-12); Aspartate Amino Transferase 28 U/L (14-36); Bilirubin,Total 0.7 mg/dL (0.2-1.3); Blood Urea Nitrogen 42 mg/dL (7-17); Calcium 10.9 mg/dL (8.4-10.2); Carbon Dioxide 36 mmol/L (22-30); Chloride 99 mmol/L (98-107); Estimated Glomerular Filt Rate 36; Glucose 109 mg/dL (65-110); Iron 59 ug/dL (37-170); Potassium 3.7 mmol/L (3.4-5.0); Sodium 138 mmol/L (137-145)
[2024-03-15 10:39] LABS: Percent Iron Saturation 20 % (20-50)
[2024-03-15 11:22] LABS: Basophils Percent Auto 0.3 % (0.2-1.2); Eosinophils Absolute Auto 0.3 K/mm3 (0-0.3); Eosinophils Percent Auto 1.9 % (0-4.4); Hematocrit 33.3 % (37.0-47.0); Hemoglobin 10.3 g/dL (12.0-15.0); Immature Granulocyte Absolute 0.08 K/mm3 (0.00-0.031); Immature Granulocyte Percent A 0.6 % (0-0.5); Lymphocytes Absolute Auto 2.73 K/mm3 (0.9-3.2); Lymphocytes Percent Auto 19.7 % (18.3-44.2); Mean Corpuscular HGB Conc 30.9 g/dl (32-36); Mean Corpuscular Hemoglobin 30.2 pg (26-34); Mean Corpuscular Volume 97.7 fl (80-100); Mean Platelet Volume 9.8 fl (7.4-10.4); Monocytes Absolute Auto 0.9 K/mm3 (0.1-0.6); Monocytes Percent Auto 6.5 % (2.6-8.5); Neutrophils Absolute Auto 9.8 K/mm3 (1.3-6.7); Platelet Count Result 498 k/mm3 (150-375); Red Blood Count 3.41 M/mm3 (4.2-5.4); Red Cell Distribution Width 15.5 % (11.5-14.5); White Blood Count 13.9 K/mm3 (4.5-10.0)
== END 2024-03-15 09:41 | disposition home or self-care (01) ==
LOC: ANHLAB 09:42
PROVIDERS: PCP Nurse Practitioner Family; Visit Provider Nurse Practitioner Family
DX: D64.9 Anemia, unspecified (principal); I25.10 Atherosclerotic heart disease of native coronary artery without angina pectoris; J44.9 Chronic obstructive pulmonary disease, unspecified; I10 Essential (primary) hypertension; E78.5 Hyperlipidemia, unspecified; E55.9 Vitamin D deficiency, unspecified; R09.02 Hypoxemia; G62.9 Polyneuropathy, unspecified; Z09 Encounter for follow-up examination after completed treatment for conditions other than malignant neoplasm
CPT/HCPCS: 36415; 80053; 82728; 83540; 83550; 85025

== ENCOUNTER 2024-04-10 16:46 | Emergency (ER) | payer MEDICARE, MEDICAID, SELFPAY ==
[2024-04-10 16:50] VITALS: BP 148/70; PULSE 114; RESP 20; TEMP 36.3; O2SAT 93
--- NOTE | 2024-04-10 16:56 | ECG_ITS ---
Test Date: 2024-04-10 17:04:57 Measurements Intervals [place] Rate: 103 P: 79 DC: 142 QRS: 38 QRSD: 89 T: 73 QT: 313 QTc: 412 Interpretive Statements SINUS TACHYCARDIA WITH OCCASIONAL VENTRICULAR PREMATURE COMPLEXES PROBABLE INFERIOR MYOCARDIAL INFARCTION , PROBABLY OLD [35 ms Q WAVE IN II/aVF] Compared to ECG 03/03/2024 01:00:51 Ventricular premature complex(es) now present Myocardial infarct finding now present Sinus rhythm no longer present Electronically Signed On 04-11-2024 15:02:00 [employer] by Eduin Granda M.D.
--- NOTE | 2024-04-10 16:59 | ED.EPISTAXIS ---
HPI - Epistaxis General Chief complaint: Epistaxis Stated complaint: epistaxis Time Seen by Provider: 04/10/24 16:50 Focused HPI: Patient is an 78-year-old female who presents to the ER with a nose bleed. She reports she was diagnosed with AFib approximately 1 month ago and started on Eliquis. Patient has had intermittent nosebleeds since that time. She reports she wears to 4 L oxygen nasal cannula at baseline. This morning patient endorses a nosebleed that started around 8:00 a.m. She reports she has kept ice on her nose but the bleeding has not subsided. GENERAL: Well-appearing, well-nourished, and in no acute distress. HEAD: Normocephalic, atraumatic. CHEST: Clear to auscultation. ?No respiratory distress. HEART: Irregular heartrate. NEURO: ?Alert and oriented x3. Patient screened in triage and initial orders placed.? ?Additional care and disposition to be based upon?diagnostic testing and treatment. Related Data Home Medications ?Medication ?Instructions ?Recorded ?Confirmed ?Last Taken ?Type aspirin 81 mg tablet,delayed 81 mg PO DAILY 02/10/19 04/04/24 05/22/19 09:00 History release (Adult Low Dose Aspirin) cholecalciferol (vitamin D3) 10 400 unit PO DAILY 02/10/19 04/04/24 05/22/19 09:00 History mcg (400 unit) capsule omega 5-fih-abe-fish oil 1,000 mg 1 cap PO DAILY 02/10/19 04/04/24 05/22/19 09:00 History (120 mg-180 mg) capsule (Fish Oil) atorvastatin 40 mg tablet 40 mg PO DAILY 03/03/24 04/04/24 Unknown History olmesartan 40 1 tablet PO DAILY 03/03/24 04/04/24 Unknown History mg-hydrochlorothiazide 12.5 mg tablet revefenacin 175 mcg/3 mL solution 175 mcg inhalation QAM 03/03/24 04/04/24 Unknown History for nebulization (Yupelri) roflumilast 250 mcg tablet 250 mcg PO DAILY 03/03/24 04/04/24 Unknown History Allergies Allergy/AdvReac Type Severity Reaction Status Date / Time TULIO Inhibitors Allergy Unknown Rash Verified 03/07/24 08:53 budesonide Allergy Unknown Rash Verified 03/07/24 08:53 ceftriaxone Allergy Unknown Rash Verified 03/07/24 08:53 codeine Allergy Unknown Rash Verified 03/07/24 08:53 formoterol Allergy Unknown Rash Verified 03/07/24 08:53 levofloxacin Allergy Unknown Rash Verified 03/07/24 08:53 lisinopril Allergy Unknown Rash Verified 03/07/24 08:53 [facility] Past Medical History Medical History ARF (acute renal failure) Carotid occlusion, bilateral She sees her vascular surgeon every 6 months for this Chronic respiratory failure COPD with acute exacerbation Emphysema of lung History of tobacco abuse HTN (hypertension) Hyperlipidemia Myocardial infarction PAD (peripheral artery disease) Pneumonia Seasonal allergies Surgical History Surgical History H/O heart artery stent H/O: hysterectomy Hx of appendectomy Family History Family History Grandparent Family history of tuberculosis Mother Cerebrovascular accident, Onset Age: 73 Father Family history of chronic obstructive pulmonary disease Family history of heart disease in male family member before age 55 Acute myocardial infarction Sibling Family history of chronic obstructive pulmonary disease Family history of lung cancer Family history of malignant neoplasm Family history of lung disease Social History Social History Social History: Lives with her daughter. Code status - DNR She nominates her daughter to be the individual would make medical decisions for her if she is unable. Smoking packs per day: 2 Smoking cigarettes per day: 40.0 Years smoked: 20 Smoking pack-years: 40.00 Smoking status: Former smoker Second hand tobacco smoke exposure: No Alcohol intake: never Substance use: never Substance use type: does not use Do You Feel Safe in your Home?: Yes Lack of Transportation: No Lack of Food: Never True Current Housing: I Have Housing Concerned About Future Housing: No Difficulty Paying Gas/Electric Bills: No Difficulty Paying for Meds: No Currently Unemployed: No Education: High School Diploma/GED Difficulty w/ Childcare or Family Care: No Living arrangements: with family Additional living arrangements comments: lives with daughter Casie Occupation/Education: retired Gender identity (if verbalized by the patient): Female Sexual Orientation (if Verbalized by the Patient): Straight or Heterosexual Spiritual care concerns: No Agree to blood products: Yes Course Vital Signs Vital signs: Vital Signs Temperature 36.3 C L 04/10/24 16:50 Pulse Rate 114 H 04/10/24 16:50 Respiratory Rate 20 04/10/24 16:50 Blood Pressure 148/70 H 04/10/24 16:50 Pulse Oximetry 93 04/10/24 16:50 Oxygen Delivery Nasal Cannula 04/10/24 16:50 Oxygen Flow Rate 4 04/10/24 16:50 Temperature 36.3 C L 04/10/24 16:50 Pulse Rate 114 H 04/10/24 16:50 Respiratory Rate 20 04/10/24 16:50 Blood Pressure 148/70 H 04/10/24 16:50 Pulse Oximetry 93 04/10/24 16:50 Oxygen Delivery Nasal Cannula 04/10/24 16:50 Oxygen Flow Rate 4 04/10/24 16:50 Discharge Plan Discharge Patient Language: Afghan Prescriptions: No Action ondansetron 4 mg tablet,disintegrating 4 mg PO Q8H Qty: 60 2RF buspirone 5 mg tablet 5 mg PO Q12HR Qty: 180 1RF azithromycin 250 mg tablet See Rx Instructions PO .COMPLEX Qty: 6 0RF Rx Instructions: For 250 mg dose pack: take 500 mg today (day 1), then 250 mg for 4 days (days 2-5) PO prednisone 20 mg tablet 40 mg PO DAILY Qty: 10 0RF aspirin [Adult Low Dose Aspirin] 81 mg tablet,delayed release (DR/EC) 81 mg PO DAILY omega 8-tmq-rgu-fish oil [Fish Oil] 1,000 mg (120 mg-180 mg) capsule 1 cap PO DAILY cholecalciferol (vitamin D3) 400 unit capsule 400 unit PO DAILY (DME) inhalational spacing device Spacer See Rx Instructions .ROUTE .MEDSUPPLY Qty: 1 0RF Rx Instructions: As directed olmesartan-hydrochlorothiazide 40-12.5 mg tablet 1 tablet PO DAILY atorvastatin 40 mg tablet 40 mg PO DAILY roflumilast 250 mcg tablet 250 mcg PO DAILY Yupelri 175 mcg/3 mL solution for nebulization 175 mcg INHALATION QAM Eliquis 2.5 mg Tablet 2.5 mg PO Q12HR 30 Days Qty: 60 1RF amlodipine 5 mg tablet 2.5 mg PO DAILY 30 Days Qty: 0 1RF metoprolol tartrate 50 mg Tablet 50 mg PO Q12HR 30 Days Qty: 60 1RF cyanocobalamin (vitamin B-12) 1,000 mcg tablet 1,000 mcg PO DAILY 30 Days Qty: 30 0RF budesonide 0.25 mg/2 mL suspension for nebulization 0.25 mg inhalation BID 30 Days Qty: 120 3RF arformoterol 15 mcg/2 mL solution for nebulization 2 ml inhalation BID 30 Days Qty: 120 3RF Follow-up/Referrals: Glenn Oliva MD [Primary Care Provider] -
[2024-04-10 17:19] LABS: Basophils Absolute Auto 0.1 K/mm3 (0.0-0.1); Basophils Percent Auto 0.7 % (0.2-1.2); Eosinophils Absolute Auto 0.2 K/mm3 (0-0.3); Eosinophils Percent Auto 1.8 % (0-4.4); Hemoglobin 10.7 g/dL (12.0-15.0); Immature Granulocyte Absolute 0.07 K/mm3 (0.00-0.031); Immature Granulocyte Percent A 0.6 % (0-0.5); Lymphocytes Absolute Auto 2.95 K/mm3 (0.9-3.2); Lymphocytes Percent Auto 24.4 % (18.3-44.2); Mean Corpuscular HGB Conc 31.5 g/dl (32-36); Mean Corpuscular Hemoglobin 29.6 pg (26-34); Mean Corpuscular Volume 94.2 fl (80-100); Mean Platelet Volume 9.1 fl (7.4-10.4); Monocytes Absolute Auto 0.8 K/mm3 (0.1-0.6); Monocytes Percent Auto 6.2 % (2.6-8.5); Neutrophils Percent Auto 66.3 % (45.5-73.1); Platelet Count Result 492 k/mm3 (150-375); Red Blood Count 3.61 M/mm3 (4.2-5.4); Red Cell Distribution Width 15.1 % (11.5-14.5); White Blood Count 12.1 K/mm3 (4.5-10.0)
[2024-04-10 17:32] LABS: Alanine Aminotransferase 17 U/L (6-35); Albumin Level 3.7 g/dL (3.5-5.1); Alkaline Phosphatase 81 U/L (38-126); Anion Gap 5 mmol/L (4-12); Aspartate Amino Transferase 28 U/L (14-36); Bilirubin,Total 0.5 mg/dL (0.2-1.3); Blood Urea Nitrogen 45 mg/dL (7-17); Carbon Dioxide 36 mmol/L (22-30); Chloride 94 mmol/L (98-107); Estimated CRCL calculation 26 ml/min; Estimated Glomerular Filt Rate 43; Glucose 111 mg/dL (65-110); Potassium 3.3 mmol/L (3.4-5.0); Sodium 135 mmol/L (137-145)
[2024-04-10 17:35] LABS: INR 1.3; Partial Thromboplastin Time 37.6 Seconds (22.3-36.8); Prothrombin Time 16.8 Seconds (11.1-14.7)
[2024-04-10 19:18] VITALS: BP 149/64; PULSE 112; RESP 18; TEMP 36.9; O2SAT 100
--- NOTE | 2024-04-10 21:19 | PC.NURSE ---
Pt states she is going home because she no longer has a nose bleed and needs to take her home meds. Pt left without being seen by provider.
== END 2024-04-10 21:20 | disposition left against medical advice (07) ==
PROVIDERS: Emergency Provider Registered Nurse; PCP Family Medicine
DX: R04.0 Epistaxis (principal); J43.9 Emphysema, unspecified; J96.10 Chronic respiratory failure, unspecified whether with hypoxia or hypercapnia; I48.91 Unspecified atrial fibrillation; I65.23 Occlusion and stenosis of bilateral carotid arteries; I10 Essential (primary) hypertension; I25.2 Old myocardial infarction; I73.9 Peripheral vascular disease, unspecified; E78.5 Hyperlipidemia, unspecified; Z95.5 Presence of coronary angioplasty implant and graft; Z87.01 Personal history of pneumonia (recurrent); Z87.891 Personal history of nicotine dependence; Z90.710 Acquired absence of both cervix and uterus; Z79.82 Long term (current) use of aspirin; Z79.899 Other long term (current) drug therapy; Z79.01 Long term (current) use of anticoagulants
CPT/HCPCS: 36415; 80053; 85025; 85610; 85730; 93005; 99283

== ENCOUNTER 2024-05-18 10:59 | Outpatient (CLI) | payer MEDICARE, MEDICAID, SELFPAY ==
[2024-05-18 11:16] LABS: Basophils Absolute Auto 0.1 K/mm3 (0.0-0.1); Basophils Percent Auto 0.6 % (0.2-1.2); Eosinophils Absolute Auto 0.7 K/mm3 (0-0.3); Eosinophils Percent Auto 4.5 % (0-4.4); Hematocrit 38.1 % (37.0-47.0); Hemoglobin 11.8 g/dL (12.0-15.0); Immature Granulocyte Absolute 0.05 K/mm3 (0.00-0.031); Immature Granulocyte Percent A 0.3 % (0-0.5); Lymphocytes Absolute Auto 3.71 K/mm3 (0.9-3.2); Lymphocytes Percent Auto 25.5 % (18.3-44.2); Mean Corpuscular Hemoglobin 30.3 pg (26-34); Mean Corpuscular Volume 97.7 fl (80-100); Mean Platelet Volume 9.2 fl (7.4-10.4); Monocytes Absolute Auto 0.8 K/mm3 (0.1-0.6); Monocytes Percent Auto 5.6 % (2.6-8.5); Neutrophils Absolute Auto 9.2 K/mm3 (1.3-6.7); Neutrophils Percent Auto 63.5 % (45.5-73.1); Platelet Count Result 276 k/mm3 (150-375); White Blood Count 14.5 K/mm3 (4.5-10.0)
[2024-05-18 11:28] LABS: Alanine Aminotransferase 78 U/L (6-35); Albumin Level 3.7 g/dL (3.5-5.1); Alkaline Phosphatase 56 U/L (38-126); Anion Gap 8 mmol/L (4-12); Aspartate Amino Transferase 54 U/L (14-36); Bilirubin,Total 1.2 mg/dL (0.2-1.3); Blood Urea Nitrogen 38 mg/dL (7-17); Calcium 10.8 mg/dL (8.4-10.2); Carbon Dioxide 34 mmol/L (22-30); Chloride 100 mmol/L (98-107); Estimated Glomerular Filt Rate 53; Glucose 94 mg/dL (65-110); Potassium 4.1 mmol/L (3.4-5.0); Sodium 142 mmol/L (137-145)
[2024-05-18 11:35] LABS: Iron 73 ug/dL (37-170)
[2024-05-18 11:45] LABS: Percent Iron Saturation 27 % (20-50)
--- OUTSIDE RECORDS SUMMARY | 2024-05-18 12:03 | XMS_ITS | Clinical Summary ---
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 Gender Identity Not on file Sexual Orientation Not on file Plan of Treatment Health Maintenance Due Date Last Done Comments DEXA Bone Density 1945 Hepatitis C Virus (HCV) Screening 1945 Zoster Immunization (1 of 2) 12/08/1993 Respiratory Syncytial Virus (RSV) Immunization (Adult) (1 - 1-dose 75+ series) 12/08/2018 Influenza Immunization (#1) 12/19/202312/19, 01/17/2020, 12/22/2018, Additional history exists SARS-COV-2 Immunization ( season) 2023 01/13/2021, 06/15/2020, 05/24/2020 DTaP/Tdap/Td Immunization Discontinued 03/26/2015 TdaP Immunization Completed 03/26/2015 Pneumococcal Immunization (50+ years) Completed 01/19/2018, 06/04/2016 Hepatitis B Immunization Aged Out No longer eligible based on patient's age to complete this topic Meningococcal Immunization (ACWY) Aged Out No longer eligible based on patient's age to complete this topic Rotavirus Immunization Aged Out No lo nger eligible based on patient's age to complete this topic
--- OUTSIDE RECORDS SUMMARY | 2024-05-18 12:03 | XMS_ITS | Referral Summary ---
Author Organization [facility] Address [address] [place] [address] Care Team Providers Care Agriculture Professor Name Role Phone Homar Soriano MD Unavailable Glenn Oliva MD Primary Care Provider [phone] Encounters Date Type Department Care Team Description 04/21/2024 Telephone [facility] Cardiology [address] [place] [address] [place] [phone] Faisal Lee MD BP readings; Med Management 03/30/2024 1:00 PM CREDIT AND 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 Office Visit [place] [address] [place] [phone] Ro Jane NP Paroxysmal atrial flutter (CMS/HCC) (HCC) (Primary Dx); Chronic anticoagulation; Coronary artery disease involving moapa coronary artery of moapa heart without angina pectoris; Essential hypertension; Chronic obstructive pulmonary disease, unspecified COPD type (HCC); Hospital discharge follow-up 03/20/2024 Telephone [facility] Cardiology [address] [place] [address] [place] [phone] Faisal Lee MD Epistaxis (Nose Bleed) 03/08/2024 Orders Only [facility] Cardiology [address] [place] [address] [address] [place] [phone] Theresa Hopkins MD 03/08/2024 Telephone [place] [address] [place] [phone] Faisal Lee MD 03/03/[address] [facility] Health Information Management [address] [place] [address] Theresa Hopkins MD 02/18/2024 11:00 AM CDT Office Visit [facility] Cardiology [address] [place] [address] Ro Jane NP Coronary artery disease involving moapa coronary artery of moapa heart without angina pectoris (Primary Dx); Essential hypertension; Chronic obstructive pulmonary disease, unspecified COPD type (HCC) from Last 3 Months Allergies Active Allergy Reactions Criticality Noted Date Comments Gutierrez Inhibitors Itching Low 06/30/2019 Azithromycin Rash Medium 06/30/2019 Budesonide Itching Low 06/30/2019 Ceftriaxone Itching Low 06/30/2019 Codeine Itching Low 06/30/2019 Levofloxacin Itching Low 12/28/2018 Lisinopril Medications amLODIPine (NORVASC) 5 mg tablet take 1 tablet (5MG) by oral route every day 90 3 2 Active omega-3 fatty acids-fish oil 340-1,000 mg capsule take 1 by Oral route 2 times every 0 0 4 Active aspirin 81 mg enteric coated tablet Take 1 tablet (81 mg total) by mouth daily Active atorvastatin (LIPITOR) 40 mg tablet Take 1 tablet (40 mg total) by mouth daily Active albuterol 2.5 mg /3 mL (0.083 %) nebulizer solution 2 Active fluticasone propionate (FLONASE) 50 mcg/actuation nasal spray 1 spray 2 (two) times a day 3 Active azithromycin (ZITHROMAX) 250 mg tablet Take 1 tablet (250 mg total) by mouth 3 (three) times a week 4 Active budesonide (PULMICORT) 0.25 mg/2 mL nebulizer solution 4 Active arformoteroL (BROVANA) 15 mcg/2 mL nebulizer solution 4 Active Yupelri 175 mcg/3 mL solution for nebulization [address] (PROTONIX) 40 mg EC tablet Take 1 tablet (40 mg total) by mouth every morning 4 Active hydroCHLOROthiazi de (HYDRODIURIL) 25 mg tablet Take 1 tablet (25 mg total) by mouth daily 30 tablet 11 4 12/07/19 25 Active busPIRone (BUSPAR) 5 mg tablet Take 1 tablet (5 mg total) by mouth every 12 (twelve) hours 4 Active cyanocobalamin (Vitamin B-12) 1,000 mcg tablet TAKE 1 TABLET BY MOUTH EVERY DAY FOR 30 DAYS 4 Active apixaban (Eliquis) 2.5 mg tabletIndications :Paroxysmal atrial flutter (CMS/HCC) (HCC) Take 1 tablet (2.5 mg total) by mouth 2 (two) times a day 180 tablet 3 4 Active metoprolol tartrate (LOPRESSOR) 50 mg immediate release tabletIndications :Paroxysmal atrial flutter (CMS/HCC) (HCC) Take 1 tablet (50 mg total) by mouth 2 (two) times a day 180 tablet 3 4 Active Active Problems Problem Noted Date Diagnosed Date Paroxysmal atrial flutter (CMS/HCC) 03/30/2024 Other hyperlipidemia 09/01/2023 Bilateral carotid artery stenosis 01/02/2019 Assessment & Plan (09/01/2023 12:46 PM CDT): Bilateral moderate carotid stenosis. Patient remains asymptomatic. Plan: Follow up in 6 months for routine surveillance with carotid duplex Assessment & Plan (07/16/2020 9:56 AM CDT): Stable asymptomatic moderate stenosis bilateral internal carotid arteries. Continue 6 month interval duplex surveillance. Continue anti-platelet therapy. Assessment & Plan (06/21/2019 1:29 PM CREDIT AND 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): Impression: Patient with known moderate bilateral internal carotid artery stenosis that are being followed. She remains asymptomatic. She has had a significant progressive right internal carotid artery stenosis which is reaching a high- grade stenosis. I recommended further evaluation with a CTA of her carotids to further evaluate her plaque morphology with anticipated need for surgical treatment. The patient was concerned with her history of chronic kidney disease and the need for IV contrast. I explained to the patient the we will proceed with a CTA of her carotids and will order pre and post hydration. Plan: Obtain CTA of her carotids to further evaluate her progressive right internal carotid stenosis. Patient to follow-up in 2 weeks for discussion of her CT results and potential surgical treatment options. Assessment & Plan (01/02/2019 7:45 PM CDT): Impression: Bilateral moderate internal carotid artery stenosis noted on carotid duplex. Patient is asymptomatic. Plan: Continue current risk factor modifications. No surgical intervention currently needed. Patient follow-up in 6 months for re-evaluation and repeat carotid duplex surveillance. Essential hypertension 01/02/2019 Assessment & Plan (07/16/2020 9:56 AM CDT): Per patient controlled. Continue current medical therapy Assessment & Plan (06/21/2019 1:29 PM CREDIT AND 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): Impression: Stable hypertension. Plan: Continue current antihypertensive regimen as directed by PCP. Assessment & Plan (01/02/2019 7:45 PM CDT): Impression: Stable hypertension. Plan: Continue current antihypertensive regimen as directed by PCP. COPD (chronic obstructive pulmonary disease) 02/2019 Assessment & Plan (07/16/2020 9:56 AM CDT): Per patient COPD and symptoms controlled. Continue medical therapy Assessment & Plan (06/21/2019 1:34 PM CREDIT AND 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): Impression: COPD with need for supplemental oxygen during activity, 2 L per nasal cannula. She states her shortness of breath has improved with the recent initiation oxygen treatment. She does not require oxygen at night for sleeping or at rest. Plan: Continue current treatment as per pulmonology. Coronary artery disease invo lving moapa coronary artery of moapa heart without angina pectoris 11/24/2018 History of coronary artery stent placement 11/24 Shortness of breath 11/24/2018 Immunizations Name Administration Dates Next Due Influenza, Trivalent, Adjuva nted, Intramuscular 01/19/2018 Influenza, Trivalent, High D ose, Split, Preservative Free, Intramuscular 12/22/2018,01/24/2017,01/29/2016 Influenza, Unspecified 02/06/2014,02/09/2013,01/2012 Pneumococcal Conjugate PCV 13 06/04/2016 Pneumococcal Polysaccharide PPV23 01/19/2018 Tdap 03/26/2015 Social History Tobacco Use Types Packs/Day Years Used Date Smoking Tobacco: Former Smokeless Tobacco: Never Tobacco Cessation:Counseling Given: Not Answered Alcohol Use Standard Drinks/Week Comments No 0 (1 standard drink = 0.6 oz pur e alcohol) Comments Unknown Sex and Gender Information Value Date Recorded Sex Assigned at Not on file Legal Sex Female 2:30 AM 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 Gender Identity Not on file Sexual Orientation Not on file Last Filed Vital Signs Vital Sign Reading Time Taken Comments Blood Pressure 114/50 03/30/2024 1:00 PM CREDIT AND 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 Pulse 91 03/30/2024 1:00 PM CREDIT AND 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 Temperature - - Respiratory Rate - - Oxygen Saturation 88% 03/30/2024 1:00 PM CREDIT AND 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 Inhaled Oxygen Concentration - - Weight 53.1 kg (117 lb) 03/30/2024 1:00 PM CREDIT AND 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 Height 157.5 cm (5' 2 ) 03/30/2024 1:00 PM CREDIT AND 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 Body Mass Index 21.4 03/30/2024 1:00 PM CREDIT AND 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 Plan of Treatment Not on file Procedures Procedure Name Priority Date/Time Associated Diagnosis Comments CARDIOLOGY DOCUMENT SCAN Routine 024 10:17 AM CREDIT AND 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 CARDIOLOGY DOCUMENT SCAN Routine 024 10:08 AM CREDIT AND 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 CARDIOLOGY DOCUMENT SCAN 03/03/2024 from Last 3 Months Results * Cardiology Document Scan (03/04/2024 10:17 AM CREDIT AND 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) Anatomical Region Laterality Modality Other Gilberto Ibarra MD [facility] PROCEDURES F inal Result * Cardiology Document Scan (03/03/2024 10:08 AM CREDIT AND 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) Anatomical Region Laterality Modality Other Theresa Hopkins MD [facility] PRO CEDURES Final Result * Cardiology Document Scan (03/03/2024) Anatomical Region Laterality Modality Other Theresa Hopkins MD [facility] CARDI[facility] PRO CEDURES Final Result from Last 3 Months Insurance [employer] [employer] MED[employer] Care Teams Agriculture Professor Relationship Specialty Start Date End Date Glenn Oliva MD [address] [place] [address] PCP - General Family Practice 01/29/23 Homar Soriano MD [address] [place] [address] Internal Medicine 12/14/18
--- OUTSIDE RECORDS SUMMARY | 2024-05-18 12:03 | XMS_ITS | Continuity of Care Document ---
Author Organization [facility] Address [address] [place] [address] [facility] [address] [place] [address] Phone Care Team Providers Care Brim Setter Name Role Phone Td Jordan Unavailable Unavailable Procedures Procedure Date Office/outpatient Visit, [facility] Advance Directives Directive Yes / No Effective Date File Name No Information Encounters Encounter Description Practice Location Reason(s) For Visit Diagnoses Date Provider Providers Copied on Encounter Office/outpat ient Visit, [facility], [address], [place], [place], [id number], [place] tel:[phone] [facility] No Information [address] , [address], [place], [address], [place]. tel:[phone] Referring Provider: Grzegorz Christina MD C, [address], [place], [address]. tel:[phone] Family History Family Member Type Diagnosis Age At Onset No Information Payers Payer name Insurance type Covered green party ID Authoriza tion(s) No Information Social History Type Description Quantity Date Captured Comments Sex Female Smoking Status No Information Chief Complaint And Reason For Visit No Information Reason For Referral Reason For Referral No Information History Of Present Illness Encounter Date Complaint History Of Prese nt Illness No Information Functional Status Date Functional Assessmen t No Information Instructions Date Instruction Additional Infor mation No Information Assessments Type Assessment Date No Information Patient Care Teams Name Effective Dates (start - stop) Status Members No Information
--- OUTSIDE RECORDS SUMMARY | 2024-05-18 12:03 | XMS_ITS | Clinical Summary ---
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 Gender Identity Not on file Sexual Orientation Not on file Plan of Treatment Upcoming Encounters Date Type Department Care Team (Late st Contact Info) Description 06/08/2024 10:30 AM MECHANICAL ENGINEERING MANAGER Office Visit [facility] Oncology and Hematology - [place] [address] [facility] [address] [place] [address] Orestes Hart MD [address] [facility] [address] [place] [address] Health Maintenance Due Date Last Done Comments DTAP/TDAP/TD VACCINES (1 - Tdap) 12/08/1962 PNEUMOCOCCAL VACCINE 65+ YEARS (1 of 1 - PCV) 12/08/18 94 ZOSTER VACCINE (1 of 2) 12/08/1993 OSTEOPOROSIS SCREENING 12/08/2008 RSV VACCINE (60+ or ) (1 - 1-dose 75+ series) 12/08/2018 INFLUENZA VACCINE (#1) 2023 Insurance [facility] [id number]
--- OUTSIDE RECORDS SUMMARY | 2024-05-18 12:03 | XMS_ITS | Encounter Summary ---
Author Organization [facility] Address [address] [facility] [address] [place] [address] Care Team Providers Care Remote Sensing Advisor Name Role Phone Grzegorz Christina MD Primary Care Provider [phone] Homar Soriano MD Primary Care Provider [phone] Homar Soriano MD Primary Care Provider [phone] Homar Soriano MD Unavailable Glenn Oliva MD Primary Care Provider [phone] Encounter Details Date Type Department Care Team (Late st Contact Info) Description 08/04/2016 Orders Only [facility] ProviderYfn MD [address] [place] [address] Social History Tobacco Use Types Packs/Day Years Used Date Smoking Tobacco: Former Cigarettes Q uit: 04/19/1998 Alcohol Use Standard Drinks/Week Comments No 0 (1 standard drink = 0.6 oz pur e alcohol) Comments Unknown Sex and Gender Information Value Date Recorded Sex Assigned at Not on file 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 us Historical Provider [facility] CARDIAC SERVICES PROCE DURES Final Result * CARDIOLOGY REPORT (08/04/2016) Anatomical Region Laterality Modality Other Narrative 08/04/2016 Ordered by an unspecified provider. us Historical Provider CV CARDIAC SERVICES PROCE DURES Final Result documented in this encounter Visit Diagnoses Not on filedocumented in this encounter Care Teams Remote Sensing Advisor Relationship Specialty Start Date End Date Grzegorz Christina MD [address] [place] [address] PCP - General 06/01/13 11/13/18 Homar Soriano MD [address] [place] [address] PCP - General Internal Medicine 11/14/18 12/13/18 Homar Soriano MD [address] [place] [address] PCP - General Internal Medicine 12/14/18 01/28/23 Glenn Oliva MD [address] [place] [address] PCP - General Family Practice 01/29/23 Homar Soriano MD [address] [place] [address] Internal Medicine 12/14/18 documented as of this encounter
--- OUTSIDE RECORDS SUMMARY | 2024-05-18 12:03 | XMS_ITS | Encounter Summary ---
Author Organization [facility] Healthcare Address [address] [place] [address] Care Team Providers Care Communications Planner Name Role Phone Homar Soriano MD Unavailable Glenn Oliva MD Primary Care Provider [phone] Reason for Visit * Reason Onset Date Comments BP readings 04/21/2024 Med Management 04/21/2024 Encounter Details Date Type Department Care Team (Late st Contact Info) Description 04/21/2024 Telephone [facility] Medical [facility] Cardiology [address] [facility] [address] [address] Faisal Lee MD [address] [address] BP readings; Med Management Social History Tobacco Use Types Packs/Day Years Used Date Smoking Tobacco: Former Smokeless Tobacco: Never Alcohol Use Standard Drinks/Week Comments No 0 (1 standard drink = 0.6 oz pur e alcohol) Comments Unknown Sex and Gender Information Value Date Recorded Sex Assigned at Not on file Legal Sex Female 2:30 AM RUG FRAME MOUNTER Gender Identity Not on file Sexual Orientation Not on file documented as of this encounter Miscellaneous Notes * Telephone Encounter - Jody Tolbert RN - 04/21/2024 1:11 PM RUG FRAME MOUNTER Spoke with pt, pt states that she does not remember if she took her morning dose of Eliquis or not,pt due for evening dose at 1900. Advised pt to take evening dose tonight and continue as prescribed. Pt verbalizes understanding. Pt reports that she had a nose bleed yesterday, was able to get it tostop on its own. Pt on home 02 all the time, recommended saline nasal sprays, cool mist humidifier a nd/or contacting pcp to see if she can get humidified oxygen to help with symptoms. Advised pt to call back with other further questions or concerns. Pt verbalizes understanding. FRAME MOUNTER * Telephone Encounter - Skyla Muñoz - 04/21/2024 12:56 PM CST Patient states that she can not remember if she took her dosage of apixaban (Eliquis) 2.5 mg this morning or not. States that she has been monitoring her BP's since then and patient calling to reportBP readings. Please advise. Thank you. 04/21/2024 BP: 108/52 HR: 93 (morning) BP: 114/55 HR: 92 (afternoon) Contact [phone] FRAME MOUNTER documented in this encounter Plan of Treatment Not on file documented as of this encounter Visit Diagnoses Not on filedocumented in this encounter Care Teams Communications Planner Relationship Specialty Start Date End Date Glenn Oliva MD [address] [place], [place] [id number] PCP - General Family Practice 01/29/23 Homar Soriano MD [address] [place], [place] [id number] Internal Medicine 12/14/18 documented as of this encounter
--- OUTSIDE RECORDS SUMMARY | 2024-05-18 12:03 | XMS_ITS | Clinical Summary ---
Author Organization [facility] [place] [facility] Address [address] [place] [address] Care Team Providers Care Clam Treader Name Role Phone Homar Soriano MD Unavailable Glenn Oliva MD Primary Care Provider [phone] Allergies Active Allergy Reactions Criticality Noted Date [...] therapy. Assessment & Plan (06/21/2019 1:29 PM ESTABLISHMENT GUIDE): Impression: Patient with known moderate bilateral internal [...] therapy Assessment & Plan (06/21/2019 1:29 PM ESTABLISHMENT GUIDE): Impression: Stable hypertension. Plan: Continue current antihypertensive regimen as directed by PCP. Assessment & Plan (01/02/2019 7:45 PM CDT): Impression: Stable hypertension. Plan: Continue current antihypertensive regimen as directed by PCP. COPD (chronic obstructive pulmonary disease) 02/2019 Assessment & Plan (07/16/2020 9:56 AM CDT): Per patient COPD and symptoms controlled. Continue medical therapy Assessment & Plan (06/21/2019 1:34 PM ESTABLISHMENT GUIDE): Impression: COPD with need for supplemental oxygen during activity, 2 L per nasal cannula. She states her shortness of breath has improved with the recent initiation oxygen treatment. She does not require oxygen at night for sleeping or at rest. Plan: Continue current treatment as per pulmonology. 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 11/24/2018 History of coronary artery stent placement 11/24 Shortness of breath 11/24/2018 Encounters Date Type Department Care Team Description 04/21/2024 Telephone [place] [address] [place] [address] [phone] Faisal Lee MD BP readings; Med Management 03/30/2024 1:00 PM ESTABLISHMENT GUIDE Office Visit [place] [address] [place] [phone] Ro Jane NP Paroxysmal atrial flutter (CMS/HCC) (HCC) (Primary Dx); Chronic anticoagulation; Coronary artery disease involving apache coronary artery of apache heart without angina pectoris; Essential hypertension; Chronic obstructive pulmonary disease, unspecified COPD type (HCC); Hospital discharge follow-up 03/20/2024 Telephone [place] [address] [place] [address] [phone] Faisal Lee MD Epistaxis (Nose Bleed) 03/08/2024 Orders Only [place] [address] [place] [address] [phone] Theresa Hopkins MD 03/08/2024 Telephone [place] [address] [place] [phone] Faisal Lee MD 03/03/2024 Orders Only [facility] Health Information Management [address] [place] [address] Theresa Hopkins MD 02/18/2024 11:00 AM CDT Office Visit [place] [address] [place] [phone] Ro Jane NP Coronary artery disease involving apache coronary artery of apache heart without angina pectoris (Primary Dx); Essential hypertension; Chronic obstructive pulmonary disease, unspecified COPD type (HCC) from Last 3 Months Immunizations Name Administration Dates Next Due Influenza, Trivalent, Adjuva nted, Intramuscular 01/19/2018 Influenza, Trivalent, High D ose, Split, Preservative Free, Intramuscular 12/22/2018,01/24/2017,01/29/2016 Influenza, Unspecified 02/06/2014,02/09/2013,01/2012 Pneumococcal Conjugate PCV 13 06/04/2016 Pneumococcal Polysaccharide PPV23 01/19/2018 Tdap 03/26/2015 Surgical History Surgery Date Site/Laterality Comments CORONARY STENT PLACEMENT 04/19/1998 - 04/18/1999 [facility] Medical History Medical History Date Comments Hypertension Hypertension Myocardial infarction (HCC) 1998 COPD (chronic obstructive pulmonary disease) (HC C) Covid 03/2022 Family History Medical History Relation Name Comments Heart attack Father 2 Myocardial Infa rction; Cause of : Myocardial Infarction Relation Name Status Comments Father 1 (Age 60) Father 2 Social History Tobacco Use Types Packs/Day Years Used Date Smoking Tobacco: Former Smokeless Tobacco: Never Tobacco Cessation:Counseling Given: Not Answered Alcohol Use Standard Drinks/Week Comments No 0 (1 standard drink = 0.6 oz pur e alcohol) Comments Unknown Sex and Gender Information Value Date Recorded Sex Assigned at Not on file Legal Sex Female 2:30 AM ESTABLISHMENT GUIDE Gender Identity Not on file Sexual Orientation Not on file Obstetrics History Last Filed Vital Signs Vital Sign Reading Time Taken Comments Blood Pressure 114/50 03/30/2024 1:00 PM ESTABLISHMENT GUIDE Pulse 91 03/30/2024 1:00 PM ESTABLISHMENT GUIDE Temperature - - Respiratory Rate - - Oxygen Saturation 88% 03/30/2024 1:00 PM ESTABLISHMENT GUIDE Inhaled Oxygen Concentration - - Weight 53.1 kg (117 lb) 03/30/2024 1:00 PM ESTABLISHMENT GUIDE Height 157.5 cm (5' 2 ) 03/30/2024 1:00 PM ESTABLISHMENT GUIDE Body Mass Index 21.4 03/30/2024 1:00 PM ESTABLISHMENT GUIDE Plan of Treatment Health Maintenance Due Date Last Done Comments Depression Screening 1943 Fall Risk Assessment 1945 Osteoporosis Screening-Bone Density Scan 1945 Hepatitis B Screening 12/08/1961 Zoster Vaccine (1 of 2) 12/08/1993 Well Visit 65+ 12/08/2008 Influenza Vaccine (#1) 2023 9, 01/19/2018, 01/24/2017, Additional history exists DTaP/Tdap/Td Vaccine (2 - Td or Tdap) 03/26/2025 03/26/2015 Pneumococcal vaccine 65+ Completed 01/19/2018, 05/20 Procedures Procedure Name Priority Date/Time Associated Diagnosis Comments CARDIOLOGY DOCUMENT SCAN Routine 024 10:17 AM ESTABLISHMENT GUIDE CARDIOLOGY DOCUMENT SCAN Routine 024 10:08 AM ESTABLISHMENT GUIDE CARDIOLOGY DOCUMENT SCAN 03/03/2024 from Last 3 Months Results * Cardiology Document Scan (03/04/2024 10:17 AM ESTABLISHMENT GUIDE) Anatomical Region Laterality Modality Other us Gilberto Ibarra MD [facility] PROCEDURES F inal Result * Cardiology Document Scan (03/03/2024 10:08 AM ESTABLISHMENT GUIDE) Anatomical Region Laterality Modality Other us Theresa Hopkins MD [facility] C[facility] PRO CEDURES Final Result * Cardiology Document Scan (03/03/2024) Anatomical Region Laterality Modality Other Theresa Hopkins MD CV CARDIAC SERVICES PRO CEDURES Final Result from Last 3 Months Insurance [employer] IDPA MED[employer]ARE SOLUT[employer] MEDICARE [employer] ID[employer] Care Teams Clam Treader Relationship Specialty Start Date End Date Glenn Oliva MD [address] [place] [address] PCP - General Family Practice 01/29/23 Homar Soriano MD [address] [place] [address] Internal Medicine 12/14/18
== END 2024-05-18 11:00 | disposition home or self-care (01) ==
PROVIDERS: Visit Provider Nurse Practitioner Family
DX: D64.9 Anemia, unspecified (principal); I25.10 Atherosclerotic heart disease of native coronary artery without angina pectoris; J44.9 Chronic obstructive pulmonary disease, unspecified; I10 Essential (primary) hypertension; E78.5 Hyperlipidemia, unspecified; E55.9 Vitamin D deficiency, unspecified; R09.02 Hypoxemia; G62.9 Polyneuropathy, unspecified
CPT/HCPCS: 36415; 80053; 82728; 83540; 83550; 85025

== ENCOUNTER 2024-08-10 11:16 | Outpatient (CLI) | payer MEDICARE, MEDICAID, SELFPAY ==
[2024-08-10 11:28] LABS: Basophils Absolute Auto 0.1 K/mm3 (0.0-0.1); Basophils Percent Auto 0.9 % (0.2-1.2); Eosinophils Absolute Auto 0.8 K/mm3 (0-0.3); Eosinophils Percent Auto 7.1 % (0-4.4); Hematocrit 39.2 % (37.0-47.0); Hemoglobin 12.4 g/dL (12.0-15.0); Immature Granulocyte Absolute 0.03 K/mm3 (0.00-0.031); Immature Granulocyte Percent A 0.3 % (0-0.5); Lymphocytes Absolute Auto 2.76 K/mm3 (0.9-3.2); Lymphocytes Percent Auto 25.9 % (18.3-44.2); Mean Corpuscular HGB Conc 31.6 g/dl (32-36); Mean Platelet Volume 9.6 fl (7.4-10.4); Monocytes Absolute Auto 0.6 K/mm3 (0.1-0.6); Monocytes Percent Auto 5.2 % (2.6-8.5); Neutrophils Absolute Auto 6.4 K/mm3 (1.3-6.7); Neutrophils Percent Auto 60.6 % (45.5-73.1); Platelet Count Result 254 k/mm3 (150-375); Red Cell Distribution Width 13.8 % (11.5-14.5); White Blood Count 10.6 K/mm3 (4.5-10.0)
[2024-08-10 12:00] LABS: Alanine Aminotransferase 19 U/L (6-35); Albumin Level 4.1 g/dL (3.5-5.1); Alkaline Phosphatase 72 U/L (38-126); Anion Gap 6 mmol/L (4-12); Aspartate Amino Transferase 31 U/L (14-36); Bilirubin,Total 0.6 mg/dL (0.2-1.3); Blood Urea Nitrogen 38 mg/dL (7-17); Calcium 10.4 mg/dL (8.4-10.2); Carbon Dioxide 37 mmol/L (22-30); Chloride 97 mmol/L (98-107); Estimated Glomerular Filt Rate 40; Glucose 96 mg/dL (65-110); Potassium 4.2 mmol/L (3.4-5.0); Sodium 140 mmol/L (137-145)
--- OUTSIDE RECORDS SUMMARY | 2024-08-10 12:52 | XMS_ITS | Continuity of Care Document ---
Author Organization [facility] Address [address] [place] [address] [address] [place] [address] Phone Care Team Providers Care Global Position System Technician Name Role Phone Td Jordan Unavailable Unavailable Procedures Procedure Date Office/outpatient Visit, [facility] Advance Directives Directive Yes / No Effective Date File Name No Information Encounters Encounter Description Practice Location Reason(s) For Visit Diagnoses Date Provider Providers Copied on Encounter Office/outpat ient Visit, [facility], [address], [place], [place], [id number], [place] tel:[phone] SEC [facility] No Information [address]. [address] , [address], [place], [address], [place]. tel:[phone] Referring Provider: Grzegorz Christina MD C, [address], [place], [address]. tel:[phone] Family History Family Member Type Diagnosis Age At Onset No Information Payers Payer name Insurance type Covered republican ID Authoriza tion(s) No Information Social History [...]
--- OUTSIDE RECORDS SUMMARY | 2024-08-10 12:52 | XMS_ITS | Encounter Summary ---
Author Organization [facility] AILYN [employer] Address [address] [place] [address] Care Team Providers Care Patient Accounts Specialist Name Role Phone Unavailable Primary Care Provider Unavailabl e Encounter Details Date Type Department Care Team (Late Contact Info) Description 08/10/2024 Abstract [facility] Oncology and Hematology - [place] [address] [place] [address] Yazmin Light MD [address] [place] [address] Social History Tobacco Use Types Packs/Day Years Used Date Smoking Tobacco: Never Smokeless Tobacco: Never Alcohol Use Standard Drinks/Week Comments Never 0 (1 standard drink = 0.6 oz pur e alcohol) Comments Unknown Sex and Gender Information Value Date Recorded Sex Assigned at Not on file Legal Sex Female 9:21 AM SNAKER TRACTOR DRIVER Gender Identity Not on file Sexual Orientation Not on file documented as of this encounter Plan of Treatment Upcoming Encounters Date Type Department Care Team (Late Contact Info) Description 10/05/2024 4:30 PM CDT Telephone Check Up [facility] Oncology and Hematology - [place] [address] [place] [address] Orestes Hart MD [address] [facility] [address] [place] [address] documented as of this encounter Visit Diagnoses Not on filedocumented in this encounter
--- OUTSIDE RECORDS SUMMARY | 2024-08-10 12:52 | XMS_ITS | Encounter Summary ---
Author Organization [facility] Address [address] [facility] [address] [place] [address] Care Team Providers Care Anesthesiologist/Physician Name Role Phone Grzegorz Christina MD Primary Care Provider [phone] Homar Soriano MD Primary Care Provider [phone] Homar Soriano MD Primary Care Provider [phone] Homar Soriano MD Unavailable Glenn Oliva MD Primary Care Provider [phone] Encounter Details Date Type Department Care Team (Late st Contact Info) Description 08/04/2016 Orders Only [facility] ProviderYfn MD [address] [place] [address] Social History Tobacco Use Types Packs/Day Years Used Date Smoking Tobacco: Former Cigarettes Q uit: 04/19/1998 Alcohol Use Standard Drinks/Week Comments No 0 (1 standard drink = 0.6 oz pur e alcohol) Comments Unknown Sex and Gender Information Value Date Recorded Sex Assigned at Not on file Legal Sex Female 2:30 AM SUPERVISOR PUBLICATIONS Gender Identity Not on file Sexual Orientation [...] on filedocumented in this encounter Care Teams Anesthesiologist/Physician Relationship Specialty Start Date End Date Grzegorz Christina MD [address] [place] [address] PCP - General 06/01/13 11/13/18 Homar Soriano MD [address] [place] [address] PCP - General Internal Medicine 11/14/18 12/13/18 Homar Soriano MD [address] [email or web address] [address] [place] [address] PCP - General Internal Medicine 12/14/18 01/28/23 Glenn Oliva MD [address] [place] [address] PCP - General Family Practice 01/29/23 Homar Soriano MD [address] [place] [address] Internal Medicine 12/14/18 documented as of this encounter
--- OUTSIDE RECORDS SUMMARY | 2024-08-10 12:52 | XMS_ITS | Encounter Summary ---
Author Organization [facility] [employer] Address [address] [place] [address] Care Team Providers Care Floor Representative Name Role Phone Unavailable Primary Care Provider Unavailabl e Encounter Details Date Type Department Care Team (Late Contact Info) Description 08/10/[address] [facility] Oncology and Hematology - [place] [address] [place] [address] Yazmin Light MD [address] [place] [address] Social History Tobacco Use Types Packs/Day Years Used Date Smoking Tobacco: Never Smokeless Tobacco: Never Alcohol Use Standard Drinks/Week Comments Never 0 (1 standard drink = 0.6 oz pur e alcohol) Comments Unknown Sex and Gender Information Value Date Recorded Sex Assigned at Not on file Legal Sex Female 9:21 AM CHIEF OF ANESTHESIOLOGY Gender Identity Not on file Sexual Orientation Not on file documented as of this encounter Plan of Treatment Upcoming Encounters Date Type Department Care Team (Late Contact Info) Description 10/05/2024 4:30 PM CDT Telephone Check Up [facility] Oncology and Hematology - [place] [address] [place] [address] Orestes Hart MD [address] [facility] [address] [place] [address] documented as of this encounter Visit Diagnoses Not on filedocumented in this encounter
--- OUTSIDE RECORDS SUMMARY | 2024-08-10 12:52 | XMS_ITS | Encounter Summary ---
Author Organization [facility] A[facility] Address [address] [place] [address] Care Team Providers Care Drink Mixer Name Role Phone Unavailable Primary Care Provider Unavailabl e Encounter Details Date Type Department Care Team (Late st Contact Info) Description 08/10/2024 10:30 AM CDT Office Visit [facility] Oncology and Hematology - [place] [address] [place] [address] Yazmin Light MD [address] [place] [address] Anemia, chronic disease (Primary Dx); Hypothyroidism, unspecified type Social History Tobacco Use Types Packs/Day Years Used Date Smoking Tobacco: Never Smokeless Tobacco: Never Tobacco Cessation:Counseling Given: Not Answered Alcohol Use Standard Drinks/Week Comments Never 0 (1 standard drink = 0.6 oz pur e alcohol) Comments Unknown Sex and Gender Information Value Date Recorded Sex Assigned at Not on file Legal Sex Female 9:21 AM SAMPLE SEWER Gender Identity Not on file Sexual Orientation Not on file documented as of this encounter Last Filed Vital Signs Vital Sign Reading Time Taken Comments Blood Pressure 129/64 08/10/2024 10:52 AM CDT Pulse 65 08/10/2024 10:41 AM CDT Temperature 36.3 C (97.3 F) 08/10/2024 10:41 AM CDT Respiratory Rate 14 08/10/2024 10:41 AM CDT Oxygen Saturation 90% 08/10/2024 10:41 AM CDT Inhaled Oxygen Concentration - - Weight 54 kg (119 lb) 08/10/2024 10:41 AM CDT Height 160 cm (5' 3 ) 08/10/2024 10:41 AM CDT Body Mass Index 21.08 08/10/2024 10:41 AM CDT documented in this encounter Plan of Treatment Upcoming Encounters Date Type Department Care Team (Late st Contact Info) Description 10/05/2024 4:30 PM CDT Telephone Check Up [facility] Oncology and Hematology - [place] [address] [facility] [address] [place] [address] Orestes Hart MD [address] [facility] [address] [place] [address] Scheduled Orders Name Type Priority Associated Diagnoses Orde r Schedule COMPREHENSIVE METABOLIC PANEL Lab Routine Anemia, chronic disease Expected: 08/10/2024, Expires: 08/10/2025 CBC WITH DIFFERENTIAL Lab Routine Anemia, chronic disease Expected: 08/10/2024, Expires: 08/10/2025 PROTEIN ELECTROPHORESIS W/REFLEX,SERUM Lab Routine Anemia, chronic disease Expected: 08/10/2024, Expires: 08/10/2025 VITAMIN B12 AND FOLATE Lab Routine Anemia, chronic disease Expected: 08/10/2024, Expires: 08/10/2025 TSH Lab Routine Anemia, chronic disease Hypothyroidism, unspecified type Expected: 08/10/2024, Expires: 08/10/2025 documented as of this encounter Visit Diagnoses Diagnosis Anemia, chronic disease- Primary Anemia of other chronic disease Hypothyroidism, unspecified type documented in this encounter
--- OUTSIDE RECORDS SUMMARY | 2024-08-10 12:52 | XMS_ITS | Encounter Summary ---
Author Organization [facility] AILYN Gannon [facility] Address [address] [place] [address] Care Team Providers Care Heatset Winder Operator Name Role Phone Unavailable Primary Care Provider Unavailabl e Encounter Details Date Type Department Care Team (Late st Contact Info) Description 08/10/2024 Abstract [facility] Oncology and Hematology - [place] [address] [place] [address] Slava Cheema CMA Social History Tobacco Use Types Packs/Day Years Used Date Smoking Tobacco: Never Smokeless Tobacco: Never Alcohol Use Standard Drinks/Week Comments Never 0 (1 standard drink = 0.6 oz pur e alcohol) Comments Unknown Sex and Gender Information Value Date Recorded Sex Assigned at Not on file Legal Sex Female 9:21 AM RUNWAY MODEL Gender Identity Not on file Sexual Orientation Not on file documented as of this encounter Plan of Treatment Upcoming Encounters Date Type Department Care Team (Late st Contact Info) Description 10/05/2024 4:30 PM CDT Telephone Check Up [facility] Oncology and Hematology [facility] [address] [place] [address] Orestes Hart MD [address] [place] [address] documented as of this encounter Visit Diagnoses Not on filedocumented in this encounter
--- OUTSIDE RECORDS SUMMARY | 2024-08-10 12:52 | XMS_ITS | Referral Summary ---
Author Organization [facility] [place] [facility] Address [address] [place] [address] Care Team Providers Care Awning Craftsman Name Role Phone Homar Soriano MD Unavailable Glenn Oliva MD Primary Care Provider [phone] Allergies Active Allergy Reactions Criticality Noted Date [...] (Eliquis) 2.5 mg tabletIndications :Paroxysmal atrial flutter (HCC) Take 1 tablet (2.5 mg total) by mouth 2 (two) times a day 180 tablet 3 4 Active metoprolol tartrate (LOPRESSOR) 50 mg immediate release tabletIndications :Paroxysmal atrial flutter (HCC) Take 1 tablet (50 mg total) by mouth 2 (two) times a day 180 tablet 3 4 Active Active Problems Problem Noted Date Diagnosed Date Paroxysmal atrial flutter 03/30/2024 Other hyperlipidemia 09/01/2023 Bilateral carotid artery [...] therapy. Assessment & Plan (06/21/2019 1:29 PM DIRECTOR REHABILITATION PROGRAM): Impression: Patient with known moderate bilateral internal [...] therapy Assessment & Plan (06/21/2019 1:29 PM DIRECTOR REHABILITATION PROGRAM): Impression: Stable hypertension. Plan: Continue current antihypertensive regimen as directed by PCP. Assessment & Plan (01/02/2019 7:45 PM CDT): Impression: Stable hypertension. Plan: Continue current antihypertensive regimen as directed by PCP. COPD (chronic obstructive pulmonary disease) 02/2019 Assessment & Plan (07/16/2020 9:56 AM CDT): Per patient COPD and symptoms controlled. Continue medical therapy Assessment & Plan (06/21/2019 1:34 PM DIRECTOR REHABILITATION PROGRAM): Impression: COPD with need for supplemental oxygen during activity, 2 L per nasal cannula. She states her shortness of breath has improved with the recent initiation oxygen treatment. She does not require oxygen at night for sleeping or at rest. Plan: Continue current treatment as per pulmonology. Coronary artery disease invo lving [place] coronary artery of [place] heart without angina pectoris 11/24/2018 History of coronary artery stent placement 11/24 Shortness of breath 11/24/2018 Immunizations Immunization Administration Dates Next Due Influenza, Trivalent, Adjuva [...] on file Legal Sex Female 2:30 AM DIRECTOR REHABILITATION PROGRAM Gender Identity Not on file Sexual Orientation Not on file Last Filed Vital Signs Vital Sign Reading Time Taken Comments Blood Pressure 114/50 03/30/2024 1:00 PM DIRECTOR REHABILITATION PROGRAM Pulse 91 03/30/2024 1:00 PM DIRECTOR REHABILITATION PROGRAM Temperature - - Respiratory Rate - - Oxygen Saturation 88% 03/30/2024 1:00 PM DIRECTOR REHABILITATION PROGRAM Inhaled Oxygen Concentration - - Weight 53.1 kg (117 lb) 03/30/2024 1:00 PM DIRECTOR REHABILITATION PROGRAM Height 157.5 cm (5' 2 ) 03/30/2024 1:00 PM DIRECTOR REHABILITATION PROGRAM Body Mass Index 21.4 03/30/2024 1:00 PM DIRECTOR REHABILITATION PROGRAM Plan of Treatment Not on file Insurance IDPA [facility] MEDICARE ADVANTAGE [facility] MEDICARE [place] [address] [place] [address] MEDICARE ADVANTAGE IDPA Care Teams Awning Craftsman Relationship Specialty Start Date End Date Glenn Oliva MD [address] [place] [address] PCP - General Family Practice 01/29/23 Homar Soriano MD [address] [place] [address] Internal Medicine 12/14/18
--- OUTSIDE RECORDS SUMMARY | 2024-08-10 12:52 | XMS_ITS | Clinical Summary ---
Author Organization [facility] Sadiq oneil Saqib Address [address] [place] [address] Care Team Providers Care Trust Accounts Supervisor Name Role Phone Unavailable Primary Care Provider Unavailabl e Allergies Active Allergy Reactions Criticality Noted Date Comments Gutierrez Inhibitors Itching Low 06/30/2019 Azithromycin Rash Medium 06/30/2019 Budesonide Itching Low 06/30/2019 Ceftriaxone Itching Low 06/30/2019 Codeine Itching Low 06/30/2019 Levofloxacin Itching Low 12/28/2018 Medications Eliquis 2.5 mg tablet Take 2.5 mg by mouth 2 times daily. Active metoprolol tartrate (LOPRESSOR) 50 mg tablet Take 50 mg by mouth 2 times daily. Active busPIRone (BUSPAR) 5 mg tablet Take 5 mg by mouth every 12 hours. Active hydroCHLOROthiaz oral 25 mg tablet Take 25 mg by mouth daily. Active azithromycin (ZITHROMAX) 250 mg tablet Take 250 mg by mouth daily. Active budesonide (PULMICORT RESPULE) 0.25 mg/2 mL Suspension for Nebulization 0.25 mg by See Admin Instructions route see administration instructions. 11/09/19 Active arformoteroL (BROVANA) 15 mcg/2 mL Solution for Nebulization 15 mcg by See Admin Instructions route see administration instructions. 11/09/19 Active aspirin (ECOTRIN EC) 81 mg Tablet, Delayed Release (E.C.) Take 81 mg by mouth daily. Active cyanocobalamin 1,000 mcg Tablet Take 1,000 mcg by mouth daily. 03/05/20 Active revefenacin 175 mcg/3 mL Solution for Nebulization Take by inhalation daily in the morning. Active Cholecalciferol, Vitamin D3, 50 mcg (2,000 unit) Capsule Take by mouth daily. Active bwuff-4-OEK-EPA- fish oil (Fish OiL) 1,000 mg Capsule Take by mouth daily. Active Encounters Date Type Department Care Team Description 08/10/2024 10:30 AM CDT Office Visit [facility] Oncology and Hematology - [place] [address] [place] [address] Yazmin Light MD Anemia, chronic disease (Primary Dx); Hypothyroidism, unspecified type 08/10/2024 Abstract [facility] Oncology and Hematology - [place] [address] [place] [address] Slava Cheema CMA 08/10/2024 Abstract [facility] Oncology and Hematology - [place] [address] [place] [address] Yazmin Light MD 08/10/2024 Abstract [facility] Oncology and Hematology - [place] [address] [place] [address] Yazmin Light MD from Last 3 Months Family History Medical History Relation Name Comments No Known Problems Brother 1 No Known Problems Brother 2 No Known Problems Brother 3 No Known Problems Brother 4 Lung Cancer Brother 5 No Known Problems Child 1 Lung Cancer Child 2 No Known Problems Child 3 No Known Problems Child 4 No Known Problems Child 5 Heart Disease Father Heart Disease Mother Liver Cancer Sister 1 Ovarian Cancer Sister 2 Brain Cancer Sister 3 Lung Cancer Sister 3 No Known Problems Sister 4 Relation Name Status Comments Brother 1 Brother 2 Brother 3 Brother 4 Brother 5 Child 1 Alive Child 2 Alive Child 3 Alive Child 4 Alive Child 5 Alive Father Mother Sister 1 Sister 2 Sister 3 Sister 4 Social History Tobacco Use Types Packs/Day Years Used Date Smoking Tobacco: Never Smokeless Tobacco: Never Tobacco Cessation:Counseling Given: Not Answered Alcohol Use Standard Drinks/Week Comments Never 0 (1 standard drink = 0.6 oz pur e alcohol) Comments Unknown Sex and Gender Information Value Date Recorded Sex Assigned at Not on file 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 Gender Identity Not on file Sexual Orientation [...] Mass Index 21.08 08/10/2024 10:41 AM CDT Plan of Treatment Upcoming Encounters Date Type Department Care Team (Late st Contact Info) Description 10/05/2024 4:30 PM CDT Telephone Check Up [facility] Oncology and Hematology - [place] [address] [facility] [address] [place] [address] Orestes Hart MD [address] [facility] [address] [place] [address] Health Maintenance Due Date Last Done Comments ZOSTER VACCINE (1 of 2) 12/08/1993 OSTEOPOROSIS SCREENING 12/08/2008 RSV VACCINE (60+ or ) (1 - 1-dose 75+ series) 12/08/2018 INFLUENZA VACCINE (#1) 2023 9, 01/19/2018, 01/24/2017, Additional history exists Medicare Advantage ([place]) Preventative Visit/Annual Wellness Visit 04/19/2024 DTAP/TDAP/TD VACCINES (2 - T d or Tdap) 03/26/2025 03/26/2015 PNEUMOCOCCAL VACCINE 50+ YEARS Completed 01/19/2018 , 06/04/2016 Insurance [facility] [id number] [facility] Address: [facility] [address] [place] [address]
--- OUTSIDE RECORDS SUMMARY | 2024-08-10 12:52 | XMS_ITS | Clinical Summary ---
Author Organization [facility] Address [address] [place] [address] Care Team Providers Care Bank Advisor Name Role Phone Homar Soriano MD Unavailable Glenn Oliva MD Primary Care Provider [phone] Allergies Active Allergy Reactions Criticality Noted Date [...] therapy. Assessment & Plan (06/21/2019 1:29 PM SUPERVISORY CLERK): Impression: Patient with known moderate bilateral internal [...] therapy Assessment & Plan (06/21/2019 1:29 PM SUPERVISORY CLERK): Impression: Stable hypertension. Plan: Continue current antihypertensive regimen as directed by PCP. Assessment & Plan (01/02/2019 7:45 PM CDT): Impression: Stable hypertension. Plan: Continue current antihypertensive regimen as directed by PCP. COPD (chronic obstructive pulmonary disease) 02/2019 Assessment & Plan (07/16/2020 9:56 AM CDT): Per patient COPD and symptoms controlled. Continue medical therapy Assessment & Plan (06/21/2019 1:34 PM SUPERVISORY CLERK): Impression: COPD with need for supplemental oxygen during activity, 2 L per nasal cannula. She states her shortness of breath has improved with the recent initiation oxygen treatment. She does not require oxygen at night for sleeping or at rest. Plan: Continue current treatment as per pulmonology. Coronary artery disease invo lving [place] coronary artery of [place] heart without angina pectoris 11/24/2018 History of [...] Comments CORONARY STENT PLACEMENT 04/19/1998 - 04/18/1999 [facility] Medical History Medical History Date Comments Hypertension [...] on file Legal Sex Female 2:30 AM SUPERVISORY CLERK Gender Identity Not on file Sexual Orientation Not on file Obstetrics History Last Filed Vital Signs Vital Sign Reading Time Taken Comments Blood Pressure 114/50 03/30/2024 1:00 PM SUPERVISORY CLERK Pulse 91 03/30/2024 1:00 PM SUPERVISORY CLERK Temperature - - Respiratory Rate - - Oxygen Saturation 88% 03/30/2024 1:00 PM SUPERVISORY CLERK Inhaled Oxygen Concentration - - Weight 53.1 kg (117 lb) 03/30/2024 1:00 PM SUPERVISORY CLERK Height 157.5 cm (5' 2 ) 03/30/2024 1:00 PM SUPERVISORY CLERK Body Mass Index 21.4 03/30/2024 1:00 PM SUPERVISORY CLERK Plan of Treatment Health Maintenance Due Date Last Done Comments Depression Screening 1945 Fall Risk Assessment 1945 Osteoporosis Screening-Bone Density Scan 1945 Hepatitis B Screening 12/08/1961 Zoster Vaccine (1 of 2) 12/08/1993 Well Visit 65+ 12/08/2008 Influenza Vaccine (#1) 2023 9, 01/19/2018, 01/24/2017, Additional history exists DTaP/Tdap/Td Vaccine (2 - Td or Tdap) 03/26/2025 03/26/2015 Pneumococcal vaccine 65+ Completed 01/19/2018, 05/20 Insurance [employer] MEDICARE ADVANTAGE [facility] Address[address] [address] [place] [address] [employer] [facility] MEDICARE ADVANTAGE [facility]IC[facility] Address: [address] [place] [id number] [facility] MEDICARE ADVANTAGE IDPA Care Teams Bank Advisor Relationship Specialty Start Date End Date Glenn Oliva MD [address] [place] [address] PCP - General Family Practice 01/29/23 Homar Soriano MD [address] [place] [address] Internal Medicine 12/14/18
[2024-08-10 13:14] LABS: Folic Acid 12.5 ng/mL (2.76->20); Vitamin B12 > 1000.0 pg/mL (239-931)
== END 2024-08-10 11:17 | disposition home or self-care (01) ==
LOC: ANHLAB 11:18
PROVIDERS: PCP Family Medicine; Visit Provider Internal Medicine Hematology & Oncology
DX: E03.9 Hypothyroidism, unspecified (principal); D63.8 Anemia in other chronic diseases classified elsewhere
CPT/HCPCS: 36415; 80053; 82607; 82746; 84155; 84165; 84443; 85025

== ENCOUNTER 2024-09-04 10:30 | Outpatient (CLI) | payer MEDICARE, MEDICAID, SELFPAY ==
--- OUTSIDE RECORDS SUMMARY | 2024-09-04 11:07 | XMS_ITS | Continuity of Care Document ---
Author Organization [facility] Address [address] [place] [address] Exec utive [facility] [address] [place] [address] Phone Care Team Providers Care Surgery Aid Name Role Phone Td Jordan Unavailable Unavailable Procedures Procedure Date Office/outpatient Visit, [facility] Advance Directives Directive Yes / No Effective Date File Name No Information Encounters Encounter Description Practice Location Reason(s) For Visit Diagnoses Date Provider Providers Copied on Encounter Office/outpat ient Visit, [facility], [address], [place], [place], [id number], [place] tel:[phone] [facility] No Information [address]. [address] , [address], [place], [address], [place]. tel:[phone] Referring Provider: Grzegorz Christina MD C, [address], [place], [address]. tel:[phone] Family History Family Member Type Diagnosis Age At Onset No Information Payers Payer name Insurance type Covered alliance party ID Authoriza tion(s) No Information Social [...]
--- OUTSIDE RECORDS SUMMARY | 2024-09-04 11:07 | XMS_ITS | Clinical Summary ---
Author Organization [facility] Care Team Providers Care Administrative Support Coordinator Name Role Phone Unavailable Primary Care Provider Unavailabl e Social History Tobacco Use Types Packs/Day Years Used Date Smoking Tobacco: Never Assessed Comments Unknown Sex and Gender Information Value Date Recorded Sex Assigned at Not on file Legal Sex Female 3:35 PM OFFICE MANAGER Gender Identity Not on file Sexual [...]
--- OUTSIDE RECORDS SUMMARY | 2024-09-04 11:07 | XMS_ITS | Clinical Summary ---
Author Organization [facility] Sadiq oneil Saqib Address [address] [place] [address] Care Team Providers Care Neck Pinner Name Role Phone Unavailable Primary Care Provider [...] Admin Instructions route see administration instructions. 11/09/19 24 Active arformoteroL (BROVANA) 15 mcg/2 mL Solution for Nebulization 15 mcg by See Admin Instructions route see administration instructions. 11/09/19 24 Active aspirin (ECOTRIN EC) 81 mg Tablet, Delayed Release (E.C.) Take 81 mg by mouth daily. Active cyanocobalamin 1,000 mcg Tablet Take 1,000 mcg by mouth daily. 03/05/20 Active revefenacin 175 mcg/3 mL Solution for Nebulization Take by inhalation daily in the morning. Active Cholecalciferol, Vitamin D3, 50 mcg (2,000 unit) Capsule Take by mouth daily. Active zubxx-6-NVV-EPA- fish oil (Fish OiL) 1,000 mg Capsule Take by mouth daily. Active Active Problems No known active problems Encounters Date Type Department Care Team Description 08/15/2024 External Device Data [facility] ABSTRACTION Provider, Abstract 08/15/2024 External Device Data [facility] Provider, Abstract 08/15/2024 External Device Data [facility] Provider, Abstract 08/14/2024 Orders Only [facility] Oncology and Hematology - [place] [address] [place] [address] Orestes Hart MD 08/10/2024 10:30 AM CDT Office Visit [facility] Oncology and Hematology - [place] [address] [place] [address] Yazmin Light MD Anemia, chronic disease (Primary Dx); Hypothyroidism, unspecified type 08/10/2024 Abstract [facility] Oncology and Hematology - [place] [address] [place] [address] Slava Cheema CMA 08/10/2024 Abstract [facility] Oncology and Hematology [place] [address] [place] [address] Yazmin Light MD 08/10/2024 Abstract [facility] Oncology and Hematology [facility] [address] [place] [address] Yazmin Light MD from Last 3 Months [...] on file 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 Gender Identity Not on file Sexual Orientation [...] 10/05/2024 4:30 PM CDT Telephone Check Up [facility] Oncology and Hematology - [place] [address] [facility] [address] [place] [address] Orestes Hart MD [address] [facility] [address] [place] [address] Health Maintenance Due Date Last Done Comments ZOSTER VACCINE (1 of 2) 12/08/1993 OSTEOPOROSIS SCREENING 12/08/2008 RSV VACCINE (60+ or ) (1 - 1-dose 75+ series) 12/08/2018 INFLUENZA VACCINE (#1) 2023 9, 01/19/2018, 01/24/2017, Additional history exists DTAP/TDAP/TD VACCINES (2 - T d or Tdap) 03/26/2025 03/26/2015 PNEUMOCOCCAL VACCINE 50+ YEARS Completed 01/19/2018 , 06/04/2016 Procedures Procedure Name Priority Date/Time Associated Diagnosis Comments COMPREHENSIVE METABOLIC PANEL Routine 08/10/2024 9:25 AM CDT from Last 3 Months Results * COMPREHENSIVE METABOLIC PANEL (08/10/2024 9:25 AM CDT) Blood us Orestes Hart MD CHEMISTRY ORDERABLES Final Resu lt from Last [address] [id number] [facility] Address: [address] [place] [address] [place] [id number]
[2024-09-04 11:12] LABS: Basophils Percent Auto 0.2 % (0.2-1.2); Eosinophils Absolute Auto 0.1 K/mm3 (0-0.3); Eosinophils Percent Auto 0.7 % (0-4.4); Hematocrit 39.8 % (37.0-47.0); Hemoglobin 12.4 g/dL (12.0-15.0); Immature Granulocyte Absolute 0.08 K/mm3 (0.00-0.031); Immature Granulocyte Percent A 0.5 % (0-0.5); Lymphocytes Absolute Auto 1.91 K/mm3 (0.9-3.2); Mean Corpuscular HGB Conc 31.2 g/dl (32-36); Mean Corpuscular Hemoglobin 31.1 pg (26-34); Mean Corpuscular Volume 99.7 fl (80-100); Monocytes Absolute Auto 0.7 K/mm3 (0.1-0.6); Monocytes Percent Auto 4.2 % (2.6-8.5); Neutrophils Absolute Auto 14.4 K/mm3 (1.3-6.7); Neutrophils Percent Auto 83.4 % (45.5-73.1); Platelet Count Result 288 k/mm3 (150-375); Red Blood Count 3.99 M/mm3 (4.2-5.4); Red Cell Distribution Width 13.8 % (11.5-14.5); White Blood Count 17.3 K/mm3 (4.5-10.0)
[2024-09-04 11:31] LABS: Alanine Aminotransferase 49 U/L (6-35); Albumin Level 3.8 g/dL (3.5-5.1); Alkaline Phosphatase 42 U/L (38-126); Anion Gap 3 mmol/L (4-12); Aspartate Amino Transferase 42 U/L (14-36); Bilirubin,Total 0.8 mg/dL (0.2-1.3); Blood Urea Nitrogen 47 mg/dL (7-17); Calcium 9.6 mg/dL (8.4-10.2); Carbon Dioxide 35 mmol/L (22-30); Chloride 103 mmol/L (98-107); Estimated Glomerular Filt Rate 38; Glucose 97 mg/dL (65-110); Potassium 4.6 mmol/L (3.4-5.0); Sodium 141 mmol/L (137-145)
[2024-09-04 11:40] LABS: Parathyroid Intact 60.7 pg/mL (14.5-75.2)
== END 2024-09-04 10:31 | disposition home or self-care (01) ==
LOC: ANHLAB 10:33
PROVIDERS: PCP Nurse Practitioner Family; Visit Provider Nurse Practitioner Family
DX: I12.9 Hypertensive chronic kidney disease with stage 1 through stage 4 chronic kidney disease, or unspecified chronic kidney disease (principal); N18.32 Chronic kidney disease, stage 3b; D63.1 Anemia in chronic kidney disease; I25.10 Atherosclerotic heart disease of native coronary artery without angina pectoris; E78.5 Hyperlipidemia, unspecified; D64.9 Anemia, unspecified; G62.9 Polyneuropathy, unspecified; J44.9 Chronic obstructive pulmonary disease, unspecified; R09.02 Hypoxemia; E83.52 Hypercalcemia
CPT/HCPCS: 36415; 80053; 83970; 85025

== ENCOUNTER 2025-01-23 10:06 | Outpatient (CLI) | payer MEDICARE, MEDICAID, SELFPAY ==
[2025-01-23 10:31] LABS: Hematocrit 38.5 % (37.0-47.0); Hemoglobin 11.8 g/dL (12.0-15.0); Mean Corpuscular HGB Conc 30.6 g/dl (32-36); Mean Corpuscular Hemoglobin 31.1 pg (26-34); Mean Corpuscular Volume 101.6 fl (80-100); Platelet Count Result 232 k/mm3 (150-375); Red Blood Count 3.79 M/mm3 (4.2-5.4); White Blood Count 10.0 K/mm3 (4.5-10.0)
[2025-01-23 10:51] LABS: Anion Gap 5 mmol/L (4-12); Blood Urea Nitrogen 42 mg/dL (7-17); Calcium 9.9 mg/dL (8.4-10.2); Carbon Dioxide 34 mmol/L (22-30); Chloride 101 mmol/L (98-107); Estimated Glomerular Filt Rate 36; Glucose 87 mg/dL (65-110); Potassium 4.8 mmol/L (3.4-5.0); Sodium 140 mmol/L (137-145)
--- OUTSIDE RECORDS SUMMARY | 2025-01-23 10:55 | XMS_ITS | Clinical Summary ---
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 Gender Identity Not on file Sexual Orientation Not on file Plan of Treatment Health Maintenance Due Date Last Done Comments Hepatitis C Virus (HCV) Screening 1945 Zoster Immunization (1 of 2) 12/08/1993 Respiratory Syncytial Virus (RSV) Immunization (Adult) (1 - 1-dose 75+ series) 12/08/2018 Influenza Immunization (#1) 2024 09/2 10/2020, 01/17/2020, 12/22/2018, Additional history exists SARS-COV-2 Immunization ( season) 2024 01/13/2021, 06/15/2020, 05/24/2020 DTaP/Tdap/Td Immunization Discontinued 03/26/2015 TdaP Immunization Completed 03/26/2015 Pneumococcal Immunization (50+ years) Completed 01/19/2018, 06/04/2016 Hepatitis B Immunization Aged Out No longer eligible based on patient's age to complete this topic Human Papillomavirus (HPV) Immunization Aged Out No longer eligible based on patient's age to complete this topic Meningococcal Immunization (ACWY) Aged Out No longer eligible based on patient's age to complete this topic Rotavirus Immunization Aged Out No lo nger eligible based on patient's age to complete this topic
--- OUTSIDE RECORDS SUMMARY | 2025-01-23 10:55 | XMS_ITS | Encounter Summary ---
Author Organization [facility] Address [address] [facility] [address] [place] [address] Care Team Providers Care Marketing Technology Specialist Name Role Phone Grzegorz Christina MD Primary Care Provider [phone] Homar Soriano MD Primary Care Provider [phone] Homar Soriano MD Primary Care Provider [phone] Homar Soriano MD Unavailable Glenn Oliva MD Primary Care Provider [phone] Encounter Details Date Type Department Care Team (Late st Contact Info) Description 08/04/2016 Orders Only [facility] ProviderYfn MD [address] [place] [address] Social History Tobacco Use Types Packs/Day Years Used Date Smoking Tobacco: Former Cigarettes Q uit: 04/19/1998 Alcohol Use Standard Drinks/Week Comments No 0 (1 standard drink = 0.6 oz pur e alcohol) Comments Unknown Sex and Gender Information Value Date Recorded Sex Assigned at Not on file 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 Gender Identity Not on file Sexual Orientation [...] on filedocumented in this encounter Care Teams Marketing Technology Specialist Relationship Specialty Start Date End Date Grzegorz Christina MD PCP - General 06/01/13 11/13/18 Homar Soriano MD [address] [place] [address] PCP - General Internal Medicine 11/14/18 12/13/18 Homar Soriano MD [address] [place] [address] PCP - General Internal Medicine 12/14/18 01/28/23 Glenn Oliva MD [address] [place] [address] PCP - General Family Practice 01/29/23 Homar Soriano MD [address] [place], [place] [id number] Internal Medicine 12/14/18 documented as of this encounter
--- OUTSIDE RECORDS SUMMARY | 2025-01-23 10:55 | XMS_ITS | Clinical Summary ---
Author Organization [facility] aSdiq oneil Saqib Address [address] [place] [address] Care Team Providers Care Recreation Assistant Name Role Phone Unavailable Primary Care Provider [...] unit) Capsule Take by mouth daily. Active phxcz-6-INW-EPA- fish oil (Fish OiL) 1,000 mg Capsule Take by mouth daily. 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 Gender Identity Not on file Sexual Orientation [...] 10:41 AM CDT Height 160 cm (5' 3) 08/10/2024 10:41 AM CDT Body Mass Index 21.08 08/10/2024 10:41 AM CDT Plan of Treatment Upcoming Encounters Date Type Department Care Team (Late st Contact Info) Description 02/05/2025 1:00 PM CDT Office Visit [facility] Oncology and Hematology - [place] [address] [facility] [address] [place] [address] Orestes Hart MD [address] [facility] [address] [place] [address] Health Maintenance Due Date Last Done Comments ZOSTER VACCINE (1 of 2) 12/08/1993 OSTEOPOROSIS SCREENING 12/08/2008 RSV VACCINE (60+ or ) (1 - 1-dose 75+ series) 12/08/2018 INFLUENZA VACCINE (#1) 2024 9, 01/19/2018, 01/24/2017, Additional history exists DTAP/TDAP/TD VACCINES (2 - T d or Tdap) 03/26/2025 03/26/2015 PNEUMOCOCCAL VACCINE 50+ YEARS Completed 01/19/2018 , 06/04/2016 Insurance [facility] [id number]
--- OUTSIDE RECORDS SUMMARY | 2025-01-23 10:55 | XMS_ITS | Encounter Summary ---
Author Organization [facility] Address [address] [place] [address] Care Team Providers Care Water Reuse Program Manager Name Role Phone Homar Soriano MD Unavailable Glenn Oliva MD Primary Care Provider [phone] Encounter Details Date Type Department Care Team (Late st Contact Info) Description 03/04/2024 Orders Only [facility] Health Information Management [address] [place] [address] Scanning, Provider Social History Tobacco Use Types Packs/Day Years Used Date Smoking Tobacco: Former Smokeless Tobacco: Never Alcohol Use Standard Drinks/Week Comments No 0 (1 standard drink = 0.6 oz pur e alcohol) Comments Unknown Sex and Gender Information Value Date Recorded Sex Assigned at Not on file 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 Gender Identity Not on file Sexual Orientation Not on file documented as of this encounter Plan of Treatment Not on file documented as of this encounter Procedures Procedure Name Priority Date/Time Associated Diagnosis Comments SCAN - RADIOLOGY/IMAGING 03/03/2024 documented in this encounter Results * SCAN - RADIOLOGY/IMAGING (03/03/2024) Anatomical Region Laterality Modality Other us Provider Scanning Edited Result - Final documented in this encounter Visit Diagnoses Not on filedocumented in this encounter Care Teams Water Reuse Program Manager Relationship Specialty Start Date End Date Glenn Oliva MD [address] [place] [address] PCP - General Family Practice 01/29/23 Homar Soriano MD [address] [facility] [address] [address] Internal Medicine 12/14/18 documented as of this encounter
--- OUTSIDE RECORDS SUMMARY | 2025-01-23 10:55 | XMS_ITS | Clinical Summary ---
Author Organization [facility] [place] [facility] Address [address] [place] [address] Care Team Providers Care Stewardesses Teacher Name Role Phone Homar Soriano MD Unavailable Glenn Oliva MD Primary Care Provider [phone] Allergies Active Allergy Reactions Criticality Noted Date [...] total) by mouth every morning 4 Active busPIRone (BUSPAR) 5 mg tablet Take [...] a day 180 tablet 3 4 Active hydroCHLOROthiazi de (HYDRODIURIL) 25 mg tablet TAKE 1 TABLET (25 MG TOTAL) BY MOUTH DAILY. 90 tablet 1 5 10/17/19 26 Active Active Problems Problem Noted Date Diagnosed [...] therapy. Assessment & Plan (06/21/2019 1:29 PM HARD TILE SETTER APPRENTICE): Impression: Patient with known moderate bilateral internal [...] therapy Assessment & Plan (06/21/2019 1:29 PM HARD TILE SETTER APPRENTICE): Impression: Stable hypertension. Plan: Continue current antihypertensive regimen as directed by PCP. Assessment & Plan (01/02/2019 7:45 PM CDT): Impression: Stable hypertension. Plan: Continue current antihypertensive regimen as directed by PCP. COPD (chronic obstructive pulmonary disease) 02/2019 Assessment & Plan (07/16/2020 9:56 AM CDT): Per patient COPD and symptoms controlled. Continue medical therapy Assessment & Plan (06/21/2019 1:34 PM HARD TILE SETTER APPRENTICE): Impression: COPD with need for supplemental oxygen during activity, 2 L per nasal cannula. She states her shortness of breath has improved with the recent initiation oxygen treatment. She does not require oxygen at night for sleeping or at rest. Plan: Continue current treatment as per pulmonology. Coronary artery disease invo lving [place] coronary artery of [place] heart without angina pectoris 11/24/2018 History of coronary artery stent placement 11/24 Shortness of breath 11/24/2018 Encounters Date Type Department Care Team Description 11/07/2024 1:30 PM CDT Office Visit [facility] [address] [place] [address] Faisal Lee MD History of coronary artery stent placement (Primary Dx); Paroxysmal atrial flutter (HCC) from Last 3 Months Immunizations Immunization Administration Dates Next Due Influenza, Trivalent, Adjuva nted, Intramuscular 01/19/2018 Influenza, Trivalent, High D ose, Split, Preservative Free, Intramuscular 12/22/2018,01/24/2017,01/29/2016 Influenza, Unspecified 02/06/2014,02/09/2013,01/2012 Pneumococcal Conjugate PCV 13 06/04/2016 Pneumococcal Polysaccharide PPV23 01/19/2018 Tdap 03/26/2015 Surgical History Surgery Date Site/Laterality Comments CORONARY STENT PLACEMENT 04/19/1998 - 04/18/1999 [facility] Medical History Medical History Date Comments Hypertension Hypertension Myocardial infarction (HCC) 1998 COPD (chronic obstructive pulmonary disease) Covid 03/2022 Family History Medical History Relation [...] on file Legal Sex Female 2:30 AM HARD TILE SETTER APPRENTICE Gender Identity Not on file Sexual Orientation Not on file Obstetrics History Last Filed Vital Signs Vital Sign Reading Time Taken Comments Blood Pressure 148/66 11/07/2024 1:37 PM CDT Pulse 84 11/07/2024 1:37 PM CDT Temperature - - Respiratory Rate - - Oxygen Saturation 89% 11/07/2024 1:3 7 PM CDT wearing portable O2 Inhaled Oxygen Concentration - - Weight 55.1 kg (121 lb 8 oz) 11/07/2024 1:37 PM CDT Height 157.5 cm (5' 2) 11/07/2024 1:37 PM CDT Body Mass Index 22.22 11/07/2024 1:37 PM CDT Plan of Treatment Health Maintenance Due Date Last Done Comments Depression Screening 1943 Fall Risk Assessment 1945 Osteoporosis Screening-Bone Density Scan 1943 Hepatitis B Screening 12/08/1961 Zoster Vaccine (1 of 2) 12/08/1993 Well Visit 65+ 12/08/2008 Influenza Vaccine (#1) 2024 9, 01/19/2018, 01/24/2017, Additional history exists DTaP/Tdap/Td Vaccine (2 - Td or Tdap) 03/26/2025 03/26/2015 Pneumococcal vaccine 65+ Completed 01/19/2018, 05/20 Insurance [employer] MEDICARE ADVANTAGE [employer] [facility] MEDICARE ADV[place] [address] [place] [address] MEDICARE ADVANTAGE [employer] Care Teams Stewardesses Teacher Relationship Specialty Start Date End Date Glenn Oliva MD [address] [place] [address] PCP - General Family Practice 01/29/23 Homar Soriano MD [address] [place] [address] Internal Medicine 12/14/18
[2025-01-23 11:06] LABS: Iron 73 ug/dL (37-170)
[2025-01-23 11:16] LABS: Percent Iron Saturation 26 % (20-50)
[2025-01-23 11:47] LABS: Ferritin 77.80 ng/mL (11.1-264)
[2025-01-23 12:03] LABS: Vitamin B12 > 1000.0 pg/mL (239-931)
== END 2025-01-23 10:07 | disposition home or self-care (01) ==
LOC: ANHLAB 10:07
PROVIDERS: PCP Nurse Practitioner Family; Visit Provider Internal Medicine Hematology & Oncology
DX: D64.9 Anemia, unspecified (principal)
CPT/HCPCS: 36415; 80048; 82607; 82728; 82746; 83540; 83550; 85027